=== PATIENT | female | born 1950 | race Caucasian/White ===

== ENCOUNTER 2023-01-24 09:22 | Outpatient (OUT) | payer MEDICARE, OTHER, SELFPAY ==
--- NOTE | 2023-01-24 09:22 | OP_ITS ---
Procedure Date:? 01/24/2023 ? PROCEDURE:? Treadmill exercise test under Nehemiah protocol. ? REASON FOR STRESS TEST:? To evaluate a patient with dyspnea on exertion. ? CARDIAC HISTORY:? This is a 72-year-old patient with no personal history of coronary disease.? She has a strong family history parents and siblings having coronary disease and essential hypertension. ? PRIMARY RISK FACTORS:? Include essential hypertension. ? EKG reveals sinus rhythm with a ventricular rate of 63 beats per minute. The [place] interval, QRS interval and QT interval are all within normal limits with a normal axis.? There are no pathologic Q-waves and only non-specific ST-T wave changes. ? STRESS TEST: Protocol:? Nehemiah protocol is followed. Exercise capacity:? Patient demonstrated a normal exercise capacity.? She exercised for 8 ? minutes, achieving a heart rate of 127 beats per minute, which is equivalent to 85% maximum predicted heart rate.? She exercised in the stage 3 of this protocol, which is equivalent to 10.1 MET units. Heart rate and blood pressure response:? Patient exhibited a normal heart rate and blood pressure response to exercise.? Her beginning heart rate was 64 with a blood pressure of 118/78, which gradually increased, at peak exercise to a heart rate of 127 beats per minute with a blood pressure of 164/92.? Both gradually returned to baseline during the recovery phase. EKG:? There were no ST-T wave changes during exercise. Patient response:? Patient became dyspneic without chest pain during exercise. ? IMPRESSION:? There was no objective evidence during exercise suspicious for myocardial ischemic.? Patient demonstrated normal exercise capacity with a normal heart rate and blood pressure response to exercise. Cassidy treadmill score was 7.5.? Patient in a low risk group.? Cardiolite was injected with images and interpretation pending. [facility]
--- NOTE | 2023-01-24 09:30 | XR_ITS ---
The [address] [address] Patient Name: KARLENE DOMINGO MRN: [id number] date: 1950 Sex: F Assigned Patient Location: [facility] Current Patient Location: [facility] Accession/Order Number: [id number] Exam Date: 01/24/2023 09:40 Report Date: 01/24/2023 13:15 At the request of: SULY SLAUGHTER Procedure: XR DEXA axial skeleton EXAMINATION: XR DEXA axial skeleton HISTORY: Menopause Z78.0 COMPARISON: No relevant comparison available. TECHNIQUE: Dual-energy X-ray absorptiometry (DXA) was performed. FINDINGS: SPINE ANALYSIS: Average bone mineral density is 1.045 g/cm2. T-score (standard deviation relative to young adult mean): -1.3 . HIP ANALYSIS: Lowest bone mineral density is within the right femoral neck, 0.795 g/cm2. T-score (standard deviation relative to young adult mean): -1.7 . IMPRESSION: [employer] Classification: Osteopenia - Moderate Fracture Risk Electronically authenticated by: KASSIE TATE Date: 01/24/2023 13:15
--- NOTE | 2023-01-24 10:05 | NM_ITS ---
Patient: KARLENE DOMINGO Exam Date: 01/24/2023 : 1950 Gender:F Ordering : DR SULY SLAUGHTER D.O. Admission #: [id number] Family : Order #: [id number] CLICK HERE TO VIEW EXAM RADIOLOGY REPORT PROCEDURE: NM SHARI PERF SPECT REST STR COMPARISON: None. INDICATIONS: Chest pain, hypertension, dyspnea on exertion TECHNIQUE: Exam Description: Stress/Rest two day protocol gated SPECT Rest Imagin.5 mCi Tc-99m Cardiolite IV on 01/24/2023 Stress Imaging 30.0 mCi Tc-99m Cardiolite IV on 01/24/2023 Exercise Protocol: Nehemiah Heart Rate (bpm): Rest: 64 Max: 127 PMHR: 85 Blood Pressure: Rest: 118/78 Max: 164/92 Exercise Time: Minutes: 7 Seconds: 35 Stage Reached: Stage: 3 Mets 10.1 Symptoms: Rest and peak stress ECG findings were normal and the exercise portion of the study was normal per attending physician Dr. Estrada Slaughter . For more details please see separate cardiac stress test report. FINDINGS: QUALITY OF STUDY: Excellent. PERFUSION DEFECT: None. LOCATION: N/A SIZE: N/A. SEVERITY: N/A. TYPE: N/A. WALL MOTION: Normal. LV SIZE: Normal. 47 mL. TID / TCD: None; 0.7 LVEF: Normal. Calculated EF 88%. SUMMARY: Myocardial perfusion imaging study is NORMAL. CONCLUSION: 1. Normal nuclear medicine myocardial perfusion scan. Dictated by: Juancarlos Queen M.D. on 01/24/2023 at 15:19 Approved by: Juancarlos Queen M.D. on 01/24/2023 at 15:20
== END 2023-01-24 09:23 ==
LOC: RAD 09:23
PROVIDERS: PCP Internal Medicine; Visit Provider Internal Medicine
DX: R07.2 Precordial pain (principal); I10 Essential (primary) hypertension; E78.00 Pure hypercholesterolemia, unspecified; R06.09 Other forms of dyspnea; Z78.0 Asymptomatic menopausal state; M85.80 Other specified disorders of bone density and structure, unspecified site
CPT/HCPCS: 77080; 78452; 93017; A9500

== ENCOUNTER 2023-03-15 07:24 | Outpatient (OUT) | payer MEDICARE, OTHER, SELFPAY ==
--- NOTE | 2023-03-15 | CT_ITS ---
[address] [address] Patient Name: KARLENE DOMINGO MRN: [id number] date: 1950 Sex: F Assigned Patient Location: CT Current Patient Location: CT Accession/Order Number: [id number] Exam Date: 03/15/2023 08:25 Report Date: 03/15/2023 09:08 At the request of: SULY SLAUGHTER Procedure: CT angio chest EXAM: CT angio chest HISTORY: Dyspnea on exertion, R06.09, Precordial pain, R07.2 COMPARISON: 12/26/2022 TECHNIQUE: Axial CT images were obtained of the chest with intravenous contrast during the arterial phase. Multiplanar, 3-D and MIP reconstructions were performed. CHEST FINDINGS: Lungs/Pleura: The lungs are clear. No pleural effusion or pneumothorax. Pulmonary Arteries: No evidence of pulmonary embolus. Cardiovascular: The heart is normal in size. No significant coronary artery calcifications identified. Mild scattered atherosclerotic calcification is present in the thoracic aorta. No evidence of aortic dissection or aneurysm. Pericardium: No effusion. Mediastinum: Unremarkable. Lymph Nodes: No lymph node enlargement by CT size criteria. Bones: No acute osseous abnormality. Mild multilevel degenerative changes are present in the thoracic spine. Soft tissues: Unremarkable. Upper Abdomen: Unremarkable. CT/CT angio chest IMPRESSION: 1. No acute vascular abnormality. 2. No pulmonary embolus. Electronically authenticated by: VIRGINIA YOUNG Date: 03/15/2023 09:08
[2023-03-15 07:42] LABS: Estimated GFR (African America >60 (>=60); Estimated GFR (Non-African Ame >60 (>=60)
== END 2023-03-15 07:25 | disposition home or self-care (01) ==
LOC: CT 07:24
PROVIDERS: PCP Internal Medicine; Visit Provider Internal Medicine
DX: R06.09 Other forms of dyspnea (principal); R07.2 Precordial pain
CPT/HCPCS: 36415; 71275; 82565; Q9967

== ENCOUNTER 2023-06-13 15:21 | Outpatient (OUT) | payer MEDICARE, OTHER, SELFPAY ==
--- NOTE | 2023-06-13 15:24 | MM_ITS ---
Patient: KARLENE DOMINGO Exam Date: 06/13/2023 : 1950 Gender:F Ordering : DR Hussein Rowan D.O. Admission #: [id number] Family : Order #: [id number] CLICK HERE TO VIEW EXAM RADIOLOGY REPORT PROCEDURE: MM TOMOSYNTHESIS SCREENING BI COMPARISON: MG MAMM SCREEN 3D CRISTINA CAD, 05/07/2022. MG MAMM SCREEN 3D CRISTINA CAD, 05/04/2021. MG MAMM SCREEN CRISTINA W CAD, 05/02/2020. MG MAMM CRISTINA SCRN W CAD DIG, 03/25/2013. INDICATIONS: Screening Calculator Name NCI Breast Cancer Risk Assessment Tool 5 Year Breast Cancer Risk 3.50% Lifetime Breast Cancer Risk 8.80% Personal Breast Cancer No Personal Ovarian Cancer No Treatments None Family Cancers Mother with breast cancer at age 58; Mother with lung cancer at age 85. LOCATION: [facility] BREAST COMPOSITION: Almost entirely fatty. FINDINGS: DIAGNOSTIC CATEGORY 1--NEGATIVE. RIGHT BREAST: No significant suspicious finding. No significant change has occurred. LEFT BREAST: No significant suspicious finding. No significant change has occurred. RECOMMENDATIONS: ROUTINE MAMMOGRAM AND CLINICAL EVALUATION IN 12 MONTHS. PLEASE NOTE: A NORMAL MAMMOGRAM DOES NOT EXCLUDE THE POSSIBILITY OF BREAST CANCER. A CLINICALLY SUSPICIOUS PALPABLE LUMP SHOULD BE BIOPSIED. Dictated by: Juancarlos Queen M.D. on 06/17/2023 at 14:02 Approved by: Juancarlos Queen M.D. on 06/17/2023 at 14:20
== END 2023-06-13 15:22 | disposition home or self-care (01) ==
LOC: MAMMO 15:21
PROVIDERS: PCP Internal Medicine; Visit Provider Internal Medicine
DX: Z12.31 Encounter for screening mammogram for malignant neoplasm of breast (principal); Z80.3 Family history of malignant neoplasm of breast; Z80.1 Family history of malignant neoplasm of trachea, bronchus and lung
CPT/HCPCS: 77063; 77067

== ENCOUNTER 2024-01-06 08:10 | Outpatient (OUT) | payer SELFPAY ==
--- NOTE | 2024-01-06 08:26 | CT_ITS ---
The [address] [address] Patient Name: KARLENE DOMINGO MRN: [id number] date: 1950 Sex: F Assigned Patient Location: CT Current Patient Location: LAB Accession/Order Number: [id number] Exam Date: 01/06/2024 08:35 Report Date: 01/06/2024 13:25 At the request of: SULY SLAUGHTER Procedure: CT chest wo con EXAMINATION: CT chest wo con HISTORY: Lung Nodule COMPARISON: CTA chest 03/15/2023 TECHNIQUE: Multi-planar CT images were obtained without and/or with IV contrast as indicated by examination type. Axial, Coronal, and Sagittal images. Dose reduction techniques were achieved by using automated exposure control and/or adjustment of mA and/or kV according to patient size and/or use of iterative reconstruction technique. FINDINGS: LUNGS: Numerous 3-5 mm nodules scattered throughout the lungs bilaterally. Mild emphysematous changes. PLEURA: No mass, effusion, or pneumothorax. VASCULATURE: No abnormality. CHIP: No mass or adenopathy. MEDIASTINUM: No mass or adenopathy. CARDIAC: No enlargement, pericardial thickening, or significant calcification. Coronary artery calcifications: AORTA: No aneurysm or dissection. CHEST WALL: No mass or axillary adenopathy. BONES: No bone lesion or fracture. LIMITED ABDOMEN: No suspicious findings Limited images of the upper abdomen. OTHER: Negative. CT/CT chest wo con IMPRESSION: 1. Numerous small 3-5 mm nodules scattered within the lungs; nonspecific. Consider follow-up CT chest in 6 months to document stability. These were either not present or, more likely, obscured by atelectasis/infiltrates on prior study. Electronically authenticated by: KASSIE TATE Date: 01/06/2024 13:25
--- OUTSIDE RECORDS SUMMARY | 2024-01-06 08:27 | XMS_ITS | CCD ---
Author Organization [facility] Care Team Providers Care Civil Drafter Name Role Phone Dena Davis Unavailable Hussein Rowan DO Primary Care Provider Hussein Rowan Unavailable SUKHJINDER, DR SAVAGE Admitting Unavailable BALL, DR SAVAGE Primary Care Unavailable BALL, DR SAVAGE Attending Unavailable BALL, DR SAVAGE Consulting Unavailable ZIEBER, DR KASSIE Orellana Consulting Unavailable SUKHJINDER, DR SAVAGE Primary Care Unavailable MARCIAL ., DR PETERS Attending Unavailable MARCIAL ., DR PETERS Consulting Unavailable MARCIAL ., DR PETERS Admitting Unavailable ZIEBER, DR KASSIE Orellana Consulting Unavailable CORNELIUS, JUAN LUIS Consulting Unavailable CORNELIUS, JUAN LUIS Admitting Unavailable SUKHJINDER, DR SAVAGE Primary Care Unavailable CORNELIUS, JUAN LUIS Attending Unavailable BALL, DR SAVAGE Primary Care Unavailable SUKHJINDER, DR SAVAGE Admitting Unavailable BALL, DR SAAVGE Attending Unavailable BALL, DR SAVAGE Consulting Unavailable BALL, DR SAVAGE Primary Care Unavailable BALL, DR SAVAGE Admitting Unavailable BALL, DR SAVAGE Attending Unavailable BALL, DR SAVAGE Consulting Unavailable DEREK BONILLA Consulting Unavailable MARCIAL ., DR PETERS Admitting Unavailable BALL, DR SAVAGE Primary Care Unavailable MARCIAL ., DR PETERS Attending Unavailable MARCIAL ., DR PETERS Consulting Unavailable BALL, DR SAVAGE Primary Care Unavailable MARCIAL ., DR PETERS Attending Unavailable MARCIAL ., DR PETERS Consulting Unavailable MARCIAL ., DR PETERS Admitting Unavailable SUKHJINDER, DR SAVAGE Primary Care Unavailable MARCIAL ., DR PETERS Attending Unavailable MARCIAL ., DR PETERS Consulting Unavailable MARCIAL ., DR PETERS Admitting Unavailable BRAD RIVAS Consulting Unavailable CHACHA WEI Consulting Unavailable Hussein Rowan DO Primary Care Provider Cony Lees Unavailable FRY, JIHAD Referring Unavailable BALL, HUSSEIN E Primary Care Unavailable FRY, JIHAD Referring Unavailable BALL, HUSSEIN E Primary Care Unavailable BALL, HUSSEIN E Primary Care Unavailable BALL, HUSSEIN E Primary Care Unavailable ZELDAER, TINA A Attending Unavailable HERSHNER, TINA A Referring Unavailable BALL, HUSSEIN E Primary Care Unavailable BALL, HUSSEIN E Referring Unavailable FRY, JIHAD Attending Unavailable TINA BROWN A Attending Unavailable HERSHNER, TINA A Referring Unavailable BALL, HUSSEIN E Primary Care Unavailable JUAN LUIS SHIELDS Attending Unavailable Allergies Allergy Classification Reported Allergen(s) Allergy Type Date of Onset Reaction(s) Facility (15 sources) Acetaminophen / HYDROcodone; Translations: [Vicodin] Drug Allergy 05-21-20 13 Unknown [facility] Repository (20 sources) Acetaminophen / oxyCODONE Drug Allergy 06-12-20 13 [facility] Work Phone: (12 sources) buPROPion; Translations: [Wellbutrin] Drug Allergy 07-22-20 15 Unknown [facility] Repository (14 sources) Sulf-10 Drug allergy Unknown [facility] Other (9 sources) Acetaminophen / HYDROcodone; Translations: [HYDROCODONE-ACET AMINOPHEN] Drug Allergy 05-21-20 13 [facility] (9 sources) buPROPion; Translations: [BUPROPION HCL] Drug Allergy 06-12-20 13 [facility] Work Phone: (17 sources) Sulfonamides (Antibiotic); Translations: [SULFA (SULFONAMIDE ANTIBIOTICS)] Drug Intolerance 06-12-20 13 [facility] Work Phone: (1 source) Acetaminophen / oxyCODONE Drug Allergy 05-21-20 13 [facility] Repository (3 sources) Leucine; Translations: [NICKEL] Drug Allergy 11-09-19 16 [facility] Repository (1 source) Sulfonamides (Antibiotic) Drug allergy (disorder) 05-21-20 13 [facility] Repository (8 sources) buPROPion Drug Allergy Unknown [facility] Other (13 sources) nickel Drug Allergy 02-26-20 18 [facility] (8 sources) Vicodin *ANALGESICS - OPIOID* Propensity to adverse reactions Unknown [facility] Other (5 sources) Allergies Reconciled Propensity to adverse reactions Unknown [facility] Other (2 sources) Acetaminophen / oxyCODONE; Translations: [OXYCODONE-ACETAM INOPHEN] Drug Allergy 06-12-20 [facility] Repository Medications Current Medications Medication Drug Class(es) Dates Sig (Normalized) Sig (Original) ciprofloxacin 3 mg/ml ophthalmic solution (5 sources) Quinolone Antimicrobial Start: 05-31-2023 take 1 drop(s) into the eye(s) every four hours Ciloxan 0.3 % 1 drop right eye every 4 hrs for 5 days May, Active Cosopt 22.3-6.8 MG/ML (2 sources) take 1 drop(s) into the eye(s) twice daily Cosopt 22.3-6.8 MG/ML 1 drop into affected eye Ophthalmic Twice a day Active iv contrast (will be provided with radiology test) (1 source) Start: 06-11-2023 End: 06-12-2023 inject 1 dose intravenously once iv contrast (will be provided with radiology test) CTA Coronary. No IV access, insert saline lock prior to the sedation, infusion, injection for imaging exam. Discontinue saline lock post exam. If Pt. has a central line or IVAD, may access for administration according to line specific nursing protocol. Once exam is complete flush line and de-access according to line specific nursing protocol in the CT contrast administration guidelines link. 1 Each 0 06/11/2023 06/12/2023 Active Comment on above: CTA Coronary. No IV access, insert saline lock prior to the sedation, infusion, injection for imaging exam. Discontinue saline lock post exam. If Pt. has a central line or IVAD, may access for administration according to line specific nursing protocol. Once exam is complete flush line and de-access according to line specific nursing protocol in the CT contrast administration guidelines link. metFORMIN hydrochloride 500 mg oral tablet (13 sources) Biguanide Start: 12-26-2022 take 1 tablet by mouth every twenty-four hours metFORMIN HCl 500 MG 1 tablet with a meal Orally Once a day for 30 days December, Active Thyroid (1 source) Thyroid Active Completed/Discontinued Medications Medication Drug Class(es) Dates Sig (Normalized) Sig (Original) amoxicillin 500 mg oral capsule (5 sources) Penicillin-class Antibacterial Amoxicillin 500 MG Oral for 10 Days Not-Taking/PRN chlorhexidine gluconate 1.2 mg/ml mouthwash (5 sources) Chlorhexidine Gluconate 0.12 % Mouth/Throat for 16 Days Not-Taking/PRN Chlorhexidine Gl uconate 0.12 % Mouth/Throat for 16 Days Not-Taking dorzolamide 20 mg/ml / timolol 5 mg/ml ophthalmic solution (14 sources) Carbonic Anhydrase Inhibitor, beta-Adrenergic Meenu Start: 11-12-2023 take 1 drop(s) into the eye(s) twice daily dorzolamide-timolol (COSOPT) 22.3-6.8 mg/mL ophthalmic solution Use 1 Drop in both eyes two times a day. 30 mL 4 11/12/2023 Active Start: 10-16-2021 End: 11-12-2023 take 1 drop(s) into the eye(s) twice daily dorzolamide-timolol (COSOPT) 22.3-6.8 mg/mL ophthalmic solution INSTILL 1 DROP INTO BOTH EYES TWICE A DAY 20 mL 4 11/12/2022 11/12/2023 Discontinued Dorzolamide HCl- Timolol Mal 22.3-6.8 MG/ML Ophthalmic for 90 Days Not-Taking Comment on above: Use 1 Drop in both e yes twice daily. INSTILL 1 DROP INTO BOTH EYES TWICE A DAY Use 1 Drop in both e yes two times a day. Dorzolamide HCl-Timolol Mal 22.3-6.8 MG/ML (2 sources) Dorzolamide HCl- Timolol Mal 22.3-6.8 MG/ML Ophthalmic for 90 Days Not-Taking/PRN Dorzolamide HCl- Timolol Mal 22.3-6.8 MG/ML Ophthalmic for 90 Days Not-Taking evening primrose oil 500 mg oral capsule (7 sources) Start: 06-12-2013 take 1 capsule by mouth once daily Evening [place] Oil (EVENING PRIMROSE) 500 mg cap Take 1 capsule by mouth once daily. 0 06/12/2013 Active Comment on above: Take 1 capsule by [facility] once daily. levothyroxine sodium 0.025 mg oral tablet (20 sources) l-Thyroxine take 1 tablet by mouth once daily before breakfast levothyroxine (SYNTHROID) 25 mcg tablet Take 25 mcg by mouth daily before breakfast. 0 Active take 1 tablet by mouth once lazaro y Levothyroxine Sodium 25 MCG TAKE 1 TABLET BY MOUTH EVERYDAY ON AN EMPTY STOMACH for 90 Active Comment on above: Take 25 mcg by mouth daily before breakfast. linseed oil 1000 mg oral capsule (7 sources) Start: 06-12-20 13 take 1 capsule by mouth once daily Flaxseed Oil 1,000 mg cap Take 1 capsule by mouth once daily. 0 06/12/2013 Active Comment on above: Take 1 capsule by [facility] once daily. losartan potassium 25 mg oral tablet (20 sources) Angiotensin 2 Receptor Meenu take 1 tablet by mouth once daily losartan (COZAAR) 25 mg tablet Take 25 mg by mouth once daily. 0 Active Comment on above: Take 25 mg by mouth once daily. metoprolol tartrate 50 mg oral tablet (5 sources) beta-Adrenergic Meenu Start: 06-11-20 23 metoprolol tartrate, short acting, (LOPRESSOR) 50 mg tablet Take one 50 mg tablet the evening prior to the CTA examination, take another 50 mg tablet the morning of the CTA examination. 2 tablet 0 06/11/2023 Active Comment on above: Take one 50 mg table t the evening prior to the CTA examination, take another 50 mg tablet the morning of the CTA examination. nitroglycerin 0.3 mg sublingual tablet (5 sources) Nitrate Vasodilator Start: 06-11-20 23 take 1 tablet under the tongue once nitroglycerin sublingual (NITROQUICK) 0.3 mg SL tablet Dissolve 1 tablet under the tongue one time only for 1 dose. To be administered in Radiology for CTA exam 1 tablet 0 06/11/2023 Active Comment on above: Dissolve 1 tablet un jose f the tongue one time only for 1 dose. To be administered in Radiology for CTA exam omega-3 fatty acids 1,000 mg cap (7 sources) Start: 06-12-20 13 take 1 capsule by mouth once daily omega-3 fatty acids 1,000 mg cap Take 1 capsule by mouth once daily. 0 06/12/2013 Active Comment on above: Take 1 capsule by [facility] once daily. prednisoLONE acetate 10 mg/ml ophthalmic suspension (1 source) Corticosteroid Start: 11-30-19 21 End: 04-10-20 22 take 1 drop(s) into the eye(s) every two hours, then take 1 drop(s) into the eye(s) four times daily prednisoLONE acetate (PRED FORTE, ECONOPRED PLUS) 1 % ophthalmic suspension Use 1 Drop in the right eye every [address] one drop in operative eye four times a day. 1 11/29/2020 04/10/2022 Discontinued Comment on above: Use 1 Drop in the ri ght eye every [address] one drop in operative eye four times a day. predniSONE 20 mg oral tablet (5 sources) predniSONE 20 MG Oral for 9 Days Not-Taking/PRN Problems Active Problems Problem Classification Problem Date Documented Date Episodic/Chronic Allergic reactions (13 sources) Allergic contact dermatitis due to plants, except food; Translations: [Allergic contact dermatitis due to plants, except food] Episodic Calculus of urinary tract (14 sources) History of calculus of kidney; Translations: [Personal history of urinary calculi] Onset: 2 Episodic Cataract (8 sources) Pseudophakia of left eye; Translations: [Presence of intraocular lens] Onset: 7 02-12-2017 Chronic Disorders of lipid metabolism (20 sources) Hypercholesterolemia; Translations: [Pure hypercholesterolemia, unspecified] Onset: 3 Chronic Essential hypertension (20 sources) Essential hypertension; Translations: [Essential (primary) hypertension] Onset: 3 Chronic Glaucoma (9 sources) Bilateral low tension glaucoma of eyes; Translations: [Low-tension glaucoma, bilateral, stage unspecified] Onset: 4 Chronic Malaise and fatigue (2 sources) Other fatigue; Translations: [OTHER FATIGUE] Onset: 3 Episodic Menopausal disorders (18 sources) Postmenopausal bleeding; Translations: [Postmenopausal bleeding] Onset: 2 Chronic Osteoarthritis (1 source) Unilateral primary osteoarthritis, left knee; Translations: [UNI PRIM OSTEOARTHRITIS LT KNEE] Onset: 2 Chronic Other aftercare (1 source) Other termite technician (current) drug therapy Episodic Other eye disorders (7 sources) Posterior vitreous detachment; Translations: [Vitreous degeneration, unspecified eye] Onset: 7 02-12-2017 Chronic Other lower respiratory disease (10 sources) Other forms of dyspnea; Translations: [OTHER FORMS OF DYSPNEA] Onset: 3 Episodic Other lower respiratory disease (8 sources) Dyspnea on exertion; Translations: [Other forms of dyspnea] Episodic Other lower respiratory disease (1 source) Shortness of breath; Translations: [SOB (shortness of breath)] Onset: 3 Episodic Other lower respiratory disease (3 sources) Nodule of lung; Translations: [Solitary pulmonary nodule] 07-22-2023 Episodic Other lower respiratory disease (1 source) Solitary pulmonary nodule Episod ic Other nutritional; endocrine; and metabolic disorders (13 sources) Metabolic syndrome X; Translations: [Metabolic syndrome] Chronic Other nutritional; endocrine; and metabolic disorders (1 source) Metabolic syndrome Chronic Other screening for suspected conditions (not mental disorders or infectious disease) (1 source) Abnormal findings on diagnostic imaging of other specified body structures; Translations: [ABNORML FIND DX IMG OTH BODY STRUC] Onset: 2 Chronic Other screening for suspected conditions (not mental disorders or infectious disease) (18 sources) Blood chemistry abnormal; Translations: [Other specified abnormal findings of blood chemistry] Onset: 2 Episodic Other skin disorders (13 sources) Alopecia; Translations: [Nonscarring hair loss, unspecified] Episodic Residual codes; unclassified (1 source) Asymptomatic menopausal state Episodic Superficial injury; contusion (1 source) Injury of conjunctiva and corneal abrasion without foreign body, right eye, initial encounter Episodic Systemic lupus erythematosus and connective tissue disorders (9 sources) Keratoconjunctivitis sicca; 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] Onset: 7 Chronic Thyroid disorders (20 sources) Hypothyroidism; Translations: [Other specified hypothyroidism] Onset: 1 11-22-2020 Chronic Unclassified (1 source) CONTACT W/AND (SUSP) EXPOS COVID-19; Translations: [CONTACT W/AND (SUSP) EXPOS COVID-19] Onset: 2 Urinary tract infections (13 sources) Cystitis; Translations: [Cystitis, unspecified without hematuria] Episodic Past or Other Problems Problem Classification Problem Date Documented Date Episodic/Chronic Mycoses (4 sources) Tinea unguium; Translations: [TINEA UNGUIUM] Onset: 01-18-2022 Episodic Nonspecific chest pain (10 sources) Precordial pain; Translations: [Chest discomfort] Onset: 06-11-2023 Episodic Other injuries and conditions due to external causes (1 source) Unspecified injury of right lower leg, initial encounter Onset: 10-16-2021 Resolved: 10-16-2021 Episodic Other lower respiratory disease (7 sources) Dyspnea; Translations: [Shortness of breath] Onset: 06-11-2023 06-11-2023 Episodic Residual codes; unclassified (8 sources) History of construction of filtration bleb; Translations: [Other specified postprocedural states] Onset: 02-12-2017 Episodic Residual codes; unclassified (1 source) Family history of malignant neoplasm of breast; Translations: [FAMILY HX MALIG NEOPLASM OF BREAST] Onset: 05-09-2022 Episodic Residual codes; unclassified (1 source) Family history of malignant neoplasm of trachea, bronchus and lung; Translations: [FAM HX MALIG NEOPLSM TRACH BRON LNG] Onset: 05-09-2022 Episodic Results Test Name Value Interpretation Reference Range Facility CTA CORONARY W IVCONon 07-05 CTA CORONARY W IVCON * * *Final Report* * * DATE OF EXAM: Jul 05 2023 3:04PM [facility] 0470 - CTA CORONARY W IVCON / PROCEDURE REASON: multiple diagnoses * * * * Physician Interpretation * * * * CTA CORONARY ARTERIES acquired at [facility] - images were acquired and screened for acute findings earlier. Subsequently reported following overnight procedure. Direct Image Comparison: None HISTORY: 72 years old Female patient with chronic h/o chest pain, suspected CAD Evaluation for further treatment options.. There is request to define coronary anatomy. TECHNIQUE: SCANNER: Siemens Definition Flash Dual source [id number] scanner PROTOCOL: Sequential imaging of the heart with prospective triggering in diastolic phase and submillimeter slice reconstruction following administration of contrast material. Scan Range: carlos a to the base of the heart CT Dose-Length Product (DLP): 265 mGy*cm CT Dose Reduction Employed: Automated exposure control(AEC) and iterative recon CONTRAST: IV administration of 90 ml Omnipaque 350 Premedication per [facility] protocol/documentation. Scan acquisition: uncomplicated Macro Version: [id number] For optimization of anatomic evaluation, advanced 3-D off-line postprocessing was performed on a dedicated workstation by the interpreting physician. Additional lung CAD. [place] images reconstructed, saved, and available in EPIC 'Get Images'. STUDY LIMITATIONS: Limited contrast enhancement of the right sided cardiac chambers and pulmonary artery. RESULT: LINES, TUBES and DEVICES: None limited CHEST: visualized Chest wall anatomy: unremarkable. visualized LUNGS: non-calcified 7 mm nodule right lower lung lobe (Image # 20) (see saved images). Follow-up recommendations: see Impression visualized MEDIASTINUM: unremarkable. PERICARDIUM: unremarkable CENTRAL PULMONARY ARTERY: incompletely visualized CARDIAC CHAMBERS: LEFT VENTRICLE: normal size. Right ventricle: normal size Left atrium: normal size. SANDEEP: normal Right atrium: normal size CENTRAL VENOUS and PULMONARY VENOUS RETURN: normal. Coronary Sinus: normal size MITRAL and TRICUSPID VALVE: assessment is limited in the current study - no leaflet calcification. No annular calcification PULMONIC VALVE: assessment is limited in the current study. No leaflet calcification AORTIC VALVE: appears trileaflet. No leaflet calcification. visualized AORTA: Size: Normal size visualized thoracic aorta. Pathology: No aortic pathology in limited visualized segments of the aorta, Intervention: None Complications: n/a STJ: maintained Wall Changes: no evidence of wall changes. AORTIC DIMENSIONS: AORTIC ROOT: 3 cm measured [id number] mid ASCENDING THORACIC AORTA: 3.2 cm mid DESCENDING THORACIC AORTA: 2.8 cm CORONARY ANATOMY: normal origin of the coronary arteries. Direct epicardial course of the mid LAD without intramyocardial extension. LEFT MAIN Coronary Artery: Normal sized vessel, which LM Stenosis and Plaque: No plaque or luminal stenosis. LAD (Left Anterior Descending Coronary Artery): Normal size vessel, which wraps around the apex. Direct epicardial course of tortuous mid LAD segment without intramyocardial extension. Gives rise to diagonal branches and small septal branches. LAD Stenosis and Plaque: No plaque or luminal stenosis. LCX (Left Circumflex Coronary Artery): Normal size vessel, which is . Gives rise to a high-lateral branch, lateral branch, and a posterolateral branch. LCX Stenosis and Plaque: No plaque or luminal stenosis. Distal branches are not well visualized RCA (Right Coronary Artery): Normal size vessel, which is non-dominant. Gives rise to a conus branch, SA roscoe branch, acute marginal branch. In its distal segment it bifurcates into the PDA and PV branch. RCA Stenosis and Plaque: No plaque or luminal stenosis. limited upper ABDOMEN: unremarkable Human Resource Manager (topogram) images: No additional findings. IMPRESSION: NO EVIDENCE OF ATHEROSCLEROTIC CHANGES OR LUMINAL STENOSIS OF THE CORONARY ARTERIES -Direct epicardial course of tortuous mid LAD segment without intramyocardial extension. -Distal branches are not well visualized CAD-RADS 0: No plaque or luminal stenosis. Absence of CAD., - Overall Plaque [place]: No evidence of plaque visualized LUNGS: non-calcified 7 mm nodule right lower lung lobe (Image # 20) (see saved images) Incidental Finding: Follow-up Acuity: Incidental Finding: Solid: 6-8 mm (solitary nodule) Routing Code: RI_1 Recommendation: CT Chest WO IVCON Time Frame: 6-12 months Comments: If stable on follow-up imaging, a repeat chest CT exam in 12 months (18-24 months from the initial exam) is recommended --END OF FINDING-- COMMUNICATION:? Results will be communicated with the ordering provider via [employer] staff message by [facility] Services within 2 business days of report finalization. Acoustic Intelligence Specialist: RUSTAM Transcribe (more content not included)... Invalid Interpretation Code [facility] NURSING PROGon 07-05-2023 NURSING PROG HNO ID: [id number] Author: Priscila Reyes RN Service: Radiology Author Type: Registered Nurse Type: Nursing Progress Note Filed: 07/05/2023 2:48 PM Note Text: Radiology Service Progress Note PATIENT NAME: Corrie Mccray DATE OF SERVICE: July 05, 2023 TIME: 2:45 PM PATIENT IDENTITY VERIFICATION COMPLETED USING TWO (2) STANDARD IDENTIFIERS: Name and Date of confirmed by patient verbally. PATIENT GENDER DATA: Female. status: : No status: NO. PATIENT RELEVANT IMPLANT DATA REVIEWED: Not Applicable ALLERGIES: Reviewed and unchanged MEDICATIONS REVIEWED: YES PROCEDURE TYPE: CT: NTG SL PATIENT SCREENING: Shortness of breath IV SITE: Ambulatory: A peripheral IV was started in the Right antecubital site with a Angio cath: 20 gauge. IV started by Debbie Malloy RN PERIPHERAL IV ACCESS: Discontinued CARDIAC MEDICATIONS: Nitroglycerin 0.3 mg SL given PATIENT DISCHARGED TO: Home/Self Care SIGNED BY: Priscila Reyes RN July 05, 2023 2:45 PM Normal [facility] NURSING PROG HNO ID: [id number] Author: Priscila Reyes RN Service: Radiology Author Type: Registered Nurse Type: Nursing Progress Note Filed: 07/05/2023 2:50 PM Note Text: Radiology Service Progress Note DATE OF SERVICE: July 05, 2023 TIME: 2:48 PM PATIENT WEIGHT: 144 LBS PATIENT IDENTITY VERIFICATION COMPLETED USING TWO (2) STANDARD IDENTIFIERS: Name and Date of confirmed by patient verbally. FALL SCREENING: Has the patient had 2 falls in the last year or 1 fall with injury or currently using an Ambulatory Assistive Device (Walker, Cane, Wheelchair, Crutches, etc.)? No PATIENT GENDER DATA: Female. status: : No status: NO. ALLERGIES: Reviewed and unchanged CONTRAST ALLERGY: No EXAM: CT -CONTRAST INDUCED NEPHROPATHY RISK FACTORS: Patient age > 60 years CREATININE: No results found for: CREAT , EGFROTH , EGFRAA P.O.C.T. RESULTS: POC done: Yes, See Lab Tab July 05, 2023 iStat Cr 0.9 GFR calc 91 TREATMENT: N/A IV SITE: Ambulatory: A peripheral IV was started in the Right antecubital site with a Angio cath: 20 gauge. Iv Started by Debbie Angeles RN IV SITE APPEARANCE: Clean,Dry and Intact SIGNATURE: Priscila Reyes RN PATIENT NAME: Corrie Badillo Mccray DATE: July 05, 2023 TIME: 2:48 PM [facility] SPIROMETRY WITH DILATOR IF O BSTRUCTEDon 07-05-2023 OLR24-31% PRE (L/S) 1.83 L/S [facility] FEV1 PRE (L) 2.23 L [facility] FEV1/FVC PRE (%) 76 % [facility] FVC PRE (L) 2.93 L [facility] PEF PRE (L/S) 6.37 L/S [facility] CNOVon 06-11-2023 CNOV Office Visit ([facility] ) -------- CORRIE MCCRAY ([id number]) 1950 F Date Time Provider Department 06/11/23 11:30 AM ZAIRE FRY During your visit today, we recorded the following information about you: Pulse Blood pressure Weight Height 76/minute 110/70 65.3 kg 1.575 m Zaire Fry MD 06/11/2023 11:43 AM Signed [facility] [facility] OUTPATIENT VISIT DATE June 11, 2023 OUTPATIENT VISIT TYPE NEW PRIMARY CARE PHYSICIAN: Hussein Rowan ([facility]) [address] [place] [address] A written report of the findings and recommendations will be sent to the requesting provider via shared medical record or via [employer]. Patient is being seen at the request of the referring physician for Chest pain, Hyperlipidemia, and Shortness of breath HISTORY OF PRESENT ILLNESS: Ms. Mccray is a 72 year old female with a history of hypertension, hypercholesterolemia however with high HDL and normal LDL to HDL ratio. Hypothyroidism. No history of diabetes. No family history of premature coronary disease or sudden cardiac . Cardiovascular work-up includes: An echocardiogram done in 2022 showed ejection fraction 60 to 65%. Mild MR TR. A CTA of the chest done on 01/01 2023 showed no pulmonary embolus. A nuclear stress test done on 01/24/2023 showed no ischemia. Normal perfusion scan. Normal EF. Continues to have chest discomfort on activity. She mentioned that she gets like a tight band around her chest when she is walking her son's dog. Also she has been having significant shortness of breath especially if she goes 1 flight of stairs. She denies any orthopnea or PND. No syncope near syncope. No lightheadedness or dizziness. No weight gain or loss. No leg edema. No other symptoms or complaints. IMPRESSION: Encounter Diagnosis ICD-10-CM 1. Chest discomfort R07.89 ECG COMPLETE CTA CORONARY W IVCON CREATININE BLD 2. SOB (shortness of breath) R06.02 ECG COMPLETE SPIROMETRY WITH DILATOR IF OBSTRUCTED CTA CORONARY W IVCON CREATININE BLD 3. Pure hypercholesterolemia E78.00 ECG COMPLETE CTA CORONARY W IVCON 4. Primary hypertension I10 CTA CORONARY W IVCON PLAN AND RECOMMENDATIONS: Chest discomfort Suggestive of angina along with a few risk factors of coronary artery disease however negative ischemic work-up. Continues to have typical symptoms so I will proceed with a CTA of the coronary arteries since the patient actually is very healthy despite the fact that she is 72 years old. Also I explained to her that there could be microvascular disease so we can always change her blood pressure medicine to a beta-meenu and a small dose of nitrates that can help with her symptoms. Shortness of breath Could be anginal equivalent. However she never had any lung testing so I will ask for PFTs. Hypertension Very well controlled by current management. However see #1 for possible changes of medications. Hypercholesterolemia Even though her LDL is 140 however her HDL is 67 and the ratio is excellent. So far her needs only diet options and no therapy. REVIEW OF SYSTEMS: Chest pain Yes Shortness of breath Yes Bleeding No Dizziness No Syncope No Palpations No 10 systems reviewed and are negative with the exception of pertinent positives described in HPI PHYSICAL EXAMINATION: BP 110/70 (BP Site: Left Arm, BP Position: Sitting, BP Cuff Size: Regular Adult) Pulse 76 Ht 157.5 cm (5' 2 ) Wt 65.3 kg (144 lb) SpO2 98% BMI 26.34 kg/m? HEENT: normocephalic, EOMI Heart: regular rhythm Lungs: clear to auscultation Abdomen: bowel sounds present Extremities: no edema Musculoskeletal: chest wall nontender Neurological: alert and oriented Psychiatric: appropriate and cooperative Skin: no rash, cellulitis or lesions appreciated CARDIOVASCULAR MEDICINE TESTING: I have personally reviewed ECG, laboratory results, outside medical records, echocardiogram report, stress test report, and vascular imaging report PAST CARDIAC HISTORY: See above. 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, moderate stage Pseudophakia of left eye PVD (posterior vitreous detachment), bilateral PAST SURGICAL HISTORY Procedure Laterality Date COLONOSCOPY FLX DX W/COLLJ SPEC WHEN PFRMD 02 Colonoscopy FSTLJ SCLERA GLAUCOMA TRABECULECT AB EXTERNO Right Trabeculectomy LAPS ABD PRTMANDOMENTUM DX W/WO SPEC BR/WA SPX 81 Laparoscopy LITHOTRIPSY XTRCORP SHOCK WAVE 2012 Lithotripsy NEUROPLASTY AND/TRANSPOS MEDIAN NRV CARPAL TUNNE 2007 Carpal tunnel decomp POST-CATARACT LASER SURGERY 03-05-14 Yag Capsulotomy left eye PUBOVAGINAL SLING TONSILLECTOMY AND ADENOIDECTOMY XCAPSL CTRC RMVL INSJ IO LENS PROSTH W/O ECP 2010 os Catarac (more content not included)... Normal [facility] ECG COMPLETEon 06-11-2023 ECG COMPLETE Ventricular Rate : 7 4 BPM Atrial Rate : 74 BPM P-R Interval : 148 ms QRS Duration : 72 ms Q-T Interval : 390 ms QTC Calculation(Bazett) : 432 ms Calculated P Asbury : -2 degrees Calculated R Asbury : 7 degrees Calculated T Asbury : -4 degrees NORMAL SINUS RHYTHM NONSPECIFIC ST AND T WAVE ABNORMALITY ABNORMAL ECG Confirmed by GREGG MULLEN MD ([id number]) on 06/14/2023 11:22:04 PM NAME : CORRIE MCCRAY PID : [id number] : 1950 Gender : Female Race : Unknown ORD : [id number] Procedure Date : Jun 11 2023 11:26:41 Edit Date : Jun 14 2023 23:22:08 Diagnosis: NORMAL SINUS RHYTHM NONSPECIFIC ST AND T WAVE ABNORMALITY ABNORMAL ECG Confirmed by GREGG MULLEN MD ([id number]) on 06/14/2023 11:22:04 PM Test Reason : R07.89 Chest discomfort Location : 145 : LOCARD Overread By : GREGG MULLEN MD Edited By : GREGG MULLEN MD Referred By : HUSSEIN ROWAN Acquired by : Elva wilson [facility] Yeny 03-25-2023 CNPN Telephone (REFPHY) -------- CORRIE MCCRAY ([id number]) 1950 F Date Time Provider Department 03/25/23 NO ONE (HISTORICAL) REFPHY During your visit today, we recorded the following information about you: [place] 03/25/2023 4:48 PM Signed Patient: Corrie Mccray Date of : 1950 Patient phone number: [phone] Referring Provider for the encounter: Hussein Rowan Requesting Provider: n/c Reason for requesting visit (RFV/signs and symptoms/diagnosis): Precordial pain (R07.2) Person calling: caregiver: Chica Return call to: self Medical Records/Insurance Card scanned into [employer]: Yes Comments: Allergies As of Date: 03/25/2023 Noted Allergy Reaction HYDROCODONE-ACETAMINOPHE N 05/21/2013 16 - Unknown PERCOCET (OXYCODONE-ACETAMINOPHEN )06/12/2013 8 - GI Upset SULFA (SULFONAMIDE ANTIBIOTICS) 06/12/2013 8 - GI Upset WELLBUTRIN (BUPROPION HCL) 06/12/2013 2 - Rash Date Reviewed: 10/12/2022 Reviewed by: Tina Brown OD - Fully Assessed Reason for Visit: External Referrals/resources [909] Prescriptions as of 03/25/2023 - dorzolamide-timolol (COSOPT) 22.3-6.8 mg/mL ophthalmic solution INSTILL 1 DROP INTO BOTH EYES TWICE A DAY - losartan (COZAAR) 25 mg tablet - levothyroxine (SYNTHROID) 25 mcg tablet Take 25 mcg by mouth daily before breakfast. - FLUAD QUAD 2020-21,65Y UP,,PF, 60 mcg (15 mcg x 4)/0.5 mL syrg PHARMACY ADMINISTERED - omega-3 fatty acids 1,000 mg cap Take 1 capsule by mouth once daily. - Evening [place] Oil (EVENING PRIMROSE) 500 mg cap Take 1 capsule by mouth once daily. - Flaxseed Oil 1,000 mg cap Take 1 capsule by mouth once daily. 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 ECHOCARDIO M/2D COMPLETEon 0 12-31-2022 ECHOCARDIO M/2D COMPLETE Patient: CORRIE MCCRAY Exam Date: 12/31/2022 : 1950 Gender:F Ordering : DR HUSSEIN ROWAN D.O. Admission #: [id number] Family : Order #: [id number] CLICK HERE TO VIEW EXAM ECHOCARDIOGRAM REPORT PROCEDURE: CARDIO PULMONARY ECHOCARDIO M/2D COMP INDICATIONS: KHAN COMPARISON: None. DESCRIPTION: COMPLETE ECHOCARDIOGRAM Real-time transthoracic echocardiography with 2D, M-mode, spectral and color flow Doppler performed. QUALITY: Technical quality was good. LEFT VENTRICLE: Normal chamber size. Normal left ventricular wall thickness. Global left ventricular systolic function is normal. LV EF: Calculated left ventricular ejection fraction is 63%. DIASTOLIC: Normal diastolic function. ATRIAL SEPTUM: LEFT ATRIUM: Normal chamber size. RIGHT ATRIUM: Normal chamber size ion. RIGHT VENTRICLE: Normal chamber size. Normal right ventricular systolic function. TRICUSPID VALVE: Normal mobility an normal diastolic function d thickness. No stenosis with mild regurgitation. No evidence of pulmonary hypertension. RVSP 25 mmHg MITRAL VALVE: Normal mobility and thickness. No mitral valve prolapse. No evidence of mitral valve stenosis. There is no mitral annular calcification. Mild mitral regurgitation. AORTIC VALVE: Normal trileaflet appearance. No visible sclerosis. Normal leaflet mobility. No evidence of aortic valve stenosis. No aortic regurgitation. AORTIC ROOT: Normal diameter and appearance. PULMONIC VALVE: Normal thickness and mobility. No stenosis. No regurgitation. PERICARDIUM: No evidence of pericardial effusion. IVC: Collapses with inspirations. Normal size. PLEURA: CONCLUSION: 1. Normal ventricular function. LVEF is 60 to 65%. 2. Mild mitral and tricuspid regurgitation. 3. Normal right-sided pressures. 4. No pericardial effusion. Adult Echocardiography Procedure Report Left Ventricle LVEDD (3.7 - 5.6 cm): 4.61 cm LVESD (2.2 - 4.0 cm): 2.78 cm LVIVS thickness (0.6 - 1.2 cm): 0.90 cm LVPW thickness (0.5 - 1.0 cm): 0.73 cm e': 0.09 m/s E - e': 5.19 LVOT Max Gradient: 2.92 mm[Hg] Peak Velocity (LVOT): 0.85 m/s Mean Velocity (LVOT): 0.55 m/s LVOT Diameter 2.05 cm Left Ventricular Ejection Fraction: 60-65 % Left Atrium LA Volume Index (2D A2C): 55.34 ml, 55.34 ml Left Atrium Systolic Dimension: 3.62 cm Mitral Valve MV E to A Ratio: 0.61 Mitral Valve A-Wave Peak Velocity: 0.79 m/s Mitral Valve E-Wave Peak Velocity: 0.48 m/s Right Ventricle RV Internal Diastolic Dimension: 2.52 cm Aorta AO Root Diam: 2.49 cm Ascending Ao Diam: 2.75 cm Aortic Valve AoV Area (Peak Eric): 2.59 cm2, 2.59 cm2 AoV Area (VTI): 2.38 cm2, 2.38 cm2 Peak Velocity(Antegrade Flow): 1.09 m/s Peak Gradient(Antegrade Flow): 4.78 mm[Hg] Mean Velocity(Antegrade Flow): 0.72 m/s Mean Gradient(Antegrade Flow): 2.44 mm[Hg] Velocity Time Integral: 24.81 cm Tricuspid Valve Peak Velocity (Regurgitant Flow): 2.34 m/s, 2.38 m/s, 2.31 m/s Peak Velocity: 0.44 m/s Pulmonic Valve Mean Gradient: 1.98 mm[Hg], 1.76 mm[Hg] Mean Velocity: 0.64 m/s, 0.62 m/s Peak Velocity: 1.03 m/s, 0.93 m/s Peak Gradient: 4.25 mm[Hg], 3.48 mm[Hg] Right Atrium Right Atrium Systolic Pressure: 37.12 ml, 37.12 ml Dictated by: Yusuf Puente M.D. on 01/01/2023 at 19:39 Approved by: Yusuf Puente M.D. on 01/01/2023 at 19:41 Normal [facility] CBC AUTO DIFFon 12-26-2022 BASO # 0.0 103/ul Normal 0.0-0.1 [facility] Comment on above: Performed By: #### CBC ####[facility] [id number] [place] [address]Dr. Vicki Bates Basophils/100 WBC (Bld) 1.0 % Normal 0.2-2.0 [facility] Comment on above: Performed By: #### CBC ####[facility] [address] [place] [address]Dr. Vicki Bates EO # 0.1 103/ul Normal 0.0-0.7 [facility] Comment on above: Performed By: #### CBC ####[facility] F[address]qrxjzqa[address] [place] [address]Dr. Vicki Bates Eosinophils/100 WBC (Bld) 1.5 % Normal 0.9-7.0 [facility] Comment on above: Performed By: #### CBC ####[facility] [address]te[address] [place] [address]Dr. Vicki Bates Erythrocyte distribution width (RBC) [Ratio] 11.9 % Normal 11.0-15.0 [facility] Comment on above: Performed By: #### CBC ####[facility] [address] [place], [place] [address]Dr. Vicki Bates Hematocrit (Bld) [Volume fraction] 43.5 % Normal 36.0-48.0 [facility] Comment on above: Performed By: #### CBC ####[facility] Yxnsgotedb[address] [place] [address]Dr. Vicki Bates Hemoglobin (Bld) [Mass/Vol] 14.4 g/dL Normal 12.0-16.0 [facility] Comment on above: Performed By: #### CBC ####[facility] [address] [place], [place] [address]Dr. Vicki Bates IG # 0.01 10e3/ul Normal 0.00-0.03 [facility] Comment on above: Performed By: #### CBC ####[facility] ital [address]lpfcr[address] [place] [address]DrЕкатерина Vicki Bates IG % 0.3 % Normal 0.0-0.5 [facility] Comment on above: Performed By: #### CBC ####[facility] ital [address]nfplnjwsv[address] [place] [address]DrЕкатерина Vicki Bates LYMPH # 1.8 103/ul Normal 1.2-3.8 [facility] Comment on above: Performed By: #### CBC ####[facility] ital Rqcqiggtxl[address] [place] [address]DrЕкатерина Vicki Bates Lymphocytes/100 WBC (Bld) 44.6 % Normal 20.5-60.0 [facility] Comment on above: Performed By: #### CBC ####[facility] ital Jwqqpwbjyz[address] [place] [address]DrЕкатерина Vicki Bates MANUAL DIFF REQ NO Normal [facility] Comment on above: Performed By: #### CBC ####[facility] [address]klfk[address] [place] [address]DrЕкатерина Vicki Bates MCH (RBC) [Entitic mass] 31.1 pg Normal 26.7-34.0 [facility] Comment on above: Performed By: #### CBC ####[facility] [address]fcern[address] [place] [address]DrЕкатерина Vicki Bates MCHC (RBC) [Mass/Vol] 33.1 g/dL Normal 29.9-35.2 [facility] Comment on above: Performed By: #### CBC ####[facility] ital Nnosadfdbe[address] [place] [address]DrЕкатерина Vicki Bates MCV (RBC) [Entitic vol] 94.0 fL Normal 81.0-99.0 [facility] Comment on above: Performed By: #### CBC ####[facility] ital [address]ateqpb[address] [place] [address]DrЕкатерина Vicki Bates MONO # 0.4 103/ul Normal 0.3-0.8 [facility] Comment on above: Performed By: #### CBC ####[facility] ital Sswuihdisl[address] [place] [address]Dr. Vicki Bates Monocytes/100 WBC (Bld) 9.0 % Normal 1.7-12.0 [facility] Comment on above: Performed By: #### CBC ####[facility] [address]fabyfl[address] [place] [address]Dr. Vicki Bates NEUT # 1.7 103/ul Normal 1.4-6.5 [facility] Comment on above: Performed By: #### CBC ####[facility] ital Dctswasihm[address] [place] [address]Dr. Vicki Bates Neutrophils/100 WBC (Bld) 43.6 % Normal 43.0-75.0 [facility] Comment on above: Performed By: #### CBC ####[facility] ital Yvedwxwsid[address] [place] [address]Dr. Vicki Bates Platelet mean volume (Bld) [Entitic vol] 9.1 fL Critically low 9.5-13.5 [facility] Comment on above: Performed By: #### CBC ####[facility] ital [address]irdtv[address] [place] [address]Dr. Vicki Bates PLT 242 103/ul Normal 150-450 [facility] Comment on above: Performed By: #### CBC ####[facility] ital Ljehacolym[address] [place] [address]Dr. Vicki Bates RBC 4.63 106/ul Normal 4.20-5.40 [facility] Comment on above: Performed By: #### CBC ####[facility] ital Dmwocdsyqx[address] [place] [address]Dr. Vicki Bates WBC 4.0 103/ul Normal 4.0-11.0 [facility] Comment on above: Performed By: #### CBC ####[facility] ital [address]vvhciyr[address] [place] [address]Dr. Vicki Bates LIPID PROFILEon 12-26-2022 CHOL-HDL RATIO NORM SEE BELOW Normal [facility] Comment on above: Result Comment: 3.3 - 4.4 LOW RISK 4.4 - 7.1 AVERAGE RISK 7.1 - 11.0 MODERATE RISK >11.0 HIGH RISK Performed By: #### T SH, LIPID, BMP #### [facility] [address] [place] [address] [address] Vicki Bates Cholesterol [Mass/Vol] 221 mg/dL Critically high <=200 [facility] Comment on above: Performed By: #### TSH, LIPID, BMP #### [facility] [address] [place] [address] [address] Vicki Bates Cholesterol in HDL [Mass/Vol] 68 mg/dL Critically high 40-60 [facility] Comment on above: Performed By: #### TSH, LIPID, BMP #### [facility] [address] [place] [address] [address] Vicki Bates Cholesterol in LDL [Mass/Vol] 140.8 mg/dL Normal [facility] Comment on above: Performed By: #### TSH, LIPID, BMP #### [facility] [address] [place] [address] [address] Vicki Bates Cholesterol.tota l/Cholesterol in HDL [Mass ratio] 3.3 {ratio} Normal [facility] Comment on above: Performed By: #### TSH, LIPID, BMP #### [facility] [address] [place] [address] [address] Vicki Bates HDL NORMAL > or = 60 mg/dl - LO W CARDIOVASCULAR RISK <40 mg/dl - HIGH CARDIOVASCULAR RISK Normal [facility] Comment on above: Performed By: #### TSH, LIPID, BMP #### [facility] [address] [place] [address] [address] Vicki Bates LDL CALC NORMAL SEE BELOW Normal [facility] Comment on above: Result Comment: <100 mg/dl OPTIMAL 100 - 129 mg/dl NEAR OR ABOVE OPTIMAL 130 - 159 mg/dl BORDERLINE HIGH 160 - 189 mg/dl HIGH >190 mg/dl VERY HIGH Performed By: #### T SH, LIPID, BMP #### [facility] [address] [place] [address] [address] Vicki Bates Triglyceride [Mass/Vol] 61 mg/dL Normal <=150 [facility] Comment on above: Performed By: #### TSH, LIPID, BMP #### [facility] [address] [place] [address] Dr. Vicki Bates VLDL CALC 12.2 mg/dL Normal [facility] Comment on above: Performed By: #### TSH, LIPID, BMP #### [facility] [address] [place] [address] Dr. Vicki Bates PROF CHEM 8 (BAS METB)on Anion gap [Moles/Vol] 11.5 mmol/L Normal [facility] Comment on above: Performed By: #### TSH, LIPID, BMP #### [facility] [address] [place] [address] Dr. Vicki Bates Calcium [Mass/Vol] 9.5 mg/dL Normal 8.5-10.1 [facility] Comment on above: Performed By: #### TSH, LIPID, BMP #### [facility] [address] [place] [address] Dr. Vicki Bates Chloride [Moles/Vol] 106 mmol/L Normal 98-107 [facility] Comment on above: Performed By: #### TSH, LIPID, BMP #### [facility] [address] [place] [address] Dr. Vicki Bates CO2 [Moles/Vol] 30.1 mmol/L Normal 21.0-32.0 [facility] Comment on above: Performed By: #### TSH, LIPID, BMP #### [facility] [address] [place] [address] Dr. Vicki Bates Creatinine [Mass/Vol] 0.81 mg/dL Normal 0.55-1.02 [facility] Comment on above: Performed By: #### TSH, LIPID, BMP #### [facility] [address] [place] [address] Dr. Vicki Bates EGFR-AF MICRONESIAN >60 Normal >=60 [facility] Comment on above: Performed By: #### TSH, LIPID, BMP #### [facility] [address] [place] [address] Dr. Vicki Bates EGFR-NON AF MICRONESIAN >60 Normal >=60 [facility] Comment on above: Performed By: #### TSH, LIPID, BMP #### [facility] [address] [place] [address] [address] Vicki Bates Glucose [Mass/Vol] 91 mg/dL Normal 74-106 [facility] Comment on above: Performed By: #### TSH, LIPID, BMP #### [facility] [address] [place] [address] Dr. Vicki Bates Potassium [Moles/Vol] 4.3 mmol/L Normal 3.5-5.1 [facility] Comment on above: Performed By: #### TSH, LIPID, BMP #### [facility] [address] [place] [address] Dr. Vicki Bates Sodium [Moles/Vol] 143 mmol/L Normal 136-145 [facility] Comment on above: Performed By: #### TSH, LIPID, BMP #### [facility] [address] [place] [address] Dr. Vicki Bates Urea nitrogen [Mass/Vol] 18.0 mg/dL Normal 7.0-18.0 [facility] Comment on above: Performed By: #### TSH, LIPID, BMP #### [facility] [address] [place] [address] Dr. Vicki Bates Urea nitrogen/Creatin ine [Mass ratio] 22.2 mg/mg Normal [facility] Comment on above: Performed By: #### TSH, LIPID, BMP #### [facility] [address] [place] [address] Dr. Vicki Bates TSHon 12-26-2022 TSH 3.814 uIU/mL Critically high 0.358-3.740 [facility] Comment on above: Performed By: #### TSH, LIPID, BMP #### [facility] [address] [place] [address] Dr. Vicki Bates MG MAMM SCREEN 3D CRISTINA CADon 05-07-2022 MG MAMM SCREEN 3D CRISTINA CAD Patient: CORRIE MCCRAY Exam Date: 05/07/2022 : 1950 Gender:F Ordering : DR HUSSEIN ROWAN D.O. Admission #: [id number] Family : Order #: [id number] CLICK HERE TO VIEW EXAM RADIOLOGY REPORT PROCEDURE: MAMMOGRAM SCREENING 3D BILATERAL CAD COMPARISON: MG MAMM SCREEN 3D CRISTINA CAD, 05/04/2021. MG MAMM SCREEN CRISTINA W CAD, 05/02/2020. INDICATIONS: Screening mammography Calculator Name NCI Breast Cancer Risk Assessment Tool 5 Year Breast Cancer Risk 3.40% Lifetime Breast Cancer Risk 9.30% Personal Breast Cancer No Personal Ovarian Cancer No Treatments None Family Cancers Mother with breast cancer at age 58; Mother with lung cancer at age 85. LOCATION: [facility] BREAST COMPOSITION: Almost entirely fatty. FINDINGS: DIAGNOSTIC CATEGORY 1--NEGATIVE. RIGHT BREAST: No significant suspicious finding. No significant change has occurred. LEFT BREAST: No significant suspicious finding. No significant change has occurred. RECOMMENDATIONS: ROUTINE MAMMOGRAM AND CLINICAL EVALUATION IN 12 MONTHS. PLEASE NOTE: A NORMAL MAMMOGRAM DOES NOT EXCLUDE THE POSSIBILITY OF BREAST CANCER. A CLINICALLY SUSPICIOUS PALPABLE LUMP SHOULD BE BIOPSIED. Dictated by: Kassie Queen M.D. on 05/07/2022 at 13:21 Approved by: Kassie Queen M.D. on 05/07/2022 at 13:23 Normal [facility] CBC AUTO DIFFon 04-30-2022 BASO # 0.0 103/ul Normal 0.0-0.1 [facility] Comment on above: Performed By: #### CBC ####[facility] ital [address] [place] [id number]. Vicki Bates Basophils/100 WBC (Bld) 0.5 % Normal 0.2-2.0 [facility] Comment on above: Performed By: #### CBC ####[facility] [address]ixxyhiiu[address] [place] [address]Dr. Vicki Bates EO # 0.1 103/ul Normal 0.0-0.7 [facility] Comment on above: Performed By: #### CBC ####[facility] [address]mpyzoiu[address] [place] [address]Dr. Vicki Bates Eosinophils/100 WBC (Bld) 1.5 % Normal 0.9-7.0 [facility] Comment on above: Performed By: #### CBC ####[facility] ital [address]zzrysm[address] [place] [address]Dr. Vicki Bates Erythrocyte distribution width (RBC) [Ratio] 11.7 % Normal 11.0-15.0 [facility] Comment on above: Performed By: #### CBC ####[facility] ital Nsskehaaye[address] [place] [address]Dr. Vicki Bates Hematocrit (Bld) [Volume fraction] 42.8 % Normal 36.0-48.0 [facility] Comment on above: Performed By: #### CBC ####[facility] ital [address]oufbent[address] [place] [address]Dr. Vicki Bates Hemoglobin (Bld) [Mass/Vol] 14.2 g/dL Normal 12.0-16.0 [facility] Comment on above: Performed By: #### CBC ####[facility] R[address]wseslxf[address] [place], [place] [address]Dr. Vicki Bates IG # 0.01 10e3/ul Normal 0.00-0.03 [facility] Comment on above: Performed By: #### CBC ####[facility] [address] [place], [place] [address]Dr. Vicki Bates IG % 0.2 % Normal 0.0-0.5 [facility] Comment on above: Performed By: #### CBC ####[facility] [address]pr[address] [place] [address]Dr. Vicki Bates LYMPH # 1.8 103/ul Normal 1.2-3.8 [facility] Comment on above: Performed By: #### CBC ####[facility] ital Iybmtejlzy[address] [place] [address]Dr. Vicki Bates Lymphocytes/100 WBC (Bld) 43.6 % Normal 20.5-60.0 [facility] Comment on above: Performed By: #### CBC ####[facility] ital [address]ffkbvbatj[address] [place] [address]Dr. Vicki Bates MANUAL DIFF REQ NO Normal [facility] Comment on above: Performed By: #### CBC ####[facility] [facility] ital [id number] [place] [address]Dr. Vicki Bates MCH (RBC) [Entitic mass] 31.3 pg Normal 26.7-34.0 [facility] Comment on above: Performed By: #### CBC ####[facility] ital [id number] [place] [address]Dr. Vicki Bates MCHC (RBC) [Mass/Vol] 33.2 g/dL Normal 29.9-35.2 [facility] Comment on above: Performed By: #### CBC ####[facility] ital [id number] [place] [address]Dr. Laureenchay Bates MCV (RBC) [Entitic vol] 94.3 fL Normal 81.0-99.0 [facility] Comment on above: Performed By: #### CBC ####[facility] [id number] [place] [address]Dr. Vicki Bates MONO # 0.3 103/ul Normal 0.3-0.8 [facility] Comment on above: Performed By: #### CBC ####[facility] ital [id number] [place] [address]Dr. Laureenchay Bates Monocytes/100 WBC (Bld) 6.4 % Normal 1.7-12.0 [facility] Comment on above: Performed By: #### CBC ####[facility] [address]kek[address] [place] [address]Dr. Laureenchay Bates NEUT # 1.9 103/ul Normal 1.4-6.5 [facility] Comment on above: Performed By: #### CBC ####[facility] ital [id number] [place] [address]Dr. Vicki Bates Neutrophils/100 WBC (Bld) 47.8 % Normal 43.0-75.0 [facility] Comment on above: Performed By: #### CBC ####[facility] ital [id number] [place] [address]Dr. Vicki Bates Platelet mean volume (Bld) [Entitic vol] 9.0 fL Critically low 9.5-13.5 [facility] Comment on above: Performed By: #### CBC ####[facility] ital [id number] [place] [id number]. Vicki Bates PLT 250 103/ul Normal 150-450 [facility] Comment on above: Performed By: #### CBC ####[facility] ital Zeoanylhsl6[address] [place], [place] [address]By. Vicki Bates RBC 4.54 106/ul Normal 4.20-5.40 [facility] Comment on above: Performed By: #### CBC ####[facility] ital Oafvgdhfor750[address] [place], [place] [address]Wr. Vicki Bates WBC 4.0 103/ul Normal 4.0-11.0 [facility] Comment on above: Performed By: #### CBC ####[facility] ital [id number] [place] [id number]. Vicki Bates Covid-19 PCR (CVDTB)on SARS-CoV-2 (COVID-19) RNA MEAGAN+probe Ql (Unsp spec) Not detected Normal NOT DETECTED [facility] Comment on above: Result Comment: This test is not yet kiel roved or cleared by the [place] FDA. When there are no FDA-approved or cleared tests available, and other criteria are met, FDA can make tests available under an emergency access mechanism called an Emergency Use Authorization (EUA). The EUA for this test is supported by the [place] of Health and Human Service's (HHS's) declaration that circumstances exist to justify the emergency use of in vitro diagnostics for the detection and/or diagnosis of the virus that causes COVID-19. This EUA will remain in effect (meaning this test can be used) for the duration of the COVID-19 declaration justifying emergency of IVDs, unless it is terminated or revoked by FDA (after which the test may no longer be used). When diagnostic testing is negative, the possibility of a false negative should be considered in the context of a patient's recent exposures and the presence of clinical signs and symptoms consistent with SARS-CoV-2. Performed By: #### C VDTBH ####[facility] [id number] [place] [address]Dr. Vicki Bates US PELVIS AND TRANSVAGon US PELVIS AND TRANSVAG EXAMINATION: US PELVIS AND TRANSVAG HISTORY: Postmenopausal bleeding COMPARISON: No relevant comparison available. TECHNIQUE: Transabdominal and transvaginal sonographic examination. FINDINGS: UTERUS: Markedly heterogeneous uterus. Calcifications area within fundus, possibly a leiomyoma 1.9 x 2.1 x 2.0 cm. Hypoechoic area/soft tissue within cervix; possibly blood products. Uterus size: 5.5 x 3.4 x 2.3 cm ENDOMETRIUM: Normal appearing, thickened endometrium. Endometrial thickness: 1.5 mm RIGHT OVARY: Not seen. LEFT OVARY: Normal size and appearance. Duplex Doppler demonstrates normal waveform and flow; resistive index 0.6. Ovary size: 1.0 x 1.2 x 1.4 cm CUL-DE-SAC: Unremarkable. No significant free fluid. BLADDER: Unremarkable. OTHER: None. IMPRESSION: 1. Markedly heterogeneous uterus with calcifications and possible 2.1 cm leiomyoma with fundus. 2. Normal-appearing endometrium. 3. Poorly defined hypoechoic area within cervix; mass versus clotted blood products. Tissue sampling recommended. Electronically authenticated by: KASSIE QUEEN Date: 2022-04-16 00:20 Normal [facility] 01-18-2022 AST [Catalytic activity/Vol] 20 U/L Normal 15-37 [facility] Comment on above: Performed By: #### AST, ALT #### [facility] [address] [address] [address] Vicki Bates [facility] 01-18-2022 ALT [Catalytic activity/Vol] 28 U/L Normal 14-59 [facility] Comment on above: Performed By: #### AST, ALT #### [facility] [address] [address] [address] Vicki Bates XR ankle RT min 3V*on 2021 XR ankle RT min 3V* [facility] [address] [place] [address] [place], [place] [id number] XRay Report Signed Patient: Corrie Mccray MR#: [id number] : 1950 Acct:[id number] Age/Sex: 71 / F ADM Date: 10/16/21 Loc: XDUCLY Room: Type: [facility] Attending Dr: Dena BERGMAN Ordering Provider: DENA DAVIS Date of Service: 10/16/21 XR/XR ankle RT min 3V*: S89.91XA Copies to: DENA DAVIS RIGHT ANKLE - 3 views Reason for exam:Patient fell while going up the stairs 3 hours ago. Patient has pain posterior to her right ankle and posterior to her distal tib-fib. COMPARISON: None Soft tissue swelling is noted. Ankle mortise appears intact. Cortical irregularity seen along the medial malleolus suggestive of prior injury. No acute bony process is seen. Enthesophyte formation is seen at the insertion of the Achilles tendon. Minimal plantar spurring. XR/XR ankle RT min 3V* IMPRESSION: SOFT TISSUE SWELLING WITHOUT ACUTE BONY PROCESS NOTED. Impression dictated by: Zeke Smith Jr., DЕкатеринаOЕкатерина10/16/2021 5:09 PM Dictation Location: [place] [address] Transcribed By: [facility] 10/16/21 170 Dictated By: Zeke Smith Jr, DO 10/16/211706 Signed By: 10/16/21 170 Normal [facility] XR ankle RT min 3V* [facility] [employer] Other XR ankle RT min 3V* [facility] Main [facility] [employer] Other XR ankle RT min 3V* [address] [place] [address] [employer] Other XR ankle RT min 3V* [place] [address] [employer] Other XR ankle RT min 3V* XRay Report [employer] Other XR ankle RT min 3V* Signed [employer] Other XR ankle RT min 3V* Patient: Corrie Mccray MR#: [id number] [employer] Other XR ankle RT min 3V* 589 [employer] Other XR ankle RT min 3V* : 1950 Acct:[id number] [employer] Other XR ankle RT min 3V* Age/Sex: 71 / F ADM Date: 10/16/21 [employer] Other XR ankle RT min 3V* Loc: XDUCLY Room: Type: [facility] [employer] Other XR ankle RT min 3V* Attending Dr: Dena Davis [facility] [employer] Other XR ankle RT min 3V* Ordering Provider: DENA DAVIS [facility] [employer] Other XR ankle RT min 3V* Date of Service: 10/16/21 [employer] Other XR ankle RT min 3V* XR/XR ankle RT min 3V*: S89.91XA [employer] Other XR ankle RT min 3V* Copies to: DENA DAVIS [facility] [employer] Other XR ankle RT min 3V* RIGHT ANKLE - 3 views [employer] Other XR ankle RT min 3V* Reason for exam:Patient fell while going up the stairs 3 hours ago. Patient has pain posterior to [employer] Other XR ankle RT min 3V* her right ankle and posterior to her distal tib-fib. [employer] Other XR ankle RT min 3V* COMPARISON: None [employer] Other XR ankle RT min 3V* Soft tissue swelling is noted. Ankle mortise appears intact. Cortical irregularity seen along the [employer] Other XR ankle RT min 3V* medial malleolus suggestive of prior injury. No acute bony process is seen. Enthesophyte formation [employer] Other XR ankle RT min 3V* is seen at the insertion of the Achilles tendon. Minimal plantar spurring. [employer] Other XR ankle RT min 3V* XR/XR ankle RT min 3V* [employer] Other XR ankle RT min 3V* IMPRESSION: [employer] Other XR ankle RT min 3V* SOFT TISSUE SWELLING WITHOUT ACUTE BONY PROCESS NOTED. [employer] Other XR ankle RT min 3V* Impression dictated by: Zeke Smith Jr., D.O.10/16/2021 5:09 PM [employer] Other XR ankle RT min 3V* Dictation Location: [place] [address] [employer] Other XR ankle RT min 3V* Transcribed By: PWS 10/16/21 [facility] [employer] Other XR ankle RT min 3V* Dictated By: Zeke Smith Jr, DO 10/16/21 [facility] [employer] Other XR ankle RT min 3V* Signed By: [employer] Other XR ankle RT min 3V* 10/16/21 [facility] [employer] Other No Panel Information [facility] Vital Signs Date Time Vital Sign Value Performing Clinician Facility 06-26-2023 09:30-0500 Body height 157.48 cm [employer] Other [employer] Other 06-26-2023 09:30-0500 Body mass index (BMI) [Ratio] 26.12 kg/m2 [employer] Other [employer] Other 06-26-2023 09:30-0500 Body weight 64.77 kg [employer] Other [employer] Other 06-26-2023 09:30-0500 Diastolic blood pressure 66 mm[Hg] Hussein Ball Other [employer] Other 06-26-2023 09:30-0500 Respiratory rate 12 /min Hussein Ball Other [employer] Other 06-26-2023 09:30-0500 Systolic blood pressure 93 mm[Hg] Hussein Ball Other [employer] Other 06-11-2023 11:19-0400 Body height 157.5 cm Zaire Fry MD Work Phone: [facility] 06-11-2023 11:19-0400 Body weight 65.32 kg Zaire Fry MD Work Phone: [facility] 06-11-2023 11:19-0400 Diastolic blood pressure 70 mm[Hg] Zaire Fry MD Work Phone: [facility] 06-11-2023 11:19-0400 Heart rate 76 /min Zaire Fry MD Work Phone: [facility] 06-11-2023 11:19-0400 SaO2% (BldA) [Mass fraction] 98 % Zaire Fry MD Work Phone: [facility] 06-11-2023 11:19-0400 Systolic blood pressure 110 mm[Hg] Zaire Fry MD Work Phone: [facility] 05-31-2023 10:00-0400 Body height 157.48 cm Cony Lees Other [employer] Other 05-31-2023 10:00-0400 Body mass index (BMI) [Ratio] 26.7 kg/m2 Cony Lees Other [employer] Other 05-31-2023 10:00-0400 Body temperature 97.5 [degF] Cony Lees Other [employer] Other 05-31-2023 10:00-0400 Body weight 66.23 kg Cony Bowenmond Other [employer] Other 05-31-2023 10:00-0400 Diastolic blood pressure 74 mm[Hg] Cony Yoana Other [employer] Other 05-31-2023 10:00-0400 Respiratory rate 18 /min Cony Yoana Other [employer] Other 05-31-2023 10:00-0400 SaO2% (BldA) [Mass fraction] 97 % Cony Lees Other [employer] Other 05-31-2023 10:00-0400 Systolic blood pressure 118 mm[Hg] Cony Lees Other [employer] Other 03-11-2023 09:30-0400 Body height 154.94 cm Hussein Ball Other [employer] Other 03-11-2023 09:30-0400 Body mass index (BMI) [Ratio] 27.81 kg/m2 Hussein Ball Other [employer] Other 03-11-2023 09:30-0400 Body weight 66.77 kg Hussein Ball Other [employer] Other 03-11-2023 09:30-0400 Diastolic blood pressure 82 mm[Hg] Hussein Ball Other [employer] Other 03-11-2023 09:30-0400 Respiratory rate 12 /min Hussein Ball Other [employer] Other 03-11-2023 09:30-0400 Systolic blood pressure 129 mm[Hg] Hussein Ball Other [employer] Other 01-16-2023 10:00-0400 Body height 154.94 cm Hussein Ball Other [employer] Other 01-16-2023 10:00-0400 Body mass index (BMI) [Ratio] 27.92 kg/m2 Hussein Ball Other [employer] Other 01-16-2023 10:00-0400 Body weight 67.04 kg Hussein Ball Other [employer] Other 01-16-2023 10:00-0400 Diastolic blood pressure 78 mm[Hg] Hussein Ball Other [employer] Other 01-16-2023 10:00-0400 Respiratory rate 12 /min Hussein Ball Other [employer] Other 01-16-2023 10:00-0400 Systolic blood pressure 119 mm[Hg] Hussein Ball Other [employer] Other 12-26-2022 10:30-0400 Body height 154.94 cm Hussein Ball Other [employer] Other 12-26-2022 10:30-0400 Body mass index (BMI) [Ratio] 28.11 kg/m2 Hussein Ball Other [employer] Other 12-26-2022 10:30-0400 Body weight 67.5 kg Hussein Ball Other [employer] Other 12-26-2022 10:30-0400 Diastolic blood pressure 76 mm[Hg] Hussein Ball Other [employer] Other 12-26-2022 10:30-0400 Respiratory rate 12 /min Hussein Ball Other [employer] Other 12-26-2022 10:30-0400 Systolic blood pressure 121 mm[Hg] Hussein Ball Other [employer] Other 10-16-2021 16:40-0500 Body height 154.94 cm Dena Carl Other [employer] Other 10-16-2021 16:40-0500 Body mass index (BMI) [Ratio] 29.28 kg/m2 Dena Carl Other [employer] Other 10-16-2021 16:40-0500 Body temperature 97.4 [degF] Dena Davis Other [employer] Other 10-16-2021 16:40-0500 Body weight 70.31 kg Dena Carl Other [employer] Other 10-16-2021 16:40-0500 Diastolic blood pressure 88 mm[Hg] Dena Davis Other [employer] Other 10-16-2021 16:40-0500 Respiratory rate 16 /min Dena Davis Other [employer] Other 10-16-2021 16:40-0500 SaO2% (BldA) [Mass fraction] 98 % Dena Davis Other [employer] Other 10-16-2021 16:40-0500 Systolic blood pressure 152 mm[Hg] Dena Davis Other [employer] Other Encounters Encounter Date Encounter Type Care Provider Facility Start: 11-15-2023 End: 11-15-2023 ambulatory JUAN LUIS Badillo CORNELIUS Not Available Start: 11-12-2023 End: 11-12-2023 ambulatory TINA BROWN Facility:[facility] Start: 11-12-2023 End: 11-12-2023 Patient encounter procedure Tina Brown OD Work Phone: Ophthalmology Comment on above: Low-tension glaucoma of both eyes, unspecified glaucoma stage (Primary Dx); Keratitis sicca, bilateral (HCC); Pseudophakia, left eye Start: 07-29-2023 End: 07-29-2023 ambulatory Kavitha Interiano [facility] Start: 07-29-2023 Telephone encounter Hussein [facility] Start: 07-22-2023 ambulatory Silvia Ge APRN[employer] Work Phone: Pulmonary Medicine Comment on above: Nodule Start: 07-09-2023 End: 07-09-2023 ambulatory Hussein Rowan Other [employer] Other Start: 07-09-2023 Telephone encounter Hussein Dixon [facility] Start: 07-05-2023 End: 07-05-2023 ambulatory ZAIRE COXL Facility:[facility] Start: 07-05-2023 End: 07-05-2023 ambulatory [facility] [place] Work Phone: Pulmonology Comment on above: Spirometry Start: 07-05-2023 End: 07-05-2023 Patient encounter procedure [facility] [place] Work Phone: [facility] Start: 06-26-2023 End: 06-26-2023 ambulatory Hussein Rowan Other [employer] Other Start: 06-26-2023 Office outpatient vi sit 15 minutes Hussein MOREIRA [facility] Start: 06-24-2023 End: 06-24-2023 ambulatory Hussein Rowan Other [employer] Other Start: 06-24-2023 Telephone encounter Hussein HAMMOND [facility] Start: 06-11-2023 End: 06-11-2023 ambulatory HUSSEIN ROWAN Facility:[facility] Start: 06-11-2023 End: 06-11-2023 Patient encounter procedure Zaire Fry MD Work Phone: Cardiology Comment on above: Chest discomfort; SOB (shortness of breath); Pure hypercholesterolemia; Primary hypertension Start: 05-31-2023 End: 05-31-2023 ambulatory Cony Lees Other [employer] Other Start: 05-31-2023 Office outpatient vi sit 15 minutes Cony Lees [facility] Start: 05-14-2023 End: 05-14-2023 ambulatory HUSSEIN ROWAN Facility:[facility] Start: 03-25-2023 Telephone encounter No One (Historic al) Referring Physician Comment on above: External Referrals/r esources Start: 03-15-2023 End: 03-15-2023 ambulatory Hussein Rowan Other [employer] Other Start: 03-15-2023 Telephone encounter Hussein HAMMOND [facility] Start: 03-13-2023 End: 03-13-2023 ambulatory Hussein Rowan Other [employer] Other Start: 03-13-2023 Telephone encounter Hussein HAMMOND [facility] Start: 03-11-2023 End: 03-11-2023 ambulatory Hussein Rowan Other [employer] Other Start: 03-11-2023 Office outpatient vi sit 15 minutes Hussein Rowan [facility] Start: 01-21-2023 End: 01-21-2023 ambulatory Hussein Rowan Other [employer] Other Start: 01-21-2023 Telephone encounter Hussein HAMMOND [facility] Start: 01-16-2023 End: 01-16-2023 ambulatory Hussein Rowan Other [employer] Other Start: 01-16-2023 Office outpatient vi sit 15 minutes Hussein Rowan [facility] Start: 12-31-2022 End: 01-01-[address] HUSSEIN ROWAN Facility:[facility] Start: 12-27-2022 End: 12-27-2022 ambulatory Hussein Rowan Other [employer] Other Start: 12-27-2022 Telephone encounter Hussein Rowan [facility] Start: 12-26-2022 Patient encounter procedure Hussein Rowan [facility] Start: 12-26-2022 Telephone encounter [facility] Start: 12-26-2022 End: 12-27-[address] HUSSEIN ROWAN [employer] Other Start: 05-07-2022 End: 05-08-[address] HUSSEIN ROWAN Facility:[facility] Start: 04-30-2022 End: 04-30-[address] HUSSEIN ROWAN Facility:[facility] Start: 04-29-2022 Encounter for preprocedural laboratory examination DR ZION RIZZO . [facility] Start: 04-26-2022 End: 04-27-[address] ZION RIZZO . Facility:[facility] Start: 04-26-2022 End: 04-27-2022 Encounter for preprocedural laboratory examination DR ZION RIZZO . Facility:[facility] Start: 04-20-2022 Encounter for preprocedural cardiovascular examination DR ZION RIZZO . [facility] Start: 04-19-2022 End: 04-20-[address] HUSSEIN ROWAN Facility:[facility] Start: 04-19-2022 End: 04-20-2022 Encounter for preprocedural cardiovascular examination DR HUSSEIN ROWAN Facility:[facility] Start: 04-14-2022 End: 04-15-[address] HUSSEIN ROWAN Facility:[facility] Start: 04-10-2022 End: 04-10-2022 Patient encounter procedure Tina Wilsonanitha OD Work Phone: Ophthalmology Comment on above: Low-tension glaucoma of both eyes, unspecified glaucoma stage (Primary Dx); Keratitis sicca, bilateral (HCC); History of trabeculectomy, right eye Start: 01-18-2022 End: 01-19-2022 ambulatory JUAN LUIS SHIELDS Facility:[facility] Start: 10-16-2021 End: 10-16-2021 ambulatory Dena Davis Other [employer] Other Start: 10-16-2021 Office outpatient ne w 20 minutes Dena Davis [facility] Procedures Date Procedure Procedure Detail Performing Clinician Start: 11-12-2023 Computerized ophthal gio imaging optic nerve Tina Justino Jermaine OD Work Phone: Start: 07-05-2023 Brncdilat rspse spmt ry pre&post-brncdilat admn Zaire Fry MD Work Phone: Start: 06-11-2023 Ecg routine ecg w/le ast 12 lds i&r only [facility] Provider Start: 04-10-2022 Visual field xm uni/ bi w/interp extended exam Tina Brown OD Work Phone: Plan of Treatment Date Care Activity Detail Author Start: 06-11-2024 BP Controlled (<130/80) BP Controlled (<130/80) [facility] Start: 08-19-2023 Advance Directive Discussion Advance Directive Discussion [facility] Start: 08-19-2023 Depression Assessment Depression Assessment [facility] Start: 06-11-2023 End: 09-10-2023 CREATININE BLD CREATININE BLD Lab Routine Chest discomfort SOB (shortness of breath) Expected: 06/11/2023, Expires: 09/10/2023 [facility] Work Phone: Comment on above: Expected: 06/11/2023, Expires: Start: 04-19-2023 Covid-19 Vaccine () Covid-19 Vaccine () [facility] Start: 04-19-2023 Influenza vaccination [facility] Start: 08-19-2022 ADVANCE DIRECTIVE DISCUSSION ADVANCE DIRECTIVE DISCUSSION [facility] Start: 08-19-2022 DEPRESSION ASSESSMENT DEPRESSION ASSESSMENT [facility] Start: 04-19-2022 Influenza vaccination INFLUENZA (#1) [facility] Start: 10-10-2021 COVID-19 VACCINE (4 - Booster for Moderna series) COVID-19 VACCINE (4 - Booster for Moderna series) [facility] Start: 08-19-2021 ADVANCE DIRECTIVE DISCUSSION ADVANCE DIRECTIVE DISCUSSION [facility] Start: 08-04-2021 COVID-19 VACCINE (4 - Moderna series) COVID-19 VACCINE (4 - Moderna series) [facility] Start: 2015 BONE DENSITY BONE DENSITY [facility] Start: 2015 Bone Density Screening Bone Density Screening [facility] Start: 2015 Pneumococcal Vaccine: 65+ (1 - PCV) Pneumococcal Vaccine: 65+ (1 - PCV) [facility] Start: 2015 Pneumococcal Vaccine: 65+ (1 of 1 - PCV) Pneumococcal Vaccine: 65+ (1 of 1 - PCV) [facility] Start: 2015 PNEUMOCOCCAL: 65+ (1 - PCV) PNEUMOCOCCAL: 65+ (1 - PCV) [facility] Start: 2015 Screening for osteoporosis Bone Density Screening [facility] Start: 2010 RSV Vaccine (1 - 1-dose 60+ series) RSV Vaccine (1 - 1-dose 60+ series) [facility] Start: 2000 SHINGRIX VACCINE (1 of 2) SHINGRIX VACCINE (1 of 2) [facility] Start: 1995 COLOGUARD (FIT-DNA) COLOGUARD (FIT-DNA) [facility] Start: 1995 Colonoscopy COLONOSCOPY [facility] Start: 1995 COLORECTAL CANCER SCREENING COLORECTAL CANCER SCREENING [facility] Start: [address] COLONOGRAPHY [facility] Start: 1995 DIABETES SCREEN DIABETES SCREEN [facility] Start: 1995 Diabetes Screening Diabetes Screening [facility] Start: 1995 FECAL OCCULT BLOOD FECAL OCCULT BLOOD [facility] Start: 1995 Lipid 1996 panel - Serum or Plasma Lipid Screening [facility] Start: 1995 Lipid panel Lipid Screening [facility] Start: 1995 LIPID SCREEN LIPID SCREEN [facility] Start: 1995 Screening for malignant neoplasm of colon [facility] Start: 1995 SIGMOIDOSCOPY SIGMOIDOSCOPY [facility] Start: 1990 Mammography [facility] Start: 1990 Screening for malignant neoplasm of breast Mammogram Screening [facility] Start: 1969 Urine microalbumin profile [facility] Start: 1968 ANNUAL PCP TEAM CHRONIC DISEASE VISIT ANNUAL PCP TEAM CHRONIC DISEASE VISIT [facility] Start: 1968 HEPATITIS C SCREENING HEPATITIS C SCREENING [facility] Start: 1968 Hepatitis C screening Hepatitis C Screening [facility] Start: 1962 Adult depression screening assessment DEPRESSION SCREENING [facility] End: 07-10-2024 Cta hrt cornry art/bypass grfts contrst 3d post CTA CORONARY W IVCON Radiology Routine Chest discomfort SOB (shortness of breath) Pure hypercholesterolemia Primary hypertension 1 Occurrences starting 06/11/2023 until 07/10/2024 [facility] Work Phone: Comment on above: 1 Occurrences starting 06/11/2023 until 07/10/2024 ECG COMPLETE [facility] Work Phone: Comment on above: Ordered: 06/11/2023 End: 07-10-2024 SPIROMETRY WITH DILATOR IF OBSTRUCTED SPIROMETRY WITH DILATOR IF OBSTRUCTED PFT Routine SOB (shortness of breath) 1 Occurrences starting 06/11/2023 until 07/10/2024 [facility] Work Phone: Comment on above: 1 Occurrences starting 06/11/2023 until 07/10/2024 [facility] Immunizations Immunization Date Immunization Notes Care Provider Fa cili 06-23-2022 influenza virus vaccine, split virus (incl. purified surface antigen) Hussein Rowan Other [employer] Other 06-23-2022 influenza, high dose seasonal, preservative-free Hussein Rowan Other [employer] Other 06-23-2022 influenza virus vaccine, unspecified formulation Zaier Fry MD Work Phone: [facility] 05-08-2022 COVID-19 Pfizer (bivalent) Hussein Rowan Other [employer] Other 06-09-2021 COVID-19 Vaccine Pfi zer - Documentation Purposes Only Hussein Rowan Other [employer] Other 12-14-2020 zoster vaccine recombinant Hussein Rowan Other [employer] Other 10-26-2020 COVID-19 Jaejustino Savage [facility] Other [employer] Other 09-28-2020 COVID-19 Kermit Savage [facility] Other [employer] Other 06-25-2020 influenza virus vaccine, split virus (incl. purified surface antigen) Hussein Rowan Other [employer] Other 06-25-2020 zoster vaccine recombinant Hussein Rowan Other [employer] Other 06-25-2020 zoster vaccine, live Benjami marlo Rowan Other [employer] Other 06-25-2020 FLUAD QUAD 2020-21,6 5Y UP,,PF, 60 mcg (15 mcg x 4)/0.5 mL syrg Tina Brown OD Work Phone: [facility] Comment on above: PHARMACY ADMINISTERE D Payers Date Payer Category Payer Unknown MMO MMO MEDICARE SUPPLEMENT [id number] 2019-Present [phone] [address] [place] [address] Indemnity [id number] 2018 Medicare MEDICARE MEDICAR E A AND B [id number] 2018-Present [phone] [address] [address] [place] [address] Medicare [id number] 1959 Medicare [id number] 1959 Medicare [id number] 1950 Unknown [id number] 1950 Unknown [id number] 1950 Unknown [id number] 1950 Unknown [id number] 1950 Unknown [id number] 1950 Unknown [id number] 1950 Unknown [id number] 1950 Unknown [id number] 1950 Unknown [id number] Social History Date Type Detail Facility Start: 10-12-2022 End: 04-12-2023 Sex Assigned At [facility] Start: 04-10-2022 Tobacco smoking status NHIS Never smoked tobacco [facility] Start: 04-10-2022 Tobacco use and exposure Smokeless tobacco non-user [facility] Start: 04-10-2022 End: 11-12-2023 Alcohol intake Current drinker of alcohol (finding) [facility] Start: 06-12-2013 History SDOH Alcohol Comment 1 glass of wine 3/wk [facility] Start: 1950 Sex Assigned At Female [facility] Start: 10-12-2022 End: 04-12-2023 History of Social function [facility] National Score (1-10 0), lower number is lower risk 65 [facility] Start: 09-24-2020 Gender identity Identifies as female gender (finding) [facility] Start: 12-04-2020 Sexual orientation Heterosexual (finding) [facility] Medical Equipment Procedure Code Equipment Code Equipment Origin al Text Equipment Identifier Dates Lens Iol 0d +20 Dante Uv Abs - [id number] Start: 11-29-2020 Comment on above: Description: -0.09 Clinical Notes 02-12-2017 to 11-12-2023 Tina Brown, TERRENCE - 11/12/2023 1:16 PM EDT Note Date & Type Note Facility 11-12-2023 Note HNO ID: [id number] Author: TINA BROWN OD Service: ? Author Type: CSR TECHNICIAN Type: Progress Notes Filed: 11/12/2023 13:47 Note Text: Tmax 19 , 21 (pt report) ; Pachy 548 , 579 Gonioscopy 05/2013 Post dilation anterior iris insertion grade I-II with light TMP Lasers and surgeries OD TBX 06/30/13 (IOP 19) 11/29/20. PCIOL OS PEIOL (done elsewhere to lower IOP - ineffective), SLT 2009 Ocular Medication Intol, Non-efficacy, barriers Latanoprost - FORTE's ; multiple drops ineffective Cosopt, Brimonidine Sulfa intolerance (projectile vomiting) Current Ophthalmic Meds dorzolamide-timolol (COSOPT) 22.3-6.8 mg/mL ophthalmic solution (Taking) 1 drop both eyes 2 x daily Goals -- HVF 05/14/2023 OD mod sup nasal step, stable ; OS Mild superior depression, stable -- OCT 11/12/2023 OD severe inf>mod sup thinning, Low SS ;OS mod inf > sup thinning, stable Low SS -- GCA 11/12/2023 OD global thinning ; OS mod sup, inf wedge, worse than 2013 (H40.1232) Low-tension glaucoma of both eyes, moderate stage (primary encounter diagnosis) - Meeting goals with IOP - Low SS on OCT Plan: Continue dorzolamide/timolol two times a day OU IOP acceptable OU RNFL appears stable Consider augmentation with SLT left eye if HVF change (H16.223) Keratitis sicca, bilateral Comment: The nature of dry eyes was reviewed. Several treatment options were discussed, including the use of artificial tears, the supplementation of diet with omega-3 fatty acids, and lid hygiene. Plan: Montior (H43.813) PVD (posterior vitreous detachment), bilateral Comment: Signs and symptoms of retinal detachment were reviewed with the patient, including an increase in number or size of floaters, flashes, or a curtain effect in one's peripheral vision. Plan: Monitor (Z98.890) History of trabeculectomy, right eye Comment: The potential for vision-threatening infection related to the bleb was discussed. The signs of infection and the importance of same-day medical attention if these signs develop were emphasized. Plan: Monitor (Z96.3) Pseudophakia, both eyes Comment: Centered IOL, open capsule. Plan: Monitor RTC: 6 months VaTa HVF 24-2 The nature of the patient's eye disease, its relationship to systemic health, its genetic components, and its prognosis have been explained to the patient/family. The treatment options/risks/benefits have been discussed. Questions answered. I have interviewed and examined Corrie Mccray. I have confirmed and edited as necessary the chief complaint, history of present illness, past medical history, medications, family history, social history, review of systems, and exam findings as obtained by others. I agree with the assessment and plan as stated above,and have discussed them in detail with the patient. Tina Brown, OD November 12, 2023 1:43 PM [facility] 11-12-2023 History of Present illness Narrative Tmax 19 , 21 (pt report) ; Pachy 548 , 579 Gonioscopy 05/2013 Post dilation anterior iris insertion grade I-II with light TMP Lasers and surgeries OD TBX 06/30/13 (IOP 19) 11/29/20. PCIOL OS PEIOL (done elsewhere to lower IOP - ineffective), SLT 2009 Ocular Medication Intol, Non-efficacy, barriers Latanoprost - FORTE's ; multiple drops ineffective Cosopt, Brimonidine Sulfa intolerance (projectile vomiting) Current Ophthalmic Meds dorzolamide-timolol (COSOPT) 22.3-6.8 mg/mL ophthalmic solution (Taking) 1 drop both eyes 2 x daily Goals -- HVF 05/14/2023 OD mod sup nasal step, stable ; OS Mild superior depression, stable -- OCT 11/12/2023 OD severe inf>mod sup thinning, Low SS ;OS mod inf > sup thinning, stable Low SS -- GCA 11/12/2023 OD global thinning ; OS mod sup, inf wedge, worse than 2013 (H40.1232) Low-tension glaucoma of both eyes, moderate stage (primary encounter diagnosis) - Meeting goals with IOP - Low SS on OCT Plan: Continue dorzolamide/timolol two times a day OU IOP acceptable OU RNFL appears stable Consider augmentation with SLT left eye if HVF change (H16.223) Keratitis sicca, bilateral Comment: The nature of dry eyes was reviewed. Several treatment options were discussed, including the use of artificial tears, the supplementation of diet with omega-3 fatty acids, and lid hygiene. Plan: Montior (H43.813) PVD (posterior vitreous detachment), bilateral Comment: Signs and symptoms of retinal detachment were reviewed with the patient, including an increase in number or size of floaters, flashes, or a curtain effect in one's peripheral vision. Plan: Monitor (Z98.890) History of trabeculectomy, right eye Comment: The potential for vision-threatening infection related to the bleb was discussed. The signs of infection and the importance of same-day medical attention if these signs develop were emphasized. Plan: Monitor (Z96.3) Pseudophakia, both eyes Comment: Centered IOL, open capsule. Plan: Monitor RTC: 6 months VaTa HVF 24-2 The nature of the patient's eye disease, its relationship to systemic health, its genetic components, and its prognosis have been explained to the patient/family. The treatment options/risks/benefits have been discussed. Questions answered. I have interviewed and examined Corrie Mccray. I have confirmed and edited as necessary the chief complaint, history of present illness, past medical history, medications, family history, social history, review of systems, and exam findings as obtained by others. I agree with the assessment and plan as stated above,and have discussed them in detail with the patient. Tina Brown, OD November 12, 2023 1:43 PM documented in this encounter [facility] 08-15-2023 Note Patient Outreach (PU LMMN) -------- CORRIE MCCRAY ([id number]) 1950 F Date Time Provider Department 08/15/23 KAVITHA INTERIANO During your visit today, we recorded the following information about you: Kavitha Interiano 08/15/2023 9:05 AM Signed Incidental Lung Nodule Enrollment Outreach attempt: 3rd Attempt Outreach status: Complete Enrolled in Lung Nodule program: No Declined reason: Other Lung Nodule Program Location: [place] Two letter attempts Discharge letter sent Allergies As of Date: 08/15/2023 Noted Allergy Reaction HYDROCODONE-ACETAMINOPHEN 05/21/2013 16 - Unknown NICKEL 06/11/2023 2 - Rash PERCOCET (OXYCODONE-ACETAMINOPHEN)06/12/2013 8 - GI Upset SULFA (SULFONAMIDE ANTIBIOTICS) 06/12/2013 8 - GI Upset WELLBUTRIN (BUPROPION HCL) 06/12/2013 2 - Rash Date Reviewed: 06/11/2023 Reviewed by: Zaire Fry MD - Fully Assessed Prescriptions as of 08/15/2023 - metoprolol tartrate, short acting, (LOPRESSOR) 50 mg tablet Take one 50 mg tablet the evening prior to the CTA examination, take another 50 mg tablet the morning of the CTA examination. - nitroglycerin sublingual (NITROQUICK) 0.3 mg SL tablet Dissolve 1 tablet under the tongue one time only for 1 dose. To be administered in Radiology for CTA exam - dorzolamide-timolol (COSOPT) 22.3-6.8 mg/mL ophthalmic solution INSTILL 1 DROP INTO BOTH EYES TWICE A DAY - losartan (COZAAR) 25 mg tablet Take 25 mg by mouth once daily. - levothyroxine (SYNTHROID) 25 mcg tablet Take 25 mcg by mouth daily before breakfast. - FLUAD QUAD 2020-21,65Y UP,,PF, 60 mcg (15 mcg x 4)/0.5 mL syrg PHARMACY ADMINISTERED - omega-3 fatty acids 1,000 mg cap Take 1 capsule by mouth once daily. - Evening [place] Oil (EVENING PRIMROSE) 500 mg cap Take 1 capsule by mouth once daily. - Flaxseed Oil 1,000 mg cap Take 1 capsule by mouth once daily. Problem List As Of Date 08/15/2023 Noted Resolved Primary open-angle glaucoma(365.11) [H40.1190] 06/02/2013 02/16/2015 Low tension glaucoma - Both Eyes [H40.1290] 06/02/2014 History of trabeculectomy - Both Eyes [Z98.890] 06/02/2014 02/12/2017 Vitreous degeneration - Right Eye [H43.819] 06/02/2014 02/12/2017 Senile nuclear sclerosis - Right Eye [H25.10] 06/02/2014 02/12/2017 Lens replaced by other means - Left Eye [Z96.1] 02/16/2015 02/12/2017 Dry eye - Both Eyes [H04.129] 02/16/2015 02/12/2017 Combined forms of age-related cataract of right*02/12/2017 12/06/2020 Keratitis sicca, bilateral [M35.01] 02/12/2017 PVD (posterior vitreous detachment) [H43.819] 02/12/2017 History of trabeculectomy, right eye [Z98.890] 02/12/2017 Pseudophakia, left eye [Z96.1] 02/12/2017 Other specified hypothyroidism [E03.8] 11/22/2020 Chest discomfort [R07.89] 06/11/2023 SOB (shortness of breath) [R06.02] 06/11/2023 Pure hypercholesterolemia [E78.00] 06/11/2023 Primary hypertension [I10] 06/11/2023 Letter Text Encounter Status:Closed by KAVITHA INTERIANO on 08/15/23 [facility] 08-15-2023 Note HNO ID: [id number] Author: Kavitha Interiano Service: ? Author Type: ? Type: Progress Notes Filed: 08/15/2023 9:05 AM Note Text: Incidental Lung Nodule Enrollment Outreach attempt: 3rd Attempt Outreach status: Complete Enrolled in Lung Nodule program: No Declined reason: Other Lung Nodule Program Location: [place] Two letter attempts Discharge letter sent [facility] 08-04-2023 Note HNO ID: [id number] Author: Kavitha Interiano Service: ? Author Type: ? Type: Progress Notes Filed: 08/04/2023 6:25 PM Note Text: Incidental Lung Nodule Enrollment Outreach attempt: 2nd Attempt Outreach status: Complete Enrolled in Lung Nodule program: Referred Lung Nodule outreach: Needs outreach Lung Nodule Program Location: [place] Two letter attempts [facility] 08-04-2023 Note Patient Outreach (PU LMMN) -------- CORRIE MCCRAY ([id number]) 1950 F Date Time Provider Department 08/04/23 KAVITHA INTERIANO During your visit today, we recorded the following information about you: Kavitha Interiano 08/04/2023 6:25 PM Signed Incidental Lung Nodule Enrollment Outreach attempt: 2nd Attempt Outreach status: Complete Enrolled in Lung Nodule program: Referred Lung Nodule outreach: Needs outreach Lung Nodule Program Location: [place] Two letter attempts Allergies As of Date: 08/04/2023 Noted Allergy Reaction HYDROCODONE-ACETAMINOPHEN 05/21/2013 16 - Unknown NICKEL 06/11/2023 2 - Rash PERCOCET (OXYCODONE-ACETAMINOPHEN)06/12/2013 8 - GI Upset SULFA (SULFONAMIDE ANTIBIOTICS) 06/12/2013 8 - GI Upset WELLBUTRIN (BUPROPION HCL) 06/12/2013 2 - Rash Date Reviewed: 06/11/2023 Reviewed by: Zaire Fry MD - Fully Assessed Prescriptions as of 08/04/2023 - metoprolol tartrate, short acting, (LOPRESSOR) 50 mg tablet Take one 50 mg tablet the evening prior to the CTA examination, take another 50 mg tablet the morning of the CTA examination. - nitroglycerin sublingual (NITROQUICK) 0.3 mg SL tablet Dissolve 1 tablet under the tongue one time only for 1 dose. To be administered in Radiology for CTA exam - dorzolamide-timolol (COSOPT) 22.3-6.8 mg/mL ophthalmic solution INSTILL 1 DROP INTO BOTH EYES TWICE A DAY - losartan (COZAAR) 25 mg tablet Take 25 mg by mouth once daily. - levothyroxine (SYNTHROID) 25 mcg tablet Take 25 mcg by mouth daily before breakfast. - FLUAD QUAD 2019-21,65Y UP,,PF, 60 mcg (15 mcg x 4)/0.5 mL syrg PHARMACY ADMINISTERED - omega-3 fatty acids 1,000 mg cap Take 1 capsule by mouth once daily. - Evening [place] Oil (EVENING PRIMROSE) 500 mg cap Take 1 capsule by mouth once daily. - Flaxseed Oil 1,000 mg cap Take 1 capsule by mouth once daily. Problem List As Of Date 08/04/2023 Noted Resolved Primary open-angle glaucoma(365.11) [H40.1190] 06/02/2013 02/16/2015 Low tension glaucoma - Both Eyes [H40.1290] 06/02/2014 History of trabeculectomy - Both Eyes [Z98.890] 06/02/2014 02/12/2017 Vitreous degeneration - Right Eye [H43.819] 06/02/2014 02/12/2017 Senile nuclear sclerosis - Right Eye [H25.10] 06/02/2014 02/12/2017 Lens replaced by other means - Left Eye [Z96.1] 02/16/2015 02/12/2017 Dry eye - Both Eyes [H04.129] 02/16/2015 02/12/2017 Combined forms of age-related cataract of right*02/12/2017 12/06/2020 Keratitis sicca, bilateral [M35.01] 02/12/2017 PVD (posterior vitreous detachment) [H43.819] 02/12/2017 History of trabeculectomy, right eye [Z98.890] 02/12/2017 Pseudophakia, left eye [Z96.1] 02/12/2017 Other specified hypothyroidism [E03.8] 11/22/2020 Chest discomfort [R07.89] 06/11/2023 SOB (shortness of breath) [R06.02] 06/11/2023 Pure hypercholesterolemia [E78.00] 06/11/2023 Primary hypertension [I10] 06/11/2023 Letter Text Letter Text Encounter Status:Closed by KAVITHA INTERIANO on 08/04/23 [facility] 07-29-2023 Evaluation note Encounter Date Diagnosis Assessment Notes Jul, Pulmonary nodule, right (ICD-10 - R91.1) CTA chest: 7mm RLL nodule - 06/2023 [facility] 12-11-2023 NotePatient Outreach (PULMMN) CORRIE MCCRAY ([id number]) 1950 F Date Time Provider Department 07/29/23 KAVITHA INTERIANO During your visit today, we recorded the following information about you: Kavitha Interiano 07/29/2023 7:29 AM Signed Incidental Lung Nodule Enrollment Outreach attempt: 2nd Attempt Outreach status: Complete Enrolled in Lung Nodule program: Referred Lung Nodule outreach: Needs outreach Lung Nodule Program Location: [place] Two letter attempts Allergies As of Date: 07/29/2023 Noted Allergy Reaction HYDROCODONE-ACETAMINOPHEN 05/21/2013 16 - Unknown NICKEL 06/11/2023 2 - Rash PERCOCET (OXYCODONE-ACETAMINOPHEN)06/12/2013 8 - GI Upset SULFA (SULFONAMIDE ANTIBIOTICS) 06/12/2013 8 - GI Upset WELLBUTRIN (BUPROPION HCL) 06/12/2013 2 - Rash Date Reviewed: 06/11/2023 Reviewed by: Zaire Fry MD - Fully Assessed Prescriptions as of 07/29/2023 - metoprolol tartrate, short acting, (LOPRESSOR) 50 mg tablet Take one 50 mg tablet the evening prior to the CTA examination, take another 50 mg tablet the morning of the CTA examination. - nitroglycerin sublingual (NITROQUICK) 0.3 mg SL tablet Dissolve 1 tablet under the tongue one time only for 1 dose. To be administered in Radiology for CTA exam - dorzolamide-timolol (COSOPT) 22.3-6.8 mg/mL ophthalmic solution INSTILL 1 DROP INTO BOTH EYES TWICE A DAY - losartan (COZAAR) 25 mg tablet Take 25 mg by mouth once daily. - levothyroxine (SYNTHROID) 25 mcg tablet Take 25 mcg by mouth daily before breakfast. - FLUAD QUAD 2019-21,65Y UP,,PF, 60 mcg (15 mcg x 4)/0.5 mL syrg PHARMACY ADMINISTERED - omega-3 fatty acids 1,000 mg cap Take 1 capsule by mouth once daily. - Evening [place] Oil (EVENING PRIMROSE) 500 mg cap Take 1 capsule by mouth once daily. - Flaxseed Oil 1,000 mg cap Take 1 capsule by mouth once daily. Problem List As Of Date 07/29/2023 Noted Resolved Primary open-angle glaucoma(365.11) [H40.1190] 06/02/2013 02/16/2015 Low tension glaucoma - Both Eyes [H40.1290] 06/02/2014 History of trabeculectomy - Both Eyes [Z98.890] 06/02/2014 02/12/2017 Vitreous degeneration - Right Eye [H43.819] 06/02/2014 02/12/2017 Senile nuclear sclerosis - Right Eye [H25.10] 06/02/2014 02/12/2017 Lens replaced by other means - Left Eye [Z96.1] 02/16/2015 02/12/2017 Dry eye - Both Eyes [H04.129] 02/16/2015 02/12/2017 Combined forms of age-related cataract of right*02/12/2017 12/06/2020 Keratitis sicca, bilateral [M35.01] 02/12/2017 PVD (posterior vitreous detachment) [H43.819] 02/12/2017 History of trabeculectomy, right eye [Z98.890] 02/12/2017 Pseudophakia, left eye [Z96.1] 02/12/2017 Other specified hypothyroidism [E03.8] 11/22/2020 Chest discomfort [R07.89] 06/11/2023 SOB (shortness of breath) [R06.02] 06/11/2023 Pure hypercholesterolemia [E78.00] 06/11/2023 Primary hypertension [I10] 06/11/2023 Letter Text Letter Text Encounter Status:Closed by KAVITHA INTERIANO on 07/29/23[facility]12-11-2023 NoteHNO ID: [id number] Author: Kavitha Interiano Service: ? Author Type: ? Type: Progress Notes Filed: 07/29/2023 7:29 AM Note Text: Incidental Lung Nodule Enrollment Outreach attempt: 2nd Attempt Outreach status: Complete Enrolled in Lung Nodule program: Referred Lung Nodule outreach: Needs outreach Lung Nodule Program [facility] [place] [facility] History of Present illness Narrative* Kavitha Interiano - 07/29/2023 7:28 AM EST Incidental Lung Nodule Enrollment Outreach attempt: 2nd Attempt Outreach status: Complete Enrolled in Lung Nodule program: Referred Lung Nodule outreach: Needs outreach Lung Nodule Program Location: [place] Two letter [facility] NoteHNO ID: [id number] Author: Silvia Ge APRN.CNP Service: ? Author Type: Nurse Practitioner Type: Progress Notes Filed: 07/22/2023 1:45 PM Note Text: Incidental Lung Nodule Enrollment Outreach attempt: 1st Attempt Outreach status: Complete Enrolled in Lung Nodule program: Referred Lung Nodule outreach: Needs outreach Lung Nodule Program Location: [place] Letter sent to patient regarding incidental lung nodule(s). Silvia Ge APRN.CNP July 22, 2023 1:42 [facility]12-04-2023 NotePatient Outreach (PMNA11) CORRIE MCCRAY Justino ([id number]) 1950 F Date Time Provider Department 07/22/23 SILVIA GE PMNA11 During your visit today, we recorded the following information about you: Silvia Ge APRN.CNP 07/22/2023 1:45 PM Signed Incidental Lung Nodule Enrollment Outreach attempt: 1st Attempt Outreach status: Complete Enrolled in Lung Nodule program: Referred Lung Nodule outreach: Needs outreach Lung Nodule Program Location: [place] Letter sent to patient regarding incidental lung nodule(s). Silvia Ge APRN.CNP July 22, 2023 1:42 PM Allergies As of Date: 07/22/2023 Noted Allergy Reaction HYDROCODONE-ACETAMINOPHEN 05/21/2013 16 - Unknown NICKEL 06/11/2023 2 - Rash PERCOCET (OXYCODONE-ACETAMINOPHEN)06/12/2013 8 - GI Upset SULFA (SULFONAMIDE ANTIBIOTICS) 06/12/2013 8 - GI Upset WELLBUTRIN (BUPROPION HCL) 06/12/2013 2 - Rash Date Reviewed: 06/11/2023 Reviewed by: Zaire Fry MD - Fully Assessed Reason for Visit: Nodule [1379] Primary Visit Diagnosis:Lung nodule [R91.1] Prescriptions as of 07/22/2023 - metoprolol tartrate, short acting, (LOPRESSOR) 50 mg tablet Take one 50 mg tablet the evening prior to the CTA examination, take another 50 mg tablet the morning of the CTA examination. - nitroglycerin sublingual (NITROQUICK) 0.3 mg SL tablet Dissolve 1 tablet under the tongue one time only for 1 dose. To be administered in Radiology for CTA exam - dorzolamide-timolol (COSOPT) 22.3-6.8 mg/mL ophthalmic solution INSTILL 1 DROP INTO BOTH EYES TWICE A DAY - losartan (COZAAR) 25 mg tablet Take 25 mg by mouth once daily. - levothyroxine (SYNTHROID) 25 mcg tablet Take 25 mcg by mouth daily before breakfast. - FLUAD QUAD 2020-21,65Y UP,,PF, 60 mcg (15 mcg x 4)/0.5 mL syrg PHARMACY ADMINISTERED - omega-3 fatty acids 1,000 mg cap Take 1 capsule by mouth once daily. - Evening [place] Oil (EVENING PRIMROSE) 500 mg cap Take 1 capsule by mouth once daily. - Flaxseed Oil 1,000 mg cap Take 1 capsule by mouth once daily. Problem List As Of Date 07/22/2023 Noted Resolved Primary open-angle glaucoma(365.11) [H40.1190] 06/02/2013 02/16/2015 Low tension glaucoma - Both Eyes [H40.1290] 06/02/2014 History of trabeculectomy - Both Eyes [Z98.890] 06/02/2014 02/12/2017 Vitreous degeneration - Right Eye [H43.819] 06/02/2014 02/12/2017 Senile nuclear sclerosis - Right Eye [H25.10] 06/02/2014 02/12/2017 Lens replaced by other means - Left Eye [Z96.1] 02/16/2015 02/12/2017 Dry eye - Both Eyes [H04.129] 02/16/2015 02/12/2017 Combined forms of age-related cataract of right*02/12/2017 12/06/2020 Keratitis sicca, bilateral [M35.01] 02/12/2017 PVD (posterior vitreous detachment) [H43.819] 02/12/2017 History of trabeculectomy, right eye [Z98.890] 02/12/2017 Pseudophakia, left eye [Z96.1] 02/12/2017 Other specified hypothyroidism [E03.8] 11/22/2020 Chest discomfort [R07.89] 06/11/2023 SOB (shortness of breath) [R06.02] 06/11/2023 Pure hypercholesterolemia [E78.00] 06/11/2023 Primary hypertension [I10] 06/11/2023 Letter Text Letter Text Encounter Status:Closed by SILVIA GE on 07/22/23[facility] 07-22-2023 History of Present illness Narrative* Silvia Ge APRN.[employer] - 07/22/2023 1:42 PM EST Incidental Lung Nodule Enrollment Outreach attempt: 1st Attempt Outreach status: Complete Enrolled in Lung Nodule program: Referred Lung Nodule outreach: Needs outreach Lung Nodule Program Location: [place] Letter sent to patient regarding incidental lung nodule(s). Silvia Ge APRN.CNP July 22, 2023 1:42 PM [facility]23 NoteHNO ID: [id number] Author: Silvia Mckeon RT(R) Service: Radiology Author Type: Vc++ Developer Type: Progress Notes Filed: 07/05/2023 3:03 PM Note Text: Radiology Service Progress Note PATIENT NAME: Corrie Mccray DATE OF SERVICE: July 05, 2023 TIME: 3:00 PM PATIENT IDENTITY VERIFICATION COMPLETED USING TWO (2) IDENTIFIERS: Name and Date of confirmed by patient verbally. FALL SCREENING: Has the patient had 2 falls in the last year or 1 fall with injury or currently using an Ambulatory Assistive Device (Walker, Cane, Wheelchair, Crutches, etc.)? No PATIENT GENDER DATA: Female. status: : No status: NO. PATIENT RELEVANT IMPLANT DATA REVIEWED: Not Applicable RADIOLOGY DEPARTMENT: CT; Exam(s) Completed: CTA Cardiac PERIPHERAL IV DATA: Inpatient: see LDA documentation SIGNED BY: RT Yesica(R) July 05, 2023 3:00 [facility]11-17-2023 NoteHNO ID: [id number] Author: Liss Anne, TECHNOLOGIST Service: ? Author Type: Technologist Type: Progress Notes Filed: 07/05/2023 3:03 PM Note Text: Radiology Service Progress Note PATIENT NAME: Corrie Mccray DATE OF SERVICE: July 05, 2023 TIME: 3:02 PM PATIENT IDENTITY VERIFICATION COMPLETED USING TWO (2) IDENTIFIERS: Name and Date of confirmed by patient verbally and Name and Date of confirmed by identification band. FALL SCREENING: Has the patient had 2 falls in the last year or 1 fall with injury or currently using an Ambulatory Assistive Device (Walker, Cane, Wheelchair, Crutches, etc.)? No PATIENT GENDER DATA: Female. status: : No status: NO. PATIENT RELEVANT IMPLANT DATA REVIEWED: Not Applicable RADIOLOGY DEPARTMENT: CT; Exam(s) Completed: Cardiac PERIPHERAL IV DATA: Site assessment: Clean,Dry and Intact, Site disposition Discontinued SIGNED BY: Liss Anne, TECHNOLOGIST July 05, 2023 3:02 [facility]11-17-2023 NoteHNO ID: [id number] Author: Sarah Mtz RRT Service: ? Author Type: Registered Resp Therapist Type: Progress Notes Filed: 07/05/2023 2:30 PM Note Text: PULM FUNCTION SMARTBLOCK: Provider: Zaire Fry MD Spirometry: [address] [place], [place] [address]11-17-2023 History of Present illness Narrative* Sarah Mtz RRT - 07/05/2023 2:25 PM EST PULM FUNCTION SMARTBLOCK: Provider: Zaire Fry MD Spirometry: 1 documented [facility] Evaluation note* Encounter Date Diagnosis Assessment Notes Treatment Notes Treatment Clinical Notes Jun, Dyspnea on exertion (ICD-10 - R06.09) Unknown etiology. No hx of COPD, smoking or asthma Exercises regularly. Scheduled for PFT Jun, Precordial pain (ICD -10 - R07.2) TSH > 8 after which levothyroxine was inititated. Denies palpitations, tremors, weight loss or insomnia Jun, Primary hypertension (ICD-10 - I10) This patient is instructed to consume a healthy, low-fat, low-salt diet. They are also encouraged to continue exercise to achieve/maintain a normal BMI. Jun, Hypercholesterolemia (ICD-10 - E78.00) Instructed on diet and exercise with continued statin therapy.Discussed the beneficial effects of lowering cholesterol in reducing the risk for cerebrovascular and cardiovascular disease. 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 Author Type: Physician Type: Progress Notes Filed: 06/11/2023 11:43 AM Note Text: [facility] [place] [facility] OUTPATIENT VISIT DATE June 11, 2023 OUTPATIENT VISIT TYPE NEW PRIMARY CARE PHYSICIAN: Hussein Rowan ([facility]) [address] [place] [address] A written report of the findings and recommendations will be sent to the requesting provider via shared medical record or via [employer]PS. Patient is being seen at the request of the referring physician for Chest pain, Hyperlipidemia, and Shortness of breath HISTORY OF PRESENT ILLNESS: Ms. Mccray is a 72 year old female with a history of hypertension, hypercholesterolemia however with high HDL and normal LDL to HDL ratio. Hypothyroidism. No history of diabetes. No family history of premature coronary disease or sudden cardiac . Cardiovascular work-up includes: An echocardiogram done in 2022 showed ejection fraction 60 to 65%. Mild MR TR. A CTA of the chest done on 01/01 2023 showed no pulmonary embolus. A nuclear stress test done on 01/24/2023 showed no ischemia. Normal perfusion scan. Normal EF. Continues to have chest discomfort on activity. She mentioned that she gets like a tight band around her chest when she is walking her son's dog. Also she has been having significant shortness of breath especially if she goes 1 flight of stairs. She denies any orthopnea or PND. No syncope near syncope. No lightheadedness or dizziness. No weight gain or loss. No leg edema. No other symptoms or complaints. IMPRESSION: Encounter Diagnosis ICD-10-CM 1. Chest discomfort R07.89 ECG COMPLETE CTA CORONARY W IVCON CREATININE BLD 2. SOB (shortness of breath) R06.02 ECG COMPLETE SPIROMETRY WITH DILATOR IF OBSTRUCTED CTA CORONARY W IVCON CREATININE BLD 3. Pure hypercholesterolemia E78.00 ECG COMPLETE CTA CORONARY W IVCON 4. Primary hypertension I10 CTA CORONARY W IVCON PLAN AND RECOMMENDATIONS: Chest discomfort Suggestive of angina along with a few risk factors of coronary artery disease however negative ischemic work-up. Continues to have typical symptoms so I will proceed with a CTA of the coronary arteries since the patient actually is very healthy despite the fact that she is 72 years old. Also I explained to her that there could be microvascular disease so we can always change her blood pressure medicine to a beta-meenu and a small dose of nitrates that can help with her symptoms. Shortness of breath Could be anginal equivalent. However she never had any lung testing so I will ask for PFTs. Hypertension Very well controlled by current management. However see #1 for possible changes of medications. Hypercholesterolemia Even though her LDL is 140 however her HDL is 67 and the ratio is excellent. So far her needs only diet options and no therapy. REVIEW OF SYSTEMS: Chest pain Yes Shortness of breath Yes Bleeding No Dizziness No Syncope No Palpations No 10 systems reviewed and are negative with the exception of pertinent positives described in HPI PHYSICAL EXAMINATION: BP 110/70 (BP Site: Left Arm, BP Position: Sitting, BP Cuff Size: Regular Adult) Pulse 76 Ht 157.5 cm (5' 2 ) Wt 65.3 kg (144 lb) SpO2 98% BMI 26.34 kg/m? HEENT: normocephalic, EOMI Heart: regular rhythm Lungs: clear to auscultation Abdomen: bowel sounds present Extremities: no edema Musculoskeletal: chest wall nontender Neurological: alert and oriented Psychiatric: appropriate and cooperative Skin: no rash, cellulitis or lesions appreciated CARDIOVASCULAR MEDICINE TESTING: I have personally reviewed ECG, laboratory results, outside medical records, echocardiogram report, stress test report, and vascular imaging report PAST CARDIAC HISTORY: See above. 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, moderate stage Pseudophakia of left eye PVD (posterior vitreous detachment), bilateral PAST SURGICAL HISTORY Procedure Laterality Date COLONOSCOPY FLX DX W/COLLJ SPEC WHEN PFRMD 02 Colonoscopy FSTLJ SCLERA GLAUCOMA TRABECULECT AB EXTERNO Right Trabeculectomy LAPS ABD PRTMANDOMENTUM DX W/WO SPEC BR/WA SPX 81 Laparoscopy LITHOTRIPSY XTRCORP SHOCK WAVE 2012 Lithotripsy NEUROPLASTY AND/TRANSPOS MEDIAN NRV CARPAL TUNNE 2008 Carpal tunnel decomp POST-CATARACT LASER SURGERY 03-05-14 Yag Capsulotomy left eye PUBOVAGINAL SLING TONSILLECTOMY AND ADENOIDECTOMY XCAPSL CTRC RMVL INSJ IO LENS PROSTH W/O ECP 2010 os Cataract Extraction with PC IOL Social History Tobacco Use Smoking status: Never Smokeless tobacco: Never Vaping Use Vaping Use: Never used Substance Use Topics Alcohol use: Yes Comment: 1 glass of wine 3/wk Drug use: No FAMILY HISTORY Problem (more content not included)...[facility]10-24-[facility] History of Present illness Narrative* Zaire Fry MD - 06/11/2023 11:17 AM EDT Images from the original note were not included. [facility] [place] [facility] CARDIOLOGY OUTPATIENT VISIT DATE June 11, 2023 OUTPATIENT VISIT TYPE NEW PRIMARY CARE PHYSICIAN: Hussein Rowan ([facility]) [address] [place] [address] A written report of the findings and recommendations will be sent to the requesting provider via shared medical record or via USPS. Patient is being seen at the request of the referring physician for Chest pain, Hyperlipidemia, andShortness of breath HISTORY OF PRESENT ILLNESS: Ms. Mccray is a 72 year old female with a history of hypertension, hypercholesterolemia however with high HDL and normal LDL to HDL ratio. Hypothyroidism. No history of diabetes. No family history ofpremature coronary disease or sudden cardiac . Cardiovascular work-up includes: An echocardiogram done in 2022 showed ejection fraction 60 to 65%. Mild MR TR. A CTA of the chest done on 01/01 2023 showed no pulmonary embolus. A nuclear stress test done on 01/24/2023 showed no ischemia. Normal perfusion scan. Normal EF. Continues to have chest discomfort on activity. She mentioned that she gets like a tight band around her chest when she is walking her son's dog. Also she has been having significant shortness of breath especially if she goes 1 flight of stairs. She denies any orthopnea or PND. No syncope near syncope. No lightheadedness or dizziness. No weight gain or loss. No leg edema. No other symptoms or complaints. IMPRESSION: Encounter Diagnosis ICD-10-CM 1. Chest discomfort R07.89 ECG COMPLETE CTA CORONARY W IVCON CREATININE BLD 2. SOB (shortness of breath) R06.02 ECG COMPLETE SPIROMETRY WITH DILATOR IF OBSTRUCTED CTA CORONARY W IVCON CREATININE BLD 3. Pure hypercholesterolemia E78.00 ECG COMPLETE CTA CORONARY W IVCON 4. Primary hypertension I10 CTA CORONARY W IVCON PLAN AND RECOMMENDATIONS: Chest discomfort Suggestive of angina along with a few risk factors of coronary artery disease however negative ischemic work-up. Continues to have typical symptoms so I will proceed with a CTA of the coronary arteries since the patient actually is very healthy despite the fact that she is 72 years old. Also I explained to her that there could be microvascular disease so we can always change her blood pressure medicine to a beta-meenu and a small dose of nitrates that can help with her symptoms. Shortness of breath Could be anginal equivalent. However she never had any lung testing so I will ask for PFTs. Hypertension Very well controlled by current management. However see #1 for possible changes of medications. Hypercholesterolemia Even though her LDL is 140 however her HDL is 67 and the ratio is excellent. So far her needs only diet options and no therapy. REVIEW OF SYSTEMS: Chest pain Yes Shortness of breath Yes Bleeding No Dizziness No Syncope No Palpations No 10 systems reviewed and are negative with the exception of pertinent positives described in HPI PHYSICAL EXAMINATION: BP 110/70 (BP Site: Left Arm, BP Position: Sitting, BP Cuff Size: Regular Adult) Pulse 76 Ht 157.5 cm (5' 2 ) Wt 65.3 kg (144 lb) SpO2 98% BMI 26.34 kg/m HEENT: normocephalic, EOMI Heart: regular rhythm Lungs: clear to auscultation Abdomen: bowel sounds present Extremities: no edema Musculoskeletal: chest wall nontender Neurological: alert and oriented Psychiatric: appropriate and cooperative Skin: no rash, cellulitis or lesions appreciated CARDIOVASCULAR MEDICINE TESTING: I have personally reviewed ECG, laboratory results, outside medical records, echocardiogram report,stress test report, and vascular imaging report PAST CARDIAC HISTORY: See above. 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, moderate stage Pseudophakia of left eye PVD (posterior vitreous detachment), bilateral PAST SURGICAL HISTORY Procedure Laterality Date COLONOSCOPY FLX DX W/COLLJ SPEC WHEN PFRMD 02 Colonoscopy FSTLJ SCLERA GLAUCOMA TRABECULECT AB EXTERNO Right Trabeculectomy LAPS ABD PRTM&OMENTUM DX W/WO SPEC BR/WA SPX 81 Laparoscopy LITHOTRIPSY XTRCORP SHOCK WAVE 2012 Lithotripsy NEUROPLASTY &/TRANSPOS MEDIAN NRV CARPAL TUNNE 2007 Carpal tunnel decomp POST-CATARACT LASER SURGERY 03-05-14 Yag Capsulotomy left eye PUBOVAGINAL SLING TONSILLECTOMY & ADENOIDECTOMY <AGE [age] XCAPSL CTRC RMVL INSJ IO LENS PROSTH W/O ECP 2010 os Cataract Extraction with PC IOL Social History Tobacco Use Smoking status: Never Smokeless tobacco: Never Vaping Use Vaping Use: Never used Substance Use Topics Alcohol use: Yes Comment: 1 glass of wine 3/wk Drug use: No FAMILY HISTORY Problem Relation Age of Onset Macular Degen Mother Heart Mother Cancer Mother Glaucoma Paternal Grandmother ALLERGIES Allergen Reactions Hydrocodone-Acetami* Unknown Nickel Rash Percocet [Oxycodone* GI Upset Sulfa (Sulfonamide * GI Upset Wellbutrin [Bupropi* Rash CURRENT MEDICATIONS: dorzolamide-timolol (COSOPT) 22.3-6.8 mg/mL ophthalmic solution INSTILL 1 DROP INTO BOTH EYES TWICEA DAY losartan (COZAAR) 25 mg tablet Take 25 mg by mouth once daily. levothyroxine (SYNTHROID) 25 mcg tablet Take 25 mcg by mouth daily before breakfast. omega-3 fatty acids 1,000 mg cap Take 1 capsule by mouth once daily. Evening [place] Oil (EVENING PRIMROSE) 500 mg cap Take 1 capsule by mouth once daily. Flaxseed Oil 1,000 mg cap Take 1 capsule by mouth once daily. FLUAD QUAD 2020-21,65Y UP,,PF, 60 mcg (15 mcg x 4)/0.5 mL syrg PHARMACY ADMINISTERED (Patient not taking: Reported on 06/11/2023) documented [facility]Hol[facility]10-[facility] Evaluation note* Encounter Date Diagnosis Assessment Notes Treatment Notes Treatment Clinical Notes May, Abrasion of right cornea, initial encounter (ICD-10 - S05.01XA) Drink plenty fluids, get plenty of rest. Use the eyedrops as prescribed. Today you may instill the eyedrops every 2 hours and then 4 times a day for the next 4 days. Follow-up with your retail leader if no improvement in 2 to 3 days. Continue home medications as prescribed [facility] Other 09-26-2023 NoteHNO ID: [id number] Author: Tina Brown OD Service: ? Author Type: CSR TECHNICIAN Type: Progress Notes Filed: 05/14/2023 2:37 PM Note Text: Tmax 19 , 21 (pt report) ; Pachy 548 , 579 Gonioscopy 05/2013 Post dilation anterior iris insertion grade I-II with light TMP Lasers and surgeries OD TBX 06/30/13 (IOP 19) 11/29/20. PCIOL OS PEIOL (done elsewhere to lower IOP - ineffective), SLT 2009 Ocular Medication Intol, Non-efficacy, barriers Latanoprost - FORTE's ; multiple drops ineffective Cosopt, Brimonidine Sulfa intolerance (projectile vomiting) Current Ophthalmic Meds dorzolamide-timolol (COSOPT) 22.3-6.8 mg/mL ophthalmic solution (Taking) 1 drop both eyes 2 x daily Goals -- HVF 05/14/2023 OD mod sup nasal step, stable ; OS Mild superior depression, stable -- OCT 10/12/2022 OD severe inf>mod sup thinning, Low SS ;OS mod inf > sup thinning, stable Low SS -- GCA 10/09/2021 OD poor SS and significant artifact limiting interpretation; OS mod sup, inf wedge, worse than 2013 (H40.1232) Low-tension glaucoma of both eyes, moderate stage (primary encounter diagnosis) -Meeting goals with IOP - Low SS on OCT Plan: Continue dorzolamide/timolol two times a day OU IOP acceptable OU RNFL appears stable Consider augmentation with SLT left eye if HVF change (H16.223) Keratitis sicca, bilateral Comment: The nature of dry eyes was reviewed. Several treatment options were discussed, including the use of artificial tears, the supplementation of diet with omega-3 fatty acids, and lid hygiene. Plan: Montior (H43.813) PVD (posterior vitreous detachment), bilateral Comment: Signs and symptoms of retinal detachment were reviewed with the patient, including an increase in number or size of floaters, flashes, or a curtain effect in one's peripheral vision. Plan: Monitor (Z98.890) History of trabeculectomy, right eye Comment: The potential for vision-threatening infection related to the bleb was discussed. The signs of infection and the importance of same-day medical attention if these signs develop were emphasized. Plan: Monitor (Z96.3) Pseudophakia, both eyes Comment: Centered IOL, open capsule. Plan: Monitor RTC: 6 Months Full OCT ON/GCA The nature of the patient's eye disease, its relationship to systemic health, its genetic components, and its prognosis have been explained to the patient/family. The treatment options/risks/benefits have been discussed. Questions answered. I have interviewed and examined Corrie Mccray. I have confirmed and edited as necessary the chief complaint, history of present illness, past medical history, medications, family history, social history, review of systems, and exam findings as obtained by others. I agree with the assessment and plan as stated above,and have discussed them in detail with the patient. Tina Brown, OD May 14, 2023 2:37 [facility]08-07-2023 Miscellaneous Notes* Telephone Encounter - Chica Menchaca - 03/25/2023 4:47 PM EDT Patient: Corrie Mccray Date of : 1950 Patient phone number: [phone] Referring Provider for the encounter: Hussein Rowan Requesting Provider: n/c Reason for requesting visit (RFV/signs and symptoms/diagnosis): Precordial pain (R07.2) Person calling: caregiver: Chica Return call to: self Medical Records/Insurance Card scanned into [employer]: Yes Comments: documented in this encounterHol[facility]07-26-2023 Evaluation note* Encounter Date Diagnosis Assessment Notes Treatment Notes Treatment Clinical Notes Feb, Dyspnea on exertion (ICD-10 - R06.09) [facility] Other 07-24-2023 Evaluation note* Encounter Date Diagnosis Assessment Notes Treatment Notes Treatment Clinical Notes Feb, Dyspnea on exertion (ICD-10 - R06.09) Completed CXR, Echo and Stress testing w/o abnormal findings CTA to r/o PE and lung tumor Feb, Precordial pain (ICD -10 - R07.2) Completes Echo and Stress testing w/o abnormalities. Continues w/ CP and dyspnea, r/o PE or lung tumor Feb, Primary hypertension (ICD-10 - I10) This patient is instructed to consume a healthy, low-fat, low-salt diet. They are also encouraged to continue exercise to achieve/maintain a normal BMI. Feb, Hypercholesterolemia (ICD-10 - E78.00) Instructed on diet and exercise with continued statin therapy.Discussed the beneficial effects of lowering cholesterol in reducing the risk for cerebrovascular and cardiovascular disease. [facility] Other 05-31-2023 Evaluation note* Encounter Date Diagnosis Assessment Notes Treatment Notes Treatment Clinical Notes December, Precordial pain (ICD -10 - R07.2) Suspicious for angina Suggest avoiding strenuous activity Instructed to go to ER for persistent CP, SOB, lightheadedness December, Primary hypertension (ICD-10 - I10) This patient is instructed to consume a healthy, low-fat, low-salt diet. They are also encouraged to continue exercise to achieve/maintain a normal BMI. December, Hypercholesterolemia (ICD-10 - E78.00) Instructed on diet and exercise with continued statin therapy.Discussed the beneficial effects of lowering cholesterol in reducing the risk for cerebrovascular and cardiovascular disease. December, Dyspnea on exertion (ICD-10 - R06.09) Hold exercise routine until stress testing completed [facility] Other 05-10-2023 Evaluation note* Encounter Date Diagnosis Assessment Notes Treatment Notes Treatment Clinical Notes December, Medicare annual well ness visit, subsequent (ICD-10 - Z00.00) Personalized health advice was given to the beneficiary including a written plan for screenings discussed and provided. Advanced care planning reviewed and/or information given as requested. Additional counseling was provided here today in regards to, [ ]. The above visit was performed by [ ], under direct supervision of [ ]. Document reviewed and amended by provider signed below. December, Primary hypertension (ICD-10 - I10) This patient is instructed to consume a healthy, low-fat, low-salt diet. They are also encouraged to continue exercise to achieve/maintain a normal BMI. 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 She denies associated CP, palpitations, lightheadedness She denies orthopnea or edema She denies smoking hx, asthma, cough, sputum or hemoptysis Exercise routine not affected, check CXR December, Hypercholesterolemia (ICD-10 - E78.00) Instructed on diet and exercise.Discussed the beneficial effects of lowering cholesterol in reducing the risk for cerebrovascular and cardiovascular disease. December, Other specified hypothyroidism (ICD-10 - E03.8) December, Fatigue, unspecified type (ICD-10 - R53.83) December, Menopause (ICD-10 - Z78.0) Exercise, Ca and Vitamin D supplements December, Screening mammogram for breast cancer (ICD-10 - Z12.31) December, High risk medication use (ICD-10 - Z79.899) December, Metabolic syndrome (ICD-10 - E88.81) [facility] Other 05-10-2023 Evaluation note* Encounter Date Diagnosis Assessment Notes Treatment Notes Treatment Clinical Notes December, KHAN (dyspnea on exertion) (ICD-10 - R06.09) [facility] Other 05-10-2023 NotePROCEDURE: XR CHEST 2 V DATE: 12/26/2022 9:26 AM CDT COMPARISONS: None. CLINICAL INDICATION: 72 years Female Dyspnea FINDINGS: The cardiomediastinal silhouette and pulmonary vasculature are within normal limits. The lungs are clear. There is no evidence of pleural effusion or pneumothorax. IMPRESSION: Chest radiograph is within normal limits. Electronically authenticated by: DEREK BONILLA Date: 2022-12-26 11:05[facility]09-12-2022 NoteOPERATIVE NOTE OPERATION DATE: 04/30/2022 PROCEDURE: D AND C hysteroscopy with Myosure. PREOPERATIVE DIAGNOSIS: Postmenopausal bleeding, thickened endometrium. POSTOPERATIVE DIAGNOSIS: Postmenopausal bleeding, thickened endometrium. ANESTHESIA: General. SURGEON: Zion Rizzo D.O. FINISH OFF OPERATOR: None. FINDINGS: Atrophic appearing cavity. No gross evidence of malignancy seen or polyps or fibroids. URINE OUTPUT: Yellow and clear. SPECIMEN: Endometrial curettings. PROCEDURE: The patient was taken back to the Operating Room where she was prepped and draped in normal sterile fashion after being placed under general anesthesia without difficulty. She was also placed in the dorsal lithotomy position. A weighted speculum was placed in the patient's vagina. The anterior lip of the cervix was identified and grasped with a single tooth tenaculum. The patient's uterus was then sounded roughly to 7 cm. The patient was then gently dilated using Hegar dilators. The hysteroscope was passed through the patient's cervix into the uterus. Both ostia were identified. Slightly thickened appearing endometrium. No gross evidence of malignancy. Please note that the MyoSure apparatus was placed through the hysteroscope under direct visualization. The apparatus was engaged and endometrial curettings were removed under direct visualization. The MyoSure was then removed from the scope. The hysteroscope was then removed from the patient's uterus. The endometrial curettings were sent out to pathology. The single tooth tenaculum was then removed from the patient's anterior lip of the cervix where excellent hemostasis was noted. All instruments were removed from the patient's vagina. The patient tolerated the procedure well. Sponge, lap and needle counts were correct times two. The patient was taken to the Recovery Room in stable condition.[facility] [id number] History of Present illness Narrative* Tina Brown, OD - 04/10/2022 1:38 PM EDT Tmax 19 , 21 (pt report) ; Pachy 548 , 579 Gonioscopy 05/2013 Post dilation anterior iris insertion grade I-II with light TMP Lasers and surgeries OD TBX 06/30/13 (IOP 19) 11/29/20. PCIOL OS PEIOL (done elsewhere to lower IOP - ineffective), SLT 2009 Ocular Medication Intol, Non-efficacy, barriers Latanoprost - FORTE's ; multiple drops ineffective Cosopt, Brimonidine Sulfa intolerance (projectile vomiting) Current Ophthalmic Meds dorzolamide-timolol (COSOPT) 22.3-6.8 mg/mL ophthalmic solution (Taking) 1 drop both eyes 2 x daily Goals -- HVF 04/10/2022 OD mod sup nasal step, Possible change ; OS Mild superior depression -- OCT 10/09/2021 OD severe inf>mod sup thinning, stable;OS mod inf > sup thinning, stable -- GCA 10/09/2021 OD poor SS and significant artifact limiting interpretation; OS mod sup, inf wedge, worse than 2014 (H40.1232) Low-tension glaucoma of both eyes, moderate stage (primary encounter diagnosis) -Monitor Plan: Continue dorzolamide/timolol two times a day OU IOP acceptable OU RNFL appears stable Consider augmentation with SLT left eye if HVF change (H16.223) Keratitis sicca, bilateral Comment: The nature of dry eyes was reviewed. Several treatment options were discussed, including the use of artificial tears, the supplementation of diet with omega-3 fatty acids, and lid hygiene. Plan: Montior (H43.813) PVD (posterior vitreous detachment), bilateral Comment: Signs and symptoms of retinal detachment were reviewed with the patient, including an increase in number or size of floaters, flashes, or a curtain effect in one's peripheral vision. Plan: Monitor (Z98.890) History of trabeculectomy, right eye Comment: The potential for vision-threatening infection related to the bleb was discussed. The signs of infection and the importance of same-day medical attention if these signs develop were emphasized. Plan: Monitor (Z96.3) Pseudophakia, both eyes Comment: Centered IOL, open capsule. Plan: Monitor RTC: 6 Months Full OCT ON/GCA The nature of the patient's eye disease, its relationship to systemic health, its genetic components, and its prognosis have been explained to the patient/family. The treatment options/risks/benefitshave been discussed. Questions answered. I have interviewed and examined Corrie Justino Shazia. I have confirmed and edited as necessary the chiefcomplaint, history of present illness, past medical history, medications, family history, social history, review of systems, and exam findings as obtained by others. I agree with the assessment and plan as stated above,and have discussed them in detail with the patient. Tina Brown, OD April 10, 2022 2:31 PM [facility]* Encounter Date Diagnosis Assessment Notes Treatment Notes Treatment Clinical Notes Sep, Injury of right lower extremity, initial encounter (ICD-10 - S89.91XA) Use RICE therapy as discussed: Rest, Ice Compression, Elevate. Apply ice to affected area 3-4 times daily (Do not place ice source directly on skin, must cover with towel-like material). Use OTC as directed for pain if needed. Contact office if symptoms are not improved within the next few days and we will help you get into specialist. [employer] Other [id number] History of Past illness Narrative* Problem Noted Date Resolved Date Combined forms of age-related cataract of right eye 02/12/2017 12/06/2020 Lens replaced by other means - Left Eye 02/17/2002/12/2017 Dry eye - Both Eyes 02/16/2015 02/12/2017 History of trabeculectomy - Both Eyes 06/02/2014 02/12/2017 Vitreous degeneration - Right Eye 06/02/2014 02/12/2017 Senile nuclear sclerosis - Right Eye 06/02/2014 02/12/2017 Primary open-angle glaucoma(365.11) 06/02/2013 02/16/2015 documented as of this encounter (statuses as of 04/10/2022) [facility] of [facility] illness Narrative* Problem Noted Date Diagnosed Date Resolved Date Combined forms of age-relate d cataract of right eye 02/12/2017 12/06/2020 Lens replaced by other means - Left Eye 02/16/2015 02/12/2017 Dry eye - Both Eyes 02/16/2015 02/13/20 17 History of trabeculectomy - Both Eyes 06/02/2014 02/12/2017 Vitreous degeneration - Right Eye 06/02/2014 02/12/2017 Senile nuclear sclerosis - Right Eye 06/02/2014 02/12/2017 Primary open-angle glaucoma(365.11) 06/02/2013 02/16/2015 documented as of this encounter (statuses as of 03/26/2023) [facility] of [facility] illness Narrative* Problem Noted Date Diagnosed Date Resolved Date Combined forms of age-relate d cataract of right eye 02/12/2017 12/06/2020 Lens replaced by other means - Left Eye 02/16/2015 02/12/2017 Dry eye - Both Eyes 02/16/2015 02/13/20 17 History of trabeculectomy - Both Eyes 06/02/2014 02/12/2017 Vitreous degeneration - Right Eye 06/02/2014 02/12/2017 Senile nuclear sclerosis - Right Eye 06/02/2014 02/12/2017 Primary open-angle glaucoma(365.11) 06/02/2013 02/16/2015 documented as of this encounter (statuses as of 06/11/2023) [facility] Narrative* Problem Noted Date Diagnosed Date Resolved Date Combined forms of age-relate d cataract of right eye 02/12/2017 12/06/2020 Lens replaced by other means - Left Eye 02/16/2015 02/12/2017 Dry eye - Both Eyes 02/16/2015 02/13/20 17 History of trabeculectomy - Both Eyes 06/02/2014 02/12/2017 Vitreous degeneration - Right Eye 06/02/2014 02/12/2017 Senile nuclear sclerosis - Right Eye 06/02/2014 02/12/2017 Primary open-angle glaucoma(365.11) 06/02/2013 02/16/2015 documented as of this encounter (statuses as of 07/05/2023) [facility] Narrative* Problem Noted Date Diagnosed Date Resolved Date Combined forms of age-relate d cataract of right eye 02/12/2017 12/06/2020 Lens replaced by other means - Left Eye 02/16/2015 02/12/2017 Dry eye - Both Eyes 02/16/2015 02/13/20 17 History of trabeculectomy - Both Eyes 06/02/2014 02/12/2017 Vitreous degeneration - Right Eye 06/02/2014 02/12/2017 Senile nuclear sclerosis - Right Eye 06/02/2014 02/12/2017 Primary open-angle glaucoma(365.11) 06/02/2013 02/16/2015 documented as of this encounter (statuses as of 07/23/2023) [facility] Narrative* Problem Noted Date Diagnosed Date Resolved Date Combined forms of age-relate d cataract of right eye 02/12/2017 12/06/2020 Lens replaced by other means - Left Eye 02/16/2015 02/12/2017 Dry eye - Both Eyes 02/16/2015 02/13/20 17 History of trabeculectomy - Both Eyes 06/02/2014 02/12/2017 Vitreous degeneration - Right Eye 06/02/2014 02/12/2017 Senile nuclear sclerosis - Right Eye 06/02/2014 02/12/2017 Primary open-angle glaucoma(365.11) 06/02/2013 02/16/2015 documented as of this encounter (statuses as of 07/29/2023) [facility] of [facility] Narrative* Problem Noted Date Diagnosed Date Resolved Date Combined forms of age-relate d cataract of right eye 02/12/2017 12/06/2020 Lens replaced by other means - Left Eye 02/16/2015 02/12/2017 Dry eye - Both Eyes 02/16/2015 02/13/20 17 History of trabeculectomy - Both Eyes 06/02/2014 02/12/2017 Vitreous degeneration - Right Eye 06/02/2014 02/12/2017 Senile nuclear sclerosis - Right Eye 06/02/2014 02/12/2017 Primary open-angle glaucoma(365.11) 06/02/2013 02/16/2015 documented as of this encounter (statuses as of 11/12/2023) [facility]* Diagnosis Low-tension glaucoma of both eyes, unspecified glaucoma stage- Primary Keratitis sicca, bilateral (HCC) Other forms of keratitis History of trabeculectomy, right eye Other states following surgery of eye and adnexa documented in this encounter [facility] noteNo [facility] Other Evaluation note* Diagnosis Chest discomfort Other chest pain SOB (shortness of breath) Shortness of breath Pure hypercholesterolemia Primary hypertension Unspecified essential hypertension documented in this encounter [facility]* Diagnosis SOB (shortness of breath) Shortness of breath documented in this encounter [facility]* Diagnosis Lung nodule- Primary Solitary pulmonary nodule documented in this encounter [facility]* Diagnosis Low-tension glaucoma of both eyes, unspecified glaucoma stage- Primary Keratitis sicca, bilateral (HCC) Other forms of keratitis Pseudophakia, left eye Lens replaced by other means documented in this encounter [facility] general Narrative - Reported* Type Description Date Medical History glaucoma Surgical History lithotripsy Surgical History bladder suspension, unspecified Surgical History tonsillectomy Surgical History CTS b/l hands Surgical History laparoscopy Surgical History colonoscopy Surgical History eyes Hospitalization History see above [employer] Other History general Narrative - Reported* Type Description Date Medical History glaucoma Medical History Postmenopausal bleeding Medical History History of nephrolithiasis Medical History [place] Medical History Cystitis Medical History Abnormal TSH Medical History Hypercholesterolemia Medical History Allergic contact dermatitis due to plants, except food Surgical History lithotripsy Surgical History bladder suspension, unspecified Surgical History tonsillectomy Surgical History CTS b/l hands Surgical History laparoscopy Surgical History colonoscopy Surgical History eyes Hospitalization History see above [employer] Other History general Narrative - [facility] Other History general Narrative - Reported* Type Description Date Medical History glaucoma Medical History Postmenopausal bleeding Medical History History of nephrolithiasis Medical History [place] Medical History Cystitis Medical History Abnormal TSH Medical History Hypercholesterolemia Medical History Allergic contact dermatitis due to plants, except food Medical History Pulmonary Nodule RLL Surgical History lithotripsy Surgical History bladder suspension, unspecified Surgical History tonsillectomy Surgical History CTS b/l hands Surgical History laparoscopy Surgical History colonoscopy Surgical History eyes Hospitalization History see above [employer] Other Summary Purpose Family History No Family History Records FoundNo Family History Records FoundNo Family History Records FoundNo Family History Records FoundNo Family History Records Found Advance Directives No Advanced Directives Records FoundNo Advanced Directives Records FoundNo Advanced Directives Records FoundNo Advanced Directives Records FoundNo Advanced Directives Records Found Reason for Referral Specialty Diagnoses / Procedures Referred By Gladis booth Referred To Contact CT IMAGING Diagnoses Chest discomfort SOB (shortness of breath) Pure hypercholesterolemia Primary hypertension Procedures CTA CORONARY W IVCON CTA HRT CORNRY ART/BYPASS GRFTS CONTRST 3D POST Zaire Fry MD [address] [facility] [place] [address] [place] [address] Referral ID Status Reason Start Date Expiration Date Visits Requested Visits Authorized [id number] Authorized Auto-Generat ed Referral 3 07/10/2024 1 1 Specialty Diagnoses / Procedures Referred By Gladis booth Referred To Contact [facility] Diagnoses SOB (shortness of breath) Procedures SPIROMETRY WITH DILATOR IF OBSTRUCTED BRNCDILAT RSPSE SPMTRY PRE&POST-BRNCDILAT ADMN Bryce Fryhad, MD [address] [place] [address] [facility] [place] [address] [place] [address] Referral ID Status Reason Start Date Expiration Date Visits Requested Visits Authorized [id number] Authorized Auto-Generat ed Referral 3 07/10/2024 1 1 Specialty Diagnoses / Procedures Referred By Contact Referred To Contact [facility] Diagnoses Chest discomfort SOB (shortness of breath) Pure hypercholesterolemia Procedures ECG COMPLETE ECG ROUTINE ECG W/LEAST 12 LDS W/I&R Zaire Fry MD [address] [place] [address] [facility] [address] [address] Referral ID Status Reason Start Date Expiration Date Visits Requested Visits Authorized [id number] Pending Review Auto-Generat ed Referral 3 06/10/2024 1 1 Reason Mrs. Mccray is being referred for dyspnea and chest pain Diagnosis 1 Precordial pain (R07 .2) Referral Organization [facility] Eric ayala Referring Provider First Name Hussein Referring Provider Last Name Sukhjinder Referring Provider Specialty Internal Me dicine Ref[facility] Referred Address [address] [place], [place],[address] Referred Provider Specialty Cardiology Referral Priority Routine General Notes Patient recently pre sented with dyspnea on exertion. While this did not interfere with her exercise routine, she did experience increased dyspnea with routine daily activities, such as house work and climbing stairs. She has completed a cardiac and pulmonary evaluation, which was unremarkable. Given her family history of cerebrovascular and cardiovascular diseases, I suggested referral to Cardiology for an opinion on further evaluation and treatment. Clinical Notes Include: labs, Echo, Stress Testing, CXR, CTA chest Additional Source Comments INFORMATION SOURCE (unrecogn ized section and content) DATE CREATED AUTHOR 11/06/2021 [facility] DATE CREATED AUTHOR AUTHOR'S ORGANIZ ATION 01/01/[address] [facility] DATE CREATED AUTHOR AUTHOR'S ORGANIZ ATION 07/08/2023 [facility] DATE CREATED AUTHOR AUTHOR'S ORGANIZ ATION 11/13/2023 [facility] DATE CREATED AUTHOR AUTHOR'S ORGANIZ ATION 11/16/2023 [facility] EPIC REASON FOR VISIT (unrecogniz ed section and content) Reason Comments Low-tension glaucoma of both eyes, moder ate stage OU Posterior Vitreous Detachment Evaluation OU trabeculectomy OD Pseudophakia OU Reason Comments External Referrals/resources Reason Comments Establish Care Dyspnea On Exertion Chest Pain Reason Comments Spirometry Specialty Diagnoses / Procedures Referred By Contac t Referred To Contact [facility] Diagnoses SOB (shortness of breath) Procedures SPIROMETRY WITH DILATOR IF OBSTRUCTED BRNCDILAT RSPSE SPMTRY PRE&POST-BRNCDILAT ADMN Zaire Fry MD [address] [place] [address] [facility] [place] [address] [place] [address] Referral ID Status Reason Start Date Expiration Date V isits Requested Visits Authorized [id number] Closed Auto-Generate d Referral 06/11/2023 07/10/2024 1 1 Reason Onset Date Comments Nodule 07/22/2023 Reason Comments Yearly Exam Source Comments (unrecognize d section and content) In the event this informatio n is protected by the Federal Confidentiality of Alcohol and Drug Abuse Patient Records regulations: The Federal rules restrict any use of the information to criminally investigate or prosecute any alcohol or drug abuse patient.[facility] the event this information is protected by the Federal Confidentiality of Alcohol and Drug Abuse Patient Records regulations: The Federal rules restrict any use of the information to criminally investigate or prosecute any alcohol or drug abuse patient.[facility] the event this information is protected by the Federal Confidentiality of Alcohol and Drug Abuse Patient Records regulations: The Federal rules restrict any use of the information to criminally investigate or prosecute any alcohol or drug abuse patient.[facility] the event this information is protected by the Federal Confidentiality of Alcohol and Drug Abuse Patient Records regulations: The Federal rules restrict any use of the information to criminally investigate or prosecute any alcohol or drug abuse patient.[facility] the event this information is protected by the Federal Confidentiality of Alcohol and Drug Abuse Patient Records regulations: The Federal rules restrict any use of the information to criminally investigate or prosecute any alcohol or drug abuse patient.[facility] the event this information is protected by the Federal Confidentiality of Alcohol and Drug Abuse Patient Records regulations: The Federal rules restrict any use of the information to criminally investigate or prosecute any alcohol or drug abuse patient.[facility] the event this information is protected by the Federal Confidentiality of Alcohol and Drug Abuse Patient Records regulations: The Federal rules restrict any use of the information to criminally investigate or prosecute any alcohol or drug abuse patient.[facility] Care Teams (unrecognized sec tion and content) Civil Drafter Relationship Specialty Start Date End Date Hussein Rowan DO [address] [place] [address] PCP - General Internal Medicine 11/29/20 Civil Drafter Relationship Specialty Start Date End Date Hussein Rowan DO [address] [place] [address] PCP - General Internal Medicine 11/29/20 Civil Drafter Relationship Specialty Start Date End Date Hussein Rowan DO [address] [place] [address] PCP - General Internal Medicine 11/29/20 Civil Drafter Relationship Specialty Start Date End Date Hussein Rowan DO [address] [place] [address] PCP - General Internal Medicine 11/29/20 Civil Drafter Relationship Specialty Start Date End Date Hussein Rowan DO [address] [place] [address] PCP - General Internal Medicine 11/29/20 Civil Drafter Relationship Specialty Start Date End Date Hussein Rowan DO [address] [place] [address] PCP - General Internal Medicine 11/29/20 Civil Drafter Relationship Specialty Start Date End Date Hussein Rowan DO [address] [place] [address] PCP - General Internal Medicine 11/29/20 FOR RECORDS PERTAINING TO PATIENTS WHO ARE OR HAVE BEEN ENROLLED IN A CHEMICAL DEPENDENCY/SUBSTANCEABUSE PROGRAM, SOME INFORMATION MAY BE OMITTED. This clinical summary was aggregated from multiple sources. Caution should be exercised in using it in the provision of clinical care. This summary normalizes information from multiple sources, and as a consequence, information in this document may materially change the coding, format and clinical context of patient data. In addition, data may be omitted in some cases. CLINICAL DECISIONS SHOULD BE BASED ON THE PRIMARY CLINICAL RECORDS. [employer] provides no warranty or guarantee of the accuracy or completeness of information in this document.
== END 2024-01-06 08:11 | disposition home or self-care (01) ==
PROVIDERS: PCP Internal Medicine; Visit Provider Internal Medicine
DX: R91.1 Solitary pulmonary nodule (principal); R91.8 Other nonspecific abnormal finding of lung field
CPT/HCPCS: 71250

== ENCOUNTER 2024-06-19 08:56 | Outpatient (OUT) | payer MEDICARE, OTHER, SELFPAY ==
--- NOTE | 2024-06-19 08:58 | MM_ITS ---
Patient Name: KARLENE DOMINGO MR#: [id number] : 1950 Exam Date: 06/19/2024 Ordering Doctor: DR Hussein Rowan D.O. RADIOLOGY REPORT PROCEDURE: MM TOMOSYNTHESIS SCREENING BI COMPARISON: MM TOMOSYNTHESIS SCREENING BI, 06/13/2023. MG MAMM SCREEN 3D CRISTINA CAD, 05/07/2022. INDICATIONS: Screening Calculator Name NCI Breast Cancer Risk Assessment Tool 5 Year Breast Cancer Risk 3.50% Lifetime Breast Cancer Risk 8.40% Personal Breast Cancer No Personal Ovarian Cancer No Treatments None Family Cancers Mother with breast cancer at age 58; Mother with lung cancer at age 85. LOCATION: [facility] BREAST COMPOSITION: The breasts are almost entirely fatty. FINDINGS: DIAGNOSTIC CATEGORY 1--NEGATIVE. NO CHANGE FROM COMPARISON ASSESSMENT. Scattered benign-appearing calcifications are present. Scattered benign-appearing lymph nodes are present. RIGHT BREAST: No significant suspicious finding. LEFT BREAST: No significant suspicious finding. RECOMMENDATIONS: ROUTINE MAMMOGRAM AND CLINICAL EVALUATION IN 12 MONTHS. PLEASE NOTE: A NORMAL MAMMOGRAM DOES NOT EXCLUDE THE POSSIBILITY OF BREAST CANCER. A CLINICALLY SUSPICIOUS PALPABLE LUMP SHOULD BE BIOPSIED. Dictated by: Seamus Bernstein MD on 06/19/2024 at 11:12 Approved by: Seamus Bernstein MD on 06/19/2024 at 11:14
--- OUTSIDE RECORDS SUMMARY | 2024-06-19 09:15 | XMS_ITS | CCD ---
Author Organization [facility] CliniSyny Care Team Providers Care Spike Machine Heater Name Role Phone Dena Davis Unavailable Hussein Rowan DO Primary Care Provider Hussein Rowan Unavailable SUKHJINDER, DR TUBBS Admitting Unavailable BALL, DR TUBBS Primary Care Unavailable BALL, DR TUBBS Attending Unavailable BALL, DR TUBBS Consulting Unavailable ZIEBER, DR KASSIE Orellana Consulting Unavailable BALL, DR TUBBS Primary Care Unavailable MARCIAL ., DR PETERS Attending Unavailable MARCIAL ., DR PETERS Consulting Unavailable MARCIAL ., DR PETERS Admitting Unavailable ZIEBER, DR KASSIE Orellana Consulting Unavailable BROWN, JUAN LUIS Consulting Unavailable CORNELIUS, JUAN LUIS Admitting Unavailable BALL, DR TUBBS Primary Care Unavailable CORNELIUS, JUAN LUIS Attending Unavailable BALL, DR TUBBS Primary Care Unavailable BALL, DR TUBBS Admitting Unavailable BALL, DR TUBBS Attending Unavailable BALL, DR TUBBS Consulting Unavailable BALL, DR TUBBS Primary Care Unavailable BALL, DR TUBBS Admitting Unavailable BALL, DR TUBBS Attending Unavailable BALL, DR TUBBS Consulting Unavailable FEIDER, DEREK Consulting Unavailable MARCIAL ., DR PETERS Admitting Unavailable BALL, DR TUBBS Primary Care Unavailable MARCIAL ., DR PETERS Attending Unavailable MARCIAL ., DR PETERS Consulting Unavailable BALL, DR TUBBS Primary Care Unavailable MARCIAL ., DR PETERS Attending Unavailable MARCIAL ., DR PETERS Consulting Unavailable MARCIAL ., DR PETERS Admitting Unavailable SUKHJINDER, DR TUBBS Primary Care Unavailable MARCIAL ., DR PETERS Attending Unavailable MARCIAL ., DR PETERS Consulting Unavailable MARCIAL ., DR PETERS Admitting Unavailable BRAD RIVAS Consulting Unavailable CHACHA WEI Consulting Unavailable Hussein Rowan DO Primary Care Provider Cony Lees Unavailable ZAIRE FRY Referring Unavailable BALL, HUSSEIN E Primary Care Unavailable ZAIRE FRY Referring Unavailable HUSSEIN ROWAN E Primary Care Unavailable JUAN LUIS SHIELDS Attending Unavailable JUAN LUIS SHIELDS Attending Unavailable Hussein Rowan DO E Primary Care Provider SUKHJINDERHUSSEIN E Primary Care Unavailable TINA BROWN Attending Unavailable HUSSEIN ROWAN E Primary Care Unavailable HUSSEIN ROWAN E Primary Care Unavailable TINA BROWN Referring Unavailable TINA BROWN Attending Unavailable ZAIRE FRY Attending Unavailable HUSSEIN ROWAN E Referring Unavailable SUKHJINDER, HUSSEIN E Primary Care Unavailable Allergies Allergy Classification Reported Allergen(s) Allergy Type Date of Onset Reaction(s) Facility (15 sources) Acetaminophen / HYDROcodone; Translations: [Vicodin] Drug Allergy 05-21-20 13 Unknown [facility] Repository (20 sources) Acetaminophen / oxyCODONE Drug Allergy 06-12-20 13 [facility] Work Phone: (12 sources) buPROPion; Translations: [Wellbutrin] Drug Allergy 07-22-20 15 Unknown [facility] Repository (14 sources) Sulf-10 Drug allergy Unknown [employer] Other (10 sources) Acetaminophen / HYDROcodone; Translations: [HYDROCODONE-ACET AMINOPHEN] Drug Allergy 05-21-20 13 [facility] (10 sources) buPROPion; Translations: [BUPROPION HCL] Drug Allergy 06-12-20 13 [facility] Work Phone: (18 sources) Sulfonamides (Antibiotic); Translations: [SULFA (SULFONAMIDE ANTIBIOTICS)] Drug Intolerance 06-12-20 13 [facility] Work Phone: (1 source) Acetaminophen / oxyCODONE Drug Allergy 05-21-20 13 [facility] Repository (3 sources) Leucine; Translations: [NICKEL] Drug Allergy 11-09-19 16 [facility] Repository (1 source) Sulfonamides (Antibiotic) Drug allergy (disorder) 05-21-20 13 [facility] Repository (8 sources) buPROPion Drug Allergy Unknown [employer] Other (14 sources) nickel Drug Allergy 07-10-20 18 [facility] (8 sources) Vicodin *ANALGESICS - OPIOID* Propensity to adverse reactions Unknown [employer] Other (5 sources) Allergies Reconciled Propensity to adverse reactions Unknown [employer] Other (2 sources) Acetaminophen / oxyCODONE; Translations: [OXYCODONE-ACETAM INOPHEN] Drug Allergy 06-12-20 13 [facility] Other [place] Repository Medications Current Medications Medication Drug Class(es) [...] affected eye Ophthalmic Twice a day Active dorzolamide 20 mg/ml / timolol 5 mg/ml ophthalmic solution (15 sources) Carbonic Anhydrase Inhibitor, beta-Adrenergic Meenu Start: 11-12-2023 take 1 drop(s) into the eye(s) twice daily dorzolamide-marilyn lol (COSOPT) 22.3-6.8 mg/mL ophthalmic solution Use 1 [...] both e yes two times a day. evening primrose oil 500 mg oral capsule (8 sources) Start: 2012 take 1 capsule by mouth once daily Evening [place] Oil (EVENING PRIMROSE) 500 mg cap Take 1 capsule by mouth once daily. 0 06/12/2013 Active Comment on above: Take 1 capsule by [facility] once daily. iv contrast (will be provided with radiology test) (1 source) Start: 2022 End: 2022 inject 1 dose intravenously once iv contrast [...] in the CT contrast administration guidelines link. levothyroxine sodium 0.025 mg oral tablet (20 sources) l-Thyroxine take 1 tablet by mouth once daily before breakfast levothyroxine (SYNTHROID) 25 mcg tablet Take 25 mcg by mouth daily before breakfast. Active take 1 tablet by mouth once lazaro y Levothyroxine Sodium 25 MCG TAKE 1 TABLET BY MOUTH EVERYDAY ON AN EMPTY STOMACH for 90 Active Comment on above: Take 25 mcg by mouth daily before breakfast. linseed oil 1000 mg oral capsule (8 sources) Start: 06-12-20 13 take 1 capsule by mouth once daily Flaxseed Oil 1,000 mg cap Take 1 capsule by mouth once daily. 0 06/12/2013 Active Comment on above: Take 1 capsule by [facility] once daily. losartan potassium 25 mg oral tablet (20 sources) Angiotensin 2 Receptor Meenu take 1 tablet by mouth once daily losartan (COZAAR) 25 mg tablet Take 25 mg by mouth once daily. Active Comment on above: Take 25 mg by mouth once daily. metFORMIN hydrochloride 500 mg oral tablet (13 sources) Biguanide Start: 12-27-19 23 take 1 tablet by mouth every twenty-four hours metFORMIN HCl 500 MG 1 tablet with a meal Orally Once a day for 30 days December, Active metoprolol tartrate 50 mg oral tablet (6 sources) beta-Adrenergic Meenu Start: 06-11-20 metoprolol tartrate, short acting, (LOPRESSOR) 50 mg tablet Take one 50 mg tablet the evening prior to the CTA examination, take another 50 mg tablet the morning of the CTA examination. 2 tablet 06/11/2023 Active Comment on above: Take one 50 mg table t the evening prior to the CTA examination, take another 50 mg tablet the morning of the CTA examination. nitroglycerin 0.3 mg sublingual tablet (6 sources) Nitrate Vasodilator Start: 06-11-20 take 1 tablet under the tongue once nitroglycerin sublingual (NITROQUICK) 0.3 mg SL tablet Dissolve 1 tablet under the tongue one time only for 1 dose. To be administered in Radiology for CTA exam 1 tablet 06/11/2023 Active Comment on above: Dissolve 1 tablet un jose f the tongue one time only for 1 dose. To be administered in Radiology for CTA exam omega-3 fatty acids 1,000 mg cap (8 sources) Start: 06-12-20 take 1 capsule by mouth once daily omega-3 fatty acids 1,000 mg cap Take 1 capsule by mouth once daily. 0 06/12/2013 Active Comment on above: Take 1 capsule by [facility] once daily. Thyroid (1 source) Thyroid Active Completed/Discontinued Medications Medication Drug Class(es) Dates Sig (Normalized) Sig (Original) amoxicillin 500 mg oral capsule (5 sources) Penicillin-class Antibacterial Amoxicillin 500 MG Oral for 10 Days Not-Taking/PRN chlorhexidine gluconate 1.2 mg/ml mouthwash (5 sources) Chlorhexidine Gluconate 0.12 % Mouth/Throat for 16 Days Not-Taking/PRN Chlorhexidine Gl uconate 0.12 % Mouth/Throat for 16 Days Not-Taking Dorzolamide HCl-Timolol Mal 22.3-6.8 MG/ML (2 sources) Dorzolamide HCl- Timolol Mal 22.3-6.8 MG/ML Ophthalmic for 90 Days Not-Taking/PRN Dorzolamide HCl- Timolol Mal 22.3-6.8 MG/ML Ophthalmic for 90 Days Not-Taking prednisoLONE acetate 10 mg/ml ophthalmic suspension (1 source) Corticosteroid Start: 11-29-2020 End: 04-10-2022 take 1 drop(s) into the eye(s) every [...] of urinary calculi] Onset: 2 Episodic Cataract (12 sources) Pseudophakia of left eye; Translations: [Presence of intraocular lens] Onset: 4 Resolved: 1 02-12-2017 Chronic Disorders of lipid metabolism (20 sources) Hypercholesterolemia; Translations: [Pure hypercholesterolemia, unspecified] Onset: 3 Chronic Essential hypertension (20 sources) Essential hypertension; Translations: [Essential (primary) hypertension] Onset: 3 Chronic Glaucoma (12 sources) Bilateral low tension glaucoma of eyes; Translations: [Low-tension glaucoma, bilateral, stage unspecified] Onset: 3 Resolved: 5 Chronic Malaise and fatigue (2 sources) Other fatigue; Translations: [OTHER FATIGUE] Onset: 3 Episodic Menopausal disorders (18 sources) Postmenopausal bleeding; Translations: [Postmenopausal bleeding] Onset: 2 Chronic Osteoarthritis (1 source) Unilateral primary osteoarthritis, left knee; Translations: [UNI PRIM OSTEOARTHRITIS LT KNEE] Onset: 2 Chronic Other aftercare (1 source) Other manager long term care (current) drug therapy Episodic Other eye disorders (8 sources) Posterior vitreous detachment; Translations: [Vitreous degeneration, [...] Systemic lupus erythematosus and connective tissue disorders (11 sources) Keratoconjunctivitis sicca; Translations: [Sicca syndrome with [...] UNGUIUM] Onset: 01-18-2022 Episodic Nonspecific chest pain (11 sources) Precordial pain; Translations: [Chest discomfort] Onset: 06-11-2023 Episodic Other eye disorders (1 source) Vitreous degeneration; Translations: [Vitreous degeneration, unspecified eye] Onset: 06-02-2014 Resolved: 02-12-2017 02-12-2017 Chronic Other eye disorders (1 source) Dry eyes; Translations: [Dry eye syndrome of unspecified lacrimal gland] Onset: 02-16-2015 Resolved: 02-12-2017 02-12-2017 Episodic Other injuries and conditions due to external causes (1 source) Unspecified injury of right lower leg, initial encounter Onset: 10-16-2021 Resolved: 10-16-2021 Episodic Other lower respiratory disease (8 sources) Dyspnea; Translations: [Shortness of breath] Onset: 06-11-2023 06-11-2023 Episodic Residual codes; unclassified (10 sources) History of construction of filtration bleb; Translations: [Other specified postprocedural states] Onset: 06-02-2014 Resolved: 02-12-2017 Episodic Residual codes; unclassified (1 source) Family history of malignant neoplasm of breast; Translations: [FAMILY HX MALIG NEOPLASM OF BREAST] Onset: 05-09-2022 Episodic Residual codes; unclassified (1 source) Family history of malignant neoplasm of trachea, bronchus and lung; Translations: [FAM HX MALIG NEOPLSM TRACH BRON LNG] Onset: 05-09-2022 Episodic Results Test Name Value Interpretation Reference Range Facility VISUAL FIELD 24-2 OU (BOTH E YES)on 05-19-2024 [facility] Radiology Study observation (narrative) [facility] CTA CORONARY W IVCONon 07-05 CTA CORONARY W IVCON * * *Final Report* * * DATE OF EXAM: Jul 05 2023 3:04PM FVC 0470 - CTA CORONARY W IVCON / PROCEDURE REASON: multiple diagnoses * * * * Physician Interpretation * * * * CTA CORONARY ARTERIES acquired at [facility] - images were acquired and screened for acute findings earlier. Subsequently reported following overnight procedure. Direct Image Comparison: None HISTORY: 72 years old Female patient with chronic h/o chest pain, suspected CAD Evaluation for further treatment options.. There is request to define coronary anatomy. TECHNIQUE: SCANNER: Siemens Definition Flash Dual source [id number] scanner PROTOCOL: Sequential imaging of the heart with prospective triggering in diastolic phase and submillimeter slice reconstruction following administration of contrast material. Scan Range: carlos a to the base of the heart CT Dose-Length Product (DLP): 265 mGy*cm CT Dose Reduction Employed: Automated exposure control(AEC) and iterative recon CONTRAST: IV administration of 90 ml Omnipaque 350 Premedication per [facility] protocol/documentation. Scan acquisition: uncomplicated Macro Version: [id number] For optimization of anatomic evaluation, advanced 3-D off-line postprocessing was performed on a dedicated workstation by the interpreting physician. Additional lung CAD. [place] images reconstructed, saved, and available in deltamethod 'Get Images'. STUDY LIMITATIONS: Limited contrast enhancement [...] AORTIC DIMENSIONS: AORTIC ROOT: 3 cm measured [id number]-cv-bafhi mid ASCENDING THORACIC AORTA: 3.2 cm mid [...] or luminal stenosis. limited upper ABDOMEN: unremarkable Tail Board Man (topogram) images: No additional findings. IMPRESSION: NO EVIDENCE OF ATHEROSCLEROTIC CHANGES OR LUMINAL STENOSIS OF THE CORONARY ARTERIES -Direct epicardial course of tortuous mid LAD segment without intramyocardial extension. -Distal branches are not well visualized CAD-RADS 0: No plaque or luminal stenosis. Absence of CAD., - Overall Plaque [place]: No evidence of plaque visualized LUNGS: non-calcified [...] be communicated with the ordering provider via [employer] staff message by [employer] within 2 business days of report finalization. Chief Unit Forester: RUSTAM Transcribe (more content not included)... Invalid Interpretation Code [facility] NURSING PROGon 07-05-2023 NURSING PROG HNO ID: [id number] Author: Priscila Reyes RN Service: Radiology Author [...] Reyes RN July 05, 2023 2:45 PM [facility] NURSING PROG HNO ID: [id number] Author: Priscila Reyes RN Service: Radiology Author [...] SIGNATURE: Priscila Reyes RN PATIENT NAME: Corrie Mccray DATE: July 05, 2023 TIME: 2:48 PM [facility] SPIROMETRY WITH DILATOR IF O BSTRUCTEDon 07-05-2023 BOE06-17% PRE (L/S) 1.83 L/S [facility] FEV1 PRE (L) 2.23 L [facility] FEV1/FVC PRE (%) 76 % [facility] FVC PRE (L) 2.93 L [facility] PEF PRE (L/S) 6.37 L/S [facility] CNOVon 06-11-2023 CNOV Office Visit (NAINA ) -------- CORRIE MCCRAY ([id number]) 1950 F Date Time Provider Department 06/11/23 11:30 AM ZAIRE FRY During your visit today, we recorded the following information about you: Pulse Blood pressure Weight Height 76/minute 110/70 65.3 kg 1.575 m Zaire Fry MD 06/11/2023 11:43 AM Signed [facility] [place] SECTION OF REGIONAL CARDIOLOGY OUTPATIENT VISIT DATE June 11, 2023 OUTPATIENT VISIT TYPE NEW PRIMARY CARE PHYSICIAN: Hussein Rowan ([facility]) [address] [place] [address] A written report of the findings and [...] RMVL INSJ IO LENS PROSTH W/O ECP 2009 os [place] (more content not included)... Normal [facility] ECG COMPLETEon 06-11-2023 ECG COMPLETE Ventricular Rate : 7 4 BPM Atrial Rate : 74 BPM P-R Interval : 148 ms QRS Duration : 72 ms Q-T Interval : 390 ms QTC Calculation(Bazett) : 432 ms Calculated P [place] : -2 degrees Calculated R [place] : 7 degrees Calculated T [place] : -4 degrees NORMAL SINUS RHYTHM NONSPECIFIC ST AND T WAVE ABNORMALITY ABNORMAL ECG Confirmed by GREGG MULLEN MD ([id number]) on 06/14/2023 11:22:04 PM NAME : CORRIE MCCRAY PID : [id number] : 1950 Gender : Female Race : Unknown ORD : [id number] Procedure Date : Jun 11 2023 11:26:41 Edit Date : Jun 14 2023 23:22:08 Diagnosis: NORMAL SINUS RHYTHM NONSPECIFIC ST AND T WAVE ABNORMALITY ABNORMAL ECG Confirmed by GREGG MULLEN MD ([id number]) on 06/14/2023 11:22:04 PM Test Reason : R07.89 Chest discomfort Location : 145 : [place]ARD Overread By : GREGG MULLEN MD Edited By : GREGG MULLEN MD Referred By : HUSSEIN ROWAN Acquired by : Elva wilson [facility] ECHOCARDIO M/2D COMPLETEon 0 12-31-2022 ECHOCARDIO M/2D COMPLETE Patient: CORRIE MCCRAY Exam Date: 12/31/2022 : 1950 Gender:F Ordering : DR HUSSEIN ROWAN D.O. Admission #: [id number] Family : Order #: [id number] CLICK HERE TO VIEW EXAM ECHOCARDIOGRAM REPORT [...] M.D. on 01/01/2023 at 19:41 Normal [facility] CBC AUTO DIFFon 12-26-2022 BASO # 0.0 103/ul Normal 0.0-0.1 [facility] Comment on above: Performed By: #### CBC ####[facility] ital [address] [place] [address]DrЕкатерина Bates Basophils/100 WBC (Bld) 1.0 % Normal 0.2-2.0 [facility] Comment on above: Performed By: #### CBC ####[facility] [address] [place] [id number] Bates EO # 0.1 103/ul Normal 0.0-0.7 [facility] Comment on above: Performed By: #### CBC ####[facility] [address]ylr[address] [place] [address]Dr. Vicki Bates Eosinophils/100 WBC (Bld) 1.5 % Normal 0.9-7.0 [facility] Comment on above: Performed By: #### CBC ####[facility] Fqjfzpffiu[address] [place] [address]Dr. Vicki Bates Erythrocyte distribution width (RBC) [Ratio] 11.9 % Normal 11.0-15.0 [facility] Comment on above: Performed By: #### CBC ####[facility] Qfvemuafwa[address] [place] [address]Dr. Vicki Bates Hematocrit (Bld) [Volume fraction] 43.5 % Normal 36.0-48.0 [facility] Comment on above: Performed By: #### CBC ####[facility] ital [address] [place], [place] [address]Dr. Vicki Bates Hemoglobin (Bld) [Mass/Vol] 14.4 g/dL Normal 12.0-16.0 [facility] Comment on above: Performed By: #### CBC ####[facility] [address] [place], [place] [address]Dr. Vicki Bates IG # 0.01 10e3/ul Normal 0.00-0.03 [facility] Comment on above: Performed By: #### CBC ####[facility] ital [address] [place] [address]Dr. Vicki Bates IG % 0.3 % Normal 0.0-0.5 [facility] Comment on above: Performed By: #### CBC ####[facility] ital [address] [place], [place] [address]Dr. Vicki Bates LYMPH # 1.8 103/ul Normal 1.2-3.8 [facility] Comment on above: Performed By: #### CBC ####[facility] ital [address] [place], [place] [address]Dr. Vicki Bates Lymphocytes/100 WBC (Bld) 44.6 % Normal 20.5-60.0 [facility] Comment on above: Performed By: #### CBC ####[facility] ital [address] [place] [address]Dr. Vicki Bates MANUAL DIFF REQ NO Normal [facility] Comment on above: Performed By: #### CBC ####[facility] ital [address]wdwm[address] [place] [id number]. Vicki Bates MCH (RBC) [Entitic mass] 31.1 pg Normal 26.7-34.0 [facility] Comment on above: Performed By: #### CBC ####[facility] ital [address]km[address] [place] [address]Dr. Vicki Bates MCHC (RBC) [Mass/Vol] 33.1 g/dL Normal 29.9-35.2 [facility] Comment on above: Performed By: #### CBC ####[facility] ital [address] [place] [address]Dr. Vicki Bates MCV (RBC) [Entitic vol] 94.0 fL Normal 81.0-99.0 [facility] Comment on above: Performed By: #### CBC ####[facility] ital [address] [place] [address]Dr. Vicki Bates MONO # 0.4 103/ul Normal 0.3-0.8 [facility] Comment on above: Performed By: #### CBC ####[facility] ital [address]kssnfh[address] [place] [address]Dr. Vicki Bates Monocytes/100 WBC (Bld) 9.0 % Normal 1.7-12.0 [facility] Comment on above: Performed By: #### CBC ####[facility] [address]wcowiu[address] [place] [address]Dr. Vicki Bates NEUT # 1.7 103/ul Normal 1.4-6.5 [facility] Comment on above: Performed By: #### CBC ####[facility] ital [address]xyzigi[address] [place] [address]Dr. Vicki Bates Neutrophils/100 WBC (Bld) 43.6 % Normal 43.0-75.0 [facility] Comment on above: Performed By: #### CBC ####[facility] ital [address]esk[address] [place] [id number] Bates Platelet mean volume (Bld) [Entitic vol] 9.1 fL Critically low 9.5-13.5 [facility] Comment on above: Performed By: #### CBC ####[facility] ital [address]fe[address] [place] [id number]. Vicki Bates PLT 242 103/ul Normal 150-450 [facility] Comment on above: Performed By: #### CBC ####[facility] ital [address]kes[address] [place] [id number]. Vicki Bates RBC 4.63 106/ul Normal 4.20-5.40 [facility] Comment on above: Performed By: #### CBC ####[facility] ital [address]en[address] [place] [address]Dr. Vicki Bates WBC 4.0 103/ul Normal 4.0-11.0 [facility] Comment on above: Performed By: #### CBC ####[facility] ital [address]msxp[address] [place] [id number]. Vicki Bates LIPID PROFILEon 12-26-2022 CHOL-HDL RATIO NORM SEE BELOW Normal [facility] Comment on above: Result Comment: 3.3 - 4.4 LOW RISK 4.4 - 7.1 AVERAGE RISK 7.1 - 11.0 MODERATE RISK >11.0 HIGH RISK Performed By: #### T SH, LIPID, BMP #### [facility] [address] [address] [address] Vicki Bates Cholesterol [Mass/Vol] 221 mg/dL Critically high <=200 [facility] Comment on above: Performed By: #### TSH, LIPID, BMP #### [facility] [address] [address] [address] Vicki Bates Cholesterol in HDL [Mass/Vol] 68 mg/dL Critically high 40-60 [facility] Comment on above: Performed By: #### TSH, LIPID, BMP #### [facility] [address] [address] [address] Vicki Bates Cholesterol in LDL [Mass/Vol] 140.8 mg/dL Normal [facility] Comment on above: Performed By: #### TSH, LIPID, BMP #### [facility] [address] [address] [address] Vicki Bates Cholesterol.tota l/Cholesterol in HDL [Mass ratio] 3.3 {ratio} Normal [facility] Comment on above: Performed By: #### TSH, LIPID, BMP #### [facility] [address] [address] [address] Vicki Bates HDL NORMAL > or = 60 mg/dl - LO W CARDIOVASCULAR RISK <40 mg/dl - HIGH CARDIOVASCULAR RISK Normal [facility] Comment on above: Performed By: #### TSH, LIPID, BMP #### [facility] [address] [address] [address] Vicki Bates LDL CALC NORMAL SEE BELOW Normal [facility] Comment on above: Result Comment: <100 mg/dl OPTIMAL 100 - 129 mg/dl NEAR OR ABOVE OPTIMAL 130 - 159 mg/dl BORDERLINE HIGH 160 - 189 mg/dl HIGH >190 mg/dl VERY HIGH Performed By: #### T SH, LIPID, BMP #### [facility] [address] [address] [address] Vciki Bates Triglyceride [Mass/Vol] 61 mg/dL Normal <=150 [facility] Comment on above: Performed By: #### TSH, LIPID, BMP #### [facility] [address] [address] [address] Vicki Bates VLDL CALC 12.2 mg/dL Normal [facility] Comment on above: Performed By: #### TSH, LIPID, BMP #### [facility] [address] [address] [address] Vicki Bates PROF CHEM 8 (BAS METB)on Anion gap [Moles/Vol] 11.5 mmol/L Normal [facility] Comment on above: Performed By: #### TSH, LIPID, BMP #### [facility] [address] [address] [address] Vicki Bates Calcium [Mass/Vol] 9.5 mg/dL Normal 8.5-10.1 [facility] Comment on above: Performed By: #### TSH, LIPID, BMP #### [facility] [address] [address] [address] Vicki Bates Chloride [Moles/Vol] 106 mmol/L Normal 98-107 [facility] Comment on above: Performed By: #### TSH, LIPID, BMP #### [facility] [address] [address] [address] Vicki Bates CO2 [Moles/Vol] 30.1 mmol/L Normal 21.0-32.0 [facility] Comment on above: Performed By: #### TSH, LIPID, BMP #### [facility] [address] [place] [address] Dr. Vicki Bates Creatinine [Mass/Vol] 0.81 mg/dL Normal 0.55-1.02 [facility] Comment on above: Performed By: #### TSH, LIPID, BMP #### [facility] [address] [address] [address] Vicki Bates EGFR-AF UKRAINIAN >60 Normal >=60 The [facility] Comment on above: Performed By: #### TSH, LIPID, BMP #### [facility] [address] [place], [place] [id number] Dr. Vicki Bates EGFR-NON AF UKRAINIAN >60 Normal >=60 [facility] Comment on above: Performed By: #### TSH, LIPID, BMP #### [facility] [address] [address] [address] Vicki Bates Glucose [Mass/Vol] 91 mg/dL Normal 74-106 [facility] Comment on above: Performed By: #### TSH, LIPID, BMP #### [facility] [address] [address] [address] Vicki Bates Potassium [Moles/Vol] 4.3 mmol/L Normal 3.5-5.1 [facility] Comment on above: Performed By: #### TSH, LIPID, BMP #### [facility] [address] [address] [address] Vicki Bates Sodium [Moles/Vol] 143 mmol/L Normal 136-145 [facility] Comment on above: Performed By: #### TSH, LIPID, BMP #### [facility] [address] [address] [address] Vicki Bates Urea nitrogen [Mass/Vol] 18.0 mg/dL Normal 7.0-18.0 [facility] Comment on above: Performed By: #### TSH, LIPID, BMP #### [facility] [address] [address] [address] Vicki Bates Urea nitrogen/Creatin ine [Mass ratio] 22.2 mg/mg Normal [facility] Comment on above: Performed By: #### TSH, LIPID, BMP #### [facility] [address] [address] [address] Vicki Bates TSHon 12-26-2022 TSH 3.814 uIU/mL Critically high 0.358-3.740 [facility] Comment on above: Performed By: #### TSH, LIPID, BMP #### [facility] [address] [address] [address] Vicki Bates MG MAMM SCREEN 3D CRISTINA CADon 05-07-2022 MG MAMM SCREEN 3D CRISTINA CAD Patient: CORRIE MCCRAY Exam Date: 05/07/2022 : 1950 Gender:F Ordering : DR HUSSEIN ROWAN D.O. Admission #: [id number] Family : Order #: [id number] CLICK HERE TO VIEW EXAM RADIOLOGY REPORT [...] lung cancer at age 85. LOCATION: [facility] BREAST COMPOSITION: Almost entirely fatty. FINDINGS: [...] M.D. on 05/07/2022 at 13:23 Normal [facility] CBC AUTO DIFFon 04-30-2022 BASO # 0.0 103/ul Normal 0.0-0.1 [facility] Comment on above: Performed By: #### CBC ####[facility] [address] [address]Dr. Laureenchay Bates Basophils/100 WBC (Bld) 0.5 % Normal 0.2-2.0 [facility] Comment on above: Performed By: #### CBC ####[facility] [address] [address]Dr. Vicki Bates EO # 0.1 103/ul Normal 0.0-0.7 [facility] Comment on above: Performed By: #### CBC ####[facility] [address] [address]Dr. Laureenchay Bates Eosinophils/100 WBC (Bld) 1.5 % Normal 0.9-7.0 [facility] Comment on above: Performed By: #### CBC ####[facility] [address] [address]Dr. Laureenchay Bates Erythrocyte distribution width (RBC) [Ratio] 11.7 % Normal 11.0-15.0 [facility] Comment on above: Performed By: #### CBC ####[facility] [address] [address]Dr. Laureenchay Bates Hematocrit (Bld) [Volume fraction] 42.8 % Normal 36.0-48.0 [facility] Comment on above: Performed By: #### CBC ####[facility] [address] [address]Dr. Vicki Bates Hemoglobin (Bld) [Mass/Vol] 14.2 g/dL Normal 12.0-16.0 [facility] Comment on above: Performed By: #### CBC ####[facility] ital [address] [address]Dr. Vicki Bates IG # 0.01 10e3/ul Normal 0.00-0.03 [facility] Comment on above: Performed By: #### CBC ####[facility] ital [address] [address]Dr. Vicki Bates IG % 0.2 % Normal 0.0-0.5 [facility] Comment on above: Performed By: #### CBC ####[facility] [address] [address]Dr. Vicki Bates LYMPH # 1.8 103/ul Normal 1.2-3.8 [facility] Comment on above: Performed By: #### CBC ####[facility] [address] [address]Dr. Laureenchay Bates Lymphocytes/100 WBC (Bld) 43.6 % Normal 20.5-60.0 [facility] Comment on above: Performed By: #### CBC ####[facility] [address] [address]Dr. Vicki Bates MANUAL DIFF REQ NO Normal [facility] Comment on above: Performed By: #### CBC ####[facility] [address] [address]Dr. Vicki Bates MCH (RBC) [Entitic mass] 31.3 pg Normal 26.7-34.0 [facility] Comment on above: Performed By: #### CBC ####[facility] [address] [address]Dr. Vicki Bates MCHC (RBC) [Mass/Vol] 33.2 g/dL Normal 29.9-35.2 [facility] Comment on above: Performed By: #### CBC ####[facility] [address] [address]Dr. Vicki Bates MCV (RBC) [Entitic vol] 94.3 fL Normal 81.0-99.0 [facility] Comment on above: Performed By: #### CBC ####[facility] ital [address] [address]Dr. Vicki Bates MONO # 0.3 103/ul Normal 0.3-0.8 [facility] Comment on above: Performed By: #### CBC ####[facility] ital [address] [address]Dr. Vicki Bates Monocytes/100 WBC (Bld) 6.4 % Normal 1.7-12.0 [facility] Comment on above: Performed By: #### CBC ####[facility] ital [address] [address]Dr. Vicki Bates NEUT # 1.9 103/ul Normal 1.4-6.5 [facility] Comment on above: Performed By: #### CBC ####[facility] [address] [address]Dr. Vicki Bates Neutrophils/100 WBC (Bld) 47.8 % Normal 43.0-75.0 [facility] Comment on above: Performed By: #### CBC ####[facility] [address] [address]Dr. Vicki Bates Platelet mean volume (Bld) [Entitic vol] 9.0 fL Critically low 9.5-13.5 [facility] Comment on above: Performed By: #### CBC ####[facility] [address] [address]Dr. Vicki Bates PLT 250 103/ul Normal 150-450 [facility] Comment on above: Performed By: #### CBC ####[facility] [address] [address]Dr. Vicki Bates RBC 4.54 106/ul Normal 4.20-5.40 [facility] Comment on above: Performed By: #### CBC ####[facility] [address] [address]Dr. Vicki Bates WBC 4.0 103/ul Normal 4.0-11.0 [facility] Comment on above: Performed By: #### CBC ####[facility] [address] [place], [place] [address]Dn. Vicki Bates Cov[facility]-19 [facility]on SARS-CoV-2 (COVID-19) RNA MEAGAN+probe Ql (Unsp spec) Not detected Normal NOT DETECTED [facility] Comment on above: Result Comment: This test is not yet kiel roved or cleared by the [place] FDA. When there are no FDA-approved or cleared tests available, and other criteria are met, FDA can make tests available under an emergency access mechanism called an Emergency Use Authorization (EUA). The EUA for this test is supported by the [employer] Operator of Health and Human Service's (HHS's) declaration [...] consistent with SARS-CoV-2. Performed By: #### C [facility] ####[facility] [address] [place], [place] [address]Zv. Vicki Bates US PELVIS AND TRANSVAGon US [...] by: KASSIE QUEEN Date: 2022-04-16 00:20 Normal [facility] SGOTon 01-18-2022 AST [Catalytic activity/Vol] 20 U/L Normal 15-37 [facility] Comment on above: Performed By: #### AST, ALT #### [facility] [address] [address] [address] Vicki Bates SGPTon 01-18-2022 ALT [Catalytic activity/Vol] 28 U/L Normal 14-59 [facility] Comment on above: Performed By: #### AST, ALT #### [facility] [address] [place], [place] [address] Dr. Vicki Bates XR ankle RT min 3V*on 2021 XR ankle RT min 3V* [facility] Main [employer] [address] [place] [address] XRay Report Signed Patient: Corrie Mccray MR#: [id number] : 1950 Acct:[id number] Age/Sex: 71 / F ADM Date: 10/16/21 Loc: [facility] Room: Type: [facility] Attending Dr: Dena BERGMAN Ordering Provider: DENA [...] NOTED. Impression dictated by: Zeke Smith Jr., D.O.10/16/2021 5:09 PM Dictation Location: [place] [address] Transcribed By: [facility] 10/16/211708 Dictated By: Zeke Smith Jr, DO 10/16/211706 Signed By: 10/16/211708 Normal [facility] XR ankle RT min 3V* [facility] [employer] Other XR ankle RT min 3V* [facility] [employer] Other XR ankle RT min 3V* [address] [place] [address] [employer] Other XR ankle RT min 3V* SONNY Hilario [address] [employer] Other XR ankle RT min 3V* XRay Report [employer] Other XR ankle RT min 3V* Signed [employer] Other XR ankle RT min 3V* Patient: Corrie Mccray MR#: [id number] [employer] Other XR ankle RT min 3V* 589 [employer] Other XR ankle RT min 3V* : 1950 Acct:[id number] [employer] Other XR ankle RT min 3V* Age/Sex: 71 / F ADM Date: 10/16/21 [employer] Other XR ankle RT min 3V* Loc: [facility] Room: Type: [facility] [employer] Other XR ankle RT min 3V* Attending Dr: Dena Davis [facility] [employer] Other XR ankle RT min 3V* Ordering Provider: DENA DAVIS FINISH OPENERDavid [employer] Other XR ankle RT min 3V* Date of Service: 10/16/21 [employer] Other XR ankle RT min 3V* XR/XR ankle RT min 3V*: S89.91XA [employer] Other XR ankle RT min 3V* Copies to: DENA DAVISP-David [employer] Other XR ankle RT min 3V* RIGHT ANKLE - [facility] [employer] Other XR ankle RT min 3V* Reason for exam:Patient fell while going up the stairs 3 hours ago. Patient has pain posterior to [employer] Other XR ankle RT min 3V* her right ankle and posterior to her distal tib-fib. [employer] Other XR ankle RT min 3V* COMPARISON: None [employer] Other XR ankle RT min 3V* Soft tissue swelling is noted. Ankle mortise appears intact. Cortical irregularity seen along the [employer] Other XR ankle RT min 3V* medial malleolus suggestive of prior injury. No acute bony process is seen. Enthesophyte formation [employer] Other XR ankle RT min 3V* is seen at the insertion of the Achilles tendon. Minimal plantar spurring. [employer] Other XR ankle RT min 3V* XR/XR ankle RT min 3V* [employer] Other XR ankle RT min 3V* IMPRESSION: [employer] Other XR ankle RT min 3V* SOFT TISSUE SWELLING WITHOUT ACUTE BONY PROCESS NOTED. [employer] Other XR ankle RT min 3V* Impression dictated by: Zeke Smith Jr., D.O.10/16/2021 5:09 PM [employer] Other XR ankle RT min 3V* Dictation Location: [place] [address] [employer] Other XR ankle RT min 3V* Transcribed By: P[facility] 10/16/211708 [employer] Other XR ankle RT min 3V* Dictated By: Zeke Smith Jr, DO 10/16/211706 [employer] Other XR ankle RT min 3V* Signed By: [employer] Other XR ankle RT min 3V* 10/16/211708 [employer] Other No Panel Information [facility] Vital Signs Date Time Vital Sign Value Performing Clinician Facility 06-26-2023 09:30-0500 Body height 157.48 cm Hussein Ball Other [employer] Other 06-26-2023 09:30-0500 Body mass index (BMI) [Ratio] 26.12 kg/m2 Hussein Ball Other [employer] Other 06-26-2023 09:30-0500 Body weight 64.77 kg Hussein Ball Other [employer] Other 06-26-2023 09:30-0500 Diastolic blood pressure 66 mm[Hg] Hussein Ball Other [employer] Other 06-26-2023 09:30-0500 Respiratory rate 12 /min Hussein Ball Other [employer] Other 06-26-2023 09:30-0500 Systolic blood pressure 93 mm[Hg] Hussein Ball Other [employer] Other 06-11-2023 11:19-0400 Body height 157.5 cm Zaire Fry MD Work Phone: [facility] 06-11-2023 11:19-0400 Body weight 65.32 kg Zaire Fry MD Work Phone: [facility] 06-11-2023 11:19-0400 Diastolic blood pressure 70 mm[Hg] Zaire Fry MD Work Phone: [facility] 06-11-2023 11:19-0400 Heart rate 76 /min Zaire Fry MD Work Phone: [facility] 06-11-2023 11:19-0400 SaO2% (BldA) [Mass fraction] 98 % Zaire Fry MD Work Phone: [facility] 06-11-2023 11:19-0400 Systolic blood pressure 110 mm[Hg] Zaire Fry MD Work Phone: [facility] 05-31-2023 10:00-0400 Body height 157.48 cm Cony Yoana Other [employer] Other 05-31-2023 10:00-0400 Body mass index (BMI) [Ratio] 26.7 kg/m2 Cony Bowenmond Other [employer] Other 05-31-2023 10:00-0400 Body temperature 97.5 [degF] Cony Bowenmond Other [employer] Other 05-31-2023 10:00-0400 Body weight 66.23 kg Cony Yoana Other [employer] Other 05-31-2023 10:00-0400 Diastolic blood pressure 74 mm[Hg] Cony Yoana Other [employer] Other 05-31-2023 10:00-0400 Respiratory rate 18 /min Cony Yoana Other [employer] Other 05-31-2023 10:00-0400 SaO2% (BldA) [Mass fraction] 97 % Cony Lees Other [employer] Other 05-31-2023 10:00-0400 Systolic blood pressure 118 mm[Hg] Cony Lees Other [employer] Other 03-11-2023 09:30-0400 Body height 154.94 cm Hussein Ball Other [employer] Other 03-11-2023 09:30-0400 Body mass index (BMI) [Ratio] 27.81 kg/m2 Hussein Ball Other [employer] Other 03-11-2023 09:30-0400 Body weight 66.77 kg Hussein Ball Other [employer] Other 03-11-2023 09:30-0400 Diastolic blood pressure 82 mm[Hg] Hussein Ball Other [employer] Other 03-11-2023 09:30-0400 Respiratory rate 12 /min Hussein Ball Other [employer] Other 03-11-2023 09:30-0400 Systolic blood pressure 129 mm[Hg] Hussein Ball Other [employer] Other 01-16-2023 10:00-0400 Body height 154.94 cm Hussein Ball Other [employer] Other 01-16-2023 10:00-0400 Body mass index (BMI) [Ratio] 27.92 kg/m2 Hussein Ball Other [employer] Other 01-16-2023 10:00-0400 Body weight 67.04 kg Hussein Ball Other [employer] Other 01-16-2023 10:00-0400 Diastolic blood pressure 78 mm[Hg] Hussein Ball Other [employer] Other 01-16-2023 10:00-0400 Respiratory rate 12 /min Hussein Ball Other [employer] Other 01-16-2023 10:00-0400 Systolic blood pressure 119 mm[Hg] Hussein Ball Other [employer] Other 12-26-2022 10:30-0400 Body height 154.94 cm Hussein Ball Other [employer] Other 12-26-2022 10:30-0400 Body mass index (BMI) [Ratio] 28.11 kg/m2 Hussein Ball Other [employer] Other 12-26-2022 10:30-0400 Body weight 67.5 kg Hussein Ball Other [employer] Other 12-26-2022 10:30-0400 Diastolic blood pressure 76 mm[Hg] Hussein Ball Other [employer] Other 12-26-2022 10:30-0400 Respiratory rate 12 /min Hussein Ball Other [employer] Other 12-26-2022 10:30-0400 Systolic blood pressure 121 mm[Hg] Hussein Ball Other [employer] Other 10-16-2021 16:40-0500 Body height 154.94 cm Dena Carl Other [employer] Other 10-16-2021 16:40-0500 Body mass index (BMI) [Ratio] 29.28 kg/m2 Dena Davis Other [employer] Other 10-16-2021 16:40-0500 Body temperature 97.4 [degF] Dena Davis Other [employer] Other 10-16-2021 16:40-0500 Body weight 70.31 kg Dena Davis Other [employer] Other 10-16-2021 16:40-0500 Diastolic blood pressure 88 mm[Hg] Dena Davis Other [employer] Other 10-16-2021 16:40-0500 Respiratory rate 16 /min Dena Davis Other [employer] Other 10-16-2021 16:40-0500 SaO2% (BldA) [Mass fraction] 98 % Dena Davis Other [employer] Other 10-16-2021 16:40-0500 Systolic blood pressure 152 mm[Hg] Dena Davis Other [employer] Other Encounters Encounter Date Encounter Type Care Provider Facility Start: 05-19-2024 End: 05-19-2024 Patient encounter procedure Tina Brown OD Work Phone: Ophthalmology Comment on above: Low-tension glaucoma of both eyes, unspecified glaucoma stage (Primary Dx); Low-tension glaucoma of both eyes, moderate stage; Keratitis sicca, bilateral Start: 05-19-2024 End: 05-19-2024 ambulatory HUSSEIN ROWAN Facility:[facility] Start: 11-15-2023 End: 11-15-2023 ambulatory JUAN LUIS SHIELDS Not Available Start: 11-15-2023 End: 11-15-2023 ambulatory JUAN LUIS SHIELDS Not Available Start: 11-12-2023 End: 11-12-2023 ambulatory HUSSEIN ROWAN Facility:[facility] Start: 11-12-2023 End: 11-12-2023 Patient encounter procedure Tina Brown OD Work Phone: Ophthalmology Comment on above: Low-tension glaucoma of both eyes, unspecified glaucoma stage (Primary Dx); Keratitis sicca, bilateral (HCC); Pseudophakia, left eye Start: 07-29-2023 End: 07-29-2023 ambulatory Kavitha Interiano [facility] Start: 07-29-2023 Telephone encounter Hussein HAMMOND [facility] Start: 07-22-2023 ambulatory Silvia Luma MYSQL DEVELOPER.ELEVATOR SERVICE MECHANIC Work Phone: Pulmonary Medicine Comment on above: Nodule Start: 07-09-2023 End: 07-09-2023 ambulatory Hussein Rowan Other [employer] Other Start: 07-09-2023 Telephone encounter Hussein HAMMOND [facility] Start: 07-05-2023 End: 07-05-2023 ambulatory JINuvia [facility] Facility:[facility] Start: 07-05-2023 End: 07-05-2023 ambulatory [facility] [place] Work Phone: Pulmonology Comment on above: Spirometry Start: 07-05-2023 End: 07-05-2023 Patient encounter procedure [facility] [place] Work Phone: [facility] Start: 06-26-2023 End: 06-26-2023 ambulatory Hussein Rowan Other [employer] Other Start: 06-26-2023 Office outpatient vi sit 15 minutes Hussein Rowan [facility] Start: 06-24-2023 End: 06-24-2023 ambulatory Hussein Rowan Other [employer] Other Start: 06-24-2023 Telephone encounter Hussein HAMMOND [facility] Start: 06-11-2023 End: 06-11-2023 [facility] Facility:[facility] Start: 06-11-2023 End: 06-11-2023 Patient encounter procedure Zaire Fry MD Work Phone: Cardiology Comment on above: Chest discomfort; SOB (shortness of breath); Pure hypercholesterolemia; Primary hypertension Start: 05-31-2023 End: 05-31-2023 ambulatory Cony Lees Other [employer] Other Start: 05-31-2023 Office outpatient vi sit 15 minutes Cony Lees [facility] Start: 03-25-2023 Telephone encounter No One (Historic al) Referring Physician Comment on above: External Referrals/r esources Start: 03-15-2023 End: 03-15-2023 ambulatory Hussein Rowan Other [employer] Other Start: 03-15-2023 Telephone encounter Hussein Rowan [facility] Start: 03-13-2023 End: 03-13-2023 ambulatory Hussein Rowan Other [employer] Other Start: 03-13-2023 Telephone encounter Hussein Rowan [facility] Start: 03-11-2023 End: 03-11-2023 ambulatory Hussein Rowan Other [employer] Other Start: 03-11-2023 Office outpatient vi sit 15 minutes Hussein Rowan [facility] Start: 01-21-2023 End: 01-21-2023 ambulatory Hussein Rowan Other [employer] Other Start: 01-21-2023 Telephone encounter Hussein Rowan [facility] Start: 01-16-2023 End: 01-16-2023 ambulatory Hussein Rowan Other [employer] Other Start: 01-16-2023 Office outpatient vi sit 15 minutes Hussein Ball [facility] Start: 12-31-2022 End: 01-01-[address] HUSSEIN ROWAN Facility:[facility] Start: 12-27-2022 End: 12-27-2022 ambulatory Hussein Rowan Other [employer] Other Start: 12-27-2022 Telephone encounter Hussein Rowan [facility] Start: 12-26-2022 Patient encounter procedure Hussein Sukhjinder [facility] Start: 12-26-2022 Telephone encounter Hussein Sukhjinder HAMMOND [facility] Start: 12-26-2022 End: 12-27-[address] HUSSEIN ROWAN [employer] Other Start: 05-07-2022 End: 05-08-[address] HUSSEIN ROWAN Facility:[facility] Start: 04-30-2022 End: 04-30-[address] HUSSEIN ROWAN Facility:[facility] Start: 04-29-2022 Encounter for preprocedural laboratory examination DR ZION RIZZO . [facility] Start: 04-26-2022 End: 04-27-[address] ZION RIZZO . Facility:[facility] Start: 04-26-2022 End: 04-27-2022 Encounter for preprocedural laboratory examination DR ZION RIZZO . Facility:[facility] Start: 04-20-2022 Encounter for preprocedural cardiovascular examination DR ZION RIZZO . [facility] Start: 04-19-2022 End: 04-20-[address] HUSSEIN ROWAN Facility:[facility] Start: 04-19-2022 End: 04-20-2022 Encounter for preprocedural cardiovascular examination DR HUSSEIN ROWAN Facility:[facility] Start: 04-14-2022 End: 04-15-[address] HUSSEIN ROWAN Facility:[facility] Start: 04-10-2022 End: 04-10-2022 Patient encounter procedure Tina Justino Jermaine OD Work Phone: Ophthalmology Comment on above: Low-tension glaucoma of both eyes, unspecified glaucoma stage (Primary Dx); Keratitis sicca, bilateral (HCC); History of trabeculectomy, right eye Start: 01-18-2022 End: 01-19-2022 ambulatory JUAN LUIS SHIELDS Facility:[facility] Start: 10-16-2021 End: 10-16-2021 ambulatory Dena Davis Other [employer] Other Start: 10-16-2021 Office outpatient ne w 20 minutes Dena Carl [facility] Procedures Date Procedure Procedure Detail Performing Clinician Start: 05-19-2024 Visual field xm uni/ bi w/interp extended exam Tina Brown OD Work Phone: Start: 11-12-2023 Computerized ophthal gio imaging optic nerve Tina Brown OD Work Phone: Start: 07-05-2023 Brncdilat rspse spmt ry pre&post-brncdilat admn Zaire Fry MD Work Phone: Start: 06-11-2023 Ecg routine ecg w/le ast 12 lds i&r only [facility] Provider Start: 04-10-2022 Visual field xm uni/ bi w/interp extended exam Tina Brown OD Work Phone: Plan of Treatment Date Care Activity Detail Author Start: 2025 RSV Vaccine (1 - 1-dose 75+ series) RSV Vaccine (1 - 1-dose 75+ series) [facility] Start: 11-17-2024 End: 11-17-2024 Patient encounter procedure 11/17/2024 1:15 PM EDT Office Visit [facility] [address] [place] [address] Tina Brown, OD [address] [place] [address] RTC: 6 Months Full OCT ON/[facility] Ophthalmology Comment on above: RTC: 6 Months Full OCT ON/GCA Start: 09-22-2024 End: 09-22-2024 Patient encounter procedure 09/22/2024 11:30 AM EST Office Visit Cardiology [address] [place] [address] Zaire Fry MD [address] [place] [address] Return in about 1 year (around 06/11/2024). Cardiology Comment on above: Return in about 1 year (around ). Start: 06-11-2024 BP Controlled (<130/80) BP Controlled (<130/80) [facility] Start: 04-19-2024 Covid-19 Vaccine () Covid-19 Vaccine () [facility] Start: 04-19-2024 Influenza vaccination Influenza Vaccine (#1) [facility] Start: 08-19-2023 Advance Directive Discussion Advance Directive Discussion [facility] Start: 08-19-2023 Depression Assessment Depression Assessment [facility] Start: 06-11-2023 End: 09-10-2023 CREATININE BLD CREATININE BLD Lab Routine Chest discomfort SOB (shortness of breath) Expected: 06/11/2023, Expires: 09/10/2023 [facility] Work Phone: Comment on above: Expected: 06/11/2023, Expires: 4 Start: 04-19-2023 Covid-19 Vaccine () Covid-19 Vaccine () [facility] Start: 04-19-2023 Influenza vaccination [facility] Start: 08-19-2022 ADVANCE DIRECTIVE DISCUSSION ADVANCE DIRECTIVE DISCUSSION [facility] Start: 08-19-2022 DEPRESSION ASSESSMENT DEPRESSION ASSESSMENT [facility] Start: 04-19-2022 Influenza vaccination INFLUENZA (#1) [facility] Start: 10-10-2021 COVID-19 VACCINE (4 - Booster for Moderna series) COVID-19 VACCINE (4 - Booster for Moderna series) [facility] Start: 08-19-2021 ADVANCE DIRECTIVE DISCUSSION ADVANCE DIRECTIVE DISCUSSION [facility] Start: 08-04-2021 COVID-19 VACCINE (4 - Moderna series) COVID-19 VACCINE (4 - Moderna series) [facility] Start: 2015 BONE DENSITY BONE DENSITY [facility] Start: 2015 Bone Density Screening Bone Density Screening [facility] Start: 2015 Pneumococcal Vaccine: 65+ (1 - PCV) Pneumococcal Vaccine: 65+ (1 - PCV) [facility] Start: 2015 Pneumococcal Vaccine: 65+ (1 of 1 - PCV) Pneumococcal Vaccine: 65+ (1 of 1 - PCV) [facility] Start: 2015 PNEUMOCOCCAL: 65+ (1 - PCV) PNEUMOCOCCAL: 65+ (1 - PCV) [facility] Start: 2015 Screening for osteoporosis Bone Density Screening [facility] Start: 2010 RSV Vaccine (1 - 1-dose 60+ series) RSV Vaccine (1 - 1-dose 60+ series) [facility] Start: 2000 SHINGRIX VACCINE (1 of 2) SHINGRIX VACCINE (1 of 2) [facility] Start: 1995 COLOGUARD (FIT-DNA) COLOGUARD (FIT-DNA) [facility] Start: 1995 Colonoscopy COLONOSCOPY [facility] Start: 1995 COLORECTAL CANCER SCREENING COLORECTAL CANCER SCREENING [facility] Start: [address] COLONOGRAPHY [facility] Start: 1995 DIABETES SCREEN DIABETES SCREEN [facility] Start: 1995 Diabetes Screening Diabetes Screening [facility] Start: 1995 FECAL OCCULT BLOOD FECAL OCCULT BLOOD [facility] Start: 1995 Lipid 1996 panel - Serum or Plasma Lipid Screening [facility] Start: 1995 Lipid panel Lipid Screening [facility] Start: 1995 LIPID SCREEN LIPID SCREEN [facility] Start: 1995 Screening for malignant neoplasm of colon [facility] Start: 1995 SIGMOIDOSCOPY SIGMOIDOSCOPY [facility] Start: 1990 Mammography [facility] Start: 1990 Screening for malignant neoplasm of breast Mammogram Screening [facility] Start: 1969 Urine microalbumin profile [facility] Start: 1968 ANNUAL PCP TEAM CHRONIC DISEASE VISIT ANNUAL PCP TEAM CHRONIC DISEASE VISIT [facility] Start: 1968 Anxiety Screening Anxiety Screening [facility] Start: 1968 Depression Screening Depression Screening [facility] Start: 1968 HEPATITIS C SCREENING HEPATITIS C SCREENING [facility] Start: 1968 Hepatitis C screening Hepatitis C Screening [facility] Start: 1962 Adult depression screening assessment DEPRESSION SCREENING [facility] End: 07-10-2024 Cta hrt cornry art/bypass grfts contrst 3d post CTA CORONARY W IVCON Radiology Routine Chest discomfort SOB (shortness of breath) Pure hypercholesterolemia Primary hypertension 1 Occurrences starting 06/11/2023 until 07/10/2024 [facility] Work Phone: Comment on above: 1 Occurrences starting 06/11/2023 until 07/10/2024 ECG COMPLETE [facility] Work Phone: Comment on above: Ordered: 06/11/2023 End: 07-10-2024 SPIROMETRY WITH DILATOR IF OBSTRUCTED SPIROMETRY WITH DILATOR IF OBSTRUCTED PFT Routine SOB (shortness of breath) 1 Occurrences starting 06/11/2023 until 07/10/2024 [facility] Work Phone: Comment on above: 1 Occurrences starting 06/11/2023 until 07/10/2024 [facility] Immunizations Immunization Date Immunization Notes Care Provider Myron kaplan 06-23-2022 influenza virus vaccine, split virus (incl. purified surface antigen) Hussein Rowan Other [facility] Other 06-23-2022 influenza, high dose seasonal, preservative-free Hussein Rowan Other [facility] Other 06-23-2022 influenza virus vaccine, unspecified formulation Zaire Fry MD Work Phone: [facility] 05-08-2022 COVID-19 Pfizer (bivalent) Hussein Rowan Other [facility] Other 06-09-2021 COVID-19 Vaccine Pfi zer - Documentation Purposes Only Hussein Rowan Other [facility] Other 12-14-2020 zoster vaccine recombinant Hussein Rowan Other [facility] Other 10-26-2020 COVID-19 Kermit pathak Other [facility] Other 09-28-2020 COVID-19 Kermit pathak Other [facility] Other 06-25-2020 influenza virus vaccine, split virus (incl. purified surface antigen) Hussein Rowan Other [facility] Other 06-25-2020 zoster vaccine recombinant Hussein Rowan Other [facility] Other 06-25-2020 zoster vaccine, live Brandy Rowan Other [facility] Other 06-25-2020 FLUAD QUAD 2020-21,6 5Y UP,,PF, 60 mcg (15 mcg x 4)/0.5 mL syrg Tina Brown OD Work Phone: [facility] Comment on above: PHARMACY ADMINISTERE D Payers Date Payer Category Payer Unknown MMO MMO MEDICARE SUPPLEMENT [id number] 2019-Present [phone] [address] [place] [address] Indemnity [id number] 2018 Medicare MEDICARE MEDICAR E A AND B [id number] 2018-Present [phone] [address] [address] [place] [address] Medicare [id number] 1959 Medicare [id number] 1959 Medicare [id number] 1950 Unknown [id number] 1950 Unknown [id number] 1950 Unknown [id number] 1950 Unknown [id number] 1950 Unknown [id number] 1950 Unknown [id number] 1950 Unknown [id number] 1950 Unknown [id number] 1950 Unknown [id number] Social History Date Type Detail Facility Start: 10-12-2022 End: 04-12-2023 Sex Assigned At [facility] Other Start: 04-10-2022 Tobacco smoking status TNIS Never smoked tobacco [facility] Start: 04-10-2022 Tobacco use and exposure Smokeless tobacco non-user [facility] Start: 04-10-2022 End: 05-19-2024 Alcohol intake Current drinker of alcohol (finding) [facility] Start: 06-12-2013 History SDOH Alcohol Comment 1 glass of wine 3/wk [facility] Start: 1950 Sex Assigned At Female [facility] Start: 10-12-2022 End: 04-12-2023 History of Social function [facility] National Score (1-10 0), lower number is lower risk 65 [facility] Start: 09-24-2020 Gender identity Identifies as female gender (finding) [facility] Start: 12-04-2020 Sexual orientation Heterosexual (finding) [facility] Medical Equipment Procedure Code Equipment Code Equipment Origin al Text Equipment Identifier Dates Lens Iol 0d +20 Dante Uv Abs - [id number] Start: 11-29-2020 Comment on above: Description: -0.09 Clinical Notes 02-12-2017 to 05-19-2024 Tina Brown OD - 05/19/2024 12:56 PM EDTina Whittington OD - 11/12/2023 1:16 PM EDT Note Date & Type Note Facility 05-19-2024 Note Date of Procedure 05/19/2024. [place] [facility]ilities Surveyor: RIGOBERTO. Interval Change Right Eye Stable. Left Eye Stable. Notes -- HVF 05/19/2024 OD mod sup nasal step, stable from 2021; OS Normal ZEISS 05-19-2024 Note HNO ID: [id number] Author: TINA BROWN, TERRENCE Service: ? Author Type: CINEMA OPERATOR Type: Progress Notes Filed: 05/19/2024 13:37 Note Text: Tmax 19 , 21 (pt [...] eyes 2 x daily Goals -- HVF 05/19/2024 OD mod sup nasal step, stable from 2021; OS Normal -- OCT 11/12/2023 OD severe inf>mod sup [...] with the patient. Tina Brown, OD May 19, 2024 1:35 PM [facility] 05-19-2024 History of Present illness Narrative Tmax 19 [...] eyes 2 x daily Goals -- HVF 05/19/2024 OD mod sup nasal step, stable from 2021; OS Normal -- OCT 11/12/2023 OD severe inf>mod sup [...] them in detail with the patient. Tina Brown OD May 19, 2024 1:35 PM documented in this encounter [facility] 11-12-2023 Note HNO ID: [id number] Author: TINA BROWN OD Service: ? Author Type: CINEMA OPERATOR Type: Progress Notes Filed: 11/12/2023 13:47 Note [...] them in detail with the patient. Tina Badillo Jermaine, OD November 12, 2023 1:43 PM [facility] 11-12-2023 History of Present illness Narrative Tmax , (pt report) ; Pachy 548 , 579 [...] in detail with the patient. Tina Brown, TERRENCE November 12, 2023 1:43 PM documented in this encounter [facility] 08-15-2023 Note HNO ID: [id number] Author: Kavitha Interiano Service: ? Author Type: ? Type: Progress Notes Filed: 08/15/2023 9:05 AM Note Text: Incidental Lung Nodule Enrollment Outreach attempt: 3rd Attempt Outreach status: Complete Enrolled in Lung Nodule program: No Declined reason: Other Lung Nodule Program Location: [place] Two letter attempts Discharge letter sent [facility] 08-15-2023 Note Patient Outreach (PU LMMN) -------- CORRIE MCCRAY ([id number]) 1950 F Date Time Provider Department 08/15/23 KAVITHA INTERIANO During your visit today, we recorded the following information about you: Kavitha Interiano 08/15/2023 9:05 AM Signed Incidental Lung Nodule Enrollment Outreach attempt: 3rd Attempt Outreach status: Complete Enrolled in Lung Nodule program: No Declined reason: Other Lung Nodule Program Location: [place] Two letter attempts Discharge letter sent Allergies [...] capsule by mouth once daily. - Evening [place] Oil (EVENING PRIMROSE) 500 mg cap Take [...] Encounter Status:Closed by KAVITHA INTERIANO on 08/15/23 [facility] 08-04-2023 Note HNO ID: [id number] Author: Kavitha Interiano Service: ? Author Type: ? Type: Progress Notes Filed: 08/04/2023 6:25 PM Note Text: Incidental Lung Nodule Enrollment Outreach attempt: 2nd Attempt Outreach status: Complete Enrolled in Lung Nodule program: Referred Lung Nodule outreach: Needs outreach Lung Nodule Program Location: [place] Two letter attempts [facility] 08-04-2023 Note Patient Outreach ( LMMN) -------- CORRIE MCCRAY ([id number]) 1950 F Date Time Provider Department 08/04/23 KAVITHA INTERIANO During your visit today, we recorded the following information about you: InterianoKavitha 08/04/2023 6:25 PM Signed Incidental Lung Nodule Enrollment Outreach attempt: 2nd Attempt Outreach status: Complete Enrolled in Lung Nodule program: Referred Lung Nodule outreach: Needs outreach Lung Nodule Program Location: [place] Two letter attempts Allergies As of Date: [...] capsule by mouth once daily. - Evening [place] Oil (EVENING PRIMROSE) 500 mg cap Take [...] Encounter Status:Closed by KAVITHA INTERIANO on 08/04/23 [facility] 07-29-2023 Evaluation note Encounter Date Diagnosis Assessment Notes Jul, Pulmonary nodule, right (ICD-10 - R91.1) CTA chest: 7mm RLL nodule - 06/2023 [facility] Other 12-11-2023 NoteHNO ID: [id number] Author: Kavitha Interiano Service: ? Author Type: ? Type: Progress Notes Filed: 07/29/2023 7:29 AM Note Text: Incidental Lung Nodule Enrollment Outreach attempt: 2nd Attempt Outreach status: Complete Enrolled in Lung Nodule program: Referred Lung Nodule outreach: Needs outreach Lung Nodule Program [facility] [place] [facility] History of Present illness Narrative* Kavitha Interiano - 07/29/2023 7:28 AM EST Incidental Lung Nodule Enrollment Outreach attempt: 2nd Attempt Outreach status: Complete Enrolled in Lung Nodule program: Referred Lung Nodule outreach: Needs outreach Lung Nodule Program Location: [place] Two letter attempts [facility] NotePatient Outreach (PULMMN) CORRIE MCCRAY ([id number]) 1950 F Date Time Provider Department 07/29/23 KAVITHA INTERIANO During your visit today, we recorded the following information about you: Kavitha Interiano 07/29/2023 7:29 AM Signed Incidental Lung Nodule Enrollment Outreach attempt: 2nd Attempt Outreach status: Complete Enrolled in Lung Nodule program: Referred Lung Nodule outreach: Needs outreach Lung Nodule Program Location: [place] Two letter attempts Allergies As of Date: [...] capsule by mouth once daily. - Evening [place] Oil (EVENING PRIMROSE) 500 mg cap Take [...] Text Encounter Status:Closed by KAVITHA INTERIANO on 07/29/23[facility]12-04-2023 NoteHNO ID: [id number] Author: Silvia Ge APRN.CNP Service: ? Author Type: Nurse Practitioner Type: Progress Notes Filed: 07/22/2023 1:45 PM Note Text: Incidental Lung Nodule Enrollment Outreach attempt: 1st Attempt Outreach status: Complete Enrolled in Lung Nodule program: Referred Lung Nodule outreach: Needs outreach Lung Nodule Program Location: [place] Letter sent to patient regarding incidental lung nodule(s). Silvia Ge APRN.CNP July 22, 2023 [facility] of Present illness Narrative* Silvia Ge APRN.CNP - 07/22/2023 1:42 PM EST Incidental Lung Nodule Enrollment Outreach attempt: 1st Attempt Outreach status: Complete Enrolled in Lung Nodule program: Referred Lung Nodule outreach: Needs outreach Lung Nodule Program Location: [place] Letter sent to patient regarding incidental lung nodule(s). Silvia Ge APRN.CNP July 22, 2023 1:42 PM [facility] NotePatient Outreach (PMNA11) CORRIE MCCRAY ([id number]) 1950 F Date Time Provider Department 07/22/23 SILVIA GE1 During your visit today, we recorded the following information about you: Silvia Ge APRN.CNP 07/22/2023 1:45 PM Signed Incidental Lung Nodule Enrollment Outreach attempt: 1st Attempt Outreach status: Complete Enrolled in Lung Nodule program: Referred Lung Nodule outreach: Needs outreach Lung Nodule Program Location: [place] Letter sent to patient regarding incidental lung nodule(s). Silvia RENETTA Ge.ELEVATOR SERVICE MECHANIC July 22, 2023 1:42 PM Allergies As [...] capsule by mouth once daily. - Evening [place] Oil (EVENING PRIMROSE) 500 mg cap Take [...] Text Encounter Status:Closed by SILVIA GE on 07/22/23[facility] 07-05-2023 NoteHNO ID: [id number] Author: Silvia Mckeon RT(Esteban) Service: Radiology Author Type: [place] Type: Progress Notes Filed: 07/05/2023 3:03 PM [...] BY: RT Yesica(R) July 05, 2023 3:00 [facility]11-17-2023 NoteHNO ID: [id number] Author: Liss Anne TECHNOLOGIST Service: ? Author Type: Technologist Type: [...] and Intact, Site disposition Discontinued SIGNED BY: TECHNOLOGIST Jennifer July 05, 2023 3:02 [facility]11-17-2023 NoteHNO ID: [id number] Author: Sarah Mtz RRT Service: ? Author Type: Registered Resp Therapist Type: Progress Notes Filed: 07/05/2023 2:30 PM Note Text: PULM FUNCTION SMARTBLOCK: Provider: Zaire Fry MD Spirometry: [address] [place], [place] [address]11-17-2023 History of Present illness Narrative* Sarah Mtz RRT - 07/05/2023 2:25 PM EST PULM FUNCTION SMARTBLOCK: Provider: Zaire Fry MD Spirometry: 1 [facility] Evaluation note* Encounter Date Diagnosis Assessment [...] Jun, Autoimmune thyroidit is (ICD-10 - E06.3) [facility] Other 10-24-2023 NoteHNO ID: [id number] Author: Zaire Fry MD Service: ? Author Type: Physician Type: Progress Notes Filed: 06/11/2023 11:43 AM Note Text: [facility] [place] SECTION OF REGIONAL CARDIOLOGY OUTPATIENT VISIT DATE June 11, 2023 OUTPATIENT VISIT TYPE NEW PRIMARY CARE PHYSICIAN: Hussein Rowan ([facility]) [address] [place] [address] A written report of the findings and [...] RMVL INSJ IO LENS PROSTH W/O ECP 2009 os Cataract Extraction with PC IOL Social History Tobacco Use Smoking status: Never Smokeless tobacco: Never Vaping Use Vaping Use: Never used Substance Use Topics Alcohol use: Yes Comment: 1 glass of wine 3/wk Drug use: No FAMILY HISTORY Problem (more content not included)...[facility]10-24-2023 History of Present illness Narrative* Zaire Fry MD - 06/11/2023 11:17 AM EDT Images from the original note were not included. [facility] [place] SECTION OF REGIONAL CARDIOLOGY OUTPATIENT VISIT DATE June 11, 2023 OUTPATIENT VISIT TYPE NEW PRIMARY CARE PHYSICIAN: Hussein Rowan ([facility]) [address] [place] [address] A written report of the findings and [...] 1 capsule by mouth once daily. Evening [place] Oil (EVENING PRIMROSE) 500 mg cap Take 1 capsule by mouth once daily. Flaxseed Oil 1,000 mg cap Take 1 capsule by mouth once daily. FLUAD QUAD 2020-21,65Y UP,,PF, 60 mcg (15 mcg x 4)/0.5 mL syrg PHARMACY ADMINISTERED (Patient not taking: Reported on 06/11/2023) [facility] note* Encounter Date Diagnosis Assessment Notes Treatment Notes Treatment Clinical Notes May, Abrasion of right cornea, initial encounter (ICD-10 - S05.01XA) Drink plenty fluids, get plenty of rest. Use the eyedrops as prescribed. Today you may instill the eyedrops every 2 hours and then 4 times a day for the next 4 days. Follow-up with your flexo press operator if no improvement in 2 to 3 days. Continue home medications as prescribed [facility] Other 08-07-2023 Miscellaneous Notes* Telephone Encounter - Kae Pereira - 03/25/2023 4:47 PM EDT Patient: Corrie Mccray Date of : 1950 Patient phone number: [phone] Referring Provider for the encounter: Hussein Rowan Requesting Provider: n/c Reason for requesting visit (RFV/signs and symptoms/diagnosis): Precordial pain (R07.2) Person calling: caregiver: Kae Return call to: self Medical Records/Insurance Card scanned into [employer]: Yes Comments: documented in [facility] encounter[facility]07-[facility] Evaluation note* Encounter Date Diagnosis Assessment Notes Treatment Notes Treatment Clinical Notes Feb, Dyspnea on exertion (ICD-10 - R06.09) [facility] Other 07-24-2023 Evaluation note* Encounter Date Diagnosis [...] the risk for cerebrovascular and cardiovascular disease. [facility] Other 05-31-2023 Evaluation note* Encounter Date Diagnosis [...] Hold exercise routine until stress testing completed [facility] Other 05-10-2023 Evaluation note* Encounter Date Diagnosis [...] Z79.899) December, Metabolic syndrome (ICD-10 - E88.81) [facility] Other 05-10-2023 Evaluation note* Encounter Date Diagnosis Assessment Notes Treatment Notes Treatment Clinical Notes December, KHAN (dyspnea on exertion) (ICD-10 - R06.09) [facility] Other 05-10-2023 NotePROCEDURE: XR CHEST 2 V DATE: 12/26/2022 9:26 AM CDT COMPARISONS: None. CLINICAL INDICATION: 72 years Female Dyspnea FINDINGS: The cardiomediastinal silhouette and pulmonary vasculature are within normal limits. The lungs are clear. There is no evidence of pleural effusion or pneumothorax. IMPRESSION: Chest radiograph is within normal limits. Electronically authenticated by: DEREK BONILLA Date: 2022-12-26 11:05[facility]09-12-2022 NoteOPERATIVE NOTE OPERATION DATE: 04/30/2022 PROCEDURE: D AND C hysteroscopy with Myosure. PREOPERATIVE DIAGNOSIS: Postmenopausal bleeding, thickened endometrium. POSTOPERATIVE DIAGNOSIS: Postmenopausal bleeding, thickened endometrium. ANESTHESIA: General. SURGEON: Zion Rizzo D.O. COMMERCIAL LINES ACCOUNT MANAGER: None. FINDINGS: Atrophic appearing cavity. No gross [...] to the Recovery Room in stable condition.[id number] History of Present illness Narrative* Tina Brown, [...] 10, 2022 2:31 PM documented in [facility] encounter[facility]02-28-[facility] Evaluation note* Encounter Date Diagnosis Assessment [...] we will help you get into specialist. [facility] Other 06-27-2017 History of Past illness Narrative* Problem Noted [...] of this encounter (statuses as of 04/10/2022) [facility] History of Past illness Narrative* Problem [...] of this encounter (statuses as of 03/26/2023) [facility] of [facility] illness Narrative* Problem [...] of this encounter (statuses as of 06/11/2023) [facility] Narrative* Problem [...] of this encounter (statuses as of 07/05/2023) [facility] Narrative* Problem [...] of this encounter (statuses as of 07/23/2023) [facility] Narrative* Problem [...] of this encounter (statuses as of 07/29/2023) [facility] Narrative* Problem [...] of this encounter (statuses as of 11/12/2023) [facility] note* Diagnosis Low-tension glaucoma of both eyes, unspecified glaucoma stage- Primary Keratitis sicca, bilateral (HCC) Other forms of keratitis History of trabeculectomy, right eye Other states following surgery of eye and adnexa documented in this encounter [facility] noteNo [employer] Other Evaluation note* Diagnosis Chest discomfort Other chest pain SOB (shortness of breath) Shortness of breath Pure hypercholesterolemia Primary hypertension Unspecified essential hypertension documented in this encounter [facility] note* Diagnosis SOB (shortness of breath) Shortness of breath documented in this encounter [facility] note* Diagnosis Lung nodule- Primary Solitary pulmonary nodule documented in this encounter [facility] note* Diagnosis Low-tension glaucoma of both eyes, unspecified glaucoma stage- Primary Keratitis sicca, bilateral (HCC) Other forms of keratitis Pseudophakia, left eye Lens replaced by other means [facility] Diagnosis Pre-op evaluation- Primary Preoperative examination, unspecified Combined forms of age-related cataract of right eye Other and combined forms of senile cataract Low-tension glaucoma of both eyes, unspecified glaucoma stage Other specified hypothyroidism Low-tension glaucoma of both eyes, unspecified glaucoma stage- Primary Keratitis sicca, bilateral Other forms of keratitis documented in this encounter [facility] general Narrative - Reported* Type Description Date Medical History glaucoma Surgical History lithotripsy Surgical History bladder suspension, unspecified Surgical History tonsillectomy Surgical History CTS b/l hands Surgical History laparoscopy Surgical History colonoscopy Surgical History eyes Hospitalization History see above [facility] Other History general Narrative - Reported* Type [...] Surgical History eyes Hospitalization History see above [facility] Other History general Narrative - [employer] Other History general Narrative - Reported* Type [...] Surgical History eyes Hospitalization History see above [facility] Other Summary Purpose Family History No Family [...] Referral Specialty Diagnoses / Procedures Referred By Contac t Referred To Contact CT IMAGING Diagnoses Chest discomfort SOB (shortness of breath) Pure hypercholesterolemia Primary hypertension Procedures CTA CORONARY W IVCON CTA HRT CORNRY ART/BYPASS GRFTS CONTRST 3D POST Zaire Fry MD [address] [place] [address] [place] [address] Referral ID Status Reason Start Date Expiration Date Visits Requested Visits Authorized [id number] Authorized Auto-Generat ed Referral 3 07/10/2024 1 1 Specialty Diagnoses / Procedures Referred By Contac t Referred To Contact [facility] Diagnoses SOB (shortness of breath) Procedures SPIROMETRY WITH DILATOR IF OBSTRUCTED BRNCDILAT RSPSE SPMTRY PRE&POST-BRNCDILAT ADMN Zaire Fry MD [address] [place] [address] [facility] [place] [address] [place] [id number] Referral ID Status Reason Start Date Expiration Date Visits Requested Visits Authorized [id number] Authorized Auto-Generat ed Referral 3 07/10/2024 1 1 Specialty Diagnoses / Procedures Referred By Contact Referred To [facility] Diagnoses Chest discomfort SOB (shortness of breath) Pure hypercholesterolemia Procedures ECG COMPLETE ECG ROUTINE ECG W/LEAST 12 LDS W/I&R Zaire Fry MD [address] [place] [address] [facility] [address] [address] Referral ID Status Reason Start Date Expiration Date Visits Requested Visits Authorized [id number] Pending Review Auto-Generat ed Referral 3 06/10/2024 1 1 Reason Mrs. Mccray is being referred for dyspnea and chest pain Diagnosis 1 Precordial pain (R07 .2) Referral Organization [facility] Sukhjinder cai Referring Provider First Name Hussein Referring Provider Last Name Sukhjinder Referring Provider Specialty Internal Me dicine Referred [facility] Referred Address [address], [place] Referred Provider Specialty Cardiology Referral Priority Routine [...] section and content) DATE CREATED AUTHOR 11/06/2021 [facility] DATE CREATED AUTHOR AUTHOR'S ORGANIZ ATION 01/01/2023 [facility] pital DATE CREATED AUTHOR AUTHOR'S ORGANIZ ATION 07/08/2023 [facility] DATE CREATED AUTHOR AUTHOR'S ORGANIZ ATION 11/16/2023 [facility] EPIC DATE CREATED AUTHOR AUTHOR'S ORGANIZ ATION 05/02/2024 [facility] EPIC DATE CREATED AUTHOR AUTHOR'S ORGANIZ ATION 05/20/2024 [facility] REASON FOR VISIT (unrecogniz ed section and [...] RSPSE SPMTRY PRE&POST-BRNCDILAT ADMN Zaire Fry MD [address] [place] [address] Respiratory [place] [address] [place] [id number] Referral ID Status Reason Start Date Expiration Date V isits Requested Visits Authorized [id number] Closed Auto-Generate d Referral 06/11/2023 07/10/2024 1 1 Reason Onset Date Comments Nodule 07/22/2023 Reason Comments Yearly Exam Reason Comments Normal/Low Tension Glaucoma Source Comments (unrecognize d section and content) In the event this informatio n is protected by the Federal Confidentiality of Alcohol and Drug Abuse Patient Records regulations: The Federal rules restrict any use of the information to criminally investigate or prosecute any alcohol or drug abuse patient.[facility] the event this information is protected by the Federal Confidentiality of Alcohol and Drug Abuse Patient Records regulations: The Federal rules restrict any use of the information to criminally investigate or prosecute any alcohol or drug abuse patient.[facility] the event this information is protected by the Federal Confidentiality of Alcohol and Drug Abuse Patient Records regulations: The Federal rules restrict any use of the information to criminally investigate or prosecute any alcohol or drug abuse patient.[facility] the event this information is protected by the Federal Confidentiality of Alcohol and Drug Abuse Patient Records regulations: The Federal rules restrict any use of the information to criminally investigate or prosecute any alcohol or drug abuse patient.[facility] the event this information is protected by the Federal Confidentiality of Alcohol and Drug Abuse Patient Records regulations: The Federal rules restrict any use of the information to criminally investigate or prosecute any alcohol or drug abuse patient.[facility] the event this information is protected by the Federal Confidentiality of Alcohol and Drug Abuse Patient Records regulations: The Federal rules restrict any use of the information to criminally investigate or prosecute any alcohol or drug abuse patient.[facility] the event this information is protected by the Federal Confidentiality of Alcohol and Drug Abuse Patient Records regulations: The Federal rules restrict any use of the information to criminally investigate or prosecute any alcohol or drug abuse patient.[facility] the event this information is protected by the Federal Confidentiality of Alcohol and Drug Abuse Patient Records regulations: The Federal rules restrict any use of the information to criminally investigate or prosecute any alcohol or drug abuse patient.[facility] Care Teams (unrecognized sec tion and content) [employer] Relationship Specialty Start Date End Date Hussein Rowan DO [address] [place] [address] PCP - General Internal Medicine 11/29/20 [employer] Relationship Specialty Start Date End Date Hussein Rowan DO [address] [place] [facility] [place] [address] PCP - General Internal Medicine 11/29/20 [employer] Relationship Specialty Start Date End Date Hussein Rowan DO [address] [place] [facility] [place] [address] PCP - General Internal Medicine 11/29/20 [employer] Relationship Specialty Start Date End Date Hussein Rowan DO [address] [place] [facility] [place] [address] PCP - General Internal Medicine 11/29/20 [employer] Relationship Specialty Start Date End Date Hussein Rowan DO [address] [place] [facility] [place] [address] PCP - General Internal Medicine 11/29/20 [employer] Relationship Specialty Start Date End Date Hussein Rowan DO [address] [place] [facility] [place] [address] PCP - General Internal Medicine 11/29/20 [employer] Relationship Specialty Start Date End Date Hussein Rowan DO [address] [place] [facility] [place] [address] PCP - General Internal Medicine 11/29/20 [employer] Relationship Specialty Start Date End Date Hussein Rowan DO [address] [place] [facility] [place] [address] PCP - General Internal Medicine 11/29/20 FOR [...] BE BASED ON THE PRIMARY CLINICAL RECORDS. [employer], [facility]. provides no warranty or guarantee of the accuracy or completeness of information in this document.
== END 2024-06-19 08:57 | disposition home or self-care (01) ==
LOC: MAMMO 08:56
PROVIDERS: PCP Internal Medicine; Visit Provider Internal Medicine
DX: Z12.31 Encounter for screening mammogram for malignant neoplasm of breast (principal); Z80.3 Family history of malignant neoplasm of breast; Z80.1 Family history of malignant neoplasm of trachea, bronchus and lung
CPT/HCPCS: 77063; 77067

== ENCOUNTER 2024-07-10 09:20 | Outpatient (OUT) | payer MEDICARE, OTHER, SELFPAY ==
--- NOTE | 2024-07-10 09:23 | CT_ITS ---
The [address] [address] Patient Name: KARLENE DOMINGO MRN: [id number] date: 1950 Sex: F Assigned Patient Location: CT Current Patient Location: Accession/Order Number: [id number] Exam Date: 07/10/2024 09:30 Report Date: 07/11/2024 06:55 At the request of: SULY SLAUGHTER Procedure: CT chest wo con EXAMINATION: CT chest wo con HISTORY: Nodule Of Right Lung COMPARISON: CT chest 01/06/2024 TECHNIQUE: Axial, Coronal, and Sagittal images were created without the administration of IV contrast material. Dose reduction techniques were achieved by using automated exposure control and/or adjustment of mA and/or kV according to patient size and/or use of iterative reconstruction technique. FINDINGS: LUNGS: Numerous nodules between 3 and 5 mm scattered within the lungs bilaterally; not appreciably changed. No appreciable new nodules. Mild emphysematous changes. No acute infiltrates. PLEURA: No mass, effusion, or pneumothorax. VASCULATURE: No abnormality. CHIP: No mass or pathologic adenopathy. MEDIASTINUM: No mass or pathologic adenopathy. CARDIAC: No enlargement, pericardial thickening, or pericardial effusion. Coronary Artery calcifications: AORTA: No aneurysm or dissection. CHEST WALL: No mass or axillary adenopathy BONES: No bone lesion or fracture. LIMITED ABDOMEN: No suspicious findings. Limited images of the upper abdomen. OTHER: Negative. CT/CT chest wo con IMPRESSION: 1. Lung-RADS 2- Benign Appearance or Behavior. Nodules with a very low likelihood of becoming a clinically active cancer due to size or lack of growth. Follow-up CT Chest in 1 year. Electronically authenticated by: KASSIE TATE Date: 07/11/2024 06:55
--- OUTSIDE RECORDS SUMMARY | 2024-07-10 09:39 | XMS_ITS | CCD ---
Author Organization [facility] CliniSyde Care Team Providers Care Cyber Legal Advisor Name Role Phone Dena Davis Unavailable Hussein Rowan DO Primary Care Provider Hussein Rowan Unavailable SUKHJINDER, DR TUBBS Admitting Unavailable BALL, DR TUBBS Primary Care Unavailable BALL, DR TUBBS Attending Unavailable BALL, DR TUBBS Consulting Unavailable ZIEBER, DR KASSIE Orellana Consulting Unavailable BALL, DR TUBBS Primary Care Unavailable MARCIAL ., DR PETERS Attending Unavailable MARCIAL ., DR PEETRS Consulting Unavailable MARCIAL ., DR PETERS Admitting [...] [Vicodin] Drug Allergy 05-21-20 13 Unknown [facility] Repository (20 sources) Acetaminophen / oxyCODONE Drug Allergy 06-12-20 13 [facility] Work Phone: (12 sources) buPROPion; Translations: [Wellbutrin] Drug Allergy 07-22-20 15 Unknown [facility] Repository (14 sources) Sulf-10 Drug allergy Unknown [facility] Other (10 sources) Acetaminophen / HYDROcodone; Translations: [HYDROCODONE-ACET AMINOPHEN] Drug Allergy 05-21-20 13 [facility] (10 sources) buPROPion; Translations: [BUPROPION HCL] Drug Allergy 06-12-20 13 [facility] Work Phone: (18 sources) Sulfonamides (Antibiotic); Translations: [SULFA (SULFONAMIDE ANTIBIOTICS)] Drug Intolerance 06-12-20 13 [facility] Work Phone: (1 source) Acetaminophen / oxyCODONE Drug Allergy 05-21-20 13 [facility] Repository (3 sources) Leucine; Translations: [NICKEL] Drug Allergy 11-09-19 16 [facility] Repository (1 source) Sulfonamides (Antibiotic) Drug allergy (disorder) 05-21-20 13 [facility] Repository (8 sources) buPROPion Drug Allergy Unknown [facility] Other (14 sources) nickel Drug Allergy 07-10-20 18 [facility] (8 sources) Vicodin *ANALGESICS - OPIOID* Propensity to adverse reactions Unknown [facility] Other (5 sources) Allergies Reconciled Propensity to adverse reactions Unknown [facility] Other (2 sources) Acetaminophen / oxyCODONE; Translations: [OXYCODONE-ACETAM INOPHEN] Drug Allergy 06-12-20 13 [facility] Other [place] Repository Medications Current Medications Medication Drug Class(es) [...] 1 capsule by mouth once daily Evening [employer] (EVENING PRIMROSE) 500 mg cap Take 1 capsule by mouth once daily. 0 06/12/2013 Active Comment on above: Take 1 capsule by [facility] once daily. iv contrast (will be [...] Comment on above: Take 1 capsule by [facility] once daily. losartan potassium 25 mg [...] Comment on above: Take 1 capsule by [facility] once daily. Thyroid (1 source) Thyroid [...] 2 Chronic Other aftercare (1 source) Other rodent exterminator (current) drug therapy Episodic Other eye disorders [...] FIELD 24-2 OU (BOTH E YES)on 05-19-2024 [facility] Radiology Study observation (narrative) [facility] CTA CORONARY W IVCONon 07-05 CTA CORONARY W IVCON * * *Final Report* * * DATE OF EXAM: Jul 05 2023 3:04PM [facility]VC 0470 - CTA CORONARY W IVCON / PROCEDURE REASON: multiple diagnoses * * * * Physician Interpretation * * * * CTA CORONARY ARTERIES acquired at [facility] - images were acquired and screened for acute findings earlier. Subsequently reported following overnight procedure. Direct Image Comparison: None HISTORY: 72 years old Female patient with chronic h/o chest pain, suspected CAD Evaluation for further treatment options.. There is request to define coronary anatomy. TECHNIQUE: SCANNER: Siemens Definition Flash Dual source [id number] scanner PROTOCOL: Sequential imaging of the heart with prospective triggering in diastolic phase and submillimeter slice reconstruction following administration of contrast material. Scan Range: carlos a to the base of the heart CT Dose-Length Product (DLP): 265 mGy*cm CT Dose Reduction Employed: Automated exposure control(AEC) and iterative recon CONTRAST: IV administration of 90 ml Omnipaque 350 Premedication per [facility] Veteran protocol/documentation. Scan acquisition: uncomplicated Macro Version: [id number]:CCTW_3 For optimization of anatomic evaluation, advanced 3-D off-line postprocessing was performed on a dedicated workstation by the interpreting physician. Additional lung CAD. [place] images reconstructed, saved, and available in [employer] 'Get Images'. STUDY LIMITATIONS: Limited contrast enhancement [...] AORTIC DIMENSIONS: AORTIC ROOT: 3 cm measured [id number]-tq-qeilx mid ASCENDING THORACIC AORTA: 3.2 cm mid [...] or luminal stenosis. limited upper ABDOMEN: unremarkable Tax Assessor (topogram) images: No additional findings. IMPRESSION: NO EVIDENCE OF ATHEROSCLEROTIC CHANGES OR LUMINAL STENOSIS OF THE CORONARY ARTERIES -Direct epicardial course of tortuous mid LAD segment without intramyocardial extension. -Distal branches are not well visualized CAD-RADS 0: No plaque or luminal stenosis. Absence of CAD., - Overall Plaque [place]: No evidence of plaque visualized LUNGS: non-calcified [...] be communicated with the ordering provider via [employer] staff message by Imaging Support Services within 2 business days of report finalization. Element Winding Machine Tender: RUSTAM Transcribe (more content not included)... Invalid Interpretation Code [facility] NURSING PROGon 07-05-2023 NURSING PROG HNO ID: [id number] Author: Priscila Reyes RN Service: Radiology Author [...] Reyes RN July 05, 2023 2:45 PM [facility] NURSING PROG HNO ID: [id number] Author: Priscila Reyes RN Service: Radiology Author [...] DATE: July 05, 2023 TIME: 2:48 PM [facility] SPIROMETRY WITH DILATOR IF O BSTRUCTEDon 07-05-2023 BEE55-84% PRE (L/S) 1.83 L/S [facility] FEV1 PRE (L) 2.23 L [facility] FEV1/FVC PRE (%) 76 % [facility] FVC PRE (L) 2.93 L [facility] PEF PRE (L/S) 6.37 L/S [facility] CNOVon 06-11-2023 CNOV Office Visit (NAINA ) -------- CORRIE MCCRAY ([id number]) 1950 F Date Time Provider Department 06/11/23 11:30 AM ZAIRE FRY During your visit today, we recorded the following information about you: Pulse Blood pressure Weight Height 76/minute 110/70 65.3 kg 1.575 m Zaire Fry MD 06/11/2023 11:43 AM Signed Heart and Vascular Reading SECTION OF REGIONAL CARDIOLOGY OUTPATIENT VISIT DATE June 11, 2023 OUTPATIENT VISIT TYPE NEW PRIMARY CARE PHYSICIAN: Hussein Rowan ([facility]) [address] [place] [address] A written report of the findings and [...] os Catarac (more content not included)... Normal [facility] ECG COMPLETEon 06-11-2023 ECG COMPLETE Ventricular Rate : 7 4 BPM Atrial Rate : 74 BPM P-R Interval : 148 ms QRS Duration : 72 ms Q-T Interval : 390 ms QTC Calculation(Bazett) : 432 ms Calculated P [place] : -2 degrees Calculated R [place] : 7 degrees Calculated T [place] : -4 degrees NORMAL SINUS RHYTHM NONSPECIFIC ST AND T WAVE ABNORMALITY ABNORMAL ECG Confirmed by GREGG MULLEN MD ([id number]) on 06/14/2023 11:22:04 PM NAME : CORRIE MCCRAY PID : [id number] : 1950 Gender : Female Race : Unknown ORD : [id number] Procedure Date : Jun 11 2023 11:26:41 Edit Date : Jun 14 2023 23:22:08 Diagnosis: NORMAL SINUS RHYTHM NONSPECIFIC ST AND T WAVE ABNORMALITY ABNORMAL ECG Confirmed by GREGG MULLEN MD ([id number]) on 06/14/2023 11:22:04 PM Test Reason : R07.89 Chest discomfort Location : 145 : LOCARD Overread By : GREGG MULLEN MD Edited By : GREGG MULLEN MD Referred By : HUSSEIN ROWAN Acquired by : Elva wilson [facility] ECHOCARDIO M/2D COMPLETEon 0 12-31-2022 ECHOCARDIO M/2D COMPLETE Patient: CORRIE MCCRAY Exam Date: 12/31/2022 : 1950 Gender:F Ordering : DR HUSSEIN ROWAN D.O. Admission #: [id number] Family : Order #: [id number] CLICK HERE TO VIEW EXAM ECHOCARDIOGRAM REPORT [...] M.D. on 01/01/2023 at 19:41 Normal [facility] CBC AUTO DIFFon 12-26-2022 BASO # 0.0 103/ul Normal 0.0-0.1 [facility] Comment on above: Performed By: #### CBC ####[facility] ital [address] [place] [address]DrЕкатерина Bates Basophils/100 WBC (Bld) 1.0 % Normal 0.2-2.0 [facility] Comment on above: Performed By: #### CBC ####[facility] ital [address] [place] [id number] Bates EO # 0.1 103/ul Normal 0.0-0.7 [facility] Comment on above: Performed By: #### CBC ####[facility] ital [address]zixj[address] [place] [address]Dr. Vicki Bates Eosinophils/100 WBC (Bld) 1.5 % Normal 0.9-7.0 [facility] Comment on above: Performed By: #### CBC ####[facility] ital [address]dkdd[address] [place] [address]Dr. Vicki Bates Erythrocyte distribution width (RBC) [Ratio] 11.9 % Normal 11.0-15.0 [facility] Comment on above: Performed By: #### CBC ####[facility] ital [address]eyq[address] [place] [address]Dr. Vicki Bates Hematocrit (Bld) [Volume fraction] 43.5 % Normal 36.0-48.0 [facility] Comment on above: Performed By: #### CBC ####[facility] ital [address] [place], [place] [address]Dr. Vicki Bates Hemoglobin (Bld) [Mass/Vol] 14.4 g/dL Normal 12.0-16.0 [facility] Comment on above: Performed By: #### CBC ####[facility] ital [address] [place], [place] [address]Dr. Vicki Bates IG # 0.01 10e3/ul Normal 0.00-0.03 [facility] Comment on above: Performed By: #### CBC ####[facility] [address] [place] [address]Dr. Vicki Bates IG % 0.3 % Normal 0.0-0.5 [facility] Comment on above: Performed By: #### CBC ####[facility] ital U[address] [place], [place] [address]Dr. Vicki Bates LYMPH # 1.8 103/ul Normal 1.2-3.8 [facility] Comment on above: Performed By: #### CBC ####[facility] ital [address] [place], [place] [address]Dr. Vicki Bates Lymphocytes/100 WBC (Bld) 44.6 % Normal 20.5-60.0 [facility] Comment on above: Performed By: #### CBC ####[facility] [address] [place] [address]Dr. Vicki Bates MANUAL DIFF REQ NO Normal [facility] Comment on above: Performed By: #### CBC ####[facility] ital [address] [place] [id number]. Vicki Bates MCH (RBC) [Entitic mass] 31.1 pg Normal 26.7-34.0 [facility] Comment on above: Performed By: #### CBC ####[facility] [address] [place] [address]Dr. Vicki Bates MCHC (RBC) [Mass/Vol] 33.1 g/dL Normal 29.9-35.2 [facility] Comment on above: Performed By: #### CBC ####[facility] ital Age[address]xcuas[address] [place] [address]Dr. Vicki Bates MCV (RBC) [Entitic vol] 94.0 fL Normal 81.0-99.0 [facility] Comment on above: Performed By: #### CBC ####[facility] ital [address] [place] [address]Dr. Vicki Bates MONO # 0.4 103/ul Normal 0.3-0.8 [facility] Comment on above: Performed By: #### CBC ####[facility] ital [address] [place] [address]Dr. Vicki Bates Monocytes/100 WBC (Bld) 9.0 % Normal 1.7-12.0 [facility] Comment on above: Performed By: #### CBC ####[facility] ital [address]rvgv[address] [place] [address]Dr. Vicki Bates NEUT # 1.7 103/ul Normal 1.4-6.5 [facility] Comment on above: Performed By: #### CBC ####[facility] ital Setunkstxb[address] [place] [address]Dr. Vicki Bates Neutrophils/100 WBC (Bld) 43.6 % Normal 43.0-75.0 [facility] Comment on above: Performed By: #### CBC ####[facility] ital [address] [place] [id number] Bates Platelet mean volume (Bld) [Entitic vol] 9.1 fL Critically low 9.5-13.5 [facility] Comment on above: Performed By: #### CBC ####[facility] ital [address] [place] [id number]. Vicki Bates PLT 242 103/ul Normal 150-450 [facility] Comment on above: Performed By: #### CBC ####[facility] ital [address]fxpzv[address] [place] [id number]. Vicki Bates RBC 4.63 106/ul Normal 4.20-5.40 [facility] Comment on above: Performed By: #### CBC ####[facility] ital [address] [place] [address]Dr. Vicki Bates WBC 4.0 103/ul Normal 4.0-11.0 [facility] Comment on above: Performed By: #### CBC ####[facility] ital [address] [place] [id number]. Vicki Bates LIPID PROFILEon 12-26-2022 CHOL-HDL RATIO NORM SEE BELOW Normal [facility] Comment on above: Result Comment: 3.3 - 4.4 LOW RISK 4.4 - 7.1 AVERAGE RISK 7.1 - 11.0 MODERATE RISK >11.0 HIGH RISK Performed By: #### T SH, LIPID, BMP #### [facility] [address] [place] [address] [address] Vicki Bates Cholesterol [Mass/Vol] 221 mg/dL Critically high <=200 [facility] Comment on above: Performed By: #### TSH, LIPID, BMP #### [facility] [address] [place] [address] [address] Vicki Bates Cholesterol in HDL [Mass/Vol] 68 mg/dL Critically high 40-60 [facility] Comment on above: Performed By: #### TSH, LIPID, BMP #### [facility] [address] [place] [address] [address] Vicki Bates Cholesterol in LDL [Mass/Vol] 140.8 mg/dL Normal [facility] Comment on above: Performed By: #### TSH, LIPID, BMP #### [facility] [address] [address] [address] Vicki Bates Cholesterol.tota l/Cholesterol in HDL [Mass ratio] 3.3 {ratio} Normal [facility] Comment on above: Performed By: #### TSH, LIPID, BMP #### [facility] [address] [address] [address] Vicki Bates HDL NORMAL > or = 60 mg/dl - LO W CARDIOVASCULAR RISK <40 mg/dl - HIGH CARDIOVASCULAR RISK Normal [facility] Comment on above: Performed By: #### TSH, LIPID, BMP #### [facility] [address] [address] [address] Vicki Bates LDL CALC NORMAL SEE BELOW Normal [facility] Comment on above: Result Comment: <100 mg/dl OPTIMAL 100 - 129 mg/dl NEAR OR ABOVE OPTIMAL 130 - 159 mg/dl BORDERLINE HIGH 160 - 189 mg/dl HIGH >190 mg/dl VERY HIGH Performed By: #### T SH, LIPID, BMP #### [facility] [address] [address] [address] Vicki Bates Triglyceride [Mass/Vol] 61 mg/dL Normal <=150 [facility] Comment on above: Performed By: #### TSH, LIPID, BMP #### [facility] [address] [address] [address] Vicki Bates VLDL CALC 12.2 mg/dL Normal [facility] Comment on above: Performed By: #### TSH, LIPID, BMP #### [facility] [address] [address] [address] Vicki Bates PROF CHEM 8 (BAS METB)on Anion gap [Moles/Vol] 11.5 mmol/L Normal [facility] Comment on above: Performed By: #### TSH, LIPID, BMP #### [facility] [address] [address] [address] Vicki Bates Calcium [Mass/Vol] 9.5 mg/dL Normal 8.5-10.1 [facility] Comment on above: Performed By: #### TSH, LIPID, BMP #### [facility] [address] [address] [address] Vicki Bates Chloride [Moles/Vol] 106 mmol/L Normal 98-107 [facility] Comment on above: Performed By: #### TSH, LIPID, BMP #### [facility] [address] [address] [address] Vicki Bates CO2 [Moles/Vol] 30.1 mmol/L Normal 21.0-32.0 [facility] Comment on above: Performed By: #### TSH, LIPID, BMP #### [facility] [address] [place] [address] Dr. Vicki Bates Creatinine [Mass/Vol] 0.81 mg/dL Normal 0.55-1.02 [facility] Comment on above: Performed By: #### TSH, LIPID, BMP #### [facility] [address] [address] [address] Vicki Bates EGFR-AF SERBIAN >60 Normal >=60 [facility] Comment on above: Performed By: #### TSH, LIPID, BMP #### [facility] [address] [place] [address] Dr. Vicki Bates EGFR-NON AF SERBIAN >60 Normal >=60 [facility] Comment on above: Performed By: #### TSH, LIPID, BMP #### [facility] [address] [address] [address] Vicki Bates Glucose [Mass/Vol] 91 mg/dL Normal 74-106 [facility] Comment on above: Performed By: #### TSH, LIPID, BMP #### [facility] [address] [address] [address] Vicki Bates Potassium [Moles/Vol] 4.3 mmol/L Normal 3.5-5.1 [facility] Comment on above: Performed By: #### TSH, LIPID, BMP #### [facility] [address] [address] [address] Vicki Bates Sodium [Moles/Vol] 143 mmol/L Normal 136-145 [facility] Comment on above: Performed By: #### TSH, LIPID, BMP #### [facility] [address] [address] [address] Vicki Bates Urea nitrogen [Mass/Vol] 18.0 mg/dL Normal 7.0-18.0 [facility] Comment on above: Performed By: #### TSH, LIPID, BMP #### [facility] [address] [address] [address] Vicki Bates Urea nitrogen/Creatin ine [Mass ratio] 22.2 mg/mg Normal [facility] Comment on above: Performed By: #### TSH, LIPID, BMP #### [facility] [address] [address] [address] Vicki Bates TSHon 12-26-2022 TSH 3.814 uIU/mL Critically high 0.358-3.740 [facility] Comment on above: Performed By: #### TSH, LIPID, BMP #### [facility] [address] [address] [address] Vicki Bates MG MAMM SCREEN 3D CRISTINA CADon 05-07-2022 MG MAMM SCREEN 3D CRISTINA CAD Patient: CORRIE MCCRAY Exam Date: 05/07/2022 : 1950 Gender:F Ordering : DR HUSSEIN ROWAN D.O. Admission #: [id number] Family : Order #: [id number] CLICK HERE TO VIEW EXAM RADIOLOGY REPORT [...] lung cancer at age 85. LOCATION: [facility] BREAST COMPOSITION: Almost entirely fatty. FINDINGS: [...] M.D. on 05/07/2022 at 13:23 Normal [facility] CBC AUTO DIFFon 04-30-2022 BASO # 0.0 103/ul Normal 0.0-0.1 [facility] Comment on above: Performed By: #### CBC ####[facility] [address]ft[address] [place] [id number]. Laureenchay Bates Basophils/100 WBC (Bld) 0.5 % Normal 0.2-2.0 [facility] Comment on above: Performed By: #### CBC ####[facility] [address] [place] [address]Dr. Vicki Bates EO # 0.1 103/ul Normal 0.0-0.7 [facility] Comment on above: Performed By: #### CBC ####[facility] [address]kekyn[address] [place] [id number]. Laureenchay Bates Eosinophils/100 WBC (Bld) 1.5 % Normal 0.9-7.0 [facility] Comment on above: Performed By: #### CBC ####[facility] [address] [place] [id number]. Laureenchay Bates Erythrocyte distribution width (RBC) [Ratio] 11.7 % Normal 11.0-15.0 [facility] Comment on above: Performed By: #### CBC ####[facility] [address] [place] [address]Dr. Laureenchay Bates Hematocrit (Bld) [Volume fraction] 42.8 % Normal 36.0-48.0 [facility] Comment on above: Performed By: #### CBC ####[facility] [address]se[address]aiy[address] [place] [id number]. Vicki Bates Hemoglobin (Bld) [Mass/Vol] 14.2 g/dL Normal 12.0-16.0 [facility] Comment on above: Performed By: #### CBC ####[facility] ital [address] [place] [id number]. Vicki Bates IG # 0.01 10e3/ul Normal 0.00-0.03 [facility] Comment on above: Performed By: #### CBC ####[facility] ital [address] [place] [id number]. Vicki Bates IG % 0.2 % Normal 0.0-0.5 [facility] Comment on above: Performed By: #### CBC ####[facility] [address]ocp[address] [place] [address]Dr. Vicki Bates LYMPH # 1.8 103/ul Normal 1.2-3.8 [facility] Comment on above: Performed By: #### CBC ####[facility] [address]izjrtgs[address] [place] [address]Dr. Laureenchay Bates Lymphocytes/100 WBC (Bld) 43.6 % Normal 20.5-60.0 [facility] Comment on above: Performed By: #### CBC ####[facility] [address]mrzi[address] [place] [address]Dr. Vicki Bates MANUAL DIFF REQ NO Normal [facility] Comment on above: Performed By: #### CBC ####[facility] [address]hhfwpb[address] [place] [address]Dr. Vicki Bates MCH (RBC) [Entitic mass] 31.3 pg Normal 26.7-34.0 [facility] Comment on above: Performed By: #### CBC ####[facility] [address]tcrl[address] [place] [address]Dr. Vicki Bates MCHC (RBC) [Mass/Vol] 33.2 g/dL Normal 29.9-35.2 [facility] Comment on above: Performed By: #### CBC ####[facility] [address]aytrs[address] [place] [address]Dr. Vicki Bates MCV (RBC) [Entitic vol] 94.3 fL Normal 81.0-99.0 [facility] Comment on above: Performed By: #### CBC ####[facility] [address]fqox[address] [place] [address]Dr. Vicki Bates MONO # 0.3 103/ul Normal 0.3-0.8 [facility] Comment on above: Performed By: #### CBC ####[facility] [address]ir[address] [place] [address]Dr. Vicki Bates Monocytes/100 WBC (Bld) 6.4 % Normal 1.7-12.0 [facility] Comment on above: Performed By: #### CBC ####[facility] [address]fdtz[address] [place] [address]Dr. Vicki Bates NEUT # 1.9 103/ul Normal 1.4-6.5 [facility] Comment on above: Performed By: #### CBC ####[facility] [address]laayo[address] [place] [address]Dr. Vicki Bates Neutrophils/100 WBC (Bld) 47.8 % Normal 43.0-75.0 [facility] Comment on above: Performed By: #### CBC ####[facility] [address]texraewc[address] [place] [address]Dr. Vicki Bates Platelet mean volume (Bld) [Entitic vol] 9.0 fL Critically low 9.5-13.5 [facility] Comment on above: Performed By: #### CBC ####[facility] [address]ouwuwtzj[address] [place] [address]Dr. Vicki Bates PLT 250 103/ul Normal 150-450 [facility] Comment on above: Performed By: #### CBC ####[facility] V[address]eljsvec[address] [place] [address]Dr. Vicki Bates RBC 4.54 106/ul Normal 4.20-5.40 [facility] Comment on above: Performed By: #### CBC ####[facility] [address]ushc[address] [place] [address]Dr. Vicki Bates WBC 4.0 103/ul Normal 4.0-11.0 [facility] Comment on above: Performed By: #### CBC ####[facility] [address]nsbnqlqw[address] [place], [place] [address]Ou. Vicki Bates [facility]on SARS-CoV-2 (COVID-19) RNA MEAGAN+probe Ql (Unsp spec) Not detected Normal NOT DETECTED [facility] Comment on above: Result Comment: This test is not yet kiel roved or cleared by the [place] FDA. When there are no FDA-approved or cleared tests available, and other criteria are met, FDA can make tests available under an emergency access mechanism called an Emergency Use Authorization (EUA). The EUA for this test is supported by the User Interface Designer of Health and Human Service's (HHS's) declaration [...] consistent with SARS-CoV-2. Performed By: #### C [facility] ####[facility] [address] [place], [place] [address]Yl. Vicki Bates US PELVIS AND TRANSVAGon US [...] by: KASSIE QUEEN Date: 2022-04-16 00:20 Normal [facility] SGOTon 01-18-2022 AST [Catalytic activity/Vol] 20 U/L Normal 15-37 [facility] Comment on above: Performed By: #### AST, ALT #### [facility] [address] [address] [address] Vicki Bates SGPTon 01-18-2022 ALT [Catalytic activity/Vol] 28 U/L Normal 14-59 [facility] Comment on above: Performed By: #### AST, ALT #### [facility] [address] [place], [place] [address] Dr. Vicki Bates XR ankle RT min 3V*on 2021 XR ankle RT min 3V* [facility] Main [place] [address] [place] [address] XRay Report Signed Patient: Corrie Mccray MR#: [id number] : 1950 Acct:[id number] Age/Sex: 71 / F ADM Date: 10/16/21 Loc: [facility] Room: Type: [facility] Attending Dr: Dena BERGMAN Ordering Provider: [...] Smith Jr., D.O.10/16/2021 5:09 PM Dictation Location: [place] [address] Transcribed By: [facility] 10/16/211708 Dictated By: Zeke Smith Jr, DO 10/16/211706 Signed By: 10/16/211708 Normal [facility] XR ankle RT min 3V* [facility] [employer] Other XR ankle RT min 3V* [facility] [employer] Other XR ankle RT min 3V* [address] [place] [address] [facility] Other XR ankle RT min 3V* SONNY Hilario [address] [facility] Other XR ankle RT min 3V* XRay Report [facility] Other XR ankle RT min 3V* Signed [facility] Other XR ankle RT min 3V* Patient: Corrie Mccray MR#: [id number] [facility] Other XR ankle RT min 3V* 589 [facility] Other XR ankle RT min 3V* : 1950 Acct:[id number] [facility] Other XR ankle RT min 3V* Age/Sex: 71 / F ADM Date: 10/16/21 [facility] Other XR ankle RT min 3V* Loc: [facility] Room: Type: [facility] [employer] Other XR ankle RT min 3V* Attending Dr: Dena Davis [facility] [employer] Other XR ankle RT min 3V* Ordering Provider: DENA DAVIS [employer]IN[employer]id [facility] Other XR ankle RT min 3V* Date of Service: 10/16/21 [facility] Other XR ankle RT min 3V* XR/XR ankle RT min 3V*: S89.91XA [facility] Other XR ankle RT min 3V* Copies to: DENA DAVISP-David [facility] Other XR ankle RT min 3V* RIGHT [facility]KLE - [facility] [employer] Other XR ankle RT min 3V* Reason for exam:Patient fell while going up the stairs 3 hours ago. Patient has pain posterior to [facility] Other XR ankle RT min 3V* her right ankle and posterior to her distal tib-fib. [facility] Other XR ankle RT min 3V* COMPARISON: None [facility] Other XR ankle RT min 3V* Soft tissue swelling is noted. Ankle mortise appears intact. Cortical irregularity seen along the [facility] Other XR ankle RT min 3V* medial malleolus suggestive of prior injury. No acute bony process is seen. Enthesophyte formation [facility] Other XR ankle RT min 3V* is seen at the insertion of the Achilles tendon. Minimal plantar spurring. [facility] Other XR ankle RT min 3V* XR/XR ankle RT min 3V* [facility] Other XR ankle RT min 3V* IMPRESSION: [facility] Other XR ankle RT min 3V* SOFT TISSUE SWELLING WITHOUT ACUTE BONY PROCESS NOTED. [facility] Other XR ankle RT min 3V* Impression dictated by: Zeke Smith Jr., D.O.10/16/2021 5:09 PM [facility] Other XR ankle RT min 3V* Dictation Location: [place] [address] [facility] Other XR ankle RT min 3V* Transcribed By: PWS 10/16/211708 [facility] Other XR ankle RT min 3V* Dictated By: Zeke Smith Jr, DO 10/16/211706 [facility] Other XR ankle RT min 3V* Signed By: [facility] Other XR ankle RT min 3V* 10/16/211708 [facility] Other No Panel Information [facility] Vital Signs Date Time Vital Sign Value Performing Clinician Facility 06-26-2023 09:30-0500 Body height 157.48 cm Hussein Ball Other [facility] Other 06-26-2023 09:30-0500 Body mass index (BMI) [Ratio] 26.12 kg/m2 Hussein Ball Other [facility] Other 06-26-2023 09:30-0500 Body weight 64.77 kg Hussein Ball Other [facility] Other 06-26-2023 09:30-0500 Diastolic blood pressure 66 mm[Hg] Hussein Ball Other [facility] Other 06-26-2023 09:30-0500 Respiratory rate 12 /min Hussein Ball Other [facility] Other 06-26-2023 09:30-0500 Systolic blood pressure 93 mm[Hg] Hussein Ball Other [facility] Other 06-11-2023 11:19-0400 Body height 157.5 cm Zaire Fry MD Work Phone: [facility] 06-11-2023 11:19-0400 Body weight 65.32 kg Zaire Fry MD Work Phone: [facility] 06-11-2023 11:19-0400 Diastolic blood pressure 70 mm[Hg] Zaire Fry MD Work Phone: [facility] 06-11-2023 11:19-0400 Heart rate 76 /min Zaire Fry MD Work Phone: [facility] 06-11-2023 11:19-0400 SaO2% (BldA) [Mass fraction] 98 % Zaire Fry MD Work Phone: [facility] 06-11-2023 11:19-0400 Systolic blood pressure 110 mm[Hg] Zaire Fry MD Work Phone: [facility] 05-31-2023 10:00-0400 Body height 157.48 cm Cony Yoana Other [facility] Other 05-31-2023 10:00-0400 Body mass index (BMI) [Ratio] 26.7 kg/m2 Cony Bowenmond Other [facility] Other 05-31-2023 10:00-0400 Body temperature 97.5 [degF] Cony Bowenmond Other [facility] Other 05-31-2023 10:00-0400 Body weight 66.23 kg Cony Yoana Other [facility] Other 05-31-2023 10:00-0400 Diastolic blood pressure 74 mm[Hg] Cony Yoana Other [facility] Other 05-31-2023 10:00-0400 Respiratory rate 18 /min Cony Yoana Other [facility] Other 05-31-2023 10:00-0400 SaO2% (BldA) [Mass fraction] 97 % Cony Lees Other [facility] Other 05-31-2023 10:00-0400 Systolic blood pressure 118 mm[Hg] Cony Lees Other [facility] Other 03-11-2023 09:30-0400 Body height 154.94 cm Hussein Ball Other [facility] Other 03-11-2023 09:30-0400 Body mass index (BMI) [Ratio] 27.81 kg/m2 Hussein Ball Other [facility] Other 03-11-2023 09:30-0400 Body weight 66.77 kg Hussein Ball Other [facility] Other 03-11-2023 09:30-0400 Diastolic blood pressure 82 mm[Hg] Hussein Ball Other [facility] Other 03-11-2023 09:30-0400 Respiratory rate 12 /min Hussein Ball Other [facility] Other 03-11-2023 09:30-0400 Systolic blood pressure 129 mm[Hg] Hussein Ball Other [facility] Other 01-16-2023 10:00-0400 Body height 154.94 cm Hussein Ball Other [facility] Other 01-16-2023 10:00-0400 Body mass index (BMI) [Ratio] 27.92 kg/m2 Hussein Ball Other [facility] Other 01-16-2023 10:00-0400 Body weight 67.04 kg Hussein Ball Other [facility] Other 01-16-2023 10:00-0400 Diastolic blood pressure 78 mm[Hg] Hussein Ball Other [facility] Other 01-16-2023 10:00-0400 Respiratory rate 12 /min Hussein Ball Other [facility] Other 01-16-2023 10:00-0400 Systolic blood pressure 119 mm[Hg] Hussein Ball Other [facility] Other 12-26-2022 10:30-0400 Body height 154.94 cm Hussein Ball Other [facility] Other 12-26-2022 10:30-0400 Body mass index (BMI) [Ratio] 28.11 kg/m2 Hussein Ball Other [facility] Other 12-26-2022 10:30-0400 Body weight 67.5 kg Hussein Ball Other [facility] Other 12-26-2022 10:30-0400 Diastolic blood pressure 76 mm[Hg] Hussein Ball Other [facility] Other 12-26-2022 10:30-0400 Respiratory rate 12 /min Hussein Ball Other [facility] Other 12-26-2022 10:30-0400 Systolic blood pressure 121 mm[Hg] Hussein Ball Other [facility] Other 10-16-2021 16:40-0500 Body height 154.94 cm Dena Carl Other [facility] Other 10-16-2021 16:40-0500 Body mass index (BMI) [Ratio] 29.28 kg/m2 Dena Davis Other [facility] Other 10-16-2021 16:40-0500 Body temperature 97.4 [degF] Dena Davis Other [facility] Other 10-16-2021 16:40-0500 Body weight 70.31 kg Dena Davis Other [facility] Other 10-16-2021 16:40-0500 Diastolic blood pressure 88 mm[Hg] Dena Davis Other [facility] Other 10-16-2021 16:40-0500 Respiratory rate 16 /min Dena Davis Other [facility] Other 10-16-2021 16:40-0500 SaO2% (BldA) [Mass fraction] 98 % Dena Davis Other [facility] Other 10-16-2021 16:40-0500 Systolic blood pressure 152 mm[Hg] Dena Davis Other [facility] Other Encounters Encounter Date Encounter Type Care Provider Facility Start: 05-19-2024 End: 05-19-2024 Patient encounter procedure Tina Brown OD Work Phone: Ophthalmology Comment on above: Low-tension glaucoma of both eyes, unspecified glaucoma stage (Primary Dx); Low-tension glaucoma of both eyes, moderate stage; Keratitis sicca, bilateral Start: 05-19-2024 End: 05-19-2024 ambulatory HUSSEIN ROWAN Facility:[facility] Start: 11-15-2023 End: 11-15-2023 ambulatory JUAN LUIS SHIELDS Not Available Start: 11-15-2023 End: 11-15-2023 ambulatory JUAN LUIS SHIELDS Not Available Start: 11-12-2023 End: 11-12-2023 ambulatory HUSSEIN ROWAN Facility:[facility] Start: 11-12-2023 End: 11-12-2023 Patient encounter procedure Tina Brown OD Work Phone: Ophthalmology Comment on above: Low-tension glaucoma of both eyes, unspecified glaucoma stage (Primary Dx); Keratitis sicca, bilateral (HCC); Pseudophakia, left eye Start: 07-29-2023 End: 07-29-2023 ambulatory Kavitha Interiano Pulmonary Medicine Start: 07-29-2023 Telephone encounter Hussein H[facility]MOND [facility] Start: 07-22-2023 ambulatory Silvia Luma PEDIATRIC NEPHROLOGIST.PILLOWCASE MAKER Work Phone: Pulmonary Medicine Comment on above: Nodule Start: 07-09-2023 End: 07-09-2023 ambulatory Hussein Rowan Other [facility] Other Start: 07-09-2023 Telephone encounter Hussein [facility]MOND [facility] Start: 07-05-2023 End: 07-05-2023 ambulatory [facility]ia [facility] Facility:[facility] Start: 07-05-2023 End: 07-05-2023 ambulatory Pulm Veteran Work Phone: Pulmonology Comment on above: Spirometry Start: 07-05-2023 End: 07-05-2023 Patient encounter procedure Pulm Lab Veteran Work Phone: [facility] Start: 06-26-2023 End: 06-26-2023 ambulatory Hussein Rowan Other [facility] Other Start: 06-26-2023 Office outpatient vi sit 15 minutes Hussein Rowan [facility] Start: 06-24-2023 End: 06-24-2023 ambulatory Hussein Rowan Other [facility] Other Start: 06-24-2023 Telephone encounter Hussein [facility] Start: 06-11-2023 End: 06-11-2023 [facility] Start: 06-11-2023 End: 06-11-2023 Patient encounter procedure Zaire Fry MD Work Phone: Cardiology Comment on above: Chest discomfort; SOB (shortness of breath); Pure hypercholesterolemia; Primary hypertension Start: 05-31-2023 End: 05-31-2023 ambulatory Cony Lees Other [facility] Other Start: 05-31-2023 Office outpatient vi sit 15 minutes Cony Lees [facility] Start: 03-25-2023 Telephone encounter No One (Historic al) Referring Physician Comment on above: External Referrals/r esources Start: 03-15-2023 End: 03-15-2023 ambulatory Hussein Rowan Other [facility] Other Start: 03-15-2023 Telephone encounter Hussein Rowan [facility] Start: 03-13-2023 End: 03-13-2023 ambulatory Hussein Rwoan Other [facility] Other Start: 03-13-2023 Telephone encounter Hussein Rowan [facility] Start: 03-11-2023 End: 03-11-2023 ambulatory Hussein Rowan Other [facility] Other Start: 03-11-2023 Office outpatient vi sit 15 minutes Hussein Rowan [facility] Start: 01-21-2023 End: 01-21-2023 ambulatory Hussein Rowan Other [facility] Other Start: 01-21-2023 Telephone encounter Hussein Rowan [facility] Start: 01-16-2023 End: 01-16-2023 ambulatory Hussein Rowan Other [facility] Other Start: 01-16-2023 Office outpatient vi sit 15 minutes Hussein Ball [facility] Start: 12-31-2022 End: 01-01-[address] HUSSEIN ROWAN Facility:[facility] Start: 12-27-2022 End: 12-27-2022 ambulatory Hussein Rowan Other [facility] Other Start: 12-27-2022 Telephone encounter Hussein Rowan [facility] Start: 12-26-2022 Patient encounter procedure Hussein Sukhjinder [facility] Start: 12-26-2022 Telephone encounter Hussein Sukhjinder [facility] Start: 12-26-2022 End: 12-27-[address] HUSSEIN ROWAN [facility] Other Start: 05-07-2022 End: 05-08-[address] HUSSEIN ROWAN Facility:[facility] Start: 04-30-2022 End: 04-30-[address] HUSSEIN ROWAN Facility:[facility] Start: 04-29-2022 Encounter for preprocedural laboratory examination DR ZION RIZZO . [facility] Start: 04-26-2022 End: 04-27-[address] ZION RIZZO . Facility:[facility] Start: 04-26-2022 End: 04-27-2022 Encounter for preprocedural laboratory examination DR ZION RIZZO . Facility:[facility] Start: 04-20-2022 Encounter for preprocedural cardiovascular examination DR ZION RIZZO . [facility] Start: 04-19-2022 End: 04-20-[address] [...] 10-16-2021 End: 10-16-2021 ambulatory Dena Davis Other [facility] Other Start: 10-16-2021 Office outpatient ne w [...] RSV Vaccine (1 - 1-dose 75+ series) [facility] Start: 11-17-2024 End: 11-17-2024 Patient encounter procedure 11/17/2024 1:15 PM EDT Office Visit [facility] Ophthalmology [address] [place] [address] Tina Brown, OD [address] [place] [address] RTC: 6 Months Full OCT ON/GCA Ophthalmology Comment on above: RTC: 6 Months Full OCT ON/GCA Start: 09-22-2024 End: 09-22-2024 Patient encounter procedure 09/22/2024 11:30 AM EST Office Visit Cardiology [address] [place] [address] Zaire Fry MD [address] [place] [address] Return in about 1 year (around 06/11/2024). Cardiology Comment on above: Return in about 1 year (around ). Start: 06-11-2024 BP Controlled (<130/80) BP Controlled (<130/80) [facility] Start: 04-19-2024 Covid-19 Vaccine () Covid-19 Vaccine () [facility] Start: 04-19-2024 Influenza vaccination [facility] Start: 08-19-2023 Advance Directive Discussion Advance Directive Discussion [facility] Start: 08-19-2023 Depression Assessment Depression Assessment [facility] Start: 06-11-2023 End: 09-10-2023 CREATININE BLD CREATININE BLD Lab Routine Chest discomfort SOB (shortness of breath) Expected: 06/11/2023, Expires: 09/10/2023 [facility] Work Phone: Comment on above: Expected: 06/11/2023, Expires: 4 Start: 04-19-2023 Covid-19 Vaccine () Covid-19 Vaccine () [facility] Start: 04-19-2023 Influenza vaccination [facility] Start: 08-19-2022 ADVANCE DIRECTIVE DISCUSSION ADVANCE DIRECTIVE DISCUSSION [facility] Start: 08-19-2022 DEPRESSION ASSESSMENT DEPRESSION ASSESSMENT [facility] Start: 04-19-2022 Influenza vaccination INFLUENZA (#1) [facility] Start: 10-10-2021 COVID-19 VACCINE (4 - Booster for Moderna series) COVID-19 VACCINE (4 - Booster for Moderna series) [facility] Start: 08-19-2021 ADVANCE DIRECTIVE DISCUSSION ADVANCE DIRECTIVE DISCUSSION [facility] Start: 08-04-2021 COVID-19 VACCINE (4 - Moderna series) COVID-19 VACCINE (4 - Moderna series) [facility] Start: 2015 BONE DENSITY BONE DENSITY [facility] Start: 2015 Bone Density Screening Bone Density Screening [facility] Start: 2015 Pneumococcal Vaccine: 65+ (1 - PCV) Pneumococcal Vaccine: 65+ (1 - PCV) [facility] Start: 2015 Pneumococcal Vaccine: 65+ (1 of 1 - PCV) Pneumococcal Vaccine: 65+ (1 of 1 - PCV) [facility] Start: 2015 PNEUMOCOCCAL: 65+ (1 - PCV) PNEUMOCOCCAL: 65+ (1 - PCV) [facility] Start: 2015 Screening for osteoporosis Bone Density Screening [facility] Start: 2010 RSV Vaccine (1 - 1-dose 60+ series) RSV Vaccine (1 - 1-dose 60+ series) [facility] Start: 2000 SHINGRIX VACCINE (1 of 2) SHINGRIX VACCINE (1 of 2) [facility] Start: 1995 COLOGUARD (FIT-DNA) COLOGUARD (FIT-DNA) [facility] Start: 1995 Colonoscopy COLONOSCOPY [facility] Start: 1995 COLORECTAL CANCER SCREENING COLORECTAL CANCER SCREENING [facility] Start: [address] COLONOGRAPHY [facility] Start: 1995 DIABETES SCREEN DIABETES SCREEN [facility] Start: 1995 Diabetes Screening Diabetes Screening [facility] Start: 1995 FECAL OCCULT BLOOD FECAL OCCULT BLOOD [facility] Start: 1995 Lipid 1996 panel - Serum or Plasma Lipid Screening [facility] Start: 1995 Lipid panel Lipid Screening [facility] Start: 1995 LIPID SCREEN LIPID SCREEN [facility] Start: 1995 Screening for malignant neoplasm of colon [facility] Start: 1995 SIGMOIDOSCOPY SIGMOIDOSCOPY [facility] Start: 1990 Mammography [facility] Start: 1990 Screening for malignant neoplasm of breast Mammogram Screening [facility] Start: 1969 Urine microalbumin profile [facility] Start: 1968 ANNUAL PCP TEAM CHRONIC DISEASE VISIT ANNUAL PCP TEAM CHRONIC DISEASE VISIT [facility] Start: 1968 Anxiety Screening Anxiety Screening [facility] Start: 1968 Depression Screening Depression Screening [facility] Start: 1968 HEPATITIS C SCREENING HEPATITIS C SCREENING [facility] Start: 1968 Hepatitis C screening Hepatitis C Screening [facility] Start: 1962 Adult depression screening assessment DEPRESSION SCREENING [facility] End: 07-10-2024 Cta hrt cornry art/bypass grfts contrst 3d post CTA CORONARY W IVCON Radiology Routine Chest discomfort SOB (shortness of breath) Pure hypercholesterolemia Primary hypertension 1 Occurrences starting 06/11/2023 until 07/10/2024 [facility] Work Phone: Comment on above: 1 Occurrences starting 06/11/2023 until 07/10/2024 ECG COMPLETE [facility] Work Phone: Comment on above: Ordered: 06/11/2023 End: 07-10-2024 SPIROMETRY WITH DILATOR IF OBSTRUCTED SPIROMETRY WITH DILATOR IF OBSTRUCTED PFT Routine SOB (shortness of breath) 1 Occurrences starting 06/11/2023 until 07/10/2024 [facility] Work Phone: Comment on above: 1 Occurrences starting 06/11/2023 until 07/10/2024 [facility] Immunizations Immunization Date Immunization Notes Care Provider Myron kaplan 06-23-2022 influenza virus vaccine, split virus (incl. purified surface antigen) Hussein Rowan Other [facility] 06-23-2022 influenza, high dose seasonal, preservative-free Hussein Rowan Other [facility] 06-23-2022 influenza virus vaccine, unspecified formulation Zaire Fry MD Work Phone: [facility] 05-08-2022 COVID-19 Pfizer (bivalent) Hussein Rowan Other [facility] 06-09-2021 COVID-19 Vaccine Pfi zer - Documentation Purposes Only Hussein Rowan Other [facility] 12-14-2020 zoster vaccine recombinant Hussein Rowan Other [facility] 10-26-2020 COVID-19 Kermit pathak Other [facility] Other 09-28-2020 COVID-19 Kermit pathak Other [facility] Other 06-25-2020 influenza virus vaccine, split virus (incl. purified surface antigen) Hussein Rowan Other [facility] 06-25-2020 zoster vaccine recombinant Hussein Rowan Other [facility] 06-25-2020 zoster vaccine, live Brandy Rowan Other [facility] Other 06-25-2020 FLUAD QUAD 2020-21,6 5Y UP,,PF, 60 mcg (15 mcg x 4)/0.5 mL syrg Tina Brown OD Work Phone: [facility] Comment on above: PHARMACY ADMINISTERE D Payers Date Payer Category Payer Unknown MMO MMO MEDICARE SUPPLEMENT [id number] 2019-Present [phone] [address] [place] [address] Indemnity [id number] 2018 Medicare MEDICARE MEDICAR E A AND B [id number] 2018-Present [phone] [address] [address] [place] [address] Medicare [id number] 1959 Medicare [id number] 1959 Medicare [id number] 1950 Unknown [id number] 1950 Unknown [id number] 1950 Unknown [id number] 1950 Unknown [id number] 1950 Unknown [id number] 1950 Unknown [id number] 1950 Unknown [id number] 1950 Unknown [id number] 1950 Unknown [id number] Social History Date Type Detail Facility Start: 10-12-2022 End: 04-12-2023 Sex Assigned At [facility] Start: 04-10-2022 Tobacco smoking status CTIS Never smoked tobacco [facility] Start: 04-10-2022 Tobacco use and exposure Smokeless tobacco non-user [facility] Start: 04-10-2022 End: 05-19-2024 Alcohol intake Current drinker of alcohol (finding) [facility] Start: 06-12-2013 History SDOH Alcohol Comment 1 glass of wine 3/wk [facility] Start: 1950 Sex Assigned At Female [facility] Start: 10-12-2022 End: 04-12-2023 History of Social function [facility] National Score (1-10 0), lower number is lower risk 65 [facility] Start: 09-24-2020 Gender identity Identifies as female gender (finding) [facility] Start: 12-04-2020 Sexual orientation Heterosexual (finding) [facility] Medical Equipment Procedure Code Equipment Code Equipment Origin al Text Equipment Identifier Dates Lens Iol 0d +20 Dante Uv Abs - [id number] Start: 11-29-2020 Comment on above: Description: -0.09 Clinical Notes 02-12-2017 to 05-19-2024 Tina Brown OD - 05/19/2024 12:56 PM EDTina Whittington OD - 11/12/2023 1:16 PM EDT Note Date & Type Note Facility 05-19-2024 Note Date of Procedure 05/19/2024. Tile Layer Helper Information Global Cmo: RIGOBERTO. Interval Change Right Eye Stable. Left Eye Stable. Notes -- HVF 05/19/2024 OD mod sup nasal step, stable from 2021; OS Normal ZEISS 05-19-2024 Note HNO ID: [id number] Author: TINA BROWN, TERRENCE Service: ? Author Type: MOLD CHIPPER Type: Progress Notes Filed: 05/19/2024 13:37 Note [...] Brown, OD May 19, 2024 1:35 PM [facility] 05-19-2024 History of Present illness Narrative Tmax [...] 2024 1:35 PM documented in this encounter [facility] 11-12-2023 Note HNO ID: [id number] Author: TINA BROWN OD Service: ? Author Type: MOLD CHIPPER Type: Progress Notes Filed: 11/12/2023 13:47 Note [...] Jermaine, OD November 12, 2023 1:43 PM [facility] 11-12-2023 History of Present illness Narrative [...] 2023 1:43 PM documented in this encounter [facility] 08-15-2023 Note HNO ID: [id number] Author: Kavitha Interiano Service: ? Author Type: ? Type: Progress Notes Filed: 08/15/2023 9:05 AM Note Text: Incidental Lung Nodule Enrollment Outreach attempt: 3rd Attempt Outreach status: Complete Enrolled in Lung Nodule program: No Declined reason: Other Lung Nodule Program Location: [place] Two letter attempts Discharge letter sent [facility] 08-15-2023 Note Patient Outreach (PU LMMN) -------- CORRIE MCCRAY ([id number]) 1950 F Date Time Provider Department 08/15/23 KAVITHA INTERIANO During your visit today, we recorded the following information about you: Kavitha Interiano 08/15/2023 9:05 AM Signed Incidental Lung Nodule Enrollment Outreach attempt: 3rd Attempt Outreach status: Complete Enrolled in Lung Nodule program: No Declined reason: Other Lung Nodule Program Location: [place] Two letter attempts Discharge letter sent Allergies [...] capsule by mouth once daily. - Evening [place] Oil (EVENING PRIMROSE) 500 mg cap Take [...] Encounter Status:Closed by KAVITHA INTERIANO on 08/15/23 [facility] 08-04-2023 Note HNO ID: [id number] Author: Kavitha Interiano Service: ? Author Type: ? Type: Progress Notes Filed: 08/04/2023 6:25 PM Note Text: Incidental Lung Nodule Enrollment Outreach attempt: 2nd Attempt Outreach status: Complete Enrolled in Lung Nodule program: Referred Lung Nodule outreach: Needs outreach Lung Nodule Program Location: [place] Two letter attempts [facility] 08-04-2023 Note Patient Outreach ( LMMN) -------- CORRIE MCCRAY ([id number]) 1950 F Date Time Provider Department 08/04/23 KAVITHA INTERIANO During your visit today, we recorded the following information about you: InterianoKavitha 08/04/2023 6:25 PM Signed Incidental Lung Nodule Enrollment Outreach attempt: 2nd Attempt Outreach status: Complete Enrolled in Lung Nodule program: Referred Lung Nodule outreach: Needs outreach Lung Nodule Program Location: [place] Two letter attempts Allergies As of Date: [...] capsule by mouth once daily. - Evening [place] Oil (EVENING PRIMROSE) 500 mg cap Take [...] Encounter Status:Closed by KAVITHA INTERIANO on 08/04/23 [facility] 07-29-2023 Evaluation note Encounter Date Diagnosis Assessment Notes Jul, Pulmonary nodule, right (ICD-10 - R91.1) CTA chest: 7mm RLL nodule - 06/2023 [facility] 12-11-2023 NoteHNO ID: [id number] Author: Kavitha Interiano Service: ? Author Type: ? Type: Progress Notes Filed: 07/29/2023 7:29 AM Note Text: Incidental Lung Nodule Enrollment Outreach attempt: 2nd Attempt Outreach status: Complete Enrolled in Lung Nodule program: Referred Lung Nodule outreach: Needs outreach Lung Nodule Program Location: [place] [facility] of Present illness Narrative* Kavitha Interiano - 07/29/2023 7:28 AM EST Incidental Lung Nodule Enrollment Outreach attempt: 2nd Attempt Outreach status: Complete Enrolled in Lung Nodule program: Referred Lung Nodule outreach: Needs outreach Lung Nodule Program Location: [place] Two letter attempts documented in this encounterCleveland [facility] Foundation12-11-2023 NotePatient Outreach (PULMMN) CORRIE MCCRAY ([id number]) 1950 F Date Time Provider Department 07/29/23 KAVITHA INTERIANO During your visit today, we recorded the following information about you: Kavitha Interiano 07/29/2023 7:29 AM Signed Incidental Lung Nodule Enrollment Outreach attempt: 2nd Attempt Outreach status: Complete Enrolled in Lung Nodule program: Referred Lung Nodule outreach: Needs outreach Lung Nodule Program Location: [place] Two letter attempts Allergies As of Date: [...] capsule by mouth once daily. - Evening Houston Oil (EVENING PRIMROSE) 500 mg cap Take [...] Text Encounter Status:Closed by KAVITHA INTERIANO on 07/29/23[facility] NoteHNO ID: [id number] Author: Silvia Ge APRN.CNP Service: ? Author Type: Nurse Practitioner Type: Progress Notes Filed: 07/22/2023 1:45 PM Note Text: Incidental Lung Nodule Enrollment Outreach attempt: 1st Attempt Outreach status: Complete Enrolled in Lung Nodule program: Referred Lung Nodule outreach: Needs outreach Lung Nodule Program Location: [place] Letter sent to patient regarding incidental lung nodule(s). Silvia Ge APRN.CNP July 22, 2023 1:42 [facility] History of Present illness Narrative* Silvia Ge APRN.CNP - 07/22/2023 1:42 PM EST Incidental Lung Nodule Enrollment Outreach attempt: 1st Attempt Outreach status: Complete Enrolled in Lung Nodule program: Referred Lung Nodule outreach: Needs outreach Lung Nodule Program Location: [place] Letter sent to patient regarding incidental lung nodule(s). Silvia Ge APRN.CNP July 22, 2023 1:42 PM documented in this encounterCleveland Clinic Foundation12-04-2023 NotePatient Outreach (PMNA11) CORRIE MCCRAY ([id number]) 1950 F Date Time Provider Department 07/22/23 SILVIA GE1 During your visit today, we recorded the following information about you: Silvia Ge APRN.CNP 07/22/2023 1:45 PM Signed Incidental Lung Nodule Enrollment Outreach attempt: 1st Attempt Outreach status: Complete Enrolled in Lung Nodule program: Referred Lung Nodule outreach: Needs outreach Lung Nodule Program Location: [place] Letter sent to patient regarding incidental lung nodule(s). Silvia RENETTA Ge.PILLOWCASE MAKER July 22, 2023 1:42 PM Allergies As [...] capsule by mouth once daily. - Evening Houston Oil (EVENING PRIMROSE) 500 mg cap Take [...] Text Encounter Status:Closed by SILVIA GE on 07/22/23[facility] 07-[facility]-2023 NoteHNO ID: [id number] Author: Silvia Mckeon RT(Esteban) Service: Radiology Author Type: Tile Layer Helper Type: Progress Notes Filed: 07/05/2023 3:03 PM [...] BY: RT Yesica(R) July 05, 2023 3:00 [facility]11-17-2023 NoteHNO ID: [id number] Author: Liss Anne TECHNOLOGIST Service: ? Author [...] BY: TECHNOLOGIST Jennifer July 05, 2023 3:02 [facility]11-17-2023 NoteHNO ID: [id number] Author: Sarah Mtz RRT Service: ? 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 Author Type: Physician Type: Progress Notes Filed: 06/11/2023 11:43 AM Note Text: Heart and Vascular Reading SECTION OF REGIONAL CARDIOLOGY OUTPATIENT VISIT DATE June 11, 2023 OUTPATIENT VISIT TYPE NEW PRIMARY CARE PHYSICIAN: Hussein Rowan ([facility]) [address] [place] [address] A written report of the findings and [...] No FAMILY HISTORY Problem (more content not included)...[facility]10[facility] History of Present illness Narrative* Zaire Fry MD - 06/11/2023 11:17 AM EDT Images from the original note were not included. Heart and Vascular Reading SECTION OF REGIONAL CARDIOLOGY OUTPATIENT VISIT DATE June 11, 2023 OUTPATIENT VISIT TYPE NEW PRIMARY CARE PHYSICIAN: Hussein Rowan ([facility]) [address] [place] [address] A written report of the findings and [...] 1 capsule by mouth once daily. Evening Houston Oil (EVENING PRIMROSE) 500 mg cap Take 1 capsule by mouth once daily. Flaxseed Oil 1,000 mg cap Take 1 capsule by mouth once daily. FLUAD QUAD 2020-21,65Y UP,,PF, 60 mcg (15 mcg x 4)/0.5 mL syrg PHARMACY ADMINISTERED (Patient not taking: Reported on 06/11/2023) documented in this encounterCleveland Clinic Foundation10-13-2023 Evaluation note* Encounter Date Diagnosis Assessment Notes Treatment Notes Treatment Clinical Notes May, Abrasion of right cornea, initial encounter (ICD-10 - S05.01XA) Drink plenty fluids, get plenty of rest. Use the eyedrops as prescribed. Today you may instill the eyedrops every 2 hours and then 4 times a day for the next 4 days. Follow-up with your reclamation furnace operator if no improvement in 2 to 3 days. Continue home medications as prescribed [facility] 08-07-2023 Miscellaneous Notes* Telephone Encounter - Kae Pereira - 03/25/2023 4:47 PM EDT Patient: Corrie Mccray Date of : 1950 Patient phone number: [phone] Referring Provider for the encounter: Hussein Rowan Requesting Provider: n/c Reason for requesting visit (RFV/signs and symptoms/diagnosis): Precordial pain (R07.2) Person calling: caregiver: Kae Return call to: self Medical Records/Insurance Card scanned into [employer]: Yes Comments: documented in this encounterCleveland Clinic Foundation07-26-2023 Evaluation note* Encounter Date Diagnosis Assessment Notes Treatment Notes Treatment Clinical Notes Feb, Dyspnea on exertion (ICD-10 - R06.09) [facility] 07-24-2023 Evaluation note* Encounter Date Diagnosis [...] the risk for cerebrovascular and cardiovascular disease. [facility] 05-31-2023 Evaluation note* Encounter Date Diagnosis [...] Hold exercise routine until stress testing completed [facility] 05-10-2023 Evaluation note* Encounter Date Diagnosis [...] Z79.899) December, Metabolic syndrome (ICD-10 - E88.81) [facility] 05-10-2023 Evaluation note* Encounter Date Diagnosis Assessment Notes Treatment Notes Treatment Clinical Notes December, KHAN (dyspnea on exertion) (ICD-10 - R06.09) [facility] Other 05-10-2023 NotePROCEDURE: XR CHEST 2 V DATE: 12/26/2022 9:26 AM CDT COMPARISONS: None. CLINICAL INDICATION: 72 years Female Dyspnea FINDINGS: The cardiomediastinal silhouette and pulmonary vasculature are within normal limits. The lungs are clear. There is no evidence of pleural effusion or pneumothorax. IMPRESSION: Chest radiograph is within normal limits. Electronically authenticated by: DEREK BONILLA Date: 2022-12-26 11:05[facility]09-12-2022 NoteOPERATIVE NOTE OPERATION DATE: 04/30/2022 PROCEDURE: D AND C hysteroscopy with Myosure. PREOPERATIVE DIAGNOSIS: Postmenopausal bleeding, thickened endometrium. POSTOPERATIVE DIAGNOSIS: Postmenopausal bleeding, thickened endometrium. ANESTHESIA: General. SURGEON: Zion Rizzo D.O. BOOSTER STATION OPERATOR: None. FINDINGS: Atrophic appearing cavity. No [...] to the Recovery Room in stable condition.[facility] [id number] History of Present illness Narrative* Tina Brown, [...] 10, 2022 2:31 PM documented in this encounterCleveland Clinic Foundation02-28-2022 Evaluation note* Encounter Date Diagnosis Assessment Notes [...] we will help you get into specialist. [facility] 06-27-2017 History of Past illness Narrative* [...] of this encounter (statuses as of 04/10/2022) [facility]06-[facility] History of Past illness Narrative* Problem Noted [...] of this encounter (statuses as of 03/26/2023) [facility] History of Past illness Narrative* Problem Noted [...] of this encounter (statuses as of 06/11/2023) [facility] of Past illness Narrative* Problem Noted [...] of this encounter (statuses as of 07/05/2023) [facility] of Past illness Narrative* Problem Noted [...] of this encounter (statuses as of 07/23/2023) [facility] of Past illness Narrative* Problem Noted [...] of this encounter (statuses as of 07/29/2023) [facility] of Past illness Narrative* Problem Noted [...] of this encounter (statuses as of 11/12/2023) [facility] note* Diagnosis Low-tension glaucoma of both eyes, unspecified glaucoma stage- Primary Keratitis sicca, bilateral (HCC) Other forms of keratitis History of trabeculectomy, right eye Other states following surgery of eye and adnexa documented in this encounter [facility] noteNo [employer] Other Evaluation note* Diagnosis Chest discomfort Other chest pain SOB (shortness of breath) Shortness of breath Pure hypercholesterolemia Primary hypertension Unspecified essential hypertension documented in this encounter [facility] note* Diagnosis SOB (shortness of breath) Shortness of breath documented in this encounter [facility] note* Diagnosis Lung nodule- Primary Solitary pulmonary nodule documented in this encounter [facility] note* Diagnosis Low-tension glaucoma of both eyes, unspecified glaucoma stage- Primary Keratitis sicca, bilateral (HCC) Other forms of keratitis Pseudophakia, left eye Lens replaced by other means documented in this encounter [facility] Foundation[facility]* Diagnosis Pre-op evaluation- Primary Preoperative examination, unspecified Combined forms of age-related cataract of right eye Other and combined forms of senile cataract Low-tension glaucoma of both eyes, unspecified glaucoma stage Other specified hypothyroidism Low-tension glaucoma of both eyes, unspecified glaucoma stage- Primary Keratitis sicca, bilateral Other forms of keratitis documented in this encounter [facility] general Narrative - Reported* Type Description Date Medical History glaucoma Surgical History lithotripsy Surgical History bladder suspension, unspecified Surgical History tonsillectomy Surgical History CTS b/l hands Surgical History laparoscopy Surgical History colonoscopy Surgical History eyes Hospitalization History see above [facility] Other History general Narrative - Reported* Type [...] Surgical History eyes Hospitalization History see above [facility] Other History general Narrative - ReportedNoRACTIV Other History general Narrative - Reported* Type [...] Surgical History eyes Hospitalization History see above [facility] Other Summary Purpose Family History No Family [...] Zaire Fry MD [address] [place] [address] [place] [address] Referral ID Status Reason Start Date Expiration Date Visits Requested Visits Authorized [id number] Authorized Auto-Generat ed Referral 3 07/10/2024 1 1 Specialty Diagnoses / Procedures Referred By Contac t Referred To Contact [facility] Diagnoses SOB (shortness of breath) Procedures SPIROMETRY WITH DILATOR IF OBSTRUCTED BRNCDILAT RSPSE SPMTRY PRE&POST-BRNCDILAT ADMN Zaire Fry MD [address] [place] [address] Respiratory Reading [address] [place] [address] Referral ID Status Reason Start Date Expiration Date Visits Requested Visits Authorized [id number] Authorized Auto-Generat ed Referral 3 07/10/2024 1 1 Specialty Diagnoses / Procedures Referred By Contact Referred [facility] Diagnoses Chest discomfort SOB (shortness of breath) Pure hypercholesterolemia Procedures ECG COMPLETE ECG ROUTINE ECG W/LEAST 12 LDS W/I&R Zaire Fry MD [address] [place] [address] [facility] [address] [address] Referral ID Status Reason Start Date Expiration Date Visits Requested Visits Authorized [id number] Pending Review Auto-Generat ed Referral 3 06/10/2024 1 1 Reason Mrs. Mccray is being referred for dyspnea and chest pain Diagnosis 1 Precordial pain (R07 .2) Referral Organization [facility] Sukhjinder cai Referring Provider First Name Hussein Referring Provider Last Name Sukhjinder Referring Provider Specialty Internal Me dicine Referred [facility] Referred Address [address] [place],[address] Referred Provider Specialty Cardiology Referral Priority Routine [...] section and content) DATE CREATED AUTHOR 11/06/2021 [facility] DATE CREATED AUTHOR AUTHOR'S ORGANIZ ATION 01/01/2023 [facility] DATE CREATED AUTHOR AUTHOR'S ORGANIZ ATION 07/08/2023 [facility] DATE CREATED AUTHOR AUTHOR'S ORGANIZ ATION 11/16/2023 [facility] EPIC DATE CREATED AUTHOR AUTHOR'S ORGANIZ ATION 05/02/2024 [facility] EPIC DATE CREATED AUTHOR AUTHOR'S ORGANIZ ATION 05/20/2024 [facility] REASON FOR VISIT (unrecogniz ed section and [...] RSPSE SPMTRY PRE&POST-BRNCDILAT ADMN Zaire Fry MD [address] [place] [address] Respiratory Reading [address] [place] [address] Referral ID Status Reason Start Date Expiration Date V isits Requested Visits Authorized [id number] Closed Auto-Generate d Referral 06/11/2023 07/10/2024 1 [...] or prosecute any alcohol or drug abuse patient.[facility] FoundationIn the event this information is protected by the Federal Confidentiality of Alcohol and Drug Abuse Patient Records regulations: The Federal rules restrict any use of the information to criminally investigate or prosecute any alcohol or drug abuse patient.[facility] FoundationIn the event this information is protected by the Federal Confidentiality of Alcohol and Drug Abuse Patient Records regulations: The Federal rules restrict any use of the information to criminally investigate or prosecute any alcohol or drug abuse patient.[facility] FoundationIn the event this information is protected by the Federal Confidentiality of Alcohol and Drug Abuse Patient Records regulations: The Federal rules restrict any use of the information to criminally investigate or prosecute any alcohol or drug abuse patient.[facility] FoundationIn the event this information is protected by the Federal Confidentiality of Alcohol and Drug Abuse Patient Records regulations: The Federal rules restrict any use of the information to criminally investigate or prosecute any alcohol or drug abuse patient.[facility] FoundationIn the event this information is protected by the Federal Confidentiality of Alcohol and Drug Abuse Patient Records regulations: The Federal rules restrict any use of the information to criminally investigate or prosecute any alcohol or drug abuse patient.[facility] FoundationIn the event this information is protected by the Federal Confidentiality of Alcohol and Drug Abuse Patient Records regulations: The Federal rules restrict any use of the information to criminally investigate or prosecute any alcohol or drug abuse patient.[facility] FoundationIn the event this information is protected by the Federal Confidentiality of Alcohol and Drug Abuse Patient Records regulations: The Federal rules restrict any use of the information to criminally investigate or prosecute any alcohol or drug abuse patient.[facility] Care Teams (unrecognized sec tion and content) Cyber Legal Advisor Relationship Specialty Start Date End Date Hussein Rowan DO [address] [place] [address] PCP - General Internal Medicine 11/29/20 Cyber Legal Advisor Relationship Specialty Start Date End Date Hussein Rowan DO [address] [place] [facility] [place] [address] PCP - General Internal Medicine 11/29/20 Cyber Legal Advisor Relationship Specialty Start Date End Date Hussein Rowan DO [address] [place] [facility] [place] [place] [address] PCP - General Internal Medicine 11/29/20 Cyber Legal Advisor Relationship Specialty Start Date End Date Hussein Rowan DO [address] [place] [facility] [place] [place] [address] PCP - General Internal Medicine 11/29/20 Cyber Legal Advisor Relationship Specialty Start Date End Date Hussein Rowan DO [address] [place] [facility] [place] [address] PCP - General Internal Medicine 11/29/20 Cyber Legal Advisor Relationship Specialty Start Date End Date Hussein Rowan DO [address] [place] [facility] [place] [address] PCP - General Internal Medicine 11/29/20 Cyber Legal Advisor Relationship Specialty Start Date End Date Hussein Rowan DO [address] [place] [facility] [place] [address] PCP - General Internal Medicine 11/29/20 Cyber Legal Advisor Relationship Specialty Start Date End Date Hussein Rowan DO [address] [place] [facility] [place] [address] PCP - General Internal Medicine 11/29/20 FOR [...] BE BASED ON THE PRIMARY CLINICAL RECORDS. [facility], [facility]. provides no warranty or guarantee of the accuracy or completeness of information in this document.
== END 2024-07-10 09:21 | disposition home or self-care (01) ==
LOC: CT 09:20
PROVIDERS: PCP Internal Medicine; Visit Provider Internal Medicine
DX: R91.1 Solitary pulmonary nodule (principal)
CPT/HCPCS: 71250

== ENCOUNTER 2024-08-10 07:47 | Outpatient (OUT) | payer MEDICARE, OTHER, SELFPAY ==
--- OUTSIDE RECORDS SUMMARY | 2024-08-10 08:10 | XMS_ITS | CCD ---
Author Organization [facility] CliniSyme Care Team Providers Care Avionics Safety Inspector Name Role Phone Dena Davis Unavailable Hussein [...] [Vicodin] Drug Allergy 05-21-20 13 Unknown [facility] Repository (20 sources) Acetaminophen / oxyCODONE Drug Allergy 06-12-20 13 [facility] Work Phone: (12 sources) buPROPion; Translations: [Wellbutrin] Drug Allergy 07-22-20 [address] [facility] Repository (14 sources) Sulf-10 Drug allergy Unknown [facility] Other (10 sources) Acetaminophen / HYDROcodone; Translations: [HYDROCODONE-ACET AMINOPHEN] Drug Allergy 05-21-20 13 [facility] (10 sources) buPROPion; Translations: [BUPROPION HCL] Drug Allergy 06-12-20 13 [facility] Work Phone: (18 sources) Sulfonamides (Antibiotic); Translations: [SULFA (SULFONAMIDE ANTIBIOTICS)] Drug Intolerance 06-12-20 13 [facility] Work Phone: (1 source) Acetaminophen / oxyCODONE Drug Allergy 05-21-20 13 [facility] Repository (3 sources) Leucine; Translations: [NICKEL] Drug Allergy 11-09-19 16 [facility] Repository (1 source) Sulfonamides (Antibiotic) Drug allergy (disorder) 05-21-20 13 [facility] Repository (8 sources) buPROPion Drug Allergy Unknown [facility] Other (14 sources) nickel Drug Allergy 07-10-20 18 [facility] (8 sources) Vicodin *ANALGESICS - OPIOID* Propensity to adverse reactions Unknown [facility] Other (5 sources) Allergies Reconciled Propensity to adverse reactions Unknown [facility] Other (2 sources) Acetaminophen / oxyCODONE; Translations: [OXYCODONE-ACETAM INOPHEN] Drug Allergy 06-12-20 13 [facility] Other [place] Repository Medications Current Medications Medication Drug Class(es) [...] 1 capsule by mouth once daily Evening Sidney Oil (EVENING PRIMROSE) 500 mg cap Take 1 capsule by mouth once daily. 0 06/12/2013 Active Comment on above: Take 1 capsule by [facility] once daily. iv contrast (will be provided [...] Comment on above: Take 1 capsule by [facility] once daily. losartan potassium 25 mg oral [...] Comment on above: Take 1 capsule by [facility] once daily. Thyroid (1 source) Thyroid Active [...] 2 Chronic Other aftercare (1 source) Other assistant terminal manager (current) drug therapy Episodic Other eye disorders [...] FIELD 24-2 OU (BOTH E YES)on 05-19-2024 [facility] Radiology Study observation (narrative) [facility] CTA CORONARY W IVCONon 07-05 CTA CORONARY W IVCON * * *Final Report* * * DATE OF EXAM: Jul 05 2023 3:04PM FVC 0470 - CTA CORONARY W IVCON / PROCEDURE REASON: multiple diagnoses * * * * Physician Interpretation * * * * CTA CORONARY ARTERIES acquired at [facility] - images were acquired and screened for acute findings earlier. Subsequently reported following overnight procedure. Direct Image Comparison: None HISTORY: 72 years old Female patient with chronic h/o chest pain, suspected CAD Evaluation for further treatment options.. There is request to define coronary anatomy. TECHNIQUE: SCANNER: Siemens Definition Flash Dual source [id number] scanner PROTOCOL: Sequential imaging of the heart with prospective triggering in diastolic phase and submillimeter slice reconstruction following administration of contrast material. Scan Range: carlos a to the base of the heart CT Dose-Length Product (DLP): 265 mGy*cm CT Dose Reduction Employed: Automated exposure control(AEC) and iterative recon CONTRAST: IV administration of 90 ml Omnipaque 350 Premedication per [facility] [place] protocol/documentation. Scan acquisition: uncomplicated Macro Version: MQ:CCTW_3 For optimization of anatomic evaluation, advanced 3-D off-line postprocessing was performed on a dedicated workstation by the interpreting physician. Additional lung CAD. [place] images reconstructed, saved, and available in [employer] 'Get Images'. STUDY LIMITATIONS: Limited contrast enhancement [...] AORTIC DIMENSIONS: AORTIC ROOT: 3 cm measured jyajr-qm-cqycl mid ASCENDING THORACIC AORTA: 3.2 cm mid [...] or luminal stenosis. limited upper ABDOMEN: unremarkable Asphalt Screed Operator (topogram) images: No additional findings. IMPRESSION: NO EVIDENCE OF ATHEROSCLEROTIC CHANGES OR LUMINAL STENOSIS OF THE CORONARY ARTERIES -Direct epicardial course of tortuous mid LAD segment without intramyocardial extension. -Distal branches are not well visualized CAD-RADS 0: No plaque or luminal stenosis. Absence of CAD., - Overall Plaque Crowley: No evidence of plaque visualized LUNGS: non-calcified [...] be communicated with the ordering provider via [employer] staff message by Imaging Support Services within 2 business days of report finalization. Gun Striper: RUSTAM Transcribe (more content not included)... Invalid Interpretation Code [facility] NURSING PROGon 07-05-2023 NURSING PROG HNO ID: [id number] Author: Priscila Reyes RN Service: Radiology Author [...] Reyes RN July 05, 2023 2:45 PM [facility] NURSING PROG HNO ID: [id number] Author: Priscila Reyes RN Service: Radiology Author [...] DATE: July 05, 2023 TIME: 2:48 PM [facility] SPIROMETRY WITH DILATOR IF O BSTRUCTEDon 07-05-2023 RHA18-90% PRE (L/S) 1.83 L/S [facility] FEV1 PRE (L) 2.23 L [facility] FEV1/FVC PRE (%) 76 % [facility] FVC PRE (L) 2.93 L [facility] PEF PRE (L/S) 6.37 L/S [facility] CNOVon 06-11-2023 CNOV Office Visit (NAINA ) -------- CORRIE MCCRAY ([id number]) 1950 F Date Time Provider Department 06/11/23 11:30 AM ZAIRE FRY During your visit today, we recorded the following information about you: Pulse Blood pressure Weight Height 76/minute 110/70 65.3 kg 1.575 m Zaire Fry MD 06/11/2023 11:43 AM Signed [facility] [place] SE[facility] OF REGIONAL CARDIOLOGY OUTPATIENT VISIT DATE June 11, 2023 OUTPATIENT VISIT TYPE NEW PRIMARY CARE PHYSICIAN: Hussein Rowan ([facility]) [address] [place] [address] A written report of the findings and [...] os Catarac (more content not included)... Normal [facility] ECG COMPLETEon 06-11-2023 ECG COMPLETE Ventricular Rate : 7 4 BPM Atrial Rate : 74 BPM P-R Interval : 148 ms QRS Duration : 72 ms Q-T Interval : 390 ms QTC Calculation(Bazett) : 432 ms Calculated P [place] : -2 degrees Calculated R [place] : 7 degrees Calculated T [place] : -4 degrees NORMAL SINUS RHYTHM NONSPECIFIC ST AND T WAVE ABNORMALITY ABNORMAL ECG Confirmed by GREGG MULLEN MD ([id number]) on 06/14/2023 11:22:04 PM NAME : CORRIE MCCRAY PID : [id number] : 1950 Gender : Female Race : Unknown ORD : [id number] Procedure Date : Jun 11 2023 11:26:41 Edit Date : Jun 14 2023 23:22:08 Diagnosis: NORMAL SINUS RHYTHM NONSPECIFIC ST AND T WAVE ABNORMALITY ABNORMAL ECG Confirmed by GREGG MULLEN MD ([id number]) on 06/14/2023 11:22:04 PM Test Reason : R07.89 Chest discomfort Location : 145 : [place]ARD Overread By : GREGG MULLEN MD Edited By : GREGG MULLEN MD Referred By : HUSSEIN ROWAN Acquired by : Elva wilson [facility] ECHOCARDIO M/2D COMPLETEon 0 12-31-2022 ECHOCARDIO M/2D COMPLETE Patient: CORRIE MCCRAY Exam Date: 12/31/2022 : 1950 Gender:F Ordering : DR HUSSEIN ROWAN D.O. Admission #: [id number] Family : Order #: [id number] CLICK HERE TO VIEW EXAM ECHOCARDIOGRAM REPORT [...] M.D. on 01/01/2023 at 19:41 Normal [facility] CBC AUTO DIFFon 12-26-2022 BASO # 0.0 103/ul Normal 0.0-0.[address] [facility] Comment on above: Performed By: #### CBC ####[facility] ital [address]ezmrx[address] [place] [address]DrЕкатерина Bates Basophils/100 WBC (Bld) 1.0 % Normal 0.2-2.0 [facility] Comment on above: Performed By: #### CBC ####[facility] ital Rfkgqltnwt5479 [place] [id number] Bates EO # 0.1 103/ul Normal 0.0-0.[address] [facility] Comment on above: Performed By: #### CBC ####[facility] ital Gecwehsjtt5[address] [place] [address]Dr. Vicki Bates Eosinophils/100 WBC (Bld) 1.5 % Normal 0.9-7.[address] [facility] Comment on above: Performed By: #### CBC ####[facility] ital Kofldvlnbv66[address] [place] [address]Dr. Vicki Bates Erythrocyte distribution width (RBC) [Ratio] 11.9 % Normal 11.0-15.[address] [facility] Comment on above: Performed By: #### CBC ####[facility] ital Ekiddkyipj3532 [place] [address]Dr. Vicki Bates Hematocrit (Bld) [Volume fraction] 43.5 % Normal 36.0-48.[address] [facility] Comment on above: Performed By: #### CBC ####[facility] ital Wnekotldue[address] [place], [place] [address]Dr. Vicki Bates Hemoglobin (Bld) [Mass/Vol] 14.4 g/dL Normal 12.0-16.[address] [facility] Comment on above: Performed By: #### CBC ####[facility] ital Edyzjvcceq[address] [place], [place] [address]Dr. Vicki Bates IG # 0.01 10e3/ul Normal 0.00-0.[address] [facility] Comment on above: Performed By: #### CBC ####[facility] ital Sdogkpgjqv[address] [place] [address]Dr. Vicki Bates IG % 0.3 % Normal 0.0-0.5 [facility] Comment on above: Performed By: #### CBC ####[facility] ital Jotnzqdxjb[address] [place], [place] [address]Dr. Vicki Bates LYMPH # 1.8 103/ul Normal 1.2-3.8 [facility] Comment on above: Performed By: #### CBC ####[facility] ital Gnnglqjvqk[address] [place], [place] [address]Dr. Vicki Bates Lymphocytes/100 WBC (Bld) 44.6 % Normal 20.5-60.0 [facility] Comment on above: Performed By: #### CBC ####[facility] ital [address]gqwshmejt[address] [place] [address]Dr. Vicki Bates MANUAL DIFF REQ NO Normal [facility] Comment on above: Performed By: #### CBC ####[facility] ital Hgafsmbatt4134 [place] [id number]. Vicki Bates MCH (RBC) [Entitic mass] 31.1 pg Normal 26.7-34.0 [facility] Comment on above: Performed By: #### CBC ####[facility] ital Lyektclurr[address] [place] [address]Dr. Vicki Bates MCHC (RBC) [Mass/Vol] 33.1 g/dL Normal 29.9-35.2 [facility] Comment on above: Performed By: #### CBC ####[facility] ital Rqskluzgwg[address] [place] [address]Dr. Vicki Bates MCV (RBC) [Entitic vol] 94.0 fL Normal 81.0-99.[address] [facility] Comment on above: Performed By: #### CBC ####[facility] ital Cyrbpomnmz0426 [place] [address]Dr. Vicki Bates MONO # 0.4 103/ul Normal 0.3-0.[address] [facility] Comment on above: Performed By: #### CBC ####[facility] ital Iuikkafrqh45[address] [place] [address]Dr. Vicki Bates Monocytes/100 WBC (Bld) 9.0 % Normal 1.7-12.0 [facility] Comment on above: Performed By: #### CBC ####[facility] ital Zlujregstk[address] [place] [address]Dr. Vicki Bates NEUT # 1.7 103/ul Normal 1.4-6.5 [facility] Comment on above: Performed By: #### CBC ####[facility] ital Fznyfplwzg69[address] [place] [address]Dr. Vicki Bates Neutrophils/100 WBC (Bld) 43.6 % Normal 43.0-75.0 [facility] Comment on above: Performed By: #### CBC ####[facility] ital Iufhwsvlhf4839 [place] [id number] Bates Platelet mean volume (Bld) [Entitic vol] 9.1 fL Critically low 9.5-13.[address] [facility] Comment on above: Performed By: #### CBC ####[facility] ital Xssohooqnh1534 [place] [id number]. Vicki Bates PLT 242 103/ul Normal 150-450 [facility] Comment on above: Performed By: #### CBC ####[facility] ital Nbcmkqgjiq3513 [place] [id number]. Vicki Bates RBC 4.63 106/ul Normal 4.20-5.40 [facility] Comment on above: Performed By: #### CBC ####[facility] ital K[address]ymrafah[address] [place] [address]Dr. Vicki Bates WBC 4.0 103/ul Normal 4.0-11.0 [facility] Comment on above: Performed By: #### CBC ####[facility] ital Tfhzynparj7604 [place] [id number]. Vicki Bates LIPID PROFILEon 12-26-2022 CHOL-HDL RATIO NORM SEE BELOW Normal [facility] Comment on above: Result Comment: 3.3 - 4.4 LOW RISK 4.4 - 7.1 AVERAGE RISK 7.1 - 11.0 MODERATE RISK >11.0 HIGH RISK Performed By: #### T SH, LIPID, BMP #### [facility] [address] [place] [address] [address] Vicki Bates Cholesterol [Mass/Vol] 221 mg/dL Critically high <=200 [facility] Comment on above: Performed By: #### TSH, LIPID, BMP #### [facility] [address] [address] [address] Vicki Bates Cholesterol in HDL [Mass/Vol] 68 mg/dL Critically high 40-60 [facility] Comment on above: Performed By: #### TSH, LIPID, BMP #### [facility] [address] [address] [address] Vicki Bates Cholesterol in LDL [Mass/Vol] 140.8 mg/dL Normal [facility] Comment on above: Performed By: #### TSH, LIPID, BMP #### [facility] [address] [address] [address] Vicki Bates Cholesterol.tota l/Cholesterol in HDL [Mass ratio] 3.3 {ratio} Normal [facility] Comment on above: Performed By: #### TSH, LIPID, BMP #### [facility] [address] [address] [address] Vicki Bates HDL NORMAL > or = 60 mg/dl - LO W CARDIOVASCULAR RISK <40 mg/dl - HIGH CARDIOVASCULAR RISK Normal [facility] Comment on above: Performed By: #### TSH, LIPID, BMP #### [facility] [address] [address] [address] Vicki Bates LDL CALC NORMAL SEE BELOW Normal [facility] Comment on above: Result Comment: <100 mg/dl OPTIMAL 100 - 129 mg/dl NEAR OR ABOVE OPTIMAL 130 - 159 mg/dl BORDERLINE HIGH 160 - 189 mg/dl HIGH >190 mg/dl VERY HIGH Performed By: #### T SH, LIPID, BMP #### [facility] [address] [address] [address] Vicki Bates Triglyceride [Mass/Vol] 61 mg/dL Normal <=[address] [facility] Comment on above: Performed By: #### TSH, LIPID, BMP #### [facility] [address] [address] [address] Vicki Bates VLDL CALC 12.2 mg/dL Normal [facility] Comment on above: Performed By: #### TSH, LIPID, BMP #### [facility] [address] [address] [address] Vicki Bates PROF CHEM 8 (BAS METB)on Anion gap [Moles/Vol] 11.5 mmol/L Normal [facility] Comment on above: Performed By: #### TSH, LIPID, BMP #### [facility] [address] [address] [address] Vicki Bates Calcium [Mass/Vol] 9.5 mg/dL Normal 8.5-10.[address] [facility] Comment on above: Performed By: #### TSH, LIPID, BMP #### [facility] [address] [address] [address] Vicki Bates Chloride [Moles/Vol] 106 mmol/L Normal 98-107 [facility] Comment on above: Performed By: #### TSH, LIPID, BMP #### [facility] [address] [address] [address] Vicki Bates CO2 [Moles/Vol] 30.1 mmol/L Normal 21.0-32.0 [facility] Comment on above: Performed By: #### TSH, LIPID, BMP #### [facility] [address] [place] [address] Dr. Vicki Bates Creatinine [Mass/Vol] 0.81 mg/dL Normal 0.55-1.[address] [facility] Comment on above: Performed By: #### TSH, LIPID, BMP #### [facility] [address] [address] [address] Vicki Bates EGFR-AF POLISH >60 Normal >=60 [facility] Comment on above: Performed By: #### TSH, LIPID, BMP #### [facility] [address] [place] [address] Dr. Vicki Bates EGFR-NON AF POLISH >60 Normal >=60 [facility] Comment on above: Performed By: #### TSH, LIPID, BMP #### [facility] [address] [address] [address] Vicki Bates Glucose [Mass/Vol] 91 mg/dL Normal 74-106 [facility] Comment on above: Performed By: #### TSH, LIPID, BMP #### [facility] [address] [address] [address] Vicki Bates Potassium [Moles/Vol] 4.3 mmol/L Normal 3.5-5.1 [facility] Comment on above: Performed By: #### TSH, LIPID, BMP #### [facility] [address] [address] [address] Vicki Bates Sodium [Moles/Vol] 143 mmol/L Normal 136-145 [facility] Comment on above: Performed By: #### TSH, LIPID, BMP #### [facility] [address] [address] [address] Vicki Bates Urea nitrogen [Mass/Vol] 18.0 mg/dL Normal 7.0-18.[address] [facility] Comment on above: Performed By: #### TSH, LIPID, BMP #### [facility] [address] [address] [address] Vicki Bates Urea nitrogen/Creatin ine [Mass ratio] 22.2 mg/mg Normal [facility] Comment on above: Performed By: #### TSH, LIPID, BMP #### [facility] [address] [address] [address] Vicki Bates TSHon 12-26-2022 TSH 3.814 uIU/mL Critically high 0.358-3.[address] [facility] Comment on above: Performed By: #### TSH, LIPID, BMP #### [facility] [address] [address] [address] Vicki Bates MG MAMM SCREEN 3D CRISTINA CADon 05-07-2022 MG MAMM SCREEN 3D CRISTINA CAD Patient: CORRIE MCCRAY Exam Date: 05/07/2022 : 1950 Gender:F Ordering : DR HUSSEIN ROWAN D.O. Admission #: [id number] Family : Order #: [id number] CLICK HERE TO VIEW EXAM RADIOLOGY REPORT [...] lung cancer at age 85. LOCATION: [facility] BREAST COMPOSITION: Almost entirely fatty. FINDINGS: [...] M.D. on 05/07/2022 at 13:23 Normal [facility] CBC AUTO DIFFon 04-30-2022 BASO # 0.0 103/ul Normal 0.0-0.[address] [facility] Comment on above: Performed By: #### CBC ####[facility] [address]ydwoxhr[address] [place] [id number]. Laureenchay Bates Basophils/100 WBC (Bld) 0.5 % Normal 0.2-2.[address] [facility] Comment on above: Performed By: #### CBC ####[facility] [address] [place] [address]Dr. Vicki Bates EO # 0.1 103/ul Normal 0.0-0.7 [facility] Comment on above: Performed By: #### CBC ####[facility] Pakqtykwwr[address] [place] [id number]. Laureenchay Bates Eosinophils/100 WBC (Bld) 1.5 % Normal 0.9-7.[address] [facility] Comment on above: Performed By: #### CBC ####[facility] [address]ixttr[address] [place] [id number]. Laureenchay Bates Erythrocyte distribution width (RBC) [Ratio] 11.7 % Normal 11.0-15.0 [facility] Comment on above: Performed By: #### CBC ####[facility] [address]fttia[address] [place] [address]Dr. Laureenchay Bates Hematocrit (Bld) [Volume fraction] 42.8 % Normal 36.0-48.0 [facility] Comment on above: Performed By: #### CBC ####[facility] Idlewwpznv[address] [place] [id number]. Vicki Bates Hemoglobin (Bld) [Mass/Vol] 14.2 g/dL Normal 12.0-16.0 [facility] Comment on above: Performed By: #### CBC ####[facility] ital Mqonncsrpv4[address] [place] [id number]. Vicki Bates IG # 0.01 10e3/ul Normal 0.00-0.[address] [facility] Comment on above: Performed By: #### CBC ####[facility] ital Zcqoorhbkt9307 [place] [id number]. Vicki Bates IG % 0.2 % Normal 0.0-0.[address] [facility] Comment on above: Performed By: #### CBC ####[facility] Szxcuydjnu[address] [place] [address]Dr. Vicki Bates LYMPH # 1.8 103/ul Normal 1.2-3.8 [facility] Comment on above: Performed By: #### CBC ####[facility] Tkewbehbsj[address] [place] [address]Dr. Laureenchay Bates Lymphocytes/100 WBC (Bld) 43.6 % Normal 20.5-60.[address] [facility] Comment on above: Performed By: #### CBC ####[facility] [address]zbusgrw[address] [place] [address]Dr. Vicki Bates MANUAL DIFF REQ NO Normal [facility] Comment on above: Performed By: #### CBC ####[facility] Udipikctmx[address] [place] [address]Dr. Vicki Bates MCH (RBC) [Entitic mass] 31.3 pg Normal 26.7-34.[address] [facility] Comment on above: Performed By: #### CBC ####[facility] [address]obbglq[address] [place] [address]Dr. Vicki Bates MCHC (RBC) [Mass/Vol] 33.2 g/dL Normal 29.9-35.2 [facility] Comment on above: Performed By: #### CBC ####[facility] E[address]autctq[address] [place] [address]Dr. Vicki Bates MCV (RBC) [Entitic vol] 94.3 fL Normal 81.0-99.[address] [facility] Comment on above: Performed By: #### CBC ####[facility] ital Vxspltcqwx37[address] [place] [address]Dr. Vicki Bates MONO # 0.3 103/ul Normal 0.3-0.8 [facility] Comment on above: Performed By: #### CBC ####[facility] ital Wruyamlgkn6186 [place] [address]Dr. Vicki Bates Monocytes/100 WBC (Bld) 6.4 % Normal 1.7-12.0 [facility] Comment on above: Performed By: #### CBC ####[facility] ital Grktgdxpht[address] [place] [address]Dr. Vicki Bates NEUT # 1.9 103/ul Normal 1.4-6.5 [facility] Comment on above: Performed By: #### CBC ####[facility] T[address]zsrdlpr3[address] [place] [address]Dr. Vicki Bates Neutrophils/100 WBC (Bld) 47.8 % Normal 43.0-75.0 [facility] Comment on above: Performed By: #### CBC ####[facility] Yxpodfmaas[address] [place] [address]Dr. Vicki Bates Platelet mean volume (Bld) [Entitic vol] 9.0 fL Critically low 9.5-13.5 [facility] Comment on above: Performed By: #### CBC ####[facility] [address]qkiprdg[address] [place] [address]Dr. Vicki Bates PLT 250 103/ul Normal 150-450 [facility] Comment on above: Performed By: #### CBC ####[facility] U[address]yssfgks[address] [place] [address]Dr. Vicki Bates RBC 4.54 106/ul Normal 4.20-5.40 [facility] Comment on above: Performed By: #### CBC ####[facility] [address]yhzwpf36[address] [place] [address]Dr. Vicki Bates WBC 4.0 103/ul Normal 4.0-11.0 [facility] Comment on above: Performed By: #### CBC ####[facility] Iakayvwzjd[address] [place], [place] [address]Vv. Vicki Bates [facility]on SARS-CoV-2 (COVID-19) RNA MEAGAN+probe Ql (Unsp spec) Not detected Normal NOT DETECTED [facility] Comment on above: Result Comment: This test is not yet kiel roved or cleared by the [place] FDA. When there are no FDA-approved or cleared tests available, and other criteria are met, FDA can make tests available under an emergency access mechanism called an Emergency Use Authorization (EUA). The EUA for this test is supported by the Museum Curator of Health and Human Service's (HHS's) declaration [...] consistent with SARS-CoV-2. Performed By: #### [facility] ####[facility] [id number] [place], [place] [address]Be. Vicki Bates US PELVIS AND TRANSVAGon US [...] by: KASSIE QUEEN Date: 2022-04-16 00:[address] [facility] SGOTon 01-18-2022 AST [Catalytic activity/Vol] 20 U/L Normal 15-[address] [facility] Comment on above: Performed By: #### AST, ALT #### [facility] [address] [address] [address] Vicki Bates SGPTon 01-18-2022 ALT [Catalytic activity/Vol] 28 U/L Normal 14-[address] [facility] Comment on above: Performed By: #### AST, ALT #### [facility] [address] [place], [place] [address] Dr. Vicki Bates XR ankle RT min 3V*on 2021 XR ankle RT min 3V* [facility] [place] [address] [place] [address] XRay Report Signed Patient: Corrie Mccray MR#: [id number] : 1950 Acct:[id number] Age/Sex: 71 / F ADM Date: 10/16/21 Loc: [facility] Room: Type: [facility] Attending Dr: Dena BERGMAN Ordering Provider: DENA [...] Smith Jr., D.O.10/16/2021 5:09 PM Dictation Location: [place] [address] Transcribed By: [facility] 10/16/211708 Dictated By: Zeke Smith Jr, DO 10/16/211706 Signed By: 10/16/211708 Normal [facility] XR ankle RT min 3V* [facility] [employer] Other XR ankle RT min 3V* [facility] [employer] Other XR ankle RT min 3V* [address] [place] [address] [employer] Other XR ankle RT min 3V* SONNY Hilario [address] [employer] Other XR ankle RT min 3V* XRay Report [facility] Other XR ankle RT min 3V* Signed [facility] Other XR ankle RT min 3V* Patient: Corrie Mccray MR#: [id number] [facility] Other XR ankle RT min 3V* 589 [facility] Other XR ankle RT min 3V* : 1950 Acct:[id number] [employer] Other XR ankle RT min 3V* Age/Sex: 71 / F ADM Date: 10/16/21 [employer] Other XR ankle RT min 3V* Loc: XDUCLY Room: Type: [facility] [employer] Other XR ankle RT min 3V* Attending Dr: Dena Davis [facility] [employer] Other XR ankle RT min 3V* Ordering Provider: DENA DAVIS JEWELRY RACKERDavid [employer] Other XR ankle RT min 3V* Date of Service: 10/16/21 [employer] Other XR ankle RT min 3V* XR/XR ankle RT min 3V*: S89.91XA [employer] Other XR ankle RT min 3V* Copies to: DENA DAVISP-David [employer] Other XR ankle RT min 3V* RIGHT ANKLE - 3 views [facility] [employer] Other XR ankle RT min 3V* Reason for exam:Patient fell while going up the stairs 3 hours ago. Patient has pain posterior to [employer] Other XR ankle RT min 3V* her right ankle and posterior to her distal tib-fib. [employer] Other XR ankle RT min 3V* COMPARISON: None [facility] Other XR ankle RT min 3V* Soft tissue swelling is noted. Ankle mortise appears intact. Cortical irregularity seen along the [employer] Other XR ankle RT min 3V* medial malleolus suggestive of prior injury. No acute bony process is seen. Enthesophyte formation [employer] Other XR ankle RT min 3V* is seen at the insertion of the Achilles tendon. Minimal plantar spurring. [facility] Other XR ankle RT min 3V* XR/XR ankle RT min 3V* [facility] Other XR ankle RT min 3V* IMPRESSION: [employer] Other XR ankle RT min 3V* SOFT TISSUE SWELLING WITHOUT ACUTE BONY PROCESS NOTED. [facility] Other XR ankle RT min 3V* Impression dictated by: Zeke Smith Jr., D.O.10/16/2021 5:09 PM [facility] Other XR ankle RT min 3V* Dictation Location: [place] [address] [employer] Other XR ankle RT min 3V* Transcribed By: PWS 10/16/211708 [employer] Other XR ankle RT min 3V* Dictated By: Zeke Smith Jr, DO 10/16/211706 [employer] Other XR ankle RT min 3V* Signed By: [employer] Other XR ankle RT min 3V* 10/16/211708 [employer] Other No Panel Information [facility] Vital Signs Date Time Vital Sign Value Performing Clinician Facility 06-26-2023 09:30-0500 Body height 157.48 cm Husesin Ball Other [facility] Other 06-26-2023 09:30-0500 Body mass index (BMI) [Ratio] 26.12 kg/m2 Hussein Ball Other [facility] Other 06-26-2023 09:30-0500 Body weight 64.77 kg Hussein Ball Other [facility] Other 06-26-2023 09:30-0500 Diastolic blood pressure 66 mm[Hg] Hussein Ball Other [facility] Other 06-26-2023 09:30-0500 Respiratory rate 12 /min Hussein Ball Other [facility] Other 06-26-2023 09:30-0500 Systolic blood pressure 93 mm[Hg] Hussein Ball Other [facility] Other 06-11-2023 11:19-0400 Body height 157.5 cm Zaire Fry MD Work Phone: [facility] 06-11-2023 11:19-0400 Body weight 65.32 kg Zaire Fry MD Work Phone: [facility] 06-11-2023 11:19-0400 Diastolic blood pressure 70 mm[Hg] Zaire Fry MD Work Phone: [facility] 06-11-2023 11:19-0400 Heart rate 76 /min Zaire Fry MD Work Phone: [facility] 06-11-2023 11:19-0400 SaO2% (BldA) [Mass fraction] 98 % Zaire Fry MD Work Phone: [facility] 06-11-2023 11:19-0400 Systolic blood pressure 110 mm[Hg] Zaire Fry MD Work Phone: [facility] 05-31-2023 10:00-0400 Body height 157.48 cm Cony Yoana Other [facility] Other 05-31-2023 10:00-0400 Body mass index (BMI) [Ratio] 26.7 kg/m2 Cony Bowenmond Other [facility] Other 05-31-2023 10:00-0400 Body temperature 97.5 [degF] Cony Bowenmond Other [facility] Other 05-31-2023 10:00-0400 Body weight 66.23 kg Cony Yoana Other [facility] Other 05-31-2023 10:00-0400 Diastolic blood pressure 74 mm[Hg] Cony Yoana Other [facility] Other 05-31-2023 10:00-0400 Respiratory rate 18 /min Cony Yoana Other [facility] Other 05-31-2023 10:00-0400 SaO2% (BldA) [Mass fraction] 97 % Cony Lees Other [facility] Other 05-31-2023 10:00-0400 Systolic blood pressure 118 mm[Hg] Cony Lees Other [facility] Other 03-11-2023 09:30-0400 Body height 154.94 cm Hussein Ball Other [facility] Other 03-11-2023 09:30-0400 Body mass index (BMI) [Ratio] 27.81 kg/m2 Hussein Ball Other [facility] Other 03-11-2023 09:30-0400 Body weight 66.77 kg Hussein Ball Other [facility] Other 03-11-2023 09:30-0400 Diastolic blood pressure 82 mm[Hg] Hussein Ball Other [facility] Other 03-11-2023 09:30-0400 Respiratory rate 12 /min Hussein Ball Other [facility] Other 03-11-2023 09:30-0400 Systolic blood pressure 129 mm[Hg] Hussein Ball Other [facility] Other 01-16-2023 10:00-0400 Body height 154.94 cm Hussein Ball Other [facility] Other 01-16-2023 10:00-0400 Body mass index (BMI) [Ratio] 27.92 kg/m2 Hussein Ball Other [facility] Other 01-16-2023 10:00-0400 Body weight 67.04 kg Hussein Ball Other [facility] Other 01-16-2023 10:00-0400 Diastolic blood pressure 78 mm[Hg] Hussein Ball Other [facility] Other 01-16-2023 10:00-0400 Respiratory rate 12 /min Hussein Ball Other [facility] Other 01-16-2023 10:00-0400 Systolic blood pressure 119 mm[Hg] Hussein Ball Other [facility] Other 12-26-2022 10:30-0400 Body height 154.94 cm Hussein Ball Other [facility] Other 12-26-2022 10:30-0400 Body mass index (BMI) [Ratio] 28.11 kg/m2 Hussein Ball Other [facility] Other 12-26-2022 10:30-0400 Body weight 67.5 kg Hussein Ball Other [facility] Other 12-26-2022 10:30-0400 Diastolic blood pressure 76 mm[Hg] Hussein Ball Other [facility] Other 12-26-2022 10:30-0400 Respiratory rate 12 /min Hussein Ball Other [facility] Other 12-26-2022 10:30-0400 Systolic blood pressure 121 mm[Hg] Hussein Ball Other [facility] Other 10-16-2021 16:40-0500 Body height 154.94 cm Dena Carl Other [employer] Other 10-16-2021 16:40-0500 Body mass index (BMI) [Ratio] 29.28 kg/m2 Dena Davis Other [employer] Other 10-16-2021 16:40-0500 Body temperature 97.4 [degF] Dena Davis Other [facility] Other 10-16-2021 16:40-0500 Body weight 70.31 kg Dena Davis Other [facility] Other 10-16-2021 16:40-0500 Diastolic blood pressure 88 mm[Hg] Dena Davis Other [facility] Other 10-16-2021 16:40-0500 Respiratory rate 16 /min Dena Davis Other [facility] Other 10-16-2021 16:40-0500 SaO2% (BldA) [Mass fraction] 98 % Dena Davis Other [facility] Other 10-16-2021 16:40-0500 Systolic blood pressure 152 mm[Hg] Dena Davis Other [facility] Other Encounters Encounter Date Encounter Type Care Provider Facility Start: 05-19-2024 End: 05-19-2024 Patient encounter procedure Tina Brown OD Work Phone: Ophthalmology Comment on above: Low-tension glaucoma of both eyes, unspecified glaucoma stage (Primary Dx); Low-tension glaucoma of both eyes, moderate stage; Keratitis sicca, bilateral Start: 05-19-2024 End: 05-19-2024 ambulatory HUSSEIN ROWAN Facility:[facility] Start: 11-15-2023 End: 11-15-2023 ambulatory JUAN LUIS SHIELDS Not Available Start: 11-15-2023 End: 11-15-2023 ambulatory JUAN LUIS SHIELDS Not Available Start: 11-12-2023 End: 11-12-2023 ambulatory HUSSEIN ROWAN Facility:[facility] Start: 11-12-2023 End: 11-12-2023 Patient encounter procedure Tina Brown OD Work Phone: Ophthalmology Comment on above: Low-tension glaucoma of both eyes, unspecified glaucoma stage (Primary Dx); Keratitis sicca, bilateral (HCC); Pseudophakia, left eye Start: 07-29-2023 End: 07-29-2023 ambulatory Kavitha Interiano [facility] Start: 07-29-2023 Telephone encounter Hussein HAMMOND [facility] Start: 07-22-2023 ambulatory Silvia Luma SPOUTER.ADMIN ASSISTANT Work Phone: Pulmonary Medicine Comment on above: Nodule Start: 07-09-2023 End: 07-09-2023 ambulatory Hussein Rowan Other [facility] Other Start: 07-09-2023 Telephone encounter Hussein HAMMOND [facility] Start: 07-05-2023 End: 07-05-2023 ambulatory JINuvia [facility] Facility:[facility] Start: 07-05-2023 End: 07-05-2023 ambulatory Pulm Paloma Work Phone: Pulmonology Comment on above: Spirometry Start: 07-05-2023 End: 07-05-2023 Patient encounter procedure Pulm [facility] Work Phone: [facility] Start: 06-26-2023 End: 06-26-2023 ambulatory Hussein Rowan Other [facility] Other Start: 06-26-2023 Office outpatient vi sit 15 minutes Hussein Rowan [facility] Start: 06-24-2023 End: 06-24-2023 ambulatory Hussein Rowan Other [facility] Other Start: 06-24-2023 Telephone encounter Hussein HAMMOND [facility] Start: 06-11-2023 End: 06-11-2023 [facility] Facility:[facility] Start: 06-11-2023 End: 06-11-2023 Patient encounter procedure Zaire Fry MD Work Phone: Cardiology Comment on above: Chest discomfort; SOB (shortness of breath); Pure hypercholesterolemia; Primary hypertension Start: 05-31-2023 End: 05-31-2023 ambulatory Cony Lees Other [facility] Other Start: 05-31-2023 Office outpatient vi sit 15 minutes Cony Lees [facility] Start: 03-25-2023 Telephone encounter No One (Historic al) Referring Physician Comment on above: External Referrals/r esources Start: 03-15-2023 End: 03-15-2023 ambulatory Hussein Rowan Other [facility] Other Start: 03-15-2023 Telephone encounter Hussein Rowan [facility] Start: 03-13-2023 End: 03-13-2023 ambulatory Hussein Rwoan Other [employer] Other Start: 03-13-2023 Telephone encounter Hussein Rowan [facility] Start: 03-11-2023 End: 03-11-2023 ambulatory Hussein Rowan Other [facility] Other Start: 03-11-2023 Office outpatient vi sit 15 minutes Hussein Rowan [facility] Start: 01-21-2023 End: 01-21-2023 ambulatory Hussein Rowan Other [facility] Other Start: 01-21-2023 Telephone encounter Hussein Rowan [facility] Start: 01-16-2023 End: 01-16-2023 ambulatory Hussein Rowan Other [facility] Other Start: 01-16-2023 Office outpatient vi sit 15 minutes Hussein Ball [facility] Start: 12-31-2022 End: 01-01-[address] HUSSEIN ROWAN Facility:[facility] Start: 12-27-2022 End: 12-27-2022 ambulatory Hussein Rowan Other [facility] Other Start: 12-27-2022 Telephone encounter Hussein Rowan [facility] Start: 12-26-2022 Patient encounter procedure Hussein Sukhjinder [facility] Start: 12-26-2022 Telephone encounter Hussein Sukhjinder HAMMOND [facility] Start: 12-26-2022 End: 12-27-[address] HUSSEIN ROWAN [facility] Other Start: 05-07-2022 End: 05-08-[address] HUSSEIN ROWAN Facility:[facility] Start: 04-30-2022 End: 04-30-[address] HUSSEIN ROWAN Facility:[facility] Start: 04-29-2022 Encounter for preprocedural laboratory examination DR ZION RIZZO . [facility] Start: 04-26-2022 End: 04-27-[address] ZION RIZZO . Facility:[facility] Start: 04-26-2022 End: 04-27-2022 Encounter for preprocedural laboratory examination DR ZION RIZZO . Facility:[facility] Start: 04-20-2022 Encounter for preprocedural cardiovascular examination DR ZION RIZZO . [facility] Start: 04-19-2022 End: 04-20-[address] [...] 10-16-2021 End: 10-16-2021 ambulatory Dena Davis Other [facility] Other Start: 10-16-2021 Office outpatient ne w [...] RSV Vaccine (1 - 1-dose 75+ series) [facility] Start: 11-17-2024 End: 11-17-2024 Patient encounter procedure 11/17/2024 1:15 PM EDT Office Visit [facility] Ophthalmology [address] [place] [address] Tina Brown, OD [address] [place] [address] RTC: 6 Months Full OCT ON/GCA Ophthalmology Comment on above: RTC: 6 Months Full OCT ON/GCA Start: 09-22-2024 End: 09-22-2024 Patient encounter procedure 09/22/2024 11:30 AM EST Office Visit Cardiology [address] [place] [address] Zaire Fry MD [address] [place] [address] Return in about 1 year (around 06/11/2024). Cardiology Comment on above: Return in about 1 year (around ). Start: 06-11-2024 BP Controlled (<130/80) BP Controlled (<130/80) [facility] Start: 04-19-2024 Covid-19 Vaccine () Covid-19 Vaccine () [facility] Start: 04-19-2024 Influenza vaccination [facility] Start: 08-19-2023 Advance Directive Discussion Advance Directive Discussion [facility] Start: 08-19-2023 Depression Assessment Depression Assessment [facility] Start: 06-11-2023 End: 09-10-2023 CREATININE BLD CREATININE BLD Lab Routine Chest discomfort SOB (shortness of breath) Expected: 06/11/2023, Expires: 09/10/2023 [facility] Work Phone: Comment on above: Expected: 06/11/2023, Expires: 4 Start: 04-19-2023 Covid-19 Vaccine () Covid-19 Vaccine () [facility] Start: 04-19-2023 Influenza vaccination [facility] Start: 08-19-2022 ADVANCE DIRECTIVE DISCUSSION ADVANCE DIRECTIVE DISCUSSION [facility] Start: 08-19-2022 DEPRESSION ASSESSMENT DEPRESSION ASSESSMENT [facility] Start: 04-19-2022 Influenza vaccination INFLUENZA (#1) [facility] Start: 10-10-2021 COVID-19 VACCINE (4 - Booster for Moderna series) COVID-19 VACCINE (4 - Booster for Moderna series) [facility] Start: 08-19-2021 ADVANCE DIRECTIVE DISCUSSION ADVANCE DIRECTIVE DISCUSSION [facility] Start: 08-04-2021 COVID-19 VACCINE (4 - Moderna series) COVID-19 VACCINE (4 - Moderna series) [facility] Start: 2015 BONE DENSITY BONE DENSITY [facility] Start: 2015 Bone Density Screening Bone Density Screening [facility] Start: 2015 Pneumococcal Vaccine: 65+ (1 - PCV) Pneumococcal Vaccine: 65+ (1 - PCV) [facility] Start: 2015 Pneumococcal Vaccine: 65+ (1 of 1 - PCV) Pneumococcal Vaccine: 65+ (1 of 1 - PCV) [facility] Start: 2015 PNEUMOCOCCAL: 65+ (1 - PCV) PNEUMOCOCCAL: 65+ (1 - PCV) [facility] Start: 2015 Screening for osteoporosis Bone Density Screening [facility] Start: 2010 RSV Vaccine (1 - 1-dose 60+ series) RSV Vaccine (1 - 1-dose 60+ series) [facility] Start: 2000 SHINGRIX VACCINE (1 of 2) SHINGRIX VACCINE (1 of 2) [facility] Start: 1995 COLOGUARD (FIT-DNA) COLOGUARD (FIT-DNA) [facility] Start: 1995 Colonoscopy COLONOSCOPY [facility] Start: 1995 COLORECTAL CANCER SCREENING COLORECTAL CANCER SCREENING [facility] Start: [address] COLONOGRAPHY [facility] Start: 1995 DIABETES SCREEN DIABETES SCREEN [facility] Start: 1995 Diabetes Screening Diabetes Screening [facility] Start: 1995 FECAL OCCULT BLOOD FECAL OCCULT BLOOD [facility] Start: 1995 Lipid 1996 panel - Serum or Plasma Lipid Screening [facility] Start: 1995 Lipid panel Lipid Screening [facility] Start: 1995 LIPID SCREEN LIPID SCREEN [facility] Start: 1995 Screening for malignant neoplasm of colon [facility] Start: 1995 SIGMOIDOSCOPY SIGMOIDOSCOPY [facility] Start: 1990 Mammography [facility] Start: 1990 Screening for malignant neoplasm of breast Mammogram Screening [facility] Start: 1969 Urine microalbumin profile [facility] Start: 1968 ANNUAL PCP TEAM CHRONIC DISEASE VISIT ANNUAL PCP TEAM CHRONIC DISEASE VISIT [facility] Start: 1968 Anxiety Screening Anxiety Screening [facility] Start: 1968 Depression Screening Depression Screening [facility] Start: 1968 HEPATITIS C SCREENING HEPATITIS C SCREENING [facility] Start: 1968 Hepatitis C screening Hepatitis C Screening [facility] Start: 1962 Adult depression screening assessment DEPRESSION SCREENING [facility] End: 07-10-2024 Cta hrt cornry art/bypass grfts contrst 3d post CTA CORONARY W IVCON Radiology Routine Chest discomfort SOB (shortness of breath) Pure hypercholesterolemia Primary hypertension 1 Occurrences starting 06/11/2023 until 07/10/2024 [facility] Work Phone: Comment on above: 1 Occurrences starting 06/11/2023 until 07/10/2024 ECG COMPLETE [facility] Work Phone: Comment on above: Ordered: 06/11/2023 End: 07-10-2024 SPIROMETRY WITH DILATOR IF OBSTRUCTED SPIROMETRY WITH DILATOR IF OBSTRUCTED PFT Routine SOB (shortness of breath) 1 Occurrences starting 06/11/2023 until 07/10/2024 [facility] Work Phone: Comment on above: 1 Occurrences starting 06/11/2023 until 07/10/2024 [facility] Immunizations Immunization Date Immunization Notes Care Provider Myron kaplan 06-23-2022 influenza virus vaccine, split virus (incl. purified surface antigen) Hussein Rowan Other [facility] Other 06-23-2022 influenza, high dose seasonal, preservative-free Hussein Rowan Other [facility] Other 06-23-2022 influenza virus vaccine, unspecified formulation Zaire Fry MD Work Phone: [facility] 05-08-2022 COVID-19 Pfizer (bivalent) Hussein Rowan Other [facility] Other 06-09-2021 COVID-19 Vaccine Pfi zer - Documentation Purposes Only Hussein Rowan Other [facility] Other 12-14-2020 zoster vaccine recombinant Hussein Rowan Other [facility] Other 10-26-2020 COVID-19 Kermit pathak Other [facility] Other 09-28-2020 COVID-19 Kermit pathak Other [facility] Other 06-25-2020 influenza virus vaccine, split virus (incl. purified surface antigen) Hussein Rowan Other [facility] Other 06-25-2020 zoster vaccine recombinant Hussein Rowan Other [facility] Other 06-25-2020 zoster vaccine, live Brandy Rowan Other [facility] Other 06-25-2020 FLUAD QUAD 2020-21,6 5Y UP,,PF, 60 mcg (15 mcg x 4)/0.5 mL syrg Tina Brown OD Work Phone: [facility] Comment on above: PHARMACY ADMINISTERE D Payers Date Payer Category Payer Unknown MMO MMO MEDICARE SUPPLEMENT [id number] 2019-Present [phone] [address] [place] [address] Indemnity [id number] 2018 Medicare MEDICARE MEDICAR E A AND B [id number] 2018-Present [phone] [address] [address] [place] [address] Medicare [id number] 1959 Medicare [id number] 1959 Medicare [id number] 1950 Unknown [id number] 1950 Unknown [id number] 1950 Unknown [id number] 1950 Unknown [id number] 1950 Unknown [id number] 1950 Unknown [id number] 1950 Unknown [id number] 1950 Unknown [id number] 1950 Unknown [id number] Social History Date Type Detail Facility Start: 10-12-2022 End: 04-12-2023 Sex Assigned At [facility] Other Start: 04-10-2022 Tobacco smoking status TNIS Never smoked tobacco [facility] Start: 04-10-2022 Tobacco use and exposure Smokeless tobacco non-user [facility] Start: 04-10-2022 End: 05-19-2024 Alcohol intake Current drinker of alcohol (finding) [facility] Start: 06-12-2013 History SDOH Alcohol Comment 1 glass of wine 3/wk [facility] Start: 1950 Sex Assigned At Female [facility] Start: 10-12-2022 End: 04-12-2023 History of Social function [facility] National Score (1-10 0), lower number is lower risk 65 [facility] Start: 09-24-2020 Gender identity Identifies as female gender (finding) [facility] Start: 12-04-2020 Sexual orientation Heterosexual (finding) [facility] Medical Equipment Procedure Code Equipment Code Equipment Origin al Text Equipment Identifier Dates Lens Iol 0d +20 Dante Uv Abs - [id number] Start: 11-29-2020 Comment on above: Description: -0.09 Clinical Notes 02-12-2017 to 05-19-2024 Tina Brown OD - 05/19/2024 12:56 PM EDTina Whittington OD - 11/12/2023 1:16 PM EDT Note Date & Type Note Facility 05-19-2024 Note Date of Procedure 05/19/2024. Ammonia Technician Information Cargo Service Supervisor: RIGOBERTO. Interval Change Right Eye Stable. Left Eye Stable. Notes -- HVF 05/19/2024 OD mod sup nasal step, stable from 2021; OS Normal ZEISS 05-19-2024 Note HNO ID: [id number] Author: TINA BROWN, TERRENCE Service: ? Author Type: ARCHEOLOGY PROFESSOR Type: Progress Notes Filed: 05/19/2024 13:37 Note [...] Brown, OD May 19, 2024 1:35 PM [facility] 05-19-2024 History of Present illness [...] 2024 1:35 PM documented in this encounter [facility] 11-12-2023 Note HNO ID: [id number] Author: TINA BROWN OD Service: ? Author Type: ARCHEOLOGY PROFESSOR Type: Progress Notes Filed: 11/12/2023 13:47 Note [...] Jermaine, OD November 12, 2023 1:43 PM [facility] 11-12-2023 History of Present illness [...] 2023 1:43 PM documented in this encounter [facility] 08-15-2023 Note HNO ID: [id number] Author: Kavitha Interiano Service: ? Author Type: ? Type: Progress Notes Filed: 08/15/2023 9:05 AM Note Text: Incidental Lung Nodule Enrollment Outreach attempt: 3rd Attempt Outreach status: Complete Enrolled in Lung Nodule program: No Declined reason: Other Lung Nodule Program Location: [place] Two letter attempts Discharge letter sent [facility] 08-15-2023 Note Patient Outreach (PU LMMN) -------- CORRIE MCCRAY ([id number]) 1950 F Date Time Provider Department 08/15/23 KAVITHA INTERIANO During your visit today, we recorded the following information about you: Kavitha Interiano 08/15/2023 9:05 AM Signed Incidental Lung Nodule Enrollment Outreach attempt: 3rd Attempt Outreach status: Complete Enrolled in Lung Nodule program: No Declined reason: Other Lung Nodule Program Location: [place] Two letter attempts Discharge letter sent Allergies [...] capsule by mouth once daily. - Evening Sidney Oil (EVENING PRIMROSE) 500 mg cap Take [...] Encounter Status:Closed by KAVITHA INTERIANO on 08/15/23 [facility] 08-04-2023 Note HNO ID: [id number] Author: Kavitha Interiano Service: ? Author Type: ? Type: Progress Notes Filed: 08/04/2023 6:25 PM Note Text: Incidental Lung Nodule Enrollment Outreach attempt: 2nd Attempt Outreach status: Complete Enrolled in Lung Nodule program: Referred Lung Nodule outreach: Needs outreach Lung Nodule Program Location: [place] Two letter attempts [facility] 08-04-2023 Note Patient Outreach ( LMMN) -------- CORRIE MCCRAY ([id number]) 1950 F Date Time Provider Department 08/04/23 KAVITHA INTERIANO During your visit today, we recorded the following information about you: InterianoKavitha 08/04/2023 6:25 PM Signed Incidental Lung Nodule Enrollment Outreach attempt: 2nd Attempt Outreach status: Complete Enrolled in Lung Nodule program: Referred Lung Nodule outreach: Needs outreach Lung Nodule Program Location: [place] Two letter attempts Allergies As of Date: [...] capsule by mouth once daily. - Evening Sidney Oil (EVENING PRIMROSE) 500 mg cap Take [...] Encounter Status:Closed by KAVITHA INTERIANO on 08/04/23 [facility] 07-29-2023 Evaluation note Encounter Date Diagnosis Assessment Notes Jul, Pulmonary nodule, right (ICD-10 - R91.1) CTA chest: 7mm RLL nodule - 06/2023 [facility] Other 12-11-2023 NoteHNO ID: [id number] Author: Kavitha Interiano Service: ? Author Type: ? Type: Progress Notes Filed: 07/29/2023 7:29 AM Note Text: Incidental Lung Nodule Enrollment Outreach attempt: 2nd Attempt Outreach status: Complete Enrolled in Lung Nodule program: Referred Lung Nodule outreach: Needs outreach Lung Nodule Program [facility] [place] [facility] History of Present illness Narrative* Kavitha Interiano - 07/29/2023 7:28 AM EST Incidental Lung Nodule Enrollment Outreach attempt: 2nd Attempt Outreach status: Complete Enrolled in Lung Nodule program: Referred Lung Nodule outreach: Needs outreach Lung Nodule Program Location: [place] Two letter attempts [facility] NotePatient Outreach (PULMMN) CORRIE MCCRAY ([id number]) 1950 F Date Time Provider Department 07/29/23 KAVITHA INTERIANO During your visit today, we recorded the following information about you: Kavitha Interiano 07/29/2023 7:29 AM Signed Incidental Lung Nodule Enrollment Outreach attempt: 2nd Attempt Outreach status: Complete Enrolled in Lung Nodule program: Referred Lung Nodule outreach: Needs outreach Lung Nodule Program Location: [place] Two letter attempts Allergies As of Date: [...] capsule by mouth once daily. - Evening Sidney Oil (EVENING PRIMROSE) 500 mg cap Take [...] Text Encounter Status:Closed by KAVITHA INTERIANO on 07/29/23[facility]12-04-2023 NoteHNO ID: [id number] Author: Silvia Ge APRN.CNP Service: ? Author Type: Nurse Practitioner Type: Progress Notes Filed: 07/22/2023 1:45 PM Note Text: Incidental Lung Nodule Enrollment Outreach attempt: 1st Attempt Outreach status: Complete Enrolled in Lung Nodule program: Referred Lung Nodule outreach: Needs outreach Lung Nodule Program Location: [place] Letter sent to patient regarding incidental lung nodule(s). Silvia Ge APRN.CNP July 22, 2023 1[facility] History of Present illness Narrative* Silvia Ge APRN.CNP - 07/22/2023 1:42 PM EST Incidental Lung Nodule Enrollment Outreach attempt: 1st Attempt Outreach status: Complete Enrolled in Lung Nodule program: Referred Lung Nodule outreach: Needs outreach Lung Nodule Program Location: [place] Letter sent to patient regarding incidental lung nodule(s). Silvia Ge APRN.CNP July 22, 2023 1:42 PM documented in this encounterMer[facility]12-04-2023 NotePatient Outreach (PMNA11) CORRIE MCCRAY ([id number]) 1950 F Date Time Provider Department 07/22/23 SILVIA GE1 During your visit today, we recorded the following information about you: Silvia Ge APRN.CNP 07/22/2023 1:45 PM Signed Incidental Lung Nodule Enrollment Outreach attempt: 1st Attempt Outreach status: Complete Enrolled in Lung Nodule program: Referred Lung Nodule outreach: Needs outreach Lung Nodule Program Location: [place] Letter sent to patient regarding incidental lung nodule(s). Silvia RENETTA Ge.ADMIN ASSISTANT July 22, 2023 1:42 PM Allergies As [...] capsule by mouth once daily. - Evening Sidney Oil (EVENING PRIMROSE) 500 mg cap Take [...] Text Encounter Status:Closed by SILVIA GE on 07/22/23[facility] 07-05-2023 NoteHNO ID: [id number] Author: Silvia Mckeon RT(Esteban) Service: Radiology Author Type: Ammonia Technician Type: Progress Notes Filed: 07/05/2023 3:03 PM [...] BY: RT Yesica(R) July 05, 2023 3:00 [facility]11-17-2023 NoteHNO ID: [id number] Author: Liss Anne TECHNOLOGIST Service: ? Author [...] BY: TECHNOLOGIST Jennifer July 05, 2023 3:02 [facility]11-17-2023 NoteHNO ID: [id number] Author: Sarah Mtz RRT Service: ? 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 Author Type: Physician Type: Progress Notes Filed: 06/11/2023 11:43 AM Note Text: [facility] [place] [facility] C[facility]IOLOGY OUTPATIENT VISIT DATE June 11, 2023 OUTPATIENT VISIT TYPE NEW PRIMARY CARE PHYSICIAN: Hussein Rowan ([facility]) [address] [place] [address] A written report of the findings and [...] No FAMILY HISTORY Problem (more content not included)...[facility]10-24-2023 History of Present illness Narrative* Zaire Fry MD - 06/11/2023 11:17 AM EDT Images from the original note were not included. [facility] OUTPATIENT VISIT DATE June 11, 2023 OUTPATIENT VISIT TYPE NEW PRIMARY CARE PHYSICIAN: Hussein Rowan ([facility]) [address] [place] [address] A written report of the findings and [...] 1 capsule by mouth once daily. Evening Sidney Oil (EVENING PRIMROSE) 500 mg cap Take 1 capsule by mouth once daily. Flaxseed Oil 1,000 mg cap Take 1 capsule by mouth once daily. FLUAD QUAD 2020-21,65Y UP,,PF, 60 mcg (15 mcg x 4)/0.5 mL syrg PHARMACY ADMINISTERED (Patient not taking: Reported on 06/11/2023) documented in this encounterMer[facility]10-13-2023 Evaluation note* Encounter Date Diagnosis Assessment Notes Treatment Notes Treatment Clinical Notes May, Abrasion of right cornea, initial encounter (ICD-10 - S05.01XA) Drink plenty fluids, get plenty of rest. Use the eyedrops as prescribed. Today you may instill the eyedrops every 2 hours and then 4 times a day for the next 4 days. Follow-up with your automatic spinning lathe setter if no improvement in 2 to 3 days. Continue home medications as prescribed [facility] Other 08-07-2023 Miscellaneous Notes* Telephone Encounter - Kae Pereira - 03/25/2023 4:47 PM EDT Patient: Corrie Mccray Date of : 1950 Patient phone number: [phone] Referring Provider for the encounter: Hussein Rowan Requesting Provider: n/c Reason for requesting visit (RFV/signs and symptoms/diagnosis): Precordial pain (R07.2) Person calling: caregiver: Kae Return call to: self Medical Records/Insurance Card scanned into [employer]RO[employer]: Yes Comments: documented in this encounterMer[facility]07-26-2023 Evaluation note* Encounter Date Diagnosis Assessment Notes Treatment Notes Treatment Clinical Notes Feb, Dyspnea on exertion (ICD-10 - R06.09) [facility] Other 07-24-2023 Evaluation note* Encounter Date Diagnosis [...] the risk for cerebrovascular and cardiovascular disease. [facility] Other 05-31-2023 Evaluation note* Encounter Date Diagnosis [...] Hold exercise routine until stress testing completed [facility] Other 05-10-2023 Evaluation note* Encounter Date Diagnosis [...] Z79.899) December, Metabolic syndrome (ICD-10 - E88.81) [facility] Other 05-10-2023 Evaluation note* Encounter Date Diagnosis Assessment Notes Treatment Notes Treatment Clinical Notes December, KHAN (dyspnea on exertion) (ICD-10 - R06.09) [facility] Other 05-10-2023 NotePROCEDURE: XR CHEST 2 V DATE: 12/26/2022 9:26 AM CDT COMPARISONS: None. CLINICAL INDICATION: 72 years Female Dyspnea FINDINGS: The cardiomediastinal silhouette and pulmonary vasculature are within normal limits. The lungs are clear. There is no evidence of pleural effusion or pneumothorax. IMPRESSION: Chest radiograph is within normal limits. Electronically authenticated by: DEREK BONILLA Date: 2022-12-26 11:05[facility]09-12[facility]22 NoteOPERATIVE NOTE OPERATION DATE: 04/30/2022 PROCEDURE: D AND C hysteroscopy with Myosure. PREOPERATIVE DIAGNOSIS: Postmenopausal bleeding, thickened endometrium. POSTOPERATIVE DIAGNOSIS: Postmenopausal bleeding, thickened endometrium. ANESTHESIA: General. SURGEON: Zion Rizzo D.O. CANVAS CUTTER HAND: None. FINDINGS: Atrophic appearing cavity. No gross [...] to the Recovery Room in stable condition.[id number] History of Present illness Narrative* Tina Brown, [...] 10, 2022 2:31 PM documented in this encounterMer[facility]02-28-2022 Evaluation note* Encounter Date Diagnosis Assessment [...] we will help you get into specialist. [facility] Other 06-27-2017 History of Past illness Narrative* [...] of this encounter (statuses as of 04/10/2022) [facility] of Past illness Narrative* Problem [...] of this encounter (statuses as of 03/26/2023) [facility] of [facility] illness Narrative* Problem [...] of this encounter (statuses as of 06/11/2023) [facility] illness Narrative* Problem [...] of this encounter (statuses as of 07/05/2023) [facility] Narrative* Problem [...] of this encounter (statuses as of 07/23/2023) [facility] Narrative* Problem [...] of this encounter (statuses as of 07/29/2023) [facility] illness Narrative* Problem [...] of this encounter (statuses as of 11/12/2023) [facility] note* Diagnosis Low-tension glaucoma of both eyes, unspecified glaucoma stage- Primary Keratitis sicca, bilateral (HCC) Other forms of keratitis History of trabeculectomy, right eye Other states following surgery of eye and adnexa documented in this encounter [facility] noteNo TravelKnowledgeFritch [employer] Other Evaluation note* Diagnosis Chest discomfort Other chest pain SOB (shortness of breath) Shortness of breath Pure hypercholesterolemia Primary hypertension Unspecified essential hypertension documented in this encounter [facility] note* Diagnosis SOB (shortness of breath) Shortness of breath documented in this encounter [facility] note* Diagnosis Lung nodule- Primary Solitary pulmonary nodule documented in this encounter [facility] note* Diagnosis Low-tension glaucoma of both eyes, unspecified glaucoma stage- Primary Keratitis sicca, bilateral (HCC) Other forms of keratitis Pseudophakia, left eye Lens replaced by other means documented [facility] this encounter [facility]* Diagnosis Pre-op evaluation- Primary Preoperative examination, unspecified Combined forms of age-related cataract of right eye Other and combined forms of senile cataract Low-tension glaucoma of both eyes, unspecified glaucoma stage Other specified hypothyroidism Low-tension glaucoma of both eyes, unspecified glaucoma stage- Primary Keratitis sicca, bilateral Other forms of keratitis documented in this encounter [facility] general Narrative - Reported* Type Description Date Medical History glaucoma Surgical History lithotripsy Surgical History bladder suspension, unspecified Surgical History tonsillectomy Surgical History CTS b/l hands Surgical History laparoscopy Surgical History colonoscopy Surgical History eyes Hospitalization History see above [facility] Other History general Narrative - Reported* Type [...] Surgical History eyes Hospitalization History see above [facility] Other History general Narrative - ReportedNoWeLike Other History general Narrative - Reported* Type [...] Surgical History eyes Hospitalization History see above [facility] Other Summary Purpose Family History No Family [...] Zaire Fry MD [address] [place] [address] [place] [address] Referral ID Status Reason Start Date Expiration Date Visits Requested Visits Authorized [id number] Authorized Auto-Generat ed Referral 3 07/10/2024 1 1 Specialty Diagnoses / Procedures Referred By Contac t Referred To Contact [facility] Diagnoses SOB (shortness of breath) Procedures SPIROMETRY WITH DILATOR IF OBSTRUCTED BRNCDILAT RSPSE SPMTRY PRE&POST-BRNCDILAT ADMN Zaire Fry MD [address] [place] [address] Res[facility] [place] [address] [place] [address] Referral ID Status Reason Start Date Expiration Date Visits Requested Visits Authorized [id number] Authorized Auto-Generat ed Referral 3 07/10/2024 1 1 Specialty Diagnoses / Procedures Referred By Contact Referred To [facility] Diagnoses Chest discomfort SOB (shortness of breath) Pure hypercholesterolemia Procedures ECG COMPLETE ECG ROUTINE ECG W/LEAST 12 LDS W/I&R Zaire Fry MD [address] [place] [address] [facility] [address] [address] Referral ID Status Reason Start Date Expiration Date Visits Requested Visits Authorized [id number] Pending Review Auto-Generat ed Referral 3 06/10/2024 1 1 Reason Mrs. Mccray is being referred for dyspnea and chest pain Diagnosis 1 Precordial pain (R07 .2) Referral Organization [facility] Sukhjinder cai Referring Provider First Name Hussein Referring Provider Last Name Sukhjinder Referring Provider Specialty Internal Me dicine [facility] Referred Address [address], [place],[address] Referred Provider Specialty Cardiology Referral Priority Routine [...] section and content) DATE CREATED AUTHOR 11/06/2021 [facility] DATE CREATED AUTHOR AUTHOR'S ORGANIZ ATION 01/01/2023 [facility] DATE CREATED AUTHOR AUTHOR'S ORGANIZ ATION 07/08/2023 [facility] DATE CREATED AUTHOR AUTHOR'S ORGANIZ ATION 11/16/2023 [facility] EPIC DATE CREATED AUTHOR AUTHOR'S ORGANIZ ATION 05/02/2024 [facility] EPIC DATE CREATED AUTHOR AUTHOR'S ORGANIZ ATION 05/20/2024 [facility] REASON FOR VISIT (unrecogniz ed [...] RSPSE SPMTRY PRE&POST-BRNCDILAT ADMN Zaire Fry MD [address] [place] [address] [facility] [place] [address] [place] [address] Referral ID Status Reason Start Date Expiration Date V isits Requested Visits Authorized [id number] Closed Auto-Generate d Referral 06/11/2023 07/10/2024 1 [...] or prosecute any alcohol or drug abuse patient.[facility] HospitalIn the event this information is protected by the Federal Confidentiality of Alcohol and Drug Abuse Patient Records regulations: The Federal rules restrict any use of the information to criminally investigate or prosecute any alcohol or drug abuse patient.[facility] HospitalIn the event this information is protected by the Federal Confidentiality of Alcohol and Drug Abuse Patient Records regulations: The Federal rules restrict any use of the information to criminally investigate or prosecute any alcohol or drug abuse patient.[facility] HospitalIn the event this information is protected by the Federal Confidentiality of Alcohol and Drug Abuse Patient Records regulations: The Federal rules restrict any use of the information to criminally investigate or prosecute any alcohol or drug abuse patient.[facility] HospitalIn the event this information is protected by the Federal Confidentiality of Alcohol and Drug Abuse Patient Records regulations: The Federal rules restrict any use of the information to criminally investigate or prosecute any alcohol or drug abuse patient.[facility] HospitalIn the event this information is protected by the Federal Confidentiality of Alcohol and Drug Abuse Patient Records regulations: The Federal rules restrict any use of the information to criminally investigate or prosecute any alcohol or drug abuse patient.[facility] HospitalIn the event this information is protected by the Federal Confidentiality of Alcohol and Drug Abuse Patient Records regulations: The Federal rules restrict any use of the information to criminally investigate or prosecute any alcohol or drug abuse patient.[facility] HospitalIn the event this information is protected by the Federal Confidentiality of Alcohol and Drug Abuse Patient Records regulations: The Federal rules restrict any use of the information to criminally investigate or prosecute any alcohol or drug abuse patient.[facility] Care Teams (unrecognized sec tion and content) Avionics Safety Inspector Relationship Specialty Start Date End Date Hussein Rowan DO [address] [place] [address] PCP - General Internal Medicine 11/29/20 Avionics Safety Inspector Relationship Specialty Start Date End Date Hussein Rowan DO [address] [facility] [place] [place] [address] PCP - General Internal Medicine 11/29/20 Avionics Safety Inspector Relationship Specialty Start Date End Date Hussein Rowan DO [address] [facility] [place] [place] [address] PCP - General Internal Medicine 11/29/20 Avionics Safety Inspector Relationship Specialty Start Date End Date Hussein Rowan DO [address] [facility] [place] [address] PCP - General Internal Medicine 11/29/20 Avionics Safety Inspector Relationship Specialty Start Date End Date Hussein Rowan DO [address] [facility] [place] [place] [address] PCP - General Internal Medicine 11/29/20 Avionics Safety Inspector Relationship Specialty Start Date End Date Hussein Rowan DO [address] [facility] [place] [place] [address] PCP - General Internal Medicine 11/29/20 Avionics Safety Inspector Relationship Specialty Start Date End Date Hussein Rowan DO [address] [facility] [place] [place] [address] PCP - General Internal Medicine 11/29/20 Avionics Safety Inspector Relationship Specialty Start Date End Date Hussein Rowan DO [address] [facility] [place] [place] [address] PCP - General Internal Medicine 11/29/20 FOR [...] BE BASED ON THE PRIMARY CLINICAL RECORDS. [facility] [employer], [facility]. provides no warranty or guarantee of the accuracy or completeness of information in this document.
[2024-08-10 08:57] LABS: Alanine Aminotransferase 43 U/L (14-59); Albumin Globulin Ratio 1.3; Albumin Level 3.9 g/dL (3.4-5.0); Alkaline Phosphatase 60 U/L (46-116); Anion Gap 12.3; Aspartate Amino Transferase 38 U/L (15-37); BUN Creatinine Ratio 15.7; Bilirubin Total 0.5 mg/dL (0.2-1.0); Calcium 9.1 mg/dL (8.5-10.1); Carbon Dioxide 28.5 mmol/L (21.0-32.0); Chloride 107 mmol/L (98-107); Chol HDL Ratio 2.4; Cholesterol 167 mg/dL (<=200); Estimated GFR (African America >60 (>=60 mL/min/1.73m^2); Estimated GFR (Non-African Ame >60 (>=60 mL/min/1.73m^2); Globulin 2.9 g/dL; Glucose 99 mg/dL (74-106); HDL Cholesterol 70 mg/dL (40-60); Potassium 3.8 mmol/L (3.5-5.1); Sodium 144 mmol/L (136-145); Thyroid Stimulating Hormone 3.651 uIU/mL (0.358-3.740); Total Protein 6.8 g/dL (6.4-8.2); Triglycerides 70 mg/dL (<=150)
[2024-08-10 09:06] LABS: Basophils Percent Auto 0.6 % (0.2-2.0); Eosinophils Absolute Auto 0.1 10^3/uL (0.0-0.7); Eosinophils Percent Auto 1.7 % (0.9-7.0); Hematocrit 41.2 % (36.0-48.0); Hemoglobin 13.8 g/dL (12.0-16.0); Immature Granulocytes Abs Auto 0.01 10^3/uL (0.00-0.03); Immature Granulocytes Pct Auto 0.3 % (0.0-0.5); Lymphocytes Absolute Auto 1.5 10^3/uL (1.2-3.8); Lymphocytes Percent Auto 40.6 % (20.5-60.0); Mean Corpuscular HGB Conc 33.5 g/dL (29.9-35.2); Mean Corpuscular Hemoglobin 30.8 pg (26.7-34.0); Mean Platelet Volume 9.5 fL (9.5-13.5); Monocytes Absolute Auto 0.3 10^3/uL (0.3-0.8); Monocytes Percent Auto 9.4 % (1.7-12.0); Neutrophils Absolute Auto 1.7 10^3/uL (1.4-6.5); Neutrophils Percent Auto 47.4 % (43.0-75.0); Platelet Count 260 10^3/uL (150-450); Red Blood Count 4.48 10^6/uL (4.20-5.40); Red Cell Distribution Width 11.5 % (11.0-15.0); White Blood Count 3.6 10^3/uL (4.0-11.0)
== END 2024-08-10 07:48 | disposition home or self-care (01) ==
LOC: LAB 07:48
PROVIDERS: PCP Internal Medicine; Visit Provider Internal Medicine
DX: E78.00 Pure hypercholesterolemia, unspecified (principal); E03.8 Other specified hypothyroidism; E06.3 Autoimmune thyroiditis; I10 Essential (primary) hypertension
CPT/HCPCS: 36415; 80053; 80061; 84443; 85025

== ENCOUNTER 2024-11-16 08:04 | Outpatient (OUT) | payer MEDICARE, OTHER, SELFPAY ==
--- OUTSIDE RECORDS SUMMARY | 2024-11-16 08:12 | XMS_ITS | CCD ---
Author Organization [facility] CliniSynh Care Team Providers Care General Warehouse Associate Name Role Phone Dena Davis Unavailable Hussein [...] [Vicodin] Drug Allergy 05-21-20 13 Unknown [facility] Repository (20 sources) Acetaminophen / oxyCODONE Drug Allergy 06-12-20 13 [facility] Work Phone: (12 sources) buPROPion; Translations: [Wellbutrin] Drug Allergy 07-22-20 15 Unknown [facility] Repository (14 sources) Sulf-10 Drug allergy Unknown [facility] Other (10 sources) Acetaminophen / HYDROcodone; Translations: [HYDROCODONE-ACET AMINOPHEN] Drug Allergy 05-21-20 13 [facility] (10 sources) buPROPion; Translations: [BUPROPION HCL] Drug Allergy 06-12-20 13 [facility] Work Phone: (18 sources) Sulfonamides (Antibiotic); Translations: [SULFA (SULFONAMIDE ANTIBIOTICS)] Drug Intolerance 06-12-20 13 [facility] Work Phone: (1 source) Acetaminophen / oxyCODONE Drug Allergy 05-21-20 13 [facility] Repository (3 sources) Leucine; Translations: [NICKEL] Drug Allergy 11-09-19 16 [facility] Repository (1 source) Sulfonamides (Antibiotic) Drug allergy (disorder) 05-21-20 13 [facility] Repository (8 sources) buPROPion Drug Allergy Unknown [facility] Other (14 sources) nickel Drug Allergy 07-10-20 18 [facility] (8 sources) Vicodin *ANALGESICS - OPIOID* Propensity to adverse reactions Unknown [place] Other (5 sources) Allergies Reconciled Propensity to adverse reactions Unknown [place] Other (2 sources) Acetaminophen / oxyCODONE; Translations: [OXYCODONE-ACETAM INOPHEN] Drug Allergy 06-12-20 13 [facility] Other [place] Repository Medications Current Medications Medication Drug Class(es) [...] 1 capsule by mouth once daily Evening [place] Oil (EVENING PRIMROSE) 500 mg cap Take 1 capsule by mouth once daily. 0 06/12/2013 Active Comment on above: Take 1 capsule by [facility] once daily. iv contrast (will be provided [...] Comment on above: Take 1 capsule by [facility] once daily. losartan potassium 25 mg oral [...] Comment on above: Take 1 capsule by [facility] once daily. Thyroid (1 source) Thyroid Active [...] 2 Chronic Other aftercare (1 source) Other buttermilk drier operator (current) drug therapy Episodic Other eye disorders [...] FIELD 24-2 OU (BOTH E YES)on 05-19-2024 [facility] Radiology Study observation (narrative) [facility] CTA CORONARY W IVCONon 07-05 CTA CORONARY W IVCON * * *Final Report* * * DATE OF EXAM: Jul 05 2023 3:04PM FVC 0470 - CTA CORONARY W IVCON / PROCEDURE REASON: multiple diagnoses * * * * Physician Interpretation * * * * CTA CORONARY ARTERIES acquired at [facility] - images were acquired and screened for acute findings earlier. Subsequently reported following overnight procedure. Direct Image Comparison: None HISTORY: 72 years old Female patient with chronic h/o chest pain, suspected CAD Evaluation for further treatment options.. There is request to define coronary anatomy. TECHNIQUE: SCANNER: Siemens Definition Flash Dual source [id number] scanner PROTOCOL: Sequential imaging of the heart with prospective triggering in diastolic phase and submillimeter slice reconstruction following administration of contrast material. Scan Range: carlos a to the base of the heart CT Dose-Length Product (DLP): 265 mGy*cm CT Dose Reduction Employed: Automated exposure control(AEC) and iterative recon CONTRAST: IV administration of 90 ml Omnipaque 350 Premedication per [facility] [place] protocol/documentation. Scan acquisition: uncomplicated Macro Version: [id number]:CCTW_3 For optimization of anatomic evaluation, advanced 3-D off-line postprocessing was performed on a dedicated workstation by the interpreting physician. Additional lung CAD. [place] images reconstructed, saved, and available in [employer] 'Get Images'. STUDY LIMITATIONS: Limited contrast enhancement [...] AORTIC DIMENSIONS: AORTIC ROOT: 3 cm measured [id number] mid ASCENDING THORACIC AORTA: 3.2 cm mid [...] or luminal stenosis. limited upper ABDOMEN: unremarkable Supply Chain Systems Manager (topogram) images: No additional findings. IMPRESSION: NO EVIDENCE OF ATHEROSCLEROTIC CHANGES OR LUMINAL STENOSIS OF THE CORONARY ARTERIES -Direct epicardial course of tortuous mid LAD segment without intramyocardial extension. -Distal branches are not well visualized CAD-RADS 0: No plaque or luminal stenosis. Absence of CAD., - Overall Plaque [place]: No evidence of plaque visualized LUNGS: non-calcified [...] be communicated with the ordering provider via [email or web address] staff message by Imaging Support Services within 2 business days of report finalization. Concessionist: RUSTAM Transcribe (more content not included)... Invalid Interpretation Code [facility] NURSING PROGon 07-05-2023 NURSING PROG HNO ID: [id number] Author: Priscila Reyes RN Service: Radiology Author [...] Reyes RN July 05, 2023 2:45 PM [facility] NURSING PROG HNO ID: [id number] Author: Priscila Reyes RN Service: Radiology Author [...] DATE: July 05, 2023 TIME: 2:48 PM [facility] SPIROMETRY WITH DILATOR IF O BSTRUCTEDon 07-05-2023 PLT09-50% PRE (L/S) 1.83 L/S [facility] FEV1 PRE (L) 2.23 L [facility] FEV1/FVC PRE (%) 76 % [facility] FVC PRE (L) 2.93 L [facility] PEF PRE (L/S) 6.37 L/S [facility] CNOVon 06-11-2023 CNOV Office Visit (NAINA ) -------- CORRIE MCCRAY ([id number]) 1950 F Date Time Provider Department 06/11/23 11:30 AM ZAIRE FRY During your visit today, we recorded the following information about you: Pulse Blood pressure Weight Height 76/minute 110/70 65.3 kg 1.575 m Zaire Fry MD 06/11/2023 11:43 AM Signed [facility] SECTION OF REGIONAL CARDIOLOGY OUTPATIENT VISIT DATE June 11, 2023 OUTPATIENT VISIT TYPE NEW PRIMARY CARE PHYSICIAN: Hussein Rowan ([facility]) [address] [place] [address] A written report of the findings and [...] os Catarac (more content not included)... Normal [facility] ECG COMPLETEon 06-11-2023 ECG COMPLETE Ventricular Rate : 7 4 BPM Atrial Rate : 74 BPM P-R Interval : 148 ms QRS Duration : 72 ms Q-T Interval : 390 ms QTC Calculation(Bazett) : 432 ms Calculated P [place] : -2 degrees Calculated R [place] : 7 degrees Calculated [place] : -4 degrees NORMAL SINUS RHYTHM NONSPECIFIC ST AND T WAVE ABNORMALITY ABNORMAL ECG Confirmed by GREGG MULLEN MD ([id number]) on 06/14/2023 11:22:04 PM NAME : CORRIE MCCRAY PID : [id number] : 1950 Gender : Female Race : Unknown ORD : [id number] Procedure Date : Jun 11 2023 11:26:41 Edit Date : Jun 14 2023 23:22:08 Diagnosis: NORMAL SINUS RHYTHM NONSPECIFIC ST AND T WAVE ABNORMALITY ABNORMAL ECG Confirmed by GREGG MULLEN MD ([id number]) on 06/14/2023 11:22:04 PM Test Reason : R07.89 Chest discomfort Location : 145 : LOCARD Overread By : GREGG MULLEN MD Edited By : GREGG MULLEN MD Referred By : HUSSEIN ROWAN Acquired by : Elva wilson [facility] ECHOCARDIO M/2D COMPLETEon 0 12-31-2022 ECHOCARDIO M/2D COMPLETE Patient: CORRIE MCCRAY Exam Date: 12/31/2022 : 1950 Gender:F Ordering : DR HUSSEIN ROWAN D.O. Admission #: [id number] Family : Order #: [id number] CLICK HERE TO VIEW EXAM ECHOCARDIOGRAM REPORT [...] M.D. on 01/01/2023 at 19:41 Normal [facility] CBC AUTO DIFFon 12-26-2022 BASO # 0.0 103/ul Normal 0.0-0.1 [facility] Comment on above: Performed By: #### CBC ####[facility] ital [address] [place] [address]DrЕкатерина Bates Basophils/100 WBC (Bld) 1.0 % Normal 0.2-2.0 [facility] Comment on above: Performed By: #### CBC ####[facility] ital [address]qei[address] [place] [id number] Bates EO # 0.1 103/ul Normal 0.0-0.7 [facility] Comment on above: Performed By: #### CBC ####[facility] ital [address]hwqvfgelq[address] [place] [address]Dr. Vicki Bates Eosinophils/100 WBC (Bld) 1.5 % Normal 0.9-7.0 [facility] Comment on above: Performed By: #### CBC ####[facility] ital Johsgfgbpy[address] [place] [address]Dr. Vicki Bates Erythrocyte distribution width (RBC) [Ratio] 11.9 % Normal 11.0-15.0 [facility] Comment on above: Performed By: #### CBC ####[facility] ital Vcrnzaegkx[address] [place] [address]Dr. Vicki Bates Hematocrit (Bld) [Volume fraction] 43.5 % Normal 36.0-48.0 [facility] Comment on above: Performed By: #### CBC ####[facility] ital Eqoezisuz[address] [place], [place] [address]Dr. Vicki Bates Hemoglobin (Bld) [Mass/Vol] 14.4 g/dL Normal 12.0-16.0 [facility] Comment on above: Performed By: #### CBC ####[facility] ital Meshkewjdt[address] [place], [place] [address]Dr. Vicki Bates IG # 0.01 10e3/ul Normal 0.00-0.03 [facility] Comment on above: Performed By: #### CBC ####[facility] ital [address] [place] [address]Dr. Vicki Bates IG % 0.3 % Normal 0.0-0.5 [facility] Comment on above: Performed By: #### CBC ####[facility] ital Xk[address] [place], [place] [address]Dr. Vicki Bates LYMPH # 1.8 103/ul Normal 1.2-3.8 [facility] Comment on above: Performed By: #### CBC ####[facility] ital Rjhdxaozyf[address] [place], [place] [address]Dr. Vicki Bates Lymphocytes/100 WBC (Bld) 44.6 % Normal 20.5-60.0 [facility] Comment on above: Performed By: #### CBC ####[facility] ital Afchitgcet[address] [place] [address]Dr. Vicki Bates MANUAL DIFF REQ NO Normal [facility] Comment on above: Performed By: #### CBC ####[facility] ital Monimsfkez[address] [place] [id number]. Vicki Bates MCH (RBC) [Entitic mass] 31.1 pg Normal 26.7-34.0 [facility] Comment on above: Performed By: #### CBC ####[facility] ital Kwh[address]lyt[address] [place] [address]Dr. Vicki Bates MCHC (RBC) [Mass/Vol] 33.1 g/dL Normal 29.9-35.2 [facility] Comment on above: Performed By: #### CBC ####[facility] ital Lroba[address]osmo[address] [place] [address]Dr. Vicki Bates MCV (RBC) [Entitic vol] 94.0 fL Normal 81.0-99.0 [facility] Comment on above: Performed By: #### CBC ####[facility] ital Qgrlqmquqn[address] [place] [address]Dr. Vicki Bates MONO # 0.4 103/ul Normal 0.3-0.8 [facility] Comment on above: Performed By: #### CBC ####[facility] ital Upwspblafe[address] [place] [address]Dr. Vicki Bates Monocytes/100 WBC (Bld) 9.0 % Normal 1.7-12.0 [facility] Comment on above: Performed By: #### CBC ####[facility] ital Avdrnyppyr[address] [place] [address]Dr. Vicki Bates NEUT # 1.7 103/ul Normal 1.4-6.5 [facility] Comment on above: Performed By: #### CBC ####[facility] ital Ckofhjnlas[address] [place] [address]Dr. Vicki Bates Neutrophils/100 WBC (Bld) 43.6 % Normal 43.0-75.0 [facility] Comment on above: Performed By: #### CBC ####[facility] ital [address]ob[address]haaz[address] [place] [id number] Bates Platelet mean volume (Bld) [Entitic vol] 9.1 fL Critically low 9.5-13.5 [facility] Comment on above: Performed By: #### CBC ####[facility] ital [address]xef[address]om[address] [place] [id number]. Vicki Bates PLT 242 103/ul Normal 150-450 [facility] Comment on above: Performed By: #### CBC ####[facility] ital Gfu[address]xcgv[address] [place] [id number]. Vicki Bates RBC 4.63 106/ul Normal 4.20-5.40 [facility] Comment on above: Performed By: #### CBC ####[facility] ital Njbvlimhmx[address] [place] [address]Dr. Vicki Bates WBC 4.0 103/ul Normal 4.0-11.0 [facility] Comment on above: Performed By: #### CBC ####[facility] ital Jkpufyegik[address] [place] [id number]. Vicki Bates LIPID PROFILEon 12-26-2022 CHOL-HDL RATIO NORM SEE BELOW Normal [facility] Comment on above: Result Comment: 3.3 - 4.4 LOW RISK 4.4 - 7.1 AVERAGE RISK 7.1 - 11.0 MODERATE RISK >11.0 HIGH RISK Performed By: #### T SH, LIPID, BMP #### [facility] [address] [place] [address] [address] Vicki Bates Cholesterol [Mass/Vol] 221 mg/dL Critically high <=200 [facility] Comment on above: Performed By: #### TSH, LIPID, BMP #### [facility] [address] [address] [address] Vicki Bates Cholesterol in HDL [Mass/Vol] 68 mg/dL Critically high 40-60 [facility] Comment on above: Performed By: #### TSH, LIPID, BMP #### [facility] [address] [address] [address] Vicki Bates Cholesterol in LDL [Mass/Vol] 140.8 mg/dL Normal [facility] Comment on above: Performed By: #### TSH, LIPID, BMP #### [facility] [address] [address] [address] Vicki Bates Cholesterol.tota l/Cholesterol in HDL [Mass ratio] 3.3 {ratio} Normal [facility] Comment on above: Performed By: #### TSH, LIPID, BMP #### [facility] [address] [address] [address] Vicki Bates HDL NORMAL > or = 60 mg/dl - LO W CARDIOVASCULAR RISK <40 mg/dl - HIGH CARDIOVASCULAR RISK Normal [facility] Comment on above: Performed By: #### TSH, LIPID, BMP #### [facility] [address] [address] [address] Vicki Bates LDL CALC NORMAL SEE BELOW Normal [facility] Comment on above: Result Comment: <100 mg/dl OPTIMAL 100 - 129 mg/dl NEAR OR ABOVE OPTIMAL 130 - 159 mg/dl BORDERLINE HIGH 160 - 189 mg/dl HIGH >190 mg/dl VERY HIGH Performed By: #### T SH, LIPID, BMP #### [facility] [address] [address] [address] Vicki Bates Triglyceride [Mass/Vol] 61 mg/dL Normal <=150 [facility] Comment on above: Performed By: #### TSH, LIPID, BMP #### [facility] [address] [address] [address] Vicki Bates VLDL CALC 12.2 mg/dL Normal [facility] Comment on above: Performed By: #### TSH, LIPID, BMP #### [facility] [address] [address] [address] Vicki Bates PROF CHEM 8 (BAS METB)on Anion gap [Moles/Vol] 11.5 mmol/L Normal [facility] Comment on above: Performed By: #### TSH, LIPID, BMP #### [facility] [address] [address] [address] Vicki Bates Calcium [Mass/Vol] 9.5 mg/dL Normal 8.5-10.1 [facility] Comment on above: Performed By: #### TSH, LIPID, BMP #### [facility] [address] [address] [address] Vicki Bates Chloride [Moles/Vol] 106 mmol/L Normal 98-107 [facility] Comment on above: Performed By: #### TSH, LIPID, BMP #### [facility] [address] [address] [address] Vicki Bates CO2 [Moles/Vol] 30.1 mmol/L Normal 21.0-32.0 [facility] Comment on above: Performed By: #### TSH, LIPID, BMP #### [facility] [address] [place] [address] Dr. Vicki Bates Creatinine [Mass/Vol] 0.81 mg/dL Normal 0.55-1.02 [facility] Comment on above: Performed By: #### TSH, LIPID, BMP #### [facility] [address] [address] [address] Vicki Bates EGFR-AF GABONESE >60 Normal >=60 [facility] Comment on above: Performed By: #### TSH, LIPID, BMP #### [facility] [address] [place] [address] Dr. Vicki Bates EGFR-NON AF GABONESE >60 Normal >=60 [facility] Comment on above: Performed By: #### TSH, LIPID, BMP #### [facility] [address] [address] [address] Vicki Bates Glucose [Mass/Vol] 91 mg/dL Normal 74-106 [facility] Comment on above: Performed By: #### TSH, LIPID, BMP #### [facility] [address] [address] [address] Vicki Bates Potassium [Moles/Vol] 4.3 mmol/L Normal 3.5-5.1 [facility] Comment on above: Performed By: #### TSH, LIPID, BMP #### [facility] [address] [address] [address] Vicki Bates Sodium [Moles/Vol] 143 mmol/L Normal 136-145 [facility] Comment on above: Performed By: #### TSH, LIPID, BMP #### [facility] [address] [address] [address] Vicki Bates Urea nitrogen [Mass/Vol] 18.0 mg/dL Normal 7.0-18.0 [facility] Comment on above: Performed By: #### TSH, LIPID, BMP #### [facility] [address] [address] [address] Vicki Bates Urea nitrogen/Creatin ine [Mass ratio] 22.2 mg/mg Normal [facility] Comment on above: Performed By: #### TSH, LIPID, BMP #### [facility] [address] [address] [address] Vicki Bates TSHon 12-26-2022 TSH 3.814 uIU/mL Critically high 0.358-3.740 [facility] Comment on above: Performed By: #### TSH, LIPID, BMP #### [facility] [address] [address] [address] Vicki Bates MG MAMM SCREEN 3D CRISTINA CADon 05-07-2022 MG MAMM SCREEN 3D CRISTINA CAD Patient: CORRIE MCCRAY Exam Date: 05/07/2022 : 1950 Gender:F Ordering : DR HUSSEIN ROWAN D.O. Admission #: [id number] Family : Order #: [id number] CLICK HERE TO VIEW EXAM RADIOLOGY REPORT [...] lung cancer at age 85. LOCATION: [facility] BREAST COMPOSITION: Almost entirely fatty. FINDINGS: DIAGNOSTIC [...] M.D. on 05/07/2022 at 13:23 Normal [facility] CBC AUTO DIFFon 04-30-2022 BASO # 0.0 103/ul Normal 0.0-0.1 [facility] Comment on above: Performed By: #### CBC ####[facility] [address] [place] [id number]. Laureenchya Bates Basophils/100 WBC (Bld) 0.5 % Normal 0.2-2.0 [facility] Comment on above: Performed By: #### CBC ####[facility] [address] [place] [address]Dr. Vicki Bates EO # 0.1 103/ul Normal 0.0-0.7 [facility] Comment on above: Performed By: #### CBC ####[facility] [address] [place] [id number]. Laureenchay Bates Eosinophils/100 WBC (Bld) 1.5 % Normal 0.9-7.0 [facility] Comment on above: Performed By: #### CBC ####[facility] [address] [place] [id number]. Laureenchay Baets Erythrocyte distribution width (RBC) [Ratio] 11.7 % Normal 11.0-15.0 [facility] Comment on above: Performed By: #### CBC ####[facility] [address] [place] [address]Dr. Laureenchay Bates Hematocrit (Bld) [Volume fraction] 42.8 % Normal 36.0-48.0 [facility] Comment on above: Performed By: #### CBC ####[facility] [address] [place] [id number]. Vicki Bates Hemoglobin (Bld) [Mass/Vol] 14.2 g/dL Normal 12.0-16.0 [facility] Comment on above: Performed By: #### CBC ####[facility] ital [address]prw[address] [place] [id number]. Vicki Bates IG # 0.01 10e3/ul Normal 0.00-0.03 [facility] Comment on above: Performed By: #### CBC ####[facility] ital [address]hvgjh[address] [place] [id number]. Vicki Bates IG % 0.2 % Normal 0.0-0.5 [facility] Comment on above: Performed By: #### CBC ####[facility] [address]fefd[address] [place] [address]Dr. Vicki Bates LYMPH # 1.8 103/ul Normal 1.2-3.8 [facility] Comment on above: Performed By: #### CBC ####[facility] [address] [place] [address]Dr. Laureenchay Bates Lymphocytes/100 WBC (Bld) 43.6 % Normal 20.5-60.0 [facility] Comment on above: Performed By: #### CBC ####[facility] [address]fr[address] [place] [address]Dr. Vicki Bates MANUAL DIFF REQ NO Normal [facility] Comment on above: Performed By: #### CBC ####[facility] [address]ymsunjhr[address] [place] [address]Dr. Vicki Bates MCH (RBC) [Entitic mass] 31.3 pg Normal 26.7-34.0 [facility] Comment on above: Performed By: #### CBC ####[facility] [address] [place] [address]Dr. Vicki Bates MCHC (RBC) [Mass/Vol] 33.2 g/dL Normal 29.9-35.2 [facility] Comment on above: Performed By: #### CBC ####[facility] [address] [place] [address]Dr. Vicki Bates MCV (RBC) [Entitic vol] 94.3 fL Normal 81.0-99.0 [facility] Comment on above: Performed By: #### CBC ####[facility] ital [address]rme[address] [place] [address]Dr. Vicki Bates MONO # 0.3 103/ul Normal 0.3-0.8 [facility] Comment on above: Performed By: #### CBC ####[facility] ital [address]lsiodgu[address] [place] [address]Dr. Vicki Bates Monocytes/100 WBC (Bld) 6.4 % Normal 1.7-12.0 [facility] Comment on above: Performed By: #### CBC ####[facility] ital Wnvinrgide[address] [place] [address]Dr. Vicki Bates NEUT # 1.9 103/ul Normal 1.4-6.5 [facility] Comment on above: Performed By: #### CBC ####[facility] [address]yc[address] [place] [address]Dr. Vicki Bates Neutrophils/100 WBC (Bld) 47.8 % Normal 43.0-75.0 [facility] Comment on above: Performed By: #### CBC ####[facility] [address] [place] [address]Dr. Vicki Bates Platelet mean volume (Bld) [Entitic vol] 9.0 fL Critically low 9.5-13.5 [facility] Comment on above: Performed By: #### CBC ####[facility] [address] [place] [address]Dr. Vicki Bates PLT 250 103/ul Normal 150-450 [facility] Comment on above: Performed By: #### CBC ####[facility] [address] [place] [address]Dr. Vicki Bates RBC 4.54 106/ul Normal 4.20-5.40 [facility] Comment on above: Performed By: #### CBC ####[facility] [address] [place] [address]Dr. Vicki Bates WBC 4.0 103/ul Normal 4.0-11.0 [facility] Comment on above: Performed By: #### CBC ####[facility] [address] [place], [place] [address]Hu. Vicki Bates [facility]on SARS-CoV-2 (COVID-19) RNA MEAGAN+probe Ql (Unsp spec) Not detected Normal NOT DETECTED [facility] Comment on above: Result Comment: This test is not yet kiel roved or cleared by the [place] FDA. When there are no FDA-approved or cleared tests available, and other criteria are met, FDA can make tests available under an emergency access mechanism called an Emergency Use Authorization (EUA). The EUA for this test is supported by the [place] of Health and Human Service's (HHS's) declaration [...] consistent with SARS-CoV-2. Performed By: #### [facility] ####[facility] [address] [place], [place] [id number]. Vicki Bates US PELVIS AND TRANSVAGon US [...] by: KASSIE QUEEN Date: 2022-04-16 00:20 Normal [facility] SGOTon 01-18-2022 AST [Catalytic activity/Vol] 20 U/L Normal 15-37 [facility] Comment on above: Performed By: #### AST, ALT #### [facility] [address] [address] [address] Vicki Bates SGPTon 01-18-2022 ALT [Catalytic activity/Vol] 28 U/L Normal 14-59 [facility] Comment on above: Performed By: #### AST, ALT #### [facility] [address] [place], [place] [address] Dr. Vicki Bates XR ankle RT min 3V*on 2021 XR ankle RT min 3V* [facility] Main [place] [address] [place] [address] XRay Report Signed Patient: Corrie Mccray MR#: [id number] : 1950 Acct:[id number] Age/Sex: 71 / F ADM Date: 10/16/21 Loc: [facility] Room: Type: [facility] Attending Dr: Dena BERGMAN Ordering Provider: [...] Smith Jr., D.O.10/16/2021 5:09 PM Dictation Location: [place] [address] Transcribed By: [facility] 10/16/211708 Dictated By: Zeke Smith Jr, DO 10/16/211706 Signed By: 10/16/211708 Normal [facility] XR ankle RT min 3V* [facility] [place] Other XR ankle RT min 3V* [facility] [place] Other XR ankle RT min 3V* [address] [place] [address] [facility] Other XR ankle RT min 3V* SONNY Hilario [address] [facility] Other XR ankle RT min 3V* XRay Report [facility] Other XR ankle RT min 3V* Signed [facility] Other XR ankle RT min 3V* Patient: Corrie Mccray MR#: [id number] [facility] Other XR ankle RT min 3V* 589 [facility] Other XR ankle RT min 3V* : 1950 Acct:[id number] [facility] Other XR ankle RT min 3V* Age/Sex: 71 / F ADM Date: 10/16/21 [facility] Other XR ankle RT min 3V* Loc: [facility] Room: Type: [facility] [place] Other XR ankle RT min 3V* Attending Dr: Dena Davis [facility] Other XR ankle RT min 3V* Ordering Provider: [employer] [facility] Other XR ankle RT min 3V* Date of Service: 10/16/21 [facility] Other XR ankle RT min 3V* XR/XR ankle RT min 3V*: S89.91XA [facility] Other XR ankle RT min 3V* Copies to: DENA DAVISP-David [facility] Other XR ankle RT min 3V* RIGHT ANKLE - 3 views [facility] [employer] Other XR ankle RT min 3V* Reason for exam:Patient fell while going up the stairs 3 hours ago. Patient has pain posterior to [facility] Other XR ankle RT min 3V* her right ankle and posterior to her distal tib-fib. [facility] Other XR ankle RT min 3V* COMPARISON: None [facility] Other XR ankle RT min 3V* Soft tissue swelling is noted. Ankle mortise appears intact. Cortical irregularity seen along the [facility] Other XR ankle RT min 3V* medial malleolus suggestive of prior injury. No acute bony process is seen. Enthesophyte formation [facility] Other XR ankle RT min 3V* is seen at the insertion of the Achilles tendon. Minimal plantar spurring. [facility] Other XR ankle RT min 3V* XR/XR ankle RT min 3V* [facility] Other XR ankle RT min 3V* IMPRESSION: [facility] Other XR ankle RT min 3V* SOFT TISSUE SWELLING WITHOUT ACUTE BONY PROCESS NOTED. [facility] Other XR ankle RT min 3V* Impression dictated by: Zeke Smith Jr., D.O.10/16/2021 5:09 PM [facility] Other XR ankle RT min 3V* Dictation Location: [place] [address] [facility] Other XR ankle RT min 3V* Transcribed By: PWS 10/16/211708 [facility] Other XR ankle RT min 3V* Dictated By: Zeke Smith Jr, DO 10/16/211706 [facility] Other XR ankle RT min 3V* Signed By: [facility] Other XR ankle RT min 3V* 10/16/211708 [facility] Other No Panel Information [facility] Vital Signs Date Time Vital Sign Value Performing Clinician Facility 06-26-2023 09:30-0500 Body height 157.48 cm Hussein Ball Other [facility] Other 06-26-2023 09:30-0500 Body mass index (BMI) [Ratio] 26.12 kg/m2 Hussein Ball Other [facility] Other 06-26-2023 09:30-0500 Body weight 64.77 kg Hussein Ball Other [facility] Other 06-26-2023 09:30-0500 Diastolic blood pressure 66 mm[Hg] Hussein Ball Other [facility] Other 06-26-2023 09:30-0500 Respiratory rate 12 /min Hussein Ball Other [facility] Other 06-26-2023 09:30-0500 Systolic blood pressure 93 mm[Hg] Hussein Ball Other [facility] Other 06-11-2023 11:19-0400 Body height 157.5 cm Zaire Fry MD Work Phone: [facility] 06-11-2023 11:19-0400 Body weight 65.32 kg Zaire Fry MD Work Phone: [facility] 06-11-2023 11:19-0400 Diastolic blood pressure 70 mm[Hg] Zaire Fry MD Work Phone: [facility] 06-11-2023 11:19-0400 Heart rate 76 /min Zaire Fry MD Work Phone: [facility] 06-11-2023 11:19-0400 SaO2% (BldA) [Mass fraction] 98 % Zaire Fry MD Work Phone: [facility] 06-11-2023 11:19-0400 Systolic blood pressure 110 mm[Hg] Zaire Fry MD Work Phone: [facility] 05-31-2023 10:00-0400 Body height 157.48 cm Cony Yoana Other [facility] Other 05-31-2023 10:00-0400 Body mass index (BMI) [Ratio] 26.7 kg/m2 Cony Bowenmond Other [facility] Other 05-31-2023 10:00-0400 Body temperature 97.5 [degF] Cony Bowenmond Other [facility] Other 05-31-2023 10:00-0400 Body weight 66.23 kg Cony Yoana Other [facility] Other 05-31-2023 10:00-0400 Diastolic blood pressure 74 mm[Hg] Cony Yoana Other [facility] Other 05-31-2023 10:00-0400 Respiratory rate 18 /min Cony Yoana Other [facility] Other 05-31-2023 10:00-0400 SaO2% (BldA) [Mass fraction] 97 % Cony Lees Other [facility] Other 05-31-2023 10:00-0400 Systolic blood pressure 118 mm[Hg] Cony Lees Other [facility] Other 03-11-2023 09:30-0400 Body height 154.94 cm Hussein Ball Other [facility] Other 03-11-2023 09:30-0400 Body mass index (BMI) [Ratio] 27.81 kg/m2 Hussein Ball Other [facility] Other 03-11-2023 09:30-0400 Body weight 66.77 kg Hussein Ball Other [facility] Other 03-11-2023 09:30-0400 Diastolic blood pressure 82 mm[Hg] Hussein Ball Other [facility] Other 03-11-2023 09:30-0400 Respiratory rate 12 /min Hussein Ball Other [facility] Other 03-11-2023 09:30-0400 Systolic blood pressure 129 mm[Hg] Hussein Ball Other [facility] Other 01-16-2023 10:00-0400 Body height 154.94 cm Hussein Ball Other [facility] Other 01-16-2023 10:00-0400 Body mass index (BMI) [Ratio] 27.92 kg/m2 Hussein Ball Other [facility] Other 01-16-2023 10:00-0400 Body weight 67.04 kg Hussein Ball Other [facility] Other 01-16-2023 10:00-0400 Diastolic blood pressure 78 mm[Hg] Hussein Ball Other [facility] Other 01-16-2023 10:00-0400 Respiratory rate 12 /min Hussein Ball Other [facility] Other 01-16-2023 10:00-0400 Systolic blood pressure 119 mm[Hg] Hussein Ball Other [facility] Other 12-26-2022 10:30-0400 Body height 154.94 cm Hussein Ball Other [facility] Other 12-26-2022 10:30-0400 Body mass index (BMI) [Ratio] 28.11 kg/m2 Hussein Ball Other [facility] Other 12-26-2022 10:30-0400 Body weight 67.5 kg Hussein Ball Other [facility] Other 12-26-2022 10:30-0400 Diastolic blood pressure 76 mm[Hg] Hussein Ball Other [facility] Other 12-26-2022 10:30-0400 Respiratory rate 12 /min Hussein Ball Other [facility] Other 12-26-2022 10:30-0400 Systolic blood pressure 121 mm[Hg] Hussein Ball Other [facility] Other 10-16-2021 16:40-0500 Body height 154.94 cm Dena Carl Other [facility] Other 10-16-2021 16:40-0500 Body mass index (BMI) [Ratio] 29.28 kg/m2 Dena Davis Other [facility] Other 10-16-2021 16:40-0500 Body temperature 97.4 [degF] Dena Davis Other [facility] Other 10-16-2021 16:40-0500 Body weight 70.31 kg Dena Davis Other [facility] Other 10-16-2021 16:40-0500 Diastolic blood pressure 88 mm[Hg] Dena Davis Other [facility] Other 10-16-2021 16:40-0500 Respiratory rate 16 /min Dena Davis Other [facility] Other 10-16-2021 16:40-0500 SaO2% (BldA) [Mass fraction] 98 % Dena Davis Other [facility] Other 10-16-2021 16:40-0500 Systolic blood pressure 152 mm[Hg] Dena Davis Other [facility] Other Encounters Encounter Date Encounter Type Care Provider Facility Start: 05-19-2024 End: 05-19-2024 Patient encounter procedure Tina Brown OD Work Phone: Ophthalmology Comment on above: Low-tension glaucoma of both eyes, unspecified glaucoma stage (Primary Dx); Low-tension glaucoma of both eyes, moderate stage; Keratitis sicca, bilateral Start: 05-19-2024 End: 05-19-2024 ambulatory HUSSEIN ROWAN Facility:[facility] Start: 11-15-2023 End: 11-15-2023 ambulatory JUAN LUIS SHIELDS Not Available Start: 11-15-2023 End: 11-15-2023 ambulatory JUAN LUIS SHIELDS Not Available Start: 11-12-2023 End: 11-12-2023 ambulatory HUSSEIN ROWAN Facility:[facility] Start: 11-12-2023 End: 11-12-2023 Patient encounter procedure Tina Brown OD Work Phone: Ophthalmology Comment on above: Low-tension glaucoma of both eyes, unspecified glaucoma stage (Primary Dx); Keratitis sicca, bilateral (HCC); Pseudophakia, left eye Start: 07-29-2023 End: 07-29-2023 ambulatory Kavitha Interiano [facility] Start: 07-29-2023 Telephone encounter Hussein [facility] Start: 07-22-2023 ambulatory Silvia Luma [employer] Work Phone: Pulmonary Medicine Comment on above: Nodule Start: 07-09-2023 End: 07-09-2023 ambulatory Hussein Rowan Other [facility] Other Start: 07-09-2023 Telephone encounter Hussein [facility] Start: 07-05-2023 End: 07-05-2023 ambulatory JINuvia [facility] Facility:[facility] Start: 07-05-2023 End: 07-05-2023 ambulatory [facility] [place] Work Phone: Pulmonology Comment on above: Spirometry Start: 07-05-2023 End: 07-05-2023 Patient encounter procedure [facility] [place] Work Phone: [facility] Start: 06-26-2023 End: 06-26-2023 ambulatory Hussein Rowan Other [facility] Other Start: 06-26-2023 Office outpatient vi sit 15 minutes Hussein Rowan [facility] Start: 06-24-2023 End: 06-24-2023 ambulatory Hussein Rowan Other [facility] Other Start: 06-24-2023 Telephone encounter Hussein [facility] Start: 06-11-2023 End: 06-11-[address] [facility] Facility:[facility] Start: 06-11-2023 End: 06-11-2023 Patient encounter procedure Zaire Fry MD Work Phone: Cardiology Comment on above: Chest discomfort; SOB (shortness of breath); Pure hypercholesterolemia; Primary hypertension Start: 05-31-2023 End: 05-31-2023 ambulatory Cony Lees Other [facility] Other Start: 05-31-2023 Office outpatient vi sit 15 minutes Cony Lees [facility] Start: 03-25-2023 Telephone encounter No One (Historic al) Referring Physician Comment on above: External Referrals/r esources Start: 03-15-2023 End: 03-15-2023 ambulatory Hussein Rowan Other [facility] Other Start: 03-15-2023 Telephone encounter Hussein Rowan [facility] Start: 03-13-2023 End: 03-13-2023 ambulatory Hussein Rowan Other [facility] Other Start: 03-13-2023 Telephone encounter Hussein Rowan [facility] Start: 03-11-2023 End: 03-11-2023 ambulatory Hussein Rowan Other [facility] Other Start: 03-11-2023 Office outpatient vi sit 15 minutes Hussein Rowan [facility] Start: 01-21-2023 End: 01-21-2023 ambulatory Hussein Rowan Other [facility] Other Start: 01-21-2023 Telephone encounter Hussein Rowan [facility] Start: 01-16-2023 End: 01-16-2023 ambulatory Hussein Rowan Other [facility] Other Start: 01-16-2023 Office outpatient vi sit 15 minutes Hussein Ball [facility] Start: 12-31-2022 End: 01-01-[address] HUSSEIN ROWAN Facility:[facility] Start: 12-27-2022 End: 12-27-2022 ambulatory Hussein Rowan Other [facility] Other Start: 12-27-2022 Telephone encounter Hussein Rowan [facility] Start: 12-26-2022 Patient encounter procedure Hussein Sukhjinder [facility] Start: 12-26-2022 Telephone encounter Hussein Sukhjinder [facility] Start: 12-26-2022 End: 12-27-[address] HUSSEIN ROWAN [facility] Other Start: 05-07-2022 End: 05-08-[address] HUSSEIN ROWAN Facility:[facility] Start: 04-30-2022 End: 04-30-[address] HUSSEIN ROWAN Facility:[facility] Start: 04-29-2022 Encounter for preprocedural laboratory examination DR ZION RIZZO . [facility] Start: 04-26-2022 End: 04-27-[address] ZION RIZZO . Facility:[facility] Start: 04-26-2022 End: 04-27-2022 Encounter for preprocedural laboratory examination DR ZION RIZZO . Facility:[facility] Start: 04-20-2022 Encounter for preprocedural cardiovascular examination DR ZION RIZZO . [facility] Start: 04-19-2022 End: 04-20-[address] HUSSEIN [...] 10-16-2021 End: 10-16-2021 ambulatory Dena Davis Other [facility] Other Start: 10-16-2021 Office outpatient ne w [...] RSV Vaccine (1 - 1-dose 75+ series) [facility] Start: 11-17-2024 End: 11-17-2024 Patient encounter procedure 11/17/2024 1:15 PM EDT Office Visit [facility] Ophthalmology [address] [place] [address] Tina Brown, OD [address] [place] [address] RTC: 6 Months Full OCT ON/GCA Ophthalmology Comment on above: RTC: 6 Months Full OCT ON/GCA Start: 09-22-2024 End: 09-22-2024 Patient encounter procedure 09/22/2024 11:30 AM EST Office Visit Cardiology [address] [place] [address] Zaire Fry MD [address] [place] [address] Return in about 1 year (around 06/11/2024). Cardiology Comment on above: Return in about 1 year (around ). Start: 06-11-2024 BP Controlled (<130/80) BP Controlled (<130/80) [facility] Start: 04-19-2024 Covid-19 Vaccine () Covid-19 Vaccine () [facility] Start: 04-19-2024 Influenza vaccination [facility] Start: 08-19-2023 Advance Directive Discussion Advance Directive Discussion [facility] Start: 08-19-2023 Depression Assessment Depression Assessment [facility] Start: 06-11-2023 End: 09-10-2023 CREATININE BLD CREATININE BLD Lab Routine Chest discomfort SOB (shortness of breath) Expected: 06/11/2023, Expires: 09/10/2023 [facility] Work Phone: Comment on above: Expected: 06/11/2023, Expires: 4 Start: 04-19-2023 Covid-19 Vaccine () Covid-19 Vaccine () [facility] Start: 04-19-2023 Influenza vaccination [facility] Start: 08-19-2022 ADVANCE DIRECTIVE DISCUSSION ADVANCE DIRECTIVE DISCUSSION [facility] Start: 08-19-2022 DEPRESSION ASSESSMENT DEPRESSION ASSESSMENT [facility] Start: 04-19-2022 Influenza vaccination INFLUENZA (#1) [facility] Start: 10-10-2021 COVID-19 VACCINE (4 - Booster for Moderna series) COVID-19 VACCINE (4 - Booster for Moderna series) [facility] Start: 08-19-2021 ADVANCE DIRECTIVE DISCUSSION ADVANCE DIRECTIVE DISCUSSION [facility] Start: 08-04-2021 COVID-19 VACCINE (4 - Moderna series) COVID-19 VACCINE (4 - Moderna series) [facility] Start: 2015 BONE DENSITY BONE DENSITY [facility] Start: 2015 Bone Density Screening Bone Density Screening [facility] Start: 2015 Pneumococcal Vaccine: 65+ (1 - PCV) Pneumococcal Vaccine: 65+ (1 - PCV) [facility] Start: 2015 Pneumococcal Vaccine: 65+ (1 of 1 - PCV) Pneumococcal Vaccine: 65+ (1 of 1 - PCV) [facility] Start: 2015 PNEUMOCOCCAL: 65+ (1 - PCV) PNEUMOCOCCAL: 65+ (1 - PCV) [facility] Start: 2015 Screening for osteoporosis Bone Density Screening [facility] Start: 2010 RSV Vaccine (1 - 1-dose 60+ series) RSV Vaccine (1 - 1-dose 60+ series) [facility] Start: 2000 SHINGRIX VACCINE (1 of 2) SHINGRIX VACCINE (1 of 2) [facility] Start: 1995 COLOGUARD (FIT-DNA) COLOGUARD (FIT-DNA) [facility] Start: 1995 Colonoscopy COLONOSCOPY [facility] Start: 1995 COLORECTAL CANCER SCREENING COLORECTAL CANCER SCREENING [facility] Start: [address] COLONOGRAPHY [facility] Start: 1995 DIABETES SCREEN DIABETES SCREEN [facility] Start: 1995 Diabetes Screening Diabetes Screening [facility] Start: 1995 FECAL OCCULT BLOOD FECAL OCCULT BLOOD [facility] Start: 1995 Lipid 1996 panel - Serum or Plasma Lipid Screening [facility] Start: 1995 Lipid panel Lipid Screening [facility] Start: 1995 LIPID SCREEN LIPID SCREEN [facility] Start: 1995 Screening for malignant neoplasm of colon [facility] Start: 1995 SIGMOIDOSCOPY SIGMOIDOSCOPY [facility] Start: 1990 Mammography [facility] Start: 1990 Screening for malignant neoplasm of breast Mammogram Screening [facility] Start: 1969 Urine microalbumin profile [facility] Start: 1968 ANNUAL PCP TEAM CHRONIC DISEASE VISIT ANNUAL PCP TEAM CHRONIC DISEASE VISIT [facility] Start: 1968 Anxiety Screening Anxiety Screening [facility] Start: 1968 Depression Screening Depression Screening [facility] Start: 1968 HEPATITIS C SCREENING HEPATITIS C SCREENING [facility] Start: 1968 Hepatitis C screening Hepatitis C Screening [facility] Start: 1962 Adult depression screening assessment DEPRESSION SCREENING [facility] End: 07-10-2024 Cta hrt cornry art/bypass grfts contrst 3d post CTA CORONARY W IVCON Radiology Routine Chest discomfort SOB (shortness of breath) Pure hypercholesterolemia Primary hypertension 1 Occurrences starting 06/11/2023 until 07/10/2024 [facility] Work Phone: Comment on above: 1 Occurrences starting 06/11/2023 until 07/10/2024 ECG COMPLETE [facility] Work Phone: Comment on above: Ordered: 06/11/2023 End: 07-10-2024 SPIROMETRY WITH DILATOR IF OBSTRUCTED SPIROMETRY WITH DILATOR IF OBSTRUCTED PFT Routine SOB (shortness of breath) 1 Occurrences starting 06/11/2023 until 07/10/2024 [facility] Work Phone: Comment on above: 1 Occurrences starting 06/11/2023 until 07/10/2024 [facility] Immunizations Immunization Date Immunization Notes Care Provider Myron kaplan 06-23-2022 influenza virus vaccine, split virus (incl. purified surface antigen) Hussein Rwoan Other [facility] Other 06-23-2022 influenza, high dose seasonal, preservative-free Hussein Rowan Other [facility] Other 06-23-2022 influenza virus vaccine, unspecified formulation Zaire Fry MD Work Phone: [facility] 05-08-2022 COVID-19 Pfizer (bivalent) Hussein Rowan Other [facility] Other 06-09-2021 COVID-19 Vaccine Pfi zer - Documentation Purposes Only Hussein Rowan Other [facility] Other 12-14-2020 zoster vaccine recombinant Hussein Rowan Other [facility] Other 10-26-2020 COVID-19 Kermit pathak Other [facility] Other 09-28-2020 COVID-19 Kermit pathak Other [facility] Other 06-25-2020 influenza virus vaccine, split virus (incl. purified surface antigen) Hussein Rowan Other [facility] Other 06-25-2020 zoster vaccine recombinant Hussein Rowan Other [facility] Other 06-25-2020 zoster vaccine, live Brandy Rowan Other [facility] Other 06-25-2020 FLUAD QUAD 2020-21,6 5Y UP,,PF, 60 mcg (15 mcg x 4)/0.5 mL syrg Tina Brown OD Work Phone: [facility] Comment on above: PHARMACY ADMINISTERE D Payers Date Payer Category Payer Unknown MMO MMO MEDICARE SUPPLEMENT [id number] 2019-Present [phone] [address] [place] [address] Indemnity [id number] 2018 Medicare MEDICARE MEDICAR E A AND B [id number] 2018-Present [phone] [address] [address] [place] [address] Medicare [id number] 1959 Medicare [id number] 1959 Medicare [id number] 1950 Unknown [id number] 1950 Unknown [id number] 1950 Unknown [id number] 1950 Unknown [id number] 1950 Unknown [id number] 1950 Unknown [id number] 1950 Unknown [id number] 1950 Unknown [id number] 1950 Unknown [id number] Social History Date Type Detail Facility Start: 10-12-2022 End: 04-12-2023 Sex Assigned At [facility] Other Start: 04-10-2022 Tobacco smoking status VAIS Never smoked tobacco [facility] Start: 04-10-2022 Tobacco use and exposure Smokeless tobacco non-user [facility] Start: 04-10-2022 End: 05-19-2024 Alcohol intake Current drinker of alcohol (finding) [facility] Start: 06-12-2013 History SDOH Alcohol Comment 1 glass of wine 3/wk [facility] Start: 1950 Sex Assigned At Female [facility] Start: 10-12-2022 End: 04-12-2023 History of Social function [facility] National Score (1-10 0), lower number is lower risk 65 [facility] Start: 09-24-2020 Gender identity Identifies as female gender (finding) [facility] Start: 12-04-2020 Sexual orientation Heterosexual (finding) [facility] Medical Equipment Procedure Code Equipment Code Equipment Origin al Text Equipment Identifier Dates Lens Iol 0d +20 Dante Uv Abs - [id number] Start: 11-29-2020 Comment on above: Description: -0.09 Clinical Notes 02-12-2017 to 05-19-2024 Tina Brown OD - 05/19/2024 12:56 PM EDTina Whittington OD - 11/12/2023 1:16 PM EDT Note Date & Type Note Facility 05-19-2024 Note Date of Procedure 05/19/2024. Help Desk Manager Information Evp General Counsel: RIGOBERTO. Interval Change Right Eye Stable. Left Eye Stable. Notes -- HVF 05/19/2024 OD mod sup nasal step, stable from 2021; OS Normal ZEISS 05-19-2024 Note HNO ID: [id number] Author: TINA BROWN, TERRENCE Service: ? Author Type: EQUINE VET Type: Progress Notes Filed: 05/19/2024 13:37 Note [...] Brown, OD May 19, 2024 1:35 PM [facility] 05-19-2024 History of Present illness Narrative Tmax [...] 2024 1:35 PM documented in this encounter [facility] 11-12-2023 Note HNO ID: [id number] Author: TINA BROWN OD Service: ? Author Type: EQUINE VET Type: Progress Notes Filed: 11/12/2023 13:47 Note [...] Jermaine, OD November 12, 2023 1:43 PM [facility] 11-12-2023 History of Present illness Narrative Tmax [...] them in detail with the patient. Tina Bronw, TERRENCE November 12, 2023 1:43 PM documented in this encounter [facility] 08-15-2023 Note HNO ID: [id number] Author: Kavitha Interiano Service: ? Author Type: ? Type: Progress Notes Filed: 08/15/2023 9:05 AM Note Text: Incidental Lung Nodule Enrollment Outreach attempt: 3rd Attempt Outreach status: Complete Enrolled in Lung Nodule program: No Declined reason: Other Lung Nodule Program Location: [place] Two letter attempts Discharge letter sent [facility] 08-15-2023 Note Patient Outreach (PU LMMN) -------- CORRIE MCCRAY ([id number]) 1950 F Date Time Provider Department 08/15/23 KAVITHA INTERIANO During your visit today, we recorded the following information about you: Kavitha Interiano 08/15/2023 9:05 AM Signed Incidental Lung Nodule Enrollment Outreach attempt: 3rd Attempt Outreach status: Complete Enrolled in Lung Nodule program: No Declined reason: Other Lung Nodule Program Location: [place] Two letter attempts Discharge letter sent Allergies [...] capsule by mouth once daily. - Evening Columbus Oil (EVENING PRIMROSE) 500 mg cap Take [...] Encounter Status:Closed by KAVITHA INTERIANO on 08/15/23 [facility] 08-04-2023 Note HNO ID: [id number] Author: Kavitha Interiano Service: ? Author Type: ? Type: Progress Notes Filed: 08/04/2023 6:25 PM Note Text: Incidental Lung Nodule Enrollment Outreach attempt: 2nd Attempt Outreach status: Complete Enrolled in Lung Nodule program: Referred Lung Nodule outreach: Needs outreach Lung Nodule Program Location: [place] Two letter attempts [facility] 08-04-2023 Note Patient Outreach ( LMMN) -------- CORRIE MCCRAY ([id number]) 1950 F Date Time Provider Department 08/04/23 KAVITHA INTERIANO During your visit today, we recorded the following information about you: InterianoKavitha 08/04/2023 6:25 PM Signed Incidental Lung Nodule Enrollment Outreach attempt: 2nd Attempt Outreach status: Complete Enrolled in Lung Nodule program: Referred Lung Nodule outreach: Needs outreach Lung Nodule Program Location: [place] Two letter attempts Allergies As of Date: [...] capsule by mouth once daily. - Evening [place] Oil (EVENING PRIMROSE) 500 mg cap Take [...] Encounter Status:Closed by KAVITHA INTERIANO on 08/04/23 [facility] 07-29-2023 Evaluation note Encounter Date Diagnosis Assessment Notes Jul, Pulmonary nodule, right (ICD-10 - R91.1) CTA chest: 7mm RLL nodule - 06/2023 [facility] Other 12-11-2023 NoteHNO ID: [id number] Author: Kavitha Interiano Service: ? Author Type: ? Type: Progress Notes Filed: 07/29/2023 7:29 AM Note Text: Incidental Lung Nodule Enrollment Outreach attempt: 2nd Attempt Outreach status: Complete Enrolled in Lung Nodule program: Referred Lung Nodule outreach: Needs outreach Lung Nodule Program [facility] [place] [facility] of Present illness Narrative* Kavitha Interiano - 07/29/2023 7:28 AM EST Incidental Lung Nodule Enrollment Outreach attempt: 2nd Attempt Outreach status: Complete Enrolled in Lung Nodule program: Referred Lung Nodule outreach: Needs outreach Lung Nodule Program Location: [place] Two letter attempts [facility] NotePatient Outreach (PULMMN) CORRIE MCCRAY ([id number]) 1950 F Date Time Provider Department 07/29/23 KAVITHA INTERIANO During your visit today, we recorded the following information about you: Kavitha Interiano 07/29/2023 7:29 AM Signed Incidental Lung Nodule Enrollment Outreach attempt: 2nd Attempt Outreach status: Complete Enrolled in Lung Nodule program: Referred Lung Nodule outreach: Needs outreach Lung Nodule Program Location: [place] Two letter attempts Allergies As of Date: [...] capsule by mouth once daily. - Evening [place] Oil (EVENING PRIMROSE) 500 mg cap Take [...] Text Encounter Status:Closed by KAVITHA INTERIANO on 07/29/23[facility]12-04-2023 NoteHNO ID: [id number] Author: Silvia Ge APRN.CNP Service: ? Author Type: Nurse Practitioner Type: Progress Notes Filed: 07/22/2023 1:45 PM Note Text: Incidental Lung Nodule Enrollment Outreach attempt: 1st Attempt Outreach status: Complete Enrolled in Lung Nodule program: Referred Lung Nodule outreach: Needs outreach Lung Nodule Program Location: [place] Letter sent to patient regarding incidental lung nodule(s). Silvia Ge APRN.CNP July 22, 2023 1:42 [facility] History of Present illness Narrative* Silvia Ge APRN.CNP - 07/22/2023 1:42 PM EST Incidental Lung Nodule Enrollment Outreach attempt: 1st Attempt Outreach status: Complete Enrolled in Lung Nodule program: Referred Lung Nodule outreach: Needs outreach Lung Nodule Program Location: [place] Letter sent to patient regarding incidental lung nodule(s). Silvia Ge APRN.CNP July 22, 2023 1:42 PM documented in this encounterKeenan [facility]12-04-2023 NotePatient Outreach (PMNA11) CORRIE MCCRAY ([id number]) 1950 F Date Time Provider Department 07/22/23 SILVIA GE1 During your visit today, we recorded the following information about you: Silvia Ge APRN.CNP 07/22/2023 1:45 PM Signed Incidental Lung Nodule Enrollment Outreach attempt: 1st Attempt Outreach status: Complete Enrolled in Lung Nodule program: Referred Lung Nodule outreach: Needs outreach Lung Nodule Program Location: [place] Letter sent to patient regarding incidental lung nodule(s). Silvia RENETTA Ge.VP DELIVERY July 22, 2023 1:42 PM Allergies As [...] capsule by mouth once daily. - Evening [place] Oil (EVENING PRIMROSE) 500 mg cap Take [...] Text Encounter Status:Closed by SILVIA GE on 07/22/23[facility] 07-05-2023 NoteHNO ID: [id number] Author: Silvia Mckeon RT(Esteban) Service: Radiology Author Type: Help Desk Manager Type: Progress Notes Filed: 07/05/2023 3:03 PM [...] BY: RT Yesica(R) July 05, 2023 3:00 [facility]11-17-2023 NoteHNO ID: [id number] Author: Liss Anne TECHNOLOGIST Service: ? Author [...] BY: TECHNOLOGIST Jennifer July 05, 2023 3:02 [facility]11-17-2023 NoteHNO ID: [id number] Author: Sarah Mtz RRT Service: ? 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 Author Type: Physician Type: Progress Notes Filed: 06/11/2023 11:43 AM Note Text: [facility] [place] SECTION OF REGIONAL CARDIOLOGY OUTPATIENT VISIT DATE June 11, 2023 OUTPATIENT VISIT TYPE NEW PRIMARY CARE PHYSICIAN: Hussein Rowan ([facility]) [address] [place] [address] A written report of the findings and [...] No FAMILY HISTORY Problem (more content not included)...[facility]10-24-2023 History of Present illness Narrative* Zaire Fry MD - 06/11/2023 11:17 AM EDT Images from the original note were not included. [facility] SECTION OF REGIONAL CARDIOLOGY OUTPATIENT VISIT DATE June 11, 2023 OUTPATIENT VISIT TYPE NEW PRIMARY CARE PHYSICIAN: Hussein Rowan ([facility]) [address] [place] [address] A written report of the findings and [...] 1 capsule by mouth once daily. Evening [place] Oil (EVENING PRIMROSE) 500 mg cap Take 1 capsule by mouth once daily. Flaxseed Oil 1,000 mg cap Take 1 capsule by mouth once daily. FLUAD QUAD 2020-21,65Y UP,,PF, 60 mcg (15 mcg x 4)/0.5 mL syrg PHARMACY ADMINISTERED (Patient not taking: Reported on 06/11/2023) documented in this encounterKeenan [facility] Hospital10-13-2023 Evaluation note* Encounter Date Diagnosis Assessment Notes Treatment Notes Treatment Clinical Notes May, Abrasion of right cornea, initial encounter (ICD-10 - S05.01XA) Drink plenty fluids, get plenty of rest. Use the eyedrops as prescribed. Today you may instill the eyedrops every 2 hours and then 4 times a day for the next 4 days. Follow-up with your turbine mechanic if no improvement in 2 to 3 days. Continue home medications as prescribed [facility] Other 08-07-2023 Miscellaneous Notes* Telephone Encounter - Kae Pereira - 03/25/2023 4:47 PM EDT Patient: Corrie Mccray Date of : 1950 Patient phone number: [phone] Referring Provider for the encounter: Hussein Rowan Requesting Provider: n/c Reason for requesting visit (RFV/signs and symptoms/diagnosis): Precordial pain (R07.2) Person calling: caregiver: Kae Return call to: self Medical Records/Insurance Card scanned into [email or web address]: Yes Comments: documented in this encounterKeenan [facility] Hospital07-26-2023 Evaluation note* Encounter Date Diagnosis Assessment Notes Treatment Notes Treatment Clinical Notes Feb, Dyspnea on exertion (ICD-10 - R06.09) [facility] Other 07-24-2023 Evaluation note* Encounter Date Diagnosis [...] the risk for cerebrovascular and cardiovascular disease. [facility] Other 05-31-2023 Evaluation note* Encounter Date Diagnosis [...] Hold exercise routine until stress testing completed [facility] Other 05-10-2023 Evaluation note* Encounter Date Diagnosis [...] Z79.899) December, Metabolic syndrome (ICD-10 - E88.81) [facility] Other 05-10-2023 Evaluation note* Encounter Date Diagnosis Assessment Notes Treatment Notes Treatment Clinical Notes December, KHAN (dyspnea on exertion) (ICD-10 - R06.09) [facility] Other 05-10-2023 NotePROCEDURE: XR CHEST 2 V DATE: 12/26/2022 9:26 AM CDT COMPARISONS: None. CLINICAL INDICATION: 72 years Female Dyspnea FINDINGS: The cardiomediastinal silhouette and pulmonary vasculature are within normal limits. The lungs are clear. There is no evidence of pleural effusion or pneumothorax. IMPRESSION: Chest radiograph is within normal limits. Electronically authenticated by: DEREK BONILLA Date: 2022-12-26 11:05[facility]09[facility]22 NoteOPERATIVE NOTE OPERATION DATE: 04/30/2022 PROCEDURE: D AND C hysteroscopy with Myosure. PREOPERATIVE DIAGNOSIS: Postmenopausal bleeding, thickened endometrium. POSTOPERATIVE DIAGNOSIS: Postmenopausal bleeding, thickened endometrium. ANESTHESIA: General. SURGEON: Zion Rizzo D.O. PROGRAM ADVISOR: None. FINDINGS: Atrophic appearing cavity. No gross [...] to the Recovery Room in stable condition.[facility] [id number] History of Present illness Narrative* Tina Brown, [...] 10, 2022 2:31 PM documented in this encounterKeenan [facility] Hospital02-28-2022 Evaluation note* Encounter Date Diagnosis Assessment [...] we will help you get into specialist. [facility] Other 06-27-2017 History of Past illness Narrative* [...] of this encounter (statuses as of 04/10/2022) [facility] illness Narrative* Problem [...] of this encounter (statuses as of 03/26/2023) [facility] Narrative* Problem [...] of this encounter (statuses as of 06/11/2023) [facility] Narrative* Problem [...] of this encounter (statuses as of 07/05/2023) [facility] Narrative* Problem [...] of this encounter (statuses as of 07/23/2023) [facility] Narrative* Problem [...] of this encounter (statuses as of 07/29/2023) [facility] Narrative* Problem [...] of this encounter (statuses as of 11/12/2023) [facility] note* Diagnosis Low-tension glaucoma of both eyes, unspecified glaucoma stage- Primary Keratitis sicca, bilateral (HCC) Other forms of keratitis History of trabeculectomy, right eye Other states following surgery of eye and adnexa documented in this encounter [facility] noteNo [employer] Other Evaluation note* Diagnosis Chest discomfort Other chest pain SOB (shortness of breath) Shortness of breath Pure hypercholesterolemia Primary hypertension Unspecified essential hypertension documented in this encounter [facility] note* Diagnosis SOB (shortness of breath) Shortness of breath documented in this encounter [facility] note* Diagnosis Lung nodule- Primary Solitary pulmonary nodule documented in this encounter [facility] note* Diagnosis Low-tension glaucoma of both eyes, unspecified glaucoma stage- Primary Keratitis sicca, bilateral (HCC) Other forms of keratitis Pseudophakia, left eye Lens replaced by other means documented in this encounter [facility]* Diagnosis Pre-op evaluation- Primary Preoperative examination, unspecified Combined forms of age-related cataract of right eye Other and combined forms of senile cataract Low-tension glaucoma of both eyes, unspecified glaucoma stage Other specified hypothyroidism Low-tension glaucoma of both eyes, unspecified glaucoma stage- Primary Keratitis sicca, bilateral Other forms of keratitis documented in this encounter [facility] general Narrative - Reported* Type Description Date Medical History glaucoma Surgical History lithotripsy Surgical History bladder suspension, unspecified Surgical History tonsillectomy Surgical History CTS b/l hands Surgical History laparoscopy Surgical History colonoscopy Surgical History eyes Hospitalization History see above [facility] Other History general Narrative - Reported* Type [...] Surgical History eyes Hospitalization History see above [facility] Other History general Narrative - [employer] Other History general Narrative - Reported* Type [...] Surgical History eyes Hospitalization History see above [facility] Other Summary Purpose Family History No Family [...] Zaire Fry MD [address] [place] [address] [place] [address] Referral ID Status Reason Start Date Expiration Date Visits Requested Visits Authorized [id number] Authorized Auto-Generat ed Referral 3 07/10/2024 1 1 Specialty Diagnoses / Procedures Referred By Contac t Referred To Contact [facility] Diagnoses SOB (shortness of breath) Procedures SPIROMETRY WITH DILATOR IF OBSTRUCTED BRNCDILAT RSPSE SPMTRY PRE&POST-BRNCDILAT ADMN Zaire Fry MD [address] [place] [address] [facility] [place] [address] [place] [address] Referral ID Status Reason Start Date Expiration Date Visits Requested Visits Authorized [id number] Authorized Auto-Generat ed Referral 3 07/10/2024 1 1 Specialty Diagnoses / Procedures Referred By Contact Referred To [facility] Diagnoses Chest discomfort SOB (shortness of breath) Pure hypercholesterolemia Procedures ECG COMPLETE ECG ROUTINE ECG W/LEAST 12 LDS W/I&R Zaire Fry MD [address] [place] [address] [facility] [address] [address] Referral ID Status Reason Start Date Expiration Date Visits Requested Visits Authorized [id number] Pending Review Auto-Generat ed Referral 3 06/10/2024 1 1 Reason Mrs. Mccray is being referred for dyspnea and chest pain Diagnosis 1 Precordial pain (R07 .2) Referral Organization [facility] Sukhjinder cai Referring Provider First Name Hussein Referring Provider Last Name Sukhjinder Referring Provider Specialty Internal Me dicine [facility] Referred Address [address] [place],[address] Referred Provider Specialty Cardiology Referral Priority Routine [...] section and content) DATE CREATED AUTHOR 11/06/2021 [facility] DATE CREATED AUTHOR AUTHOR'S ORGANIZ ATION 01/01/2023 [facility] DATE CREATED AUTHOR AUTHOR'S ORGANIZ ATION 07/08/2023 [facility] DATE CREATED AUTHOR AUTHOR'S ORGANIZ ATION 11/16/2023 [facility] EPIC DATE CREATED AUTHOR AUTHOR'S ORGANIZ ATION 05/02/2024 [facility] EPIC DATE CREATED AUTHOR AUTHOR'S ORGANIZ ATION 05/20/2024 [facility] REASON FOR VISIT (unrecogniz ed section and [...] RSPSE SPMTRY PRE&POST-BRNCDILAT ADMN Zaire Fry MD [address] [place] [address] [facility] [place] [address] [place] [address] Referral ID Status Reason Start Date Expiration Date V isits Requested Visits Authorized [id number] Closed Auto-Generate d Referral 06/11/2023 07/10/2024 1 [...] or prosecute any alcohol or drug abuse patient.[facility] HospitalIn the event this information is protected by the Federal Confidentiality of Alcohol and Drug Abuse Patient Records regulations: The Federal rules restrict any use of the information to criminally investigate or prosecute any alcohol or drug abuse patient.[facility] HospitalIn the event this information is protected by the Federal Confidentiality of Alcohol and Drug Abuse Patient Records regulations: The Federal rules restrict any use of the information to criminally investigate or prosecute any alcohol or drug abuse patient.[facility] HospitalIn the event this information is protected by the Federal Confidentiality of Alcohol and Drug Abuse Patient Records regulations: The Federal rules restrict any use of the information to criminally investigate or prosecute any alcohol or drug abuse patient.[facility] HospitalIn the event this information is protected by the Federal Confidentiality of Alcohol and Drug Abuse Patient Records regulations: The Federal rules restrict any use of the information to criminally investigate or prosecute any alcohol or drug abuse patient.[facility] HospitalIn the event this information is protected by the Federal Confidentiality of Alcohol and Drug Abuse Patient Records regulations: The Federal rules restrict any use of the information to criminally investigate or prosecute any alcohol or drug abuse patient.[facility] HospitalIn the event this information is protected by the Federal Confidentiality of Alcohol and Drug Abuse Patient Records regulations: The Federal rules restrict any use of the information to criminally investigate or prosecute any alcohol or drug abuse patient.[facility] HospitalIn the event this information is protected by the Federal Confidentiality of Alcohol and Drug Abuse Patient Records regulations: The Federal rules restrict any use of the information to criminally investigate or prosecute any alcohol or drug abuse patient.[facility] Care Teams (unrecognized sec tion and content) General Warehouse Associate Relationship Specialty Start Date End Date Hussein Rowan DO [address] [place] [address] PCP - General Internal Medicine 11/29/20 General Warehouse Associate Relationship Specialty Start Date End Date Hussein Rowan DO [address] [place] [facility] [place] [address] PCP - General Internal Medicine 11/29/20 General Warehouse Associate Relationship Specialty Start Date End Date Hussein Rowan DO [address] [place] [facility] [place] [address] PCP - General Internal Medicine 11/29/20 General Warehouse Associate Relationship Specialty Start Date End Date Hussein Rowan DO [address] [place] [facility] [place] [address] PCP - General Internal Medicine 11/29/20 General Warehouse Associate Relationship Specialty Start Date End Date Hussein Rowan DO [address] [place] [facility] [place] [address] PCP - General Internal Medicine 11/29/20 General Warehouse Associate Relationship Specialty Start Date End Date Hussein Rowan DO [address] [place] [facility] [place] [address] PCP - General Internal Medicine 11/29/20 General Warehouse Associate Relationship Specialty Start Date End Date Hussein Rowan DO [address] [place] [facility] [place] [address] PCP - General Internal Medicine 11/29/20 General Warehouse Associate Relationship Specialty Start Date End Date Hussein Rowan DO [address] [place] [facility] [place] [address] PCP - General Internal Medicine 11/29/20 FOR [...] BE BASED ON THE PRIMARY CLINICAL RECORDS. [facility] [employer], [facility]. provides no warranty or guarantee of the accuracy or completeness of information in this document.
[2024-11-16 08:20] LABS: Basophils Percent Auto 1.1 % (0.2-2.0); Eosinophils Absolute Auto 0.1 10^3/uL (0.0-0.7); Eosinophils Percent Auto 1.4 % (0.9-7.0); Hematocrit 39.5 % (36.0-48.0); Hemoglobin 13.9 g/dL (12.0-16.0); Immature Granulocytes Abs Auto 0.01 10^3/uL (0.00-0.03); Immature Granulocytes Pct Auto 0.3 % (0.0-0.5); Lymphocytes Absolute Auto 1.8 10^3/uL (1.2-3.8); Lymphocytes Percent Auto 49.3 % (20.5-60.0); Mean Corpuscular HGB Conc 35.2 g/dL (29.9-35.2); Mean Corpuscular Hemoglobin 32.3 pg (26.7-34.0); Mean Corpuscular Volume 91.6 fL (81.0-99.0); Mean Platelet Volume 9.2 fL (9.5-13.5); Monocytes Absolute Auto 0.3 10^3/uL (0.3-0.8); Monocytes Percent Auto 7.6 % (1.7-12.0); Neutrophils Absolute Auto 1.5 10^3/uL (1.4-6.5); Neutrophils Percent Auto 40.3 % (43.0-75.0); Platelet Count 237 10^3/uL (150-450); Red Blood Count 4.31 10^6/uL (4.20-5.40); Red Cell Distribution Width 11.4 % (11.0-15.0); White Blood Count 3.7 10^3/uL (4.0-11.0)
== END 2024-11-16 08:05 | disposition home or self-care (01) ==
LOC: LAB 08:06
PROVIDERS: PCP Internal Medicine; Visit Provider Internal Medicine
DX: D72.819 Decreased white blood cell count, unspecified (principal)
CPT/HCPCS: 36415; 85025

== ENCOUNTER 2025-07-19 09:55 | Outpatient (OUT) | payer MEDICARE, OTHER, SELFPAY ==
--- OUTSIDE RECORDS SUMMARY | 2025-07-19 09:58 | XMS_ITS | Clinical Summary ---
Author Organization [facility] Healthcare Address [address] [place] [address] Care Team Providers Care Sheet Metal Production Worker Name Role Phone Hussein Rowan DO Primary Care Provider [phone] Allergies Active AllergyReactionsCriticalityNoted LhomQuojpjloExstchfsmJrzfRir14/25/2013 Hydrocodone-AubxylpdzmcarNoaapby44/03/9476XowaecZztmRhi72/24/2023 Oxycodone-AcetaminophenGI usffqaoztdw15/25/2013Sulfa AntibioticsGI intolerance 06/12/2013 Medications MedicationSigDispense QuantityRefillsLast FilledStart DateEnd DateStatus dorzolamide-timolol (Cosopt) 2-0.5 % ophthalmic solution Administer 1 drop into affected eye(s) in the morning and 1 drop in the evening. 11/12/2023ctive levothyroxine (Synthroid, Levoxyl) 25 MCG tablet Take 25 mcg by mouth in the morning. Take before meals.Active losartan (Cozaar) 25 MG tablet Take 25 mg by mouth in the morning.Active metoprolol tartrate (Lopressor) 50 MG tablet Take one 50 mg tablet the evening prior to the CTA examination, take another 50 mg tablet the morning of the CTA examination.3Active Active Problems No known active problems Family History RelationNameStatusCommentsFatherDeceasedMotherDeceased Social History Tobacco UseTypesPacks/DayYears UsedDateSmoking Tobacco: NeverPassive Smoke Exposure: NeverSmokeless Tobacco: Never Tobacco Cessation:Counseling Given: Yes Alcohol UseStandard Drinks/WeekCommentsNot Currently0 (1 standard drink = 0.6 oz pure alcohol)CommentsUnknownSex and Gender InformationValueDate Recorded Sex Assigned at JfzzwGojylu39/12/2024 10:53 AM EDTLegal HegGizrhl17/15/2023 7:01 PM EDTGender DxpntddmSceiaf53/12/2024 10:53 AM EDTSexual OrientationStraight 04/30/2024 10:53 AM EDT Last Filed Vital Signs Vital SignReadingTime TakenCommentsBlood Wqtqyuyg275/80011/15/2023 3:13 PM EDT Hshwk111711/15/2023 3:13 PM EDTTemperature--Respiratory Rate--Oxygen Saturation-- Inhaled Oxygen Concentration--Nptgwa82.9 kg (154 lb)11/15/2023 3:13 PM EDTHeight 157.5 cm (5' 2 )11/15/2023 3:13 PM EDTBody Mass Index28.17011/15/2023 3:13 PM EDT Plan of Treatment Not on file Insurance Care Teams Team MemberRelationshipSpecialtyStart DateEnd Date Hussein Rowan DO [facility] - General11/11/23
--- OUTSIDE RECORDS SUMMARY | 2025-07-19 09:58 | XMS_ITS | Clinical Summary ---
Author Organization [facility] Address [address] [place] [id number] Care Team Providers Care Car Barn Laborer Name Role Phone Hussein Rowan DO Primary Care Provider [phone] Allergies Active AllergyReactionsCriticalityNoted DateCommentsHydrocodone-Acetaminophen Amtxbfx2605/21/20135383MfvwtbXarw61/24/2023Oxycodone-AcetaminophenGI Upset06/12/2013 Sulfa (Sulfonamide Antibiotics)GI Upset06/12/2013upropion UypZldh45/25/2013 Medications MedicationSigDispense QuantityRefillsLast FilledStart DateEnd DateStatus omega-3 fatty acids 1,000 mg cap Take 1 capsule by mouth once daily.ctive Evening [place] Oil (EVENING PRIMROSE) 500 mg cap Take 1 capsule by mouth once daily.ctive Flaxseed Oil 1,000 mg cap Take 1 capsule by mouth once daily.ctive FLUAD QUAD 2020-21,65Y UP,,PF, 60 mcg (15 mcg x 4)/0.5 mL syrg PHARMACY SLGEGQEOJGMF24/07/2020Active levothyroxine (SYNTHROID) 25 mcg tablet Take 25 mcg by mouth daily before breakfast.Active losartan (COZAAR) 25 mg tablet Take 25 mg by mouth once daily.Active metoprolol tartrate, short acting, (LOPRESSOR) 50 mg tablet Take one 50 mg tablet the evening prior to the CTA examination, take another 50 mg tablet the morning of the CTA examination. 2 tablet 06/11/2023ctive nitroglycerin sublingual (NITROQUICK) 0.3 mg SL tablet Dissolve 1 tablet under the tongue one time only for 1 dose. To be administered in Radiology for CTA exam 1 tablet 3Active dorzolamide-timolol (COSOPT) 22.3-6.8 mg/mL ophthalmic solution USE 1 DROP IN BOTH EYES TWO TIMES A DAY. 30 mL 5Active Active Problems ProblemNoted DateDiagnosed DateChest jdgbljovrk64/24/2023SOB (shortness of breath)06/11/2023ure agtselwnoriyekothrun71/24/2023rimary hypertension 06/11/2023Other specified jkfezanroxakzh23/06/2021 Assessment & Plan (11/22/2020 12:16 PM EDT): Assessment: started on synthroid recently by PCP. Keratitis sicca, mtfsnkgor93/27/2017PVD (posterior vitreous detachment) 02/12/2017History of trabeculectomy, right eye02/12/2017Low tension glaucoma - Both Eyes06/02/2014 Resolved Problems ProblemNoted DateDiagnosed DateResolved DateCombined forms of age-related cataract of right eyeseudophakia, left eye02/12/2017 11/17/2024Lens replaced by other means - Left Eye02/16/Dry eye - Both Eyes02/16/History of trabeculectomy - Both Eyes06/02/2014 02/12/2017Vitreous degeneration - Right EyeSenile nuclear sclerosis - Right EyePrimary open-angle glaucoma(365.11) Family History Medical HistoryRelationCommentsCancerMotherHeartMotherMacular DegenMother GlaucomaPaternal GrandmotherRelationStatusCommentsMotherPaternal Grandmother Social History Tobacco UseTypesPacks/DayYears UsedDateSmoking Tobacco: NeverSmokeless Tobacco: Never Tobacco Cessation:Counseling Given: Not Answered Alcohol UseStandard Drinks/WeekCommentsYes0 (1 standard drink = 0.6 oz pure alcohol)1 glass of wine 3/wkArea Deprivation IndexAnswerDate RecordedNational Score (1-100), lower number is lower vzsn291404/12/2023State Score (1-10), lower number is lower nciy3353Data from: https://www.neighborhoodatlas.medicine.[facility].edu/. Last address used for kybnrkzyoum[address]CommentsNoSex and Gender Information ValueDate RecordedSex Assigned at QrvhkPiqwct85/06/2021 11:56 AM ESTLegal Sex Bwmrxy5505/25/2013 4:28 PM EDTGender MsdjlaxvGgbdpi48/06/2021 11:56 AM ESTSexual JhmrbqvzobcOkhfufjw94/18/2021 1:39 PM EDT Last Filed Vital Signs Vital SignReadingTime TakenCommentsBlood Qkwaazwd350/6907/05/2023 2:56 PM EST Netri953007/05/2023 2:56 PM WKTOfsqpzwprew96.1 ??C (97 ??F)07/05/2023 2:42 PM EST Respiratory Ajha111209/04/2022 2:56 PM ESTOxygen Tzanohdrof90%07/05/2023 2:56 PM ESTInhaled Oxygen Concentration--Fhmwxs06.3 kg (144 lb)06/11/2023 11:19 AM EDT Fjghqw698.5 cm (5' 2 )06/11/2023 11:19 AM EDTBody Mass Index26.341 11:19 AM EDT Plan of Treatment DateTypeDepartmentCare Team (Latest Contact Info)Ivwuhzaucbc65/02/2026 1:15 PM ESTOffice Visit OPHT Ophthal[facility] [address] [place] [address] Len Dean, OD [address] [place] [address] [facility] [address] [phone] Months Full OCT ON/GCAHealth MaintenanceDue DateLast DoneCommentsAnnual PCP Team Chronic Disease Visit1968Anxiety Vqjfeibsh01/14/1969Depression Wscazerdq86/14/1969Hepatitis C Txgnfpuac73/14/1969DTaP,Tdap,Td Vaccine (1 - Tdap)1969Mammogram Ictkftlfo12/14/1991CT Psxkzlelmndy02/14/1996Cologuard (FIT-DNA)10/02/19959772Phvajlmapsj45/14/1996Colorectal Cancer Laikomcds21/14/1996 Diabetes Cecoyeter32/14/1996Fecal Occult Blood1995Lipid Screening 10/02/19951723Uidnevtvtpbbd69/14/1996Pneumococcal Vaccine: 50+ (1 of 1 - PCV) 2000Bone Density Tmqsqdylx16/14/2016Medicare Annual Wellness Visit 12/17/2018Advance Directive Howgzyjavr00/01/2025ovid-19 Vaccine ( season)/, 10/26/2020, 09/28/2020Influenza Vaccine (#1) /12/2021, 06/25/2020, 06/03/2019RSV Vaccine (1 - 1-dose 75+ series) 2025Shingrix OolawfvBdxczayxc61/28/2021, 06/25/2020 Medical Devices ImplantedTypeAreaManufacturerDevice IdentifierShelf Expiration DateModel / Serial / LotLens Iol 0d +20 Dante Uv Abs - [id number] Implanted:Qty: 1 on 11/29/2020 by Citlaly Cordon MD at [facility] Intraocular LensRight: Eye - [employer] DTDEMBDO29/14/1606AM26QY.200 / [id number] / Description:-0.09 Insurance Care Teams Team MemberRelationshipSpecialtyStart DateEnd Date Hussein Rowan DO [address] [place] [address] PCP - GeneralInternal Medicine11/29/20
--- OUTSIDE RECORDS SUMMARY | 2025-07-19 10:00 | XMS_ITS | CCD ---
Author Organization [facility] Care Team Providers Care Pharmacy Benefits Coordinator Name Role Phone Dena Davis Unavailable Hussein Rowan DO Primary Care Provider Husseni Rowan Unavailable SUKHJINDER, DR TUBBS Admitting Unavailable [...] Attending Unavailable JUAN LUIS SHIELDS Attending Unavailable Sukhjinder BURNHAMHussein E Primary Care Provider HUSSEIN ROWAN E Primary Care Unavailable HERSHNER, TINA A Referring Unavailable HERSHNER, TINA A Attending Unavailable BALL, HUSSEIN E Primary Care Unavailable HERSHNER, TINA A Attending Unavailable BALL, HUSSEIN E Primary Care Unavailable SUKHJINDER, HUSSEIN E Primary Care Unavailable HERSHNER, TINA A Referring Unavailable HERSHNER, TINA A Attending Unavailable BALL, HUSSEIN E Primary Care Unavailable HERSHNER, TINA A Referring Unavailable Allergies Allergy ClassificationReported Allergen(s)Allergy TypeDate of OnsetReaction(s) Facility (15 sources)Acetaminophen / HYDROcodone; Translations: [Vicodin]Drug Allergy 25-71-0196RbjokszFojAult[facility] Rep[facility] (20 sources)Acetaminophen / oxyCODONEDrug Rakkays07-33-2311[facility] Work Phone: (12 sources)buPROPion; Translations: [Wellbutrin]Drug Filkkgy07-87-8025Oarjucd [facility] Repository (14 sources)Sulf-10Drug allergyWesterly Hospital Wi3 Other (13 sources)Acetaminophen / HYDROcodone; Translations: [HYDROCODONE-ACETAMINOPHEN]Drug Tjpneqy94-57-4638YvcslzlPvvfngisn Clinic (13 sources)buPROPion; Translations: [BUPROPION HCL]Drug Eidjiws92-45-3541Ejsj [facility] Work Phone: (20 sources)Sulfonamides (Antibiotic); Translations: [SULFA (SULFONAMIDE ANTIBIOTICS)]Drug Ntrxwveqbjf71-00-1129OIOhioHealth [facility] Hospital Work Phone: (1 source)Acetaminophen / oxyCODONEDrug Xxyvfyc92-07-2454[facility] Repository (3 sources)Leucine; Translations: [NICKEL]Drug Pqgglbg46-87-5732XcaWayne Hospital Repository (1 source)Sulfonamides (Antibiotic)Drug allergy (disorder)64-90-1926PjnWayne Hospital Repository (8 sources)buPROPionDrug AllergyWesterly Hospital Wi3 Other (17 sources)nickelDrug Tpnrywk09-31-2686SkirPaepqogfi Clinic (8 sources)Vicodin *ANALGESICS - OPIOID*Propensity to adverse reactionsUnknowErlanger Bledsoe Hospital Wi3 Other (5 sources)Allergies ReconciledPropensity to adverse reactionsUnknoAuburn Community Hospital Wi3 Other (2 sources)Acetaminophen / oxyCODONE; Translations: [OXYCODONE-ACETAMINOPHEN] Drug Lvhltyb98-74-6334Byjsnprxa Clinic Other [place] Repository Medications Current Medications MedicationDrug Class(es)DatesSig (Normalized)Sig (Original)ciprofloxacin 3 mg/ml ophthalmic solution (5 sources)Quinolone AntimicrobialStart: 71-33-8447imly 1 drop(s) into the eye(s) every four hoursCiloxan 0.3 % 1 drop right eye every 4 hrs for 5 days May, ActiveCosopt 22.3-6.8 MG/ML (2 sources)take 1 drop(s) into the eye(s) twice dailyCosopt 22.3-6.8 MG/ML 1 drop into affected eye Ophthalmic Twice a day Activedorzolamide 20 mg/ml / timolol 5 mg/ml ophthalmic solution (19 sources)Carbonic Anhydrase Inhibitor, beta-Adrenergic BlockerStart: 40-99-2260hptz 1 drop(s) into the eye(s) twice dailydorzolamide-timolol (COSOPT) 22.3-6.8 mg/mL ophthalmic solution USE 1 DROP IN BOTH EYES TWO TIMES ADAY. 30 mL 4 01/26/2025 ActiveStart: 11-12-2023 End: 10-74-5818goxm 1 drop(s) into the eye(s) twice dailydorzolamide-timolol (COSOPT) 22.3-6.8 mg/mL ophthalmic solution Use 1 Drop in both eyes two times a day. 30 mL 4 11/12/2023 01/26/2025 DiscontinuedStart: 10-16-2021 End: 55-57-1355eqqe 1 drop(s) into the eye(s) twice dailydorzolamide-timolol (COSOPT) 22.3-6.8 mg/mL ophthalmic solution INSTILL 1 DROP INTO BOTH EYES TWICEA DAY 20 mL 4 11/12/2022 11/12/2023 DiscontinuedDorzolamide HCl-Timolol Mal 22.3- 6.8 MG/ML Ophthalmic for 90 Days Not-TakingComment on above:Use 1 Drop in both eyes twice daily.INSTILL 1 DROP INTO BOTH EYES TWICE A DAYUse 1 Drop in both eyes two times a day.evening primrose oil 500 mg oral capsule (11 sources)Start: 09-64-5063wxtr 1 capsule by mouth once dailyEvening [place] Oil (EVENING PRIMROSE) 500 mg cap Take 1 capsule by mouth once daily. 0 06/12/2013ctiveComment on above:Take 1 capsule by mouth once daily.iv contrast (will be provided with radiology test) (1 source)Start: 06-11-2023 End: 49-99-8799jetuea 1 dose intravenously onceiv contrast (will be provided with radiology test) CTA Coronary. No IV access, insert saline lock prior to the sedation, infusion, injection for imaging exam. Discontinue saline lock post exam. If Pt. has a central line or IVAD, may access for administration according to line specific nursing protocol. Once exam is complete flush line and de- access according to line specific nursing protocol in the CT contrast administration guidelines link. 1 Each 0 06/11/2023 06/12/2023 ActiveComment on above:CTA Coronary. No IV access, insert saline lock prior to the sedation, infusion, injection for imaging exam. Discontinue saline lock post exam. If Pt. has a central line or IVAD, may access for administration according to line specific nursing protocol. Once exam is complete flush line and de-access according to line specific nursing protocol in the CT contrast administration guidelines link.levothyroxine sodium 0.025 mg oral tablet (20 sources)l-Thyroxinetake 1 tablet by mouth once daily before breakfast levothyroxine (SYNTHROID) 25 mcg tablet Take 25 mcg by mouth daily before breakfast. Activetake 1 tablet by mouth once dailyLevothyroxine Sodium 25 MCG TAKE 1 TABLET BY MOUTH EVERYDAY ON AN EMPTY STOMACH for 90 ActiveComment on above:Take 25 mcg by mouth daily before breakfast.linseed oil 1000 mg oral capsule (11 sources)Start: 68-56-4312bqgn 1 capsule by mouth once dailyFlaxseed Oil 1,000 mg cap Take 1 capsule by mouth once daily. 0 06/12/2013 ActiveComment on above:Take 1 capsule by mouth once daily.losartan potassium 25 mg oral tablet (20 sources)Angiotensin 2 Receptor Blockertake 1 tablet by mouth once daily losartan (COZAAR) 25 mg tablet Take 25 mg by mouth once daily. ActiveComment on above:Take 25 mg by mouth once daily.metFORMIN hydrochloride 500 mg oral tablet (13 sources)BiguanideStart: 05-10-5601kqqc 1 tablet by mouth every twenty-four hoursmetFORMIN HCl 500 MG 1 tablet with a meal Orally Once a day for 30 days December, Activemetoprolol tartrate 50 mg oral tablet (9 sources)beta-Adrenergic BlockerStart: 50-53-9369citurbbqdd tartrate, short acting, (LOPRESSOR) 50 mg tablet Take one 50 mg tablet the evening priorto the CTA examination, take another 50 mg tablet the morning of the CTA examination. 2 tablet 06/11/2023 ActiveComment on above:Take one 50 mg tablet the evening prior to the CTA examination, take another 50 mg tablet the morning of the CTA examination.nitroglycerin 0.3 mg sublingual tablet (9 sources)Nitrate VasodilatorStart: 92-55-1565igxx 1 tablet under the tongue oncenitroglycerin sublingual (NITROQUICK) 0.3 mg SL tablet Dissolve 1 tablet under the tongue one time only for 1 dose. To be administered in Radiology for CTA exam 1 tablet 06/11/2023 ActiveComment on above:Dissolve 1 tablet under the tongue one time only for 1 dose. To be administered in Radiology for CTA exam omega-3 fatty acids 1,000 mg cap (11 sources)Start: 50-25-9968uxax 1 capsule by mouth once dailyomega-3 fatty acids 1,000 mg cap Take 1 capsule by mouth once daily. 0 06/12/2013 Active Comment on above:Take 1 capsule by mouth once daily.Thyroid (1 source)Thyroid Active Completed/Discontinued Medications MedicationDrug Class(es)DatesSig (Normalized)Sig (Original)amoxicillin 500 mg oral capsule (5 sources)Penicillin-class AntibacterialAmoxicillin 500 MG Oral for 10 Days Not-Taking/PRNchlorhexidine gluconate 1.2 mg/ml mouthwash (5 sources)Chlorhexidine Gluconate 0.12 % Mouth/Throat for 16 Days Not-Taking/PRNChlorhexidine Gluconate 0.12 % Mouth/Throat for 16 Days Not-Taking Dorzolamide HCl-Timolol Mal 22.3-6.8 MG/ML (2 sources)Dorzolamide HCl-Timolol Mal 22.3-6.8 MG/ML Ophthalmic for 90 Days Not-Taking/PRNDorzolamide HCl-Timolol Mal 22.3-6.8 MG/ML Ophthalmic for 90 Days Not-TakingprednisoLONE acetate 10 mg/ml ophthalmic suspension (1 source)CorticosteroidStart: 11-29-2020 End: 34-70-3429rxlu 1 drop(s) into the eye(s) every two hours, then take 1 drop(s) into the eye(s) four times dailyprednisoLONE acetate (PRED FORTE, ECONOPRED PLUS) 1 % ophthalmic suspension Use 1 Drop in the righteye every [address] one drop in operative eye four times a day. 1 / DiscontinuedComment on above:Use 1 Drop in the right eye every [address] one drop in operative eye four times a day.predniSONE 20 mg oral tablet (5 sources)predniSONE 20 MG Oral for 9 Days Not-Taking/PRN Problems Active Problems Problem ClassificationProblemDateDocumented DateEpisodic/ChronicAllergic reactions (13 sources)Allergic contact dermatitis due to plants, except food; Translations: [Allergic contact dermatitis due to plants, except food]Episodic Calculus of urinary tract (14 sources)History of calculus of kidney; Translations: [Personal history of urinary calculi]Onset: 96-06-8706JcxuhmscJpqaohclp of lipid metabolism (20 sources)Hypercholesterolemia; Translations: [Pure hypercholesterolemia, unspecified]Onset: 89-34-8653TbhwvdaXrxlamhsi hypertension (20 sources)Essential hypertension; Translations: [Essential (primary) hypertension]Onset: 35-10-4152XlzrwrsMjvmgxxl (20 sources)Bilateral low tension glaucoma of eyes; Translations: [Low-tension glaucoma, bilateral, stage unspecified]Onset: 06-02-2013 Resolved: 70-61-6325CumjccoNrjubjkibvqb; infection of eye (except that caused by tuberculosis or sexually transmitteddisease) (1 source)Keratoconjunctivitis sicca, not specified as Sjogren's, bilateral; Translations: [Keratitis sicca, bilateral]Onset: 95-73-9738VtclyvcLsgnehl and fatigue (2 sources)Other fatigue; Translations: [OTHER FATIGUE]Onset: 38-86-5176Vaqiectw Menopausal disorders (18 sources)Postmenopausal bleeding; Translations: [Postmenopausal bleeding] Onset: 01-37-0960MtjheuiPchkvrqbhiurhd (1 source)Unilateral primary osteoarthritis, left knee; Translations: [UNI PRIM OSTEOARTHRITIS LT KNEE]Onset: 54-51-8894GclfvaiHotmy aftercare (1 source)Other intermediate teacher (current) drug therapyEpisodicOther eye disorders (11 sources)Posterior vitreous detachment; Translations: [Vitreous degeneration, unspecified eye]Onset: 546868-26-2757CkhawhjPzhoi lower respiratory disease (10 sources)Other forms of dyspnea; Translations: [OTHER FORMS OF DYSPNEA]Onset: 45-91-1723TqkodqkkJkfyl lower respiratory disease (8 sources)Dyspnea on exertion; Translations: [Other forms of dyspnea]Episodic Other lower respiratory disease (1 source)Shortness of breath; Translations: [SOB (shortness of breath)]Onset: 98-42-5461SzrbfitpTxlsn lower respiratory disease (3 sources)Nodule of lung; Translations: [Solitary pulmonary nodule]07-22-2023 EpisodicOther lower respiratory disease (1 source)Solitary pulmonary noduleEpisodicOther nutritional; endocrine; and metabolic disorders (13 sources)Metabolic syndrome X; Translations: [Metabolic syndrome]ChronicOther nutritional; endocrine; and metabolic disorders (1 source)Metabolic syndromeChronicOther screening for suspected conditions (not mental disorders or infectious disease) (1 source)Abnormal findings on diagnostic imaging of other specified body structures; Translations: [ABNORML FIND DX IMG OTH BODY STRUC]Onset: 05-04-2022 ChronicOther screening for suspected conditions (not mental disorders or infectious disease) (18 sources)Blood chemistry abnormal; Translations: [Other specified abnormal findings of blood chemistry]Onset: 59-60-1383DxisegwoOrbrm skin disorders (13 sources)Alopecia; Translations: [Nonscarring hair loss, unspecified]Episodic Residual codes; unclassified (18 sources)History of construction of filtration bleb; Translations: [Other specified postprocedural states]Onset: 06-02-2014 Resolved: 88-56-5693NqtxruucZpvtimdc codes; unclassified (1 source)Asymptomatic menopausal stateEpisodicSuperficial injury; contusion (1 source)Injury of conjunctiva and corneal abrasion without foreign body, right eye, initial encounterEpisodicSystemic lupus erythematosus and connective tissue disorders (15 sources)Keratoconjunctivitis sicca; 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]Onset: 97-80-5688DagopyqFgavzkq disorders (20 sources)Hypothyroidism; Translations: [Other specified hypothyroidism]Onset: 988917-46-5852GtrubjvKkckbyhwynvi (1 source)CONTACT W/AND (SUSP) EXPOS COVID-19; Translations: [CONTACT W/AND (SUSP) EXPOS COVID-19]Onset: 34-42-6792Tisetzf tract infections (13 sources)Cystitis; Translations: [Cystitis, unspecified without hematuria] Episodic Past or Other Problems Problem ClassificationProblemDateDocumented DateEpisodic/ChronicCataract (20 sources)Pseudophakia of left eye; Translations: [Presence of intraocular lens]Onset: 06-02-2014 Resolved: 385563-51-9479DslodjkXpzsqpm (4 sources)Tinea unguium; Translations: [TINEA UNGUIUM]Onset: 65-53-1627Cxzitfbq Nonspecific chest pain (14 sources)Precordial pain; Translations: [Chest discomfort]Onset: 06-11-2023 EpisodicOther eye disorders (4 sources)Vitreous degeneration; Translations: [Vitreous degeneration, unspecified eye]Onset: 06-02-2014 Resolved: 381135-88-3586MvkofmvNsoqx eye disorders (4 sources)Dry eyes; Translations: [Dry eye syndrome of unspecified lacrimal gland]Onset: 02-16-2015 Resolved: 349822-68-7421OcyvniihNpdld injuries and conditions due to external causes (1 source)Unspecified injury of right lower leg, initial encounterOnset: 10-16-2021 Resolved: 56-18-0881JacrpqvzKawah lower respiratory disease (11 sources)Dyspnea; Translations: [Shortness of breath]Onset: 06-11-2023 41-03-5685VigaiyyiQqtsesrb codes; unclassified (1 source)Family history of malignant neoplasm of breast; Translations: [FAMILY HX MALIG NEOPLASM OF BREAST]Onset: 05-79-5489MjkdzhgiFgjqutrx codes; unclassified (1 source)Family history of malignant neoplasm of trachea, bronchus and lung; Translations: [FAM HX MALIG NEOPLSM TRACH BRON LNG]Onset: 05-44-9175Duzmulqm Residual codes; unclassified (1 source)Other specified postprocedural states; Translations: [History of trabeculectomy]Onset: 09-98-5149Ebphsrxk Results Test NameValueInterpretationReference RangeFacilityVISUAL FIELD 24-2 OU (BOTH EYES)on 96-72-3174Fizwhcmug ClinicRadiology Study observation (narrative) [facility] HospitalOCT OPTIC NERVE CIRRUS OU (BOTH EYES)on 58-63-2527Mngoybief ClinicRadiology Study observation (narrative)[facility]S HospitalVISUAL FIELD 24-2 OU (BOTH EYES)on 33-33-9132Mynrynssu ClinicRadiology Study observation (narrative)[facility]'S HospitalCTA CORONARY W IVCONon 60-84-6159XOT CORONARY W IVCON * * *Final Report* * * DATE OF EXAM: Jul 05 2023 3:04PM FVC 0470 - CTA CORONARY W IVCON / PROCEDURE REASON: multiple diagnoses * * * * Physician Interpretation * * * * CTA CORONARY ARTERIES acquired at [facility] - images were acquired and screened for acute findings earlier. Subsequently reported following overnight procedure. Direct Image Comparison: None HISTORY: 72 years old Female patient with chronic h/o chest pain, suspected CAD Evaluation for further treatment options.. There is request to define coronary anatomy. TECHNIQUE: SCANNER: Siemens Definition Flash Dual source [id number] scanner PROTOCOL: Sequential imaging of the heart with prospective triggering in diastolic phase and submillimeter slice reconstruction following administration of contrast material. Scan Range: carlos a to the base of the heart CT Dose-Length Product (DLP): 265 mGy*cm CT Dose Reduction Employed: Automated exposure control(AEC) and iterative recon CONTRAST: IV administration of 90 ml Omnipaque 350 Premedication per [facility] protocol/documentation. Scan acquisition: uncomplicated Macro Version: MQ:CCTW_3 For optimization of anatomic evaluation, advanced 3-D off-line postprocessing was performed on a dedicated workstation by the interpreting physician. Additional lung CAD. [place] images reconstructed, saved, and available in [facility] 'Get Images'. STUDY LIMITATIONS: Limited contrast enhancement [...] AORTIC DIMENSIONS: AORTIC ROOT: 3 cm measured ekana-fd-bcmvh mid ASCENDING THORACIC AORTA: 3.2 cm mid [...] or luminal stenosis. limited upper ABDOMEN: unremarkable Safety Technician (topogram) images: No additional findings. IMPRESSION: NO EVIDENCE OF ATHEROSCLEROTIC CHANGES OR LUMINAL STENOSIS OF THE CORONARY ARTERIES -Direct epicardial course of tortuous mid LAD segment without intramyocardial extension. -Distal branches are not well visualized CAD-RADS 0: No plaque or luminal stenosis. Absence of CAD., - Overall Plaque Clements: No evidence of plaque visualized LUNGS: non-calcified [...] be communicated with the ordering provider via [employer] staff message by Imaging Support Services within 2 business days of report finalization. Safe And Vault Installer: RUSTAM Transcribe (more content not included)...Invalid Interpretation [facility] 97-03-8411DOQONHG [facility] ID: [id number] Author: Priscila Reyes RN Service: Radiology Author [...] Priscila Reyes RN July 05, 2023 2:45 [facility] ID: [id number] Author: Priscila Reyes RN Service: Radiology Author [...] Mccray DATE: July 05, 2023 TIME: 2:[address] [facility] HospitalSPIROMETRY WITH DILATOR IF OBSTRUCTEDon 55-62-0758GFN33-75% PRE (L/S)1.83 L/SCleveland ClinicFEV1 PRE (L)2.23 LCleveland ClinicFEV1/FVC PRE (%)76 %[facility]'S HospitalFVC PRE (L)2.93 LCleveland ClinicPEF PRE (L/S)6.37 L/SCleveland ClinicECHOCARDIO M/2D COMPLETEon 60-31-1491TICIBQTNAE M/2D COMPLETEPatient: CORRIE MCCRAY Exam Date: 12/31/2022 : 1950 Gender:F Ordering : DR HUSSEIN ROWAN D.O. Admission #: [id number] Family : Order #: [id number] CLICK HERE TO VIEW EXAM ECHOCARDIOGRAM REPORT [...] by: Yusuf Puente M.D. on 01/01/2023 at 19:41[facility] AUTO DIFFon 07-82-6844VAMU #0.0 103/ulNormal0.0-0.1The [facility] on above:Performed By: #### CBC ####[facility] [address] [address]Dr.Vicki ChangBasophils/100 WBC (Bld)1.0 %Normal0.2-2.0The [facility]Comkal[facility] on above:Performed By: #### CBC ####[facility] [address] [address]Dr.Laureenlan ChangEO #0.1 103/ulNormal0.0-0.7The Kristen HospitalComment on above:Performed By: #### CBC ####[facility] J[address] [place], [place] [address]Dr.Laureenchay ChangEosinophils/100 WBC (Bld)1.5 %Normal 0.9-7.0The [facility] – JacksonComment on above:Performed By: #### CBC ####[facility] Ueumlshcil[address] [place], [place] [address]Dr.Vicki Bates Erythrocyte distribution width (RBC) [Ratio]11.9 %Hkvwsr46.0-15.0The [facility] – JacksonComment on above:Performed By: #### CBC ####[facility] Eihrhupoof[address] [place], [place] [address]Dr.Vicki ChangHematocrit (Bld) [Volume fraction]43.5 %Fkebhw50.0-48.0The [facility] – JacksonComment on above:Performed By: #### CBC ####[facility] Wgkpafynfv[address] [place], [place] [address]Dr.Vicki ChangHemoglobin (Bld) [Mass/Vol]14.4 g/dL Tbtwcv11.0-16.0The [facility] – JacksonComment on above:Performed By: #### CBC ####[facility] Xmaegamfmt[address] [place], [place] [address]Dr. Vicki BatesIG #0.01 10e3/ulNormal0.00-0.03The [facility] – JacksonComment on above: Performed By: #### CBC ####[facility] R[address]fzygvmp[address] [place], [place] [address]Dr.Vicki ChangIG %0.3 %Normal0.0-0.5The [facility]in HospitalComment on above:Performed By: #### CBC ####[facility] Muuhcuijvm[address] [place], [place] [address]Dr.Vicki ChangLYMPH #1.8 103/ulNormal1.2-3.8The [facility] JacksonComment on above:Performed By: #### CBC ####[facility] Acnbdfrrlw[address] [place], [place] [address]Dr. Vicki ChangLymphocytes/100 WBC (Bld)44.6 %Dwayrl45.5-60.0The [facility] Comment on above:Performed By: #### CBC ####[facility] Dykrxrlwwu[address] [place], [place] [address]DrRaj BatesMANUAL DIFF REQNONormalThe [facility] – JacksonComment on above:Performed By: #### CBC ####[facility] Lmhugbjoow[address] [place], [place] [address]Dr.Vicki BatesH (RBC) [Entitic mass]31.1 kgFzmwqx45.7-34.0The [facility]in HospitalComment on above: Performed By: #### CBC ####[facility] Irltudlgny[address] [place], [place] [address]DrRaj BatesHC (RBC) [Mass/Vol]33.1 g/dLNormal 29.9-35.2The [facility] JacksonComment on above:Performed By: #### CBC ####[facility] Froxlxwubl[address] [place], [place] [address]Dr. Vicki BatesV (RBC) [Entitic vol]94.0 qQRplskf80.0-99.0The [facility] Comment on above:Performed By: #### CBC ####[facility] [address]lss[address] [place], [place] [address]DrRaj BatesMONO #0.4 103/ulNormal0.3-0.8 The [facility] – JacksonComment on above:Performed By: #### CBC ####[facility] Feeonpfqbf[address] [place], [place] [address]DrRaj Bates Monocytes/100 WBC (Bld)9.0 %Normal1.7-12.0The [facility] JacksonComment on above: Performed By: #### CBC ####[facility] Jsktryynum[address] [place], [place] [address]DrRaj BatesNEUT #1.7 103/ulNormal1.4-6.5The [facility] JacksonComment on above:Performed By: #### CBC ####[facility] Aqoieoguug[address] [place], [place] [address]Dr.Vicki BatesNeutrophils/100 WBC (Bld)43.6 %Alffci25.0-75.0The [facility] Medical Centerment on above:Performed By: #### CBC ####[facility] [address] [address]Dr.Vicki BatesPlatelet mean volume (Bld) [Entitic vol]9.1 fLCritically low 9.5-13.5The [facility] JacksonComment on above:Performed By: #### CBC ####[facility] [address] [address]Dr. Vicki RlvcxKXQ771 103/llMcmvgk725-327Gdt [facility]Comkal[facility] on above: Performed By: #### CBC ####[facility] [address] [address]Dr.Vicki ChangRBC4.63 106/ulNormal4.20-5.40The [facility] – JacksonComment on above:Performed By: #### CBC ####[facility] [address] [address]Dr.Vicki BatesWBC4.0 103/ul Normal4.0-11.0The [facility]Comkalamaz[facility] on above:Performed By: #### CBC ####[facility] [address]qlk[address] [address]Dr. Vicki PauloLIPID PROFILEon 26-43-7088TJRZ-HDL RATIO NORMSEE [facility]Comkal[facility] on above:Result Comment: 3.3 - 4.4 LOW RISK 4.4 - 7.1 AVERAGE RISK 7.1 - 11.0 MODERATE RISK >11.0 HIGH RISKPerformed By: #### TSH, LIPID, BMP #### [facility] [address] [address] [address] Vicki BatesCholesterol [Mass/Vol]221 mg/dLCritically high<=200The [facility] on above:Performed By: #### TSH, LIPID, BMP #### [facility] [address] [address] [address] Vicki Zuluagaesterol in HDL [Mass/Vol]68 mg/dLCritically erxm58-92BeiWayne HospitalComment on above:Performed By: #### TSH, LIPID, BMP #### [facility] [address] [address] [address] Vicki BatesCholesterol in LDL [Mass/Vol]140.8 mg/dLNoCentervilleComment on above:Performed By: #### TSH, LIPID, BMP #### [facility] [address] [place] [address] Dr. Vicki Nathan.total/Cholesterol in HDL [Mass ratio]3.3 {ratio} NormalThe [facility] – JacksonComment on above:Performed By: #### TSH, LIPID, BMP #### [facility] [address] [place] [address] Dr. Vicki Jose NORMAL> or = 60 mg/dl - LOW CARDIOVASCULAR RISK <40 mg/dl - HIGH CARDIOVASCULAR RISKNoCentervilleComment on above:Performed By: #### TSH, LIPID, BMP #### [facility] [address] [place] [address] Dr. Vicki BatesLDL CALC NORMALSEE BELOWProMedica Toledo HospitalComment on above:Result Comment: <100 mg/dl OPTIMAL 100 - 129 mg/dl NEAR OR ABOVE OPTIMAL 130 - 159 mg/dl BORDERLINE HIGH 160 - 189 mg/dl HIGH >190 mg/dl VERY HIGH Performed By: #### TSH, LIPID, BMP #### [facility] [address] [place] [address] Dr. Vicki BatesTriglyceride [Mass/Vol]61 mg/dLNormal<=150[facility] Comment on above:Performed By: #### TSH, LIPID, BMP #### [facility] [address] [address] [address] Vicki BatesVLDL CALC12.2 mg/dLNoCentervilleComment on above: Performed By: #### TSH, LIPID, BMP #### [facility] [address] [place] [address] Dr. Vicki BatesPROF CHEM 8 (BAS METB)on 45-29-1058Yjpwc gap [Moles/Vol]11.5 mmol/LNormalThe [facility] JacksonComment on above:Performed By: #### TSH, LIPID, BMP #### [facility] [address] [place] [address] Dr. Vicki BatesCalcium [Mass/Vol]9.5 mg/dLNormal8.5-10.1The [facility] Comment on above:Performed By: #### TSH, LIPID, BMP #### [facility] [address] [place] [address] Dr. Vicki BatesChloride [Moles/Vol]106 mmol/YKjgsmt29-058CzzWayne Hospital Comment on above:Performed By: #### TSH, LIPID, BMP #### [facility] [address] [place] [address] Dr. Vicki BatesCO2 [Moles/Vol]30.1 mmol/YYwoqzk10.0-32.0[facility] Comment on above:Performed By: #### TSH, LIPID, BMP #### [facility] [address] [place] [address] Dr. Vicki BatesCreatinine [Mass/Vol]0.81 mg/dLNormal0.55-1.02The [facility] JacksonComment on above:Performed By: #### TSH, LIPID, BMP #### [facility] [address] [place] [address] Dr. Vicki HarleyGFR-AF COLOMBIAN>60Normal>=60The [facility] JacksonComment on above:Performed By: #### TSH, LIPID, BMP #### [facility] [address] [place] [address] Dr. Vicki HarleyGFR-NON AF COLOMBIAN>60Normal>=60The [facility] JacksonComment on above:Performed By: #### TSH, LIPID, BMP #### [facility] [address] [place] [address] Dr. Vicki BatesGlucose [Mass/Vol]91 mg/qKXbtlqh81-905EnjWayne Hospital Comment on above:Performed By: #### TSH, LIPID, BMP #### [facility] [address] [address] [address] Vicki BatesPotassium [Moles/Vol]4.3 mmol/LNormal3.5-5.1The [facility] Comment on above:Performed By: #### TSH, LIPID, BMP #### [facility] [address] [address] [address] Vicki BatesSodium [Moles/Vol]143 mmol/YDjofor691-602Hhg [facility] Comment on above:Performed By: #### TSH, LIPID, BMP #### [facility] [address] [address] [address] Vicki BatesUrea nitrogen [Mass/Vol]18.0 mg/dLNormal7.0-18.0The [facility] JacksonComment on above:Performed By: #### TSH, LIPID, BMP #### [facility] [address] [place] [address] Dr. Vicki Daniels nitrogen/Creatinine [Mass ratio]22.2 mg/mgNormalThe [facility] JacksonComment on above:Performed By: #### TSH, LIPID, BMP #### [facility] [address] [address] [address] Vicki Acosta 21-41-6427UIY2.814 uIU/mLCritically high0.358-3.740The [facility] JacksonComment on above:Performed By: #### TSH, LIPID, BMP #### [facility] [address] [place] [address] Dr. Vicki BatesMG MAMM SCREEN 3D CRISTINA CADon 13-86-0272KF MAMM SCREEN 3D CRISTINA CAD Patient: CORRIE MCCRAY Exam Date: 05/07/2022 : 1950 Gender:F Ordering : DR HUSSEIN ROWAN D.O. Admission #: [id number] Family : Order #: [id number] CLICK HERE TO VIEW EXAM RADIOLOGY REPORT [...] lung cancer at age 85. LOCATION: [facility] BREAST COMPOSITION: Almost entirely fatty. FINDINGS: DIAGNOSTIC [...] by: Kassie Queen M.D. on 05/07/2022 at 13:23[facility] AUTO DIFFon 87-55-8538UKPU #0.0 103/ulNormal0.0-0.1The [facility] JacksonComment on above:Performed By: #### CBC ####[facility] T[address] [place], [place] [address]Dr.Yilan ChangBasophils/100 WBC (Bld)0.5 %Normal0.2-2.0The [facility] JacksonComment on above:Performed By: #### CBC ####[facility] G[address] [place], [place] [address]Dr.Yilan ChangEO #0.1 103/ulNormal0.0-0.7ThUniversity Hospitals Health SystemComment on above:Performed By: #### CBC ####[facility] Lluvkelj[address] [place], [place] [address]Dr.Yilan ChangEosinophils/100 WBC (Bld)1.5 %Normal 0.9-7.0The [facility] JacksonComment on above:Performed By: #### CBC ####[facility] Jfatayjh[address] [place], [place] [address]Dr.Vicki Bates Erythrocyte distribution width (RBC) [Ratio]11.7 %Cgzckq71.0-15.0The [facility] JacksonComment on above:Performed By: #### CBC ####[facility] K[address] [place], [place] [address]Dr.Vicki BatesHematocrit (Bld) [Volume fraction]42.8 %Lygiqd64.0-48.0The [facility] JacksonComment on above:Performed By: #### CBC ####[facility] Lgcxnfs[address] [place], [place] [address]Dr.Vicki ChangHemoglobin (Bld) [Mass/Vol]14.2 g/dL Doztbt66.0-16.0The [facility] JacksonComment on above:Performed By: #### CBC ####[facility] Ayse[address] [place], [place] [address]Dr. Yilan ChangIG #0.01 10e3/ulNormal0.00-0.03The [facility] JacksonComment on above: Performed By: #### CBC ####[facility] [address] [place], [place] [address]Dr.Laureenlan ChangIG %0.2 %Normal0.0-0.5The [facility] JacksonComment on above:Performed By: #### CBC ####[facility] Hxytrbqmnv[address] [place], [place] [address]Dr.Laureenlan ChangLYMPH #1.8 103/ulNormal1.2-3.8The [facility] JacksonComment on above:Performed By: #### CBC ####[facility] [address] [place], [place] [address]Dr. Vicki BatesLymphocytes/100 WBC (Bld)43.6 %Uncyyw54.5-60.0The [facility] Comment on above:Performed By: #### CBC ####[facility] Trszol[address] [place], [place] [address]Dr.Laureenlan ChangMANUAL DIFF REQNONormalThe [facility] JacksonComment on above:Performed By: #### CBC ####[facility] P[address]ommce[address] [place], [place] [address]Dr.Vicki BatesMCH (RBC) [Entitic mass]31.3 vzCqkjjh14.7-34.0The [facility] JacksonComment on above: Performed By: #### CBC ####[facility] [address] [address]Dr.Vicki PauloMCHC (RBC) [Mass/Vol]33.2 g/dLNormal 29.9-35.2The [facility] JacksonComment on above:Performed By: #### CBC ####[facility] [address] [address]Dr. Laureenchay BatesMCV (RBC) [Entitic vol]94.3 oGZabqic79.0-99.0The [facility] Comment on above:Performed By: #### CBC ####[facility] Hwqmzyst[address] [place], [place] [address]Dr.Vicki BatesMONO #0.3 103/ulNormal0.3-0.8 The [facility] JacksonComment on above:Performed By: #### CBC ####[facility] Tgwjpkzqxy[address] [place], [place] [address]Dr.Vicki Bates Monocytes/100 WBC (Bld)6.4 %Normal1.7-12.0The [facility] JacksonComment on above: Performed By: #### CBC ####[facility] [address]fe[address] [place], [place] [address]Dr.Vicki BatesNEUT #1.9 103/ulNormal1.4-6.5The [facility] JacksonComment on above:Performed By: #### CBC ####[facility] Ysg[address]mfu[address] [place], [place] [address]Dr.Vicki BatesNeutrophils/100 WBC (Bld)47.8 %Qvkzzb31.0-75.0The [facility] JacksonComment on above:Performed By: #### CBC ####[facility] R[address]wwtfxiz[address] [place], [place] [address]Dr.Vicki BatesPlatelet mean volume (Bld) [Entitic vol]9.0 fLCritically low 9.5-13.5The [facility] JacksonComment on above:Performed By: #### CBC ####[facility] [address]unv[address] [place], [place] [address]Dr. Vicki BatesPLT250 103/odSengpg354-007Fkd [facility] on above: Performed By: #### CBC ####[facility] [address] [address]Dr.Vicki ChangRBC4.54 106/ulNormal4.20-5.40The [facility] on above:Performed By: #### CBC ####[facility] [address] [place], [place] [address]Zn.Vicki ChangWBC4.0 103/ul Normal4.0-11.0The [facility] on above:Performed By: #### CBC ####[facility] [address] [place], [place] [address]Fc. Vicki BatesCovid-19 PCR (CVDTB)on 80-70-0869TQHN-CoV-2 (COVID-19) RNA MEAGAN+probe Ql (Unsp spec)Not detectedNormalNOT DETECTEDThe [facility] on above:Result Comment: This test is not yet approved or cleared by the [place] FDA. When there are no FDA-approved or cleared tests available, and other criteria are met, FDA can make tests available under an emergency access mechanism called an Emergency Use Authorization (EUA). The EUA for this test is supported by the [place] of Health and Human Service's (HHS's) declaration [...] of clinical signs and symptoms consistent with SARS-CoV-2.Performed By: #### CVDTBH ####[facility] [address] [address]Dr. Vicki ChangUS PELVIS AND TRANSVAGon 41-45-0591PG PELVIS AND TRANSVAGEXAMINATION: US PELVIS AND TRANSVAG HISTORY: Postmenopausal bleeding [...] Electronically authenticated by: KASSIE QUEEN Date: 2022-04-16 00:20[facility] 50-47-8817VMM [Catalytic activity/Vol]20 U/SZoweat38-20 [facility] HospitalComment on above:Performed By: #### AST, ALT #### [facility] [address] [address] [address] Vicki Powers 32-18-7605KLW [Catalytic activity/Vol]28 U/ZVhekgf75-54JobWayne HospitalComment on above:Performed By: #### AST, ALT #### [facility] [address] [address] [address] Vicki BatesXR ankle RT min 3V*on 14-31-9083MO ankle RT min 3V*[facility] Main [place] [address] [place] [address] XRay Report Signed Patient: Corrie Mccray MR#: [id number] : 1950 Acct:[id number] Age/Sex: 71 / F ADM Date: 10/16/21 Loc: XDUCLY Room: Type: [facility] Attending Dr: Dena BERGMAN Ordering Provider: DENA DAVIS Date of Service: 10/16/21 XR/XR ankle RT min 3V*: S89.91XA Copies to: DENA DAVIS-David RIGHT ANKLE - 3 views Reason for [...] NOTED. Impression dictated by: Zeke Smith Jr., D.OЕкатерина10/16/2021 5:09 PM Dictation Location: [address] [address] Transcribed By: [facility] 10/16/211708 Dictated By: Zeke Smith Jr, DO 10/16/211706 Signed By: 10/16/21 170[facility] HospitalXR ankle RT min 3V*[facility] Wi[employer] Other XR ankle RT min 3V*[facility] Wi3 Other XR ankle RT min 3V*[address] [facility] Wi3 Other XR ankle RT min 3V*[place] [address] [place] [address] Wi3 Other XR ankle RT min 3V*XRay [facility] Wi3 Other XR ankle RT min 3V*[facility] [employer] Other XR ankle RT min 3V*Patient: Corire Mccray MR#: [id number] [employer] Other XR ankle RT min 3V*[address] [employer] Other XR ankle RT min 3V*: 1950 Acct:[id number] [employer] Other XR ankle RT min 3V*Age/Sex: 71 / F ADM Date: 10/16/21 [employer] Other XR ankle RT min 3V*Loc: XDUCLY Room: Type: [facility] [employer] Other XR ankle RT min 3V*Attending Dr: Dena Davis [facility] Other XR ankle RT min 3V*Ordering Provider: DENA DAVIS [facility] Other XR ankle RT min 3V*Date of Service: 10/16/21[employer] Other XR ankle RT min 3V* XR/XR ankle RT min 3V*: S89.91XAM[facility] John'SConXtech Other XR ankle RT min 3V*Copies to: DENA DAVIS [facility]- [employer] Other XR ankle RT min 3V*RIGHT ANKLE - [address] John[address]SConXtech Other xr ankle RT min 3V*Reason for exam:Patient fell while going up the stairs 3 hours ago. Patient has pain posterior [facility] Other XR ankle RT min 3V*her right ankle and posterior to her distal tib-fib.[employer] Other XR ankle RT min 3V*COMPARISON: [facility] [employer] Other XR ankle RT min 3V*Soft tissue swelling is noted. Ankle mortise appears intact. Cortical irregularity seen along [employer] Other XR ankle RT min 3V*medial malleolus suggestive of prior injury. No acute bony process is seen. Enthesophyte formationJonesboro [employer] Other XR ankle RT min 3V*is seen at the insertion of the Achilles tendon. Minimal plantar spurring.[employer] Other XR ankle RT min 3V* XR/XR ankle RT min 3V*[employer] Other XR ankle RT min 3V*IMPRESSION:[employer] Other XR ankle RT min 3V*SOFT TISSUE SWELLING WITHOUT ACUTE BONY PROCESS NOTED.[employer] Other XR ankle RT min 3V*Impression dictated by: Zeke Smith Jr., D.OЕкатерина10/16/2021 5:09 [facility] [employer] Other xr ankle RT min 3V*Dictation Location: [place] [address] [employer] Other xr ankle RT min 3V*Transcribed By: PWS 10/16/21 [facility] [employer] Other xr ankle RT min 3V*Dictated By: Zeke Smith Jr, DO 10/16/[address] [place] [address] [employer] Other xr ankle RT min 3V*Signed By:[employer] Other xr ankle RT min 3V*10/16/21 [facility] CenterOriginG[facility] Other no [facility] InformationNationwide Children[facility] Vital Signs Date TimeVital SignValuePerforming WymygtiipKanckmvn51-62-0750 09:30-0500Body igaqui288.48 cmBenjamin Ball Other no[employer] Other 11-08-2023 09:30-0500Body mass index (BMI) [Ratio] 26.12 kg/n9Orbgorvr Ball Other [employer] Other 11-08-2023 09:30-0500Body .77 kgBenjamin Ball Other [employer] Other 11-08-2023 09:30-0500Diastolic blood fxyrqfji54 mm[Hg] Hussein Rowan Other [place] [employer] Other 11-08-2023 09:30-0500Respiratory rate12 /minBenjafarrah Rowan Other [place] [employer] Other 11-08-2023 09:30-0500Systolic blood fvejsvzs46 mm[Hg] Hussein Rowan Other [place] [employer] Other 10-24-2023 11:19-0400Body jjaobd179.5 cmZaire Fry MD Work Phone: [facility]10-24-2023 11:19-0400Body qiaaiq31.32 kgZaire Fry MD Work Phone: [phone]10-24-2023 11:19-0400Diastolic blood pflgevah32 mm[Hg]Zaire Fry MD Work Phone: [phone]10-24-2023 11:19-0400Heart rate76 /min Zaire Fry MD Work Phone: [phone]10-24-2023 11:19-6134QuY3% (BldA) [Mass fraction]98 %Zaire Fry MD Work Phone: [phone]10-24-2023 11:19-0400Systolic blood hkaggxar937 mm[Hg]Zaire Fry MD Work Phone: [phone]10-13-2023 10:00-0400Body ahcuua063.48 Xiomara Lees Other [place] [employer] Other 10-13-2023 10:00-0400Body mass index (BMI) [Ratio]26.7 kg/v0LxrgwhCony Lees Other [employer] Other 10-13-2023 10:00-0400Body zpracsiqphd59.5 [degF]Cony Lees Other [employer] Other 10-13-2023 10:00-0400Body .23 kgPapapito Lees Other [employer] Other 10-13-2023 10:00-0400Diastolic blood jtgniyku85 mm[Hg] Cony Lees Other [employer] Other 10-13-2023 10:00-0400Respiratory rate18 /minCony Lees Other [employer] Other 10-13-2023 10:00-9786RkU5% (BldA) [Mass fraction]97 % Cony Lees Other [employer] Other 10-13-2023 10:00-0400Systolic blood emfzlxzm301 mm[Hg] Cony Lees Other [employer] Other 07-24-2023 09:30-0400Body ocsisg224.94 cmBenjamin Ball Other [employer] Other 07-24-2023 09:30-0400Body mass index (BMI) [Ratio] 27.81 kg/e7Gxiksofa Ball Other [employer] Other 07-24-2023 09:30-0400Body .77 kgBenjamin Ball Other [employer] Other 07-24-2023 09:30-0400Diastolic blood ychqqvqi93 mm[Hg] Hussein Ball Other [employer] Other 07-24-2023 09:30-0400Respiratory rate12 /minBenjamin Ball Other [employer] Other 07-24-2023 09:30-0400Systolic blood dzukhwgy800 mm[Hg] Hussein Ball Other [employer] Other 05-31-2023 10:00-0400Body whzdpa197.94 cmBenjamin Ball Other [employer] Other 05-31-2023 10:00-0400Body mass index (BMI) [Ratio] 27.92 kg/q4Emlxqnww Ball Other [employer] Other 05-31-2023 10:00-0400Body pilvih29.04 kgBenjamin Ball Other [employer] Other 05-31-2023 10:00-0400Diastolic blood zjkgjysc28 mm[Hg] Hussein Ball Other [employer] Other 05-31-2023 10:00-0400Respiratory rate12 /minBenjamin Ball Other [employer] Other 05-31-2023 10:00-0400Systolic blood nggmoduv131 mm[Hg] Hussein Ball Other [employer] Other 05-10-2023 10:30-0400Body xjuztz942.94 cmBenjamin Ball Other [employer] Other 05-10-2023 10:30-0400Body mass index (BMI) [Ratio] 28.11 kg/b8Lnjjzqrt Ball Other [employer] Other 05-10-2023 10:30-0400Body xungee81.5 kgBenjamin Ball Other [employer] Other 05-10-2023 10:30-0400Diastolic blood qskonith20 mm[Hg] Hussein Ball Other [employer] Other 05-10-2023 10:30-0400Respiratory rate12 /minBenjamin Ball Other [employer] Other 05-10-2023 10:30-0400Systolic blood uqrtmswr932 mm[Hg] Hussein Ball Other [employer] Other 02-28-2022 16:40-0500Body mfeflq622.94 cmStephans Davis Other [employer] Other 02-28-2022 16:40-0500Body mass index (BMI) [Ratio] 29.28 kg/i6GgoadyoxtDena Davis Other [employer] Other 02-28-2022 16:40-0500Body vhkxaemqenn91.4 [degF] Dena Davis Other [employer] Other 02-28-2022 16:40-0500Body bpykpl04.31 kgStmio Davis Other [employer] Other 02-28-2022 16:40-0500Diastolic blood eulmykhy37 mm[Hg] Dena Davis Other [place] [employer] Other 02-28-2022 16:40-0500Respiratory rate16 /minSrachael Davis Other [facility] [employer] Other 02-28-2022 16:40-7838XuT5% (BldA) [Mass fraction]98 % Dena Davis Other [facility] [employer] Other 02-28-2022 16:40-0500Systolic blood iqfprunc425 mm[Hg] Dena Davis Other [facility] [employer] Other Encounters Encounter DateEncounter TypeCare ProviderFacilityStart: 02-16-2025 End: 90-86-8190Uerqqxd encounter procedureTojeanie Brown OD Work Phone: OphthalmologyComment on above:Low-tension glaucoma of both eyes, moderate stage (Primary Dx); Low-tension glaucoma of both eyes, unspecified glaucoma stage; Keratitis sicca, bilateral; History of trabeculectomy, right eyeStart: 02-16-2025 End: 76-40-3038piqyrbjnlqNGPZ A HERSHNERFacility:[facility] Campustart: 01-26-2025 End: 27-73-6235ZwiiwxEhyf A Hershner OD Work Phone: OphthalmologyComment on above:Refill RequestStart: 11-17-2024 End: 96-74-3683fcxshrevmvGVVJWPIH E BALLFacility:[facility] Campustart: 11-17-2024 End: 29-12-3802Ujkibbz encounter procedureTojeanie Brown OD Work Phone: OphthalmologyComment on above:Low-tension glaucoma of both eyes, unspecified glaucoma stage (Primary Dx); Low-tension glaucoma of both eyes, moderate stage; History of trabeculectomy; PseudophakiaStart: 05-19-2024 End: 63-13-8794Dxlsxjh encounter procedureTojeanie Brown OD Work Phone: OphthalmologyComment on above:Low-tension glaucoma of both eyes, unspecified glaucoma stage (Primary Dx); Low-tension glaucoma of both eyes, moderate stage; Keratitis sicca, bilateralStart: 05-19-2024 End: 99-05-9389jadsljozdzRMDSAMMZ E BALLFacility:[facility] HospitalStart: 11-15-2023 End: 92-70-8171vkaelduikvMVXFDOVY A BROWNNot AvailableStart: 11-15-2023 End: 19-65-9327xpgfplvfyiDCXPTPEV A BROWNNot AvailableStart: 11-12-2023 End: 40-80-8096Cgnvidl encounter procedureTojeanie Brown OD Work Phone: OphthalmologyComment on above:Low-tension glaucoma of both eyes, unspecified glaucoma stage (Primary Dx); Keratitis sicca, bilateral (HCC); Pseudophakia, left eyeStart: 07-29-2023 End: 47-08-5463aagwlfvennLhvjazzrz LyonPulmonary MedicineStart: 07-29-2023 Telephone encounterBenoma Rowan Medical ClinicStart: 07-22-2023 [facility] Luma LOZANOFOLDING MACHINE TENDER Work Phone: Pulmonary MedicineComment on above:NoduleStart: 07-09-2023 End: 90-44-2997ymowprmclpByokzmjg Ball Other [facility] [employer] Other Start: 22-21-1015Cnooimrxk encounterBenoma Rowan Medical ClinicStart: 07-05-2023 End: 80-70-7737mmkosrmoncJHBEZ KHALILFacility:[place] HospitalStart: 07-05-2023 End: 72-97-4517xlcywfzdyxOznq [place] Work Phone: PulmonologyComment on above:SpirometryStart: 07-05-2023 End: 56-69-5037Oqogyjr encounter procedurePulm Lab Yokasta Work Phone: [facility] YOKASTA MOLL PAV MCStart: 06-26-2023 End: 23-70-5666nvmgjdbbvlQdamxbja Ball Other [employer] Other Start: 53-96-1071Ujcfzv outpatient visit 15 minutes Hussein BallFPG Ball Medical ClinicStart: 06-24-2023 End: 17-50-7461cnzlpuuqlbYmmvtrjn Ball Other [employer] Other Start: 40-04-7953Trgtskyny encounterBenjamin BallFPG Ball Medical ClinicStart: 06-11-2023 End: 74-76-6916Nfkvslq encounter procedureZaire Fry MD Work Phone: CardiologyComment on above:Chest discomfort; SOB (shortness of breath); Pure hypercholesterolemia; Primary hypertensionStart: 05-31-2023 End: 24-78-4867wsypppmrkiIawfii Yoana Other [facility] [employer] Other Start: 01-66-8756Kchosv outpatient visit 15 minutes Cony [facility] ClydeStart: 81-84-0951Bxfqscxbe encounterNo One (Historical)Referring PhysicianComment on above:External Referrals/resources Start: 03-15-2023 End: 14-56-6141zcszkjvwjzRvskbapd Ball Other noSDNsquare [employer] Other Start: 62-94-5600Ysocxxmjb encounterBenjamin BallFPG [facility] Medical ClinicStart: 03-13-2023 End: 48-53-6416uyujuduezlTcxihfiv Ball Other [employer] Other Start: 23-07-6984Wdcetwjhx encounterBenjamin BallFPG [facility] Medical ClinicStart: 03-11-2023 End: 93-95-7465jnmhvpsxiaIrsjzbud Ball Other [employer] Other Start: 33-40-5313Pnnhiy outpatient visit 15 minutes Hussein BallFPG [facility] Medical ClinicStart: 01-21-2023 End: 09-28-1568aavlgejwjyInyajfgl Ball Other [employer] Other Start: 73-82-0683Bxcousdyk encounterBenjamin BallFPG [facility] Medical ClinicStart: 01-16-2023 End: 79-51-9805sacjxirdkeVmtgmcvm Ball Other [employer] Other Start: 62-93-8018Ucwcgq outpatient visit 15 minutes Hussein BallFPG [facility] Medical ClinicStart: 12-31-2022 End: 20-33-7433hpfshsekelRR HUSSEIN BALLFacility:W8Oohhz: 12-27-2022 End: 85-92-0649mddhczngpcEmywasgx Ball Other [employer] Other Start: 20-16-0881Erhgzqbot encounterBenjamin BallFPG [facility] Medical ClinicStart: 00-97-0057Qhyufly encounter procedureBenjamin BallFPG [facility] Medical ClinicStart: 60-38-1693Xrzpiclsd encounterBenjamin BallFPG [facility] Medical ClinicStart: 12-26-2022 End: 24-62-9667sfjmyecdfcEG HUSSEIN ROWANJonesboro [employer] Other Start: 05-07-2022 End: 81-55-7936trtuwgtuapON HUSSEIN BALLFacility:Y3Uxydg: 04-30-2022 End: 08-62-8365iisvjnujikXF HUSSEIN BALLFacility:Q6Fqiki: 75-08-5679Fxfdbbliy for preprocedural laboratory examinationDR ZION RIZZO .[facility] Start: 04-26-2022 End: 12-89-5845rcwkcxkkgwZI ZION RIZZO .Facility:Y4Ofvqi: 04-26-2022 End: 57-51-3193Gyuukfzdw for preprocedural laboratory examinationDR ZION RIZZO .Facility:A2Nypct: 47-18-0722Uqvxktztf for preprocedural cardiovascular examinationDR ZION RIZZO .[facility] Systemtart: 04-19-2022 End: 68-45-3827wigwrbxrofXO HUSSEIN BALLFacility:P4Ezjky: 04-19-2022 End: 72-36-0866Bvuucjpim for preprocedural cardiovascular examinationDR HUSSEIN BALLFacility:S6Lqwhh: 04-14-2022 End: 83-96-8952uruannvjooDX HUSSEIN BALLFacility:S7Ntzzm: 04-10-2022 End: 42-40-4000Iejcuas encounter procedureTodd A Katiehner OD Work Phone: OphthalmologyComment on above:Low-tension glaucoma of both eyes, unspecified glaucoma stage (Primary Dx); Keratitis sicca, bilateral (HCC); History of trabeculectomy, right eyeStart: 01-18-2022 End: 79-99-7898xiiiyobmxtUMHQKJXZ BROWNFacility:W6Kkrit: 10-16-2021 End: 22-51-3372kwtgsxctsdVdsrajaqa Breault Other [place] [employer] Other Start: 78-40-6829Gedyvq outpatient new 20 minutes [facility]FP[facility] Procedures DateProcedureProcedure DetailPerforming ClinicianStart: 51-94-2720Fjqpkm field xm uni/bi w/interp extended examTodd A Hershner OD Work Phone: Start: 03-89-3374Tivbxcntzujw ophthalmic imaging optic nerveTodd A Hershner OD Work Phone: Start: 56-46-2152Iyixci field xm uni/bi w/interp extended examTodd A Hershner OD Work Phone: Start: 67-08-6906Qquuchkjfijg ophthalmic imaging optic nerveTodd A Hershner OD Work Phone: Start: 60-26-5027Wqcqvfrjp rspse spmtry pre&post- brncdilat Kim Fry MD Work Phone: Start: 47-20-2435Smq routine ecg w/least 12 lds i&r onlyCcf ProviderStart: 95-69-3103Guyhvm field xm uni/bi w/interp extended exam Tina Brown OD Work Phone: Plan of Treatment DateCare ActivityDetailAuthorStart: 96-17-6300QDX Vaccine (1 - 1-dose 75+ series)RSV Vaccine (1 - 1-dose 75+ series)[facility] 08-20-2025 End: 69-45-1575Htohumm encounter umuhnarwc07/02/2026 1:15 PM EST Office Visit OPHT Ophthalmology [address] [place] [address] Tina Brown, OD [address] [facility] [address] Diagnostics, [facility] [address] [address] 6 Months Full OCT ON/GCAOphthalmologyComment on above:6 Months Full OCT ON/GCAStart: 04-19-2025 Influenza vaccinationFisher-[facility] Centertart: 02-16-2025 End: 19-49-9438Zjsxgzg encounter procedureOphthalmologyComment on above:RTC: 3 months VaTa HVF 24-2 , additional treatment if OS still upStart: 11-17-2024 End: 88-89-3716Cokznic encounter frdveuaho81/01/2025 1:15 PM EDT Office Visit OP[facility] Ophthalmology [address] [place] [address] Tina Brown, OD [address] [facility] [place] [address] RTC: 6 Months Full OCT ON/GCAOphthalmologyComment on above:RTC: 6 Months Full OCT ON/GCAStart: 09-22-2024 End: 09-81-4569Cvmniuq encounter ogqlmzhfa38/04/2025 11:30 AM EST Office Visit Cardiology [address] [place] [address] Zaire Fry MD [address] [facility] [place] [id number] Return in about 1 year (around 06/11/2024).CardiologyComment on above:Return in about 1 year (around 06/11/2024).Start: 22-91-9322Gubxhrf Directive DiscussionAdvance Directive DiscussionFisher-Titus Medical Centertart: 78-61-0021JJ Controlled (<130/80)BP Controlled (<130/80)[facility]: 03-21-9176Ilqtw-19 Vaccine ()Covid-19 Vaccine ()[facility]: 34-44-6400Jnxwmzmhq vaccinationInfluenza Vaccine (#1)[facility]: 17-02-5400Amckill Directive DiscussionAdvance Directive DiscussionFisher-[facility] Medical Centertart: 51-80-7551Iblfoooqrx Assessment Depression AssessmentFisher-[facility] Centertart: 06-11-2023 End: 01-77-3135HCGYLYETVT BLDCREATININE BLD Lab Routine Chest discomfort SOB (shortness of breath) Expected: 06/11/2023, Expires: 09/10/2023[facility] Work Phone: Comment on above:Expected: 06/11/2023, Expires: 09/10/2023Start: 61-62-1711Lnity-19 Vaccine ()Covid-19 Vaccine ()[facility]: 42-65-9006Nohshewwm vaccination [facility]: 89-56-2537QMAJYAV DIRECTIVE DISCUSSIONADVANCE DIRECTIVE DISCUSSIONFisher-Titus Medical Centertart: 28-71-0841GPGUIFNDED ASSESSMENTDEPRESSION ASSESSMENTFisher-Titus [facility] Centertart: 19-57-4243Ixvoehwfs vaccinationINFLUENZA (#1) [facility]: 97-99-9337KKNAE-19 VACCINE (4 - Booster for Moderna series)COVID-19 VACCINE (4 - Booster for Moderna series)[facility]: 09-27-6996EJNVTIV DIRECTIVE DISCUSSIONADVANCE DIRECTIVE DISCUSSIONFisher-[facility] Centertart: 95-66-2984XXCFB-19 VACCINE (4 - Moderna series)COVID-19 VACCINE (4 - Moderna series)[facility]: 05-01-2019Medicare Annual Wellness Visit Medicare Annual Wellness VisitFisher-Titus Medical Centertart: 46-22-1018YGJJ DENSITYBONE DENSITYFisher-[facility] Centertart: 76-84-7870Xwtw Density ScreeningBone Density ScreeningFisher-Titus Medical Centertart: 73-73-2632Dopsecdzvabe Vaccine: 65+ (1 - PCV) Pneumococcal Vaccine: 65+ (1 - PCV)[facility]: 37-59-5151Gkeeytnfmkkq Vaccine: 65+ (1 of 1 - PCV)Pneumococcal Vaccine: 65+ (1 of 1 - PCV)[facility]: 88-13-1305XDEVBCGGWRDA: 65+ (1 - PCV)PNEUMOCOCCAL: 65+ (1 - PCV) [facility]: 44-76-0395Pjuumdlyc for osteoporosisBone Density ScreeningFisher-Titus Medical Centertart: 61-68-4092POR Vaccine (1 - 1-dose 60+ series)RSV Vaccine (1 - 1-dose 60+ series)[facility]: 03-84-9002Lwgmlhpisofc Vaccine: 50+ (1 of 1 - PCV)Pneumococcal Vaccine: 50+ (1 of 1 - PCV)[facility]: 08-16-8808JYEZAHCM VACCINE (1 of 2)SHINGRIX VACCINE (1 of 2) [facility]: 20-50-3515YZQUWYAOA (FIT-DNA)COLOGUARD (FIT-DNA)[facility]: 19-50-0963WldgljleazgVGKFHFVCXICMwfgoeewo ClinicStart: 1995 COLORECTAL CANCER SCREENINGCOLORECTAL CANCER SCREENINGFisher-[facility] Medical Centertart: 97-25-8517PK COLONOGRAPHYCT COLONOGRAPHYFisher-Titus Medical Centertart: 1995 DIABETES SCREENDIABETES SCREENFisher-Titus Medical Centertart: 45-23-1339Qkpbspjj ScreeningDiabetes ScreeningFisher-Titus Medical Centertart: 59-28-2128FKZKU OCCULT BLOOD FECAL OCCULT BLOODFisher-Titus Medical Centertart: 83-68-6874Otwel 1996 panel - Serum or PlasmaLipid ScreeningFisher-Titus Medical Centertart: 06-45-3690Fygpa panelLipid Screening [facility]: 10-38-2647ETSPN SCREENLIPID SCREENFisher-Titus Medical Centertart: 35-10-1977Vqpuwqhis for malignant neoplasm of colonFisher-Titus [facility] Centertart: 68-35-4718IUMIFTCVDWJNPNWSKIRFCBZYDZVpcuylilu ClinicStart: 12-09-8839Uykbhoxswzx [facility]: 28-12-9834Nxgwvbvqj for malignant neoplasm of breast Mammogram ScreeningFisher-Titus Medical Centertart: 84-34-1668Wwvhv microalbumin profile [facility]: 50-43-1770ARNLWW PCP TEAM CHRONIC DISEASE VISITANNUAL PCP TEAM CHRONIC DISEASE VISITFisher-Titus Medical Centertart: 95-16-7183Hzytqdc Screening Anxiety ScreeningFisher-Titus Medical Centertart: 37-26-7730SU Controlled (<130/80)BP Controlled (<130/80)[facility]: 43-26-2137Bztkpmtnez Screening Depression ScreeningFisher-Titus Medical Centertart: 68-61-8771BSBZQRNCS C SCREENING HEPATITIS C SCREENINGRegency Hospital Companyrt: 70-49-1827Gxxupbznf C screening Hepatitis C ScreeningRegency Hospital Companyrt: 92-65-9186Awuct depression screening assessmentDEPRESSION SCREENINGNationwide Children'S Hospital End: 14-09-7454Enz hrt cornry art/bypass grfts contrst 3d postCTA CORONARY W IVCON Radiology Routine Chest discomfort SOB (shortness of breath) Pure hypercholesterolemia Primary hypertension 1 Occurrences starting 06/11/2023 until 07/10/2024[facility] Work Phone: Comment on above:1 Occurrences starting 06/11/2023 until 07/10/2024[facility] Work Phone: Comment on above:Ordered: 06/11/2023 End: 22-36-3751CMGGJBVVOE WITH DILATOR IF OBSTRUCTEDSPIROMETRY WITH DILATOR IF OBSTRUCTED PFT Routine SOB (shortness of breath) 1 Occurrences starting 1 until 11/22/[address] [place] [address] Work Phone: Comment on above:1 Occurrences starting 06/11/[address] [place] [address] Immunizations Immunization DateImmunizationNotesCare OducvpcjRhshtlug39-99-2632dtifmocer virus vaccine, split virus (incl. purified surface antigen)Hussein Rowan Other [employer] Other [id number], high dose seasonal, preservative-freeBenjamin Ball Other [employer] Other 11-330899-53-4401fjnzqlrfe virus vaccine, unspecified formulationZaire Fry MD Work Phone: [facility]'S HospitalHgnelt06-92-9198PCDOE-48 Pfizer (bivalent) Hussein Rowan Other [employer] Other [id number]-68 Vaccine Pfizer - Documentation Purposes OnlyBenjamin Ball Other [employer] Other 04-439202-51-4933coaeow vaccine recombinantBenjamin Ball Other [employer] Other 03-990298-79-1007UBNHA-91 ModernaBenjamin Ball Other [employer] Other 02-505799-46-2082FJYZD-56 ModernaBenjamin Ball Other [employer] Other 11439324-68-5857ltrwfovet virus vaccine, split virus (incl. purified surface antigen)Hussein Rowan Other [employer] Other 11-749994-76-3713erctax vaccine recombinantBenjamin Ball Other [employer] Other 11775648-71-8424jqauqw vaccine, liveHussein Rowan Other [facility] [employer] Other 11344632-72-7184DPGKQ QUAD 2020-21,65Y UP,,PF, 60 mcg (15 mcg x 4)/0.5 mL syrgTodd Jermaine OD Work Phone: [facility]S HospitalComment on above:PHARMACY ADMINISTERED Payers DatePayer CategoryPayerPolicy [id number] Health InsuranceMMO MEDICARE SUPPLEMENT Member Subscriber Plan / Payer (Effective 2019-Present) Name: Corrie Mccray Relation to Subscriber: Self Name: Corrie Mccray Payer ID: Not on file Type: Indemnity Address: [address] [place] [id number] MMO MEDICARE SUPPLEMENT [id number] 2019- [phone] [address] [place] [address] [id number] [id number] 1960Medicare [id number] [id number] [id number] 2.16.840.1.258113.3.579.2.593 [id number] 2.16.840.1.582163.3.57[id number] 2.16.840.1.698104.3.57[id number] 2.16.840.1.169243.3.57[id number] 2.16.840.1.203131.3.57[id number] 2.16.840.1.667864.3.579.[id number] 2.16.840.1.606601.3.57[id number] 2.16.840.1.974057.3.57[id number] 2.16.840.1.616141.3.579.2.1259 Social History DateTypeDetailFacilityStart: 10-12-2022 End: 06-58-0790Qqk Assigned At [facility] [employer] Other Start: 30-97-4511Bqmsppu smoking status NHISNever smoked tobaccoFisher-Titus Medical Centertart: 82-46-4145Cwrsglg use and exposureSmokeless tobacco non-userFisher-Titus Medical Centertart: 04-10-2022 End: 54-34-5250Dqsgvph intakeCurrent drinker of alcohol (finding)[facility]: 90-35-4338Hgwqyzx SDOH Alcohol Comment1 glass of wine 3/wkFisher-Titus Medical Centertart: 15-99-2341Zrg Assigned At [facility]Fe[facility] ClinicStart: 10-12-2022 End: 50-84-4007Ytsccil of Social functionNationwide Children'S HospitalNational Score (1-100), lower number is lower ffvw22DaupkezedFisher-Titus Medical Centertart: 58-15-7092Yoljvu identity Identifies as female gender (finding)[facility]: 04-90-4291Zpsswe orientationHeterosexual (finding)[facility] Medical Equipment Procedure CodeEquipment CodeEquipment Original TextEquipment IdentifierDatesLens Iol 0d +20 Dante Uv Abs - [id number]: 64-78-0993Ivxwzsi on above:Description: -0.09 Clinical Notes 02-12-2017 to 02-16-2025 Note Date & BsbfIhjzHckyocei91-39-3894 NoteDate of Procedure 02/16/2025. Hand Tufter Information Director Of Patient Care: russ. Notes -- HVF 02/16/2025 OD mod sup nasal step, stable ; OS AkbsxiVUMIL49-64-2405 NoteHNO ID: [id number] Author: TINA BROWN, TERRENCE Service: ? Author Type: SALES SECRETARY Type: Progress Notes Filed: 02/16/2025 13:40 Note Text: Tmax 19, 21 (pt report) ; Pachy 548 , 579 Gonioscopy 05/2013 Post dilation anterior iris insertion grade I-II with light TMP Lasers and surgeries OD TBX 06/30/13 (IOP 19) 11/29/20 PCIOL OS PEIOL (done elsewhere to lower IOP - ineffective), SLT 2009 Ocular Medication Intol, Non-efficacy, barriers Latanoprost - FORTE's ; multiple drops ineffective Cosopt, Brimonidine Sulfa intolerance (projectile vomiting) Current Ophthalmic Meds dorzolamide-timolol (COSOPT) 22.3-6.8 mg/mL ophthalmic solution Use 1 Drop in both eyes two times a day. Goals -- HVF 02/16/2025 OD mod sup nasal step, stable ; OS Normal -- OCT 11/17/2024 OD severe inf>mod sup thinning;OS mod inf > sup thinning, stable Low SS -- GCA 11/17/2024 OD global thinning ; OS mod sup, inf wedge, worse than 2013 (H40.1232) Low-tension glaucoma of both eyes, moderate stage (primary encounter diagnosis) - IOP Meeting goals OD but elevated OS - Sable OCT 11/17/2024 - IOP meeting goals and better OS today Plan: Continue dorzolamide/timolol two times a day OU Consider augmentation with SLT left eye if HVF change (Low threshold for tx OS ) (H16.223) Keratitis sicca, bilateral Comment: Stable a this time on tears Plan: Montior (H43.813) PVD (posterior vitreous detachment), bilateral Comment: Signs and symptoms of retinal detachment were reviewed with the patient, including an increase in number or size of floaters, flashes, or a curtain effect in one's peripheral vision. Plan: Observation (Z98.890) History of trabeculectomy, right eye Comment: Stable Bleb Plan: Monitor for redness - see if any question of infection (Z96.3) Pseudophakia, both eyes Comment: Centered IOL, [...] detail with the patient. Tina Brown, OD February 16, 2025 1:39 [facility]07-01-2025 History of Present illness Narrative* Tina Brown, OD - 02/16/2025 1:07 PM EDT Tmax 19, 21 (pt report) ; Pachy 548 , 579 Gonioscopy 05/2013 Post dilation anterior iris insertion grade I-II with light TMP Lasers and surgeries OD TBX 06/30/13 (IOP 19) 11/29/20 PCIOL OS PEIOL (done elsewhere to lower IOP - ineffective), SLT 2009 Ocular Medication Intol, Non-efficacy, barriers Latanoprost - FORTE's ; multiple drops ineffective Cosopt, Brimonidine Sulfa intolerance (projectile vomiting) Current Ophthalmic Meds dorzolamide-timolol (COSOPT) 22.3-6.8 mg/mL ophthalmic solution Use 1 Drop in both eyes two times aday. Goals -- HVF 02/16/2025 OD mod sup nasal step, stable ; OS Normal -- OCT 11/17/2024 OD severe inf>mod sup thinning;OS mod inf > sup thinning, stable Low SS -- GCA 11/17/2024 OD global thinning ; OS mod sup, inf wedge, worse than 2014 (H40.1232) Low-tension glaucoma of both eyes, moderate stage (primary encounter diagnosis) - IOP Meeting goals OD but elevated OS - Sable OCT 11/17/2024 - IOP meeting goals and better OS today Plan: Continue dorzolamide/timolol two times a day OU Consider augmentation with SLT left eye if HVF change (Low threshold for tx OS ) (H16.223) Keratitis sicca, bilateral Comment: Stable a this time on tears Plan: Montior (H43.813) PVD (posterior vitreous detachment), bilateral Comment: Signs and symptoms of retinal detachment were reviewed with the patient, including an increase in number or size of floaters, flashes, or a curtain effect in one's peripheral vision. Plan: Observation (Z98.890) History of trabeculectomy, right eye Comment: Stable Bleb Plan: Monitor for redness - see if any question of infection (Z96.3) Pseudophakia, both eyes Comment: Centered IOL, open capsule. Plan: Monitor RTC: 6 Months Full OCT ON/GCA The nature of the patient's eye disease, its relationship to systemic health, its genetic components, and its prognosis have been explained to the patient/family. The treatment options/risks/benefitshave been discussed. Questions answered. I have interviewed and examined Corrie Justino Hedricks. I have confirmed and edited as necessary the chiefcomplaint, history of present illness, past medical history, medications, family history, social history, review of systems, and exam findings as obtained by others. I agree with the assessment and plan as stated above,and have discussed them in detail with the patient. Tina Brown, TERRENCE February 16, 2025 1:39 PM documented in this encounterNationwide Children'S Hospital06-10-2025 Telephone encounter Note * Telephone Encounter - Roxana Driver COT - 01/26/2025 7:28 AM EDT Patient phones requesting refills as follows: Requested Prescriptions Pending Prescriptions Disp Refills dorzolamide-timolol (COSOPT) 22.3-6.8 mg/mL ophthalmic solution [Pharmacy Med Name: DORZOLAMIDE-TIMOLOL EYE DROPS] 30 mL 4 Sig: USE 1 DROP IN BOTH EYES TWO TIMES A DAY. Please review and advise. JACQUES Garcia [facility]06-10-2025 Miscellaneous Notes* Telephone Encounter - Roxana Driver COT - 01/26/2025 7:28 AM EDT Patient phones requesting refills as follows: Requested Prescriptions Pending Prescriptions Disp Refills dorzolamide-timolol (COSOPT) 22.3-6.8 mg/mL ophthalmic solution [Pharmacy Med Name: DORZOLAMIDE-TIMOLOL EYE DROPS] 30 mL 4 Sig: USE 1 DROP IN BOTH EYES TWO TIMES A DAY. Please review and advise. JACQUES Garcia documented in this encounterNationwide Children'S Hospital04-01-2025 NoteDate of Procedure 11/17/2024. Notes -- OCT 11/17/2024 OD severe inf>mod sup thinning;OS mod inf > sup thinning, stable Low SS -- GCA 11/17/2024 OD global thinning ; OS mod sup, inf wedge, worse than 7972KXCDG55-56-8429 NoteHNO ID: [id number] Author: TINA BROWN, OD Service: ? Author Type: SALES SECRETARY Type: Progress Notes Filed: 11/17/2024 14:05 Note Text: Tmax 19, 21 (pt report) ; Pachy 548 , 579 Gonioscopy 05/2013 Post dilation anterior iris insertion grade I-II with light TMP Lasers and surgeries OD TBX 06/30/13 (IOP 19) 11/29/20 PCIOL OS PEIOL (done elsewhere to lower IOP - ineffective), SLT 2009 Ocular Medication Intol, Non-efficacy, barriers Latanoprost - FORTE's ; multiple drops ineffective Cosopt, Brimonidine Sulfa intolerance (projectile vomiting) Current Ophthalmic Meds dorzolamide-timolol (COSOPT) 22.3-6.8 mg/mL ophthalmic solution Use 1 Drop in both eyes two times a day. Goals -- HVF 05/19/2024 OD mod sup nasal step, stable from 2021; OS Normal -- OCT 11/17/2024 OD severe inf>mod sup thinning;OS mod inf > sup thinning, stable Low SS -- GCA 11/17/2024 OD global thinning ; OS mod sup, inf wedge, worse than 2013 (H40.1232) Low-tension glaucoma of both eyes, moderate stage (primary encounter diagnosis) - IOP Meeting goals OD but elevated OS - Sable OCT 11/17/2024 Plan: Continue dorzolamide/timolol two times a day OU Consider augmentation with SLT left eye if HVF change (Low threshold for tx OS ) (H16.223) Keratitis sicca, bilateral Comment: Stable a this time on tears Plan: Montior (H43.813) PVD (posterior vitreous detachment), bilateral Comment: Signs and symptoms of retinal detachment were reviewed with the patient, including an increase in number or size of floaters, flashes, or a curtain effect in one's peripheral vision. Plan: Observation (Z98.890) History of trabeculectomy, right eye Comment: Stable Bleb Plan: Monitor for redness - see if any question of infection (Z96.3) Pseudophakia, both eyes Comment: Centered IOL, open capsule. Plan: Monitor RTC: 3 months VaTa HVF 24-2 , additional treatment if OS still up The nature of the patient's eye disease, [...] with the patient. Tina Brown, OD November 17, 2024 1:42 [facility]04-01-2025 History of Present illness Narrative* Tina Brown, OD - 11/17/2024 1:42 PM EDT Tmax 19, 21 (pt report) ; Pachy 548 , 579 Gonioscopy 05/2013 Post dilation anterior iris insertion grade I-II with light TMP Lasers and surgeries OD TBX 06/30/13 (IOP 19) 11/29/20 PCIOL OS PEIOL (done elsewhere to lower IOP - ineffective), SLT 2009 Ocular Medication Intol, Non-efficacy, barriers Latanoprost - FORTE's ; multiple drops ineffective Cosopt, Brimonidine Sulfa intolerance (projectile vomiting) Current Ophthalmic Meds dorzolamide-timolol (COSOPT) 22.3-6.8 mg/mL ophthalmic solution Use 1 Drop in both eyes two times aday. Goals -- HVF 05/19/2024 OD mod sup nasal step, stable from 2021; OS Normal -- OCT 11/17/2024 OD severe inf>mod sup thinning;OS mod inf > sup thinning, stable Low SS -- GCA 11/17/2024 OD global thinning ; OS mod sup, inf wedge, worse than 2013 (H40.1232) Low-tension glaucoma of both eyes, moderate stage (primary encounter diagnosis) - IOP Meeting goals OD but elevated OS - Sable OCT 11/17/2024 Plan: Continue dorzolamide/timolol two times a day OU Consider augmentation with SLT left eye if HVF change (Low threshold for tx OS ) (H16.223) Keratitis sicca, bilateral Comment: Stable a this time on tears Plan: Montior (H43.813) PVD (posterior vitreous detachment), bilateral Comment: Signs and symptoms of retinal detachment were reviewed with the patient, including an increase in number or size of floaters, flashes, or a curtain effect in one's peripheral vision. Plan: Observation (Z98.890) History of trabeculectomy, right eye Comment: Stable Bleb Plan: Monitor for redness - see if any question of infection (Z96.3) Pseudophakia, both eyes Comment: Centered IOL, open capsule. Plan: Monitor RTC: 3 months VaTa HVF 24-2 , additional treatment if OS still up The nature of the patient's eye disease, [...] with the patient. Tina Brown, TERRENCE November 17, 2024 1:42 PM documented in this encounterNationwide Children'S Hospital10-01-2024 NoteDate of Procedure 05/19/2024. Hand Tufter Information Director Of Patient Care: RIGOBERTO. Interval Change Right Eye Stable. Left Eye Stable. Notes -- HVF 05/19/2024 OD mod sup nasal step, stable from 2021; OS NormalZEISS 05-19-2024 NoteHNO ID: [id number] Author: TINA BROWN OD Service: ? Author Type: SALES SECRETARY Type: Progress Notes Filed: 05/19/2024 13:37 Note Text: Tmax 19 , 21 (pt report) ; Pachy 548 , 579 Gonioscopy 05/2013 Post dilation anterior iris insertion grade I-II with light TMP Lasers and surgeries OD TBX 06/30/13 (IOP 19) 11/29/20. PCIOL OS PEIOL (done elsewhere to lower IOP - ineffective), T 2009 Ocular Medication Intol, Non-efficacy, barriers Latanoprost [...] Tina Brown, OD May 19, 2024 1:35 [facility]10-01-2024 History of Present illness Narrative* Tina Brown, OD - 05/19/2024 12:56 PM EDT Tmax 19 , 21 (pt [...] Brown, OD May 19, 2024 1:35 PM documented in this encounterNationwide Children'S Hospital03-26-2024 History of Present illness Narrative* Tina Brown, OD - 11/12/2023 1:16 PM EDT Tmax , 21 (pt report) ; Pachy 548 [...] open capsule. Plan: [facility] The nature of the patient's eye disease, its relationship to systemic health, its genetic components, and its prognosis have been explained to the patient/family. The treatment options/risks/benefitshave been discussed. Questions answered. I have interviewed and examined Corrie Justino Hedricks. I have confirmed and edited as necessary the chiefcomplaint, history of present illness, past medical history, medications, family history, social history, review of systems, and exam findings as obtained by others. I agree with the assessment and plan as stated above,and have discussed them in detail with the patient. Tina Brown, TERRENCE November 12, 2023 1:43 PM documented in this encounterNationwide Children'S Hospital12-11-2023 Evaluation note* Encounter Date Diagnosis Assessment Notes Treatment Notes Treatment Clinical Notes Jul, Pulmonary nodule, ri ght (ICD-10 - R91.1) CTA chest: 7mm RLL nodule - 06/2023 [employer] Other [id number] History of Present illness Narrative* Kavitha Huggins - 07/29/2023 7:28 AM EST Incidental Lung Nodule Enrollment Outreach attempt: 2nd Attempt Outreach status: Complete Enrolled in Lung Nodule program: Referred Lung Nodule outreach: Needs outreach Lung Nodule Program Location: [place] Two letter attempts documented in this encounterNationwide Children'S Hospital12-04-2023 History of Present illness Narrative* Silvia Ge APRN.CNP - 07/22/2023 1:42 PM EST Incidental Lung Nodule Enrollment Outreach attempt: 1st Attempt Outreach status: Complete Enrolled in Lung Nodule program: Referred Lung Nodule outreach: Needs outreach Lung Nodule Program Location: [place] Letter sent to patient regarding incidental lung nodule(s). Silvia Ge APRN.CNP July 22, 2023 1:42 PM documented in this encounterNationwide Children'S [facility]11-17-2023 NoteHNO ID: [id number] Author: Silvia Mckeon RT(Esteban) Service: Radiology Author Type: Hand Tufter Type: Progress Notes Filed: 07/05/2023 3:03 PM [...] Inpatient: see LDA documentation SIGNED BY: RT Yesica(Esteban) July 05, 2023 3:00 [facility]11-17-2023 NoteHNO ID: [id number] Author: Liss Anne, TECHNOLOGIST Service: ? Author [...] Liss Anne, TECHNOLOGIST July 05, 2023 3:02 [facility]11-17-2023 NoteHNO ID: [id number] Author: Sarah Mtz RRT Service: ? Author Type: Registered Resp Therapist Type: Progress Notes Filed: 07/05/2023 2:30 PM Note Text: PULM FUNCTION SMARTBLOCK: Provider: Zaire Fry MD Spirometry: [address] [place], [place] [address]11-17-2023 History of Present illness Narrative* Sarah Mtz RRT - 07/05/2023 2:25 PM EST PULM FUNCTION SMARTBLOCK: Provider: Zaire Fry MD Spirometry: 1 documented in this encounterNationwide Children'S Hospital11-08-2023 Evaluation note* Encounter Date Diagnosis Assessment Notes Treatment Notes Treatment Clinical Notes Jun, Dyspnea on exertion (ICD-10 - R0 6.09) Unknown etiology. No hx of COPD, smoking or asthma Exercises regularly. Scheduled for PFT Jun,recordial pain (ICD-10 - R07.2)TSH > 8 after which levothyroxine was inititated. Denies palpitations, tremors, weight loss or insomnia Jun,rimary hypertension (ICD-10 - I10)This patient is instructed to consume a healthy, low-fat, low-salt diet. They are also encouraged to continue exercise to achieve/maintain a normal BMI. Jun,Hypercholesterolemia (ICD-10 - E78.00)Instructed on diet and exercise with continued statin therapy.Discussed the beneficial effects of lo wering cholesterol in reducing the risk for cerebrovascular and cardiovascular disease. 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 [facility] [place] SECTION OF REGIONAL CARDIOLOGY OUTPATIENT VISIT DATE June 11, 2023 OUTPATIENT VISIT TYPE NEW PRIMARY CARE PHYSICIAN: Hussein Rowan ([facility]) [address] [place] [address] A written report of the findings and [...] Lithotripsy NEUROPLASTY &/TRANSPOS MEDIAN NRV CARPAL TUNNE 2008 Carpal tunnel decomp POST-CATARACT LASER SURGERY 7-18-14 Yag Capsulotomy left eye PUBOVAGINAL SLING TONSILLECTOMY [...] 1 capsule by mouth once daily. Evening [place] Oil (EVENING PRIMROSE) 500 mg cap Take 1 capsule by mouth once daily. Flaxseed Oil 1,000 mg cap Take 1 capsule by mouth once daily. FLUAD QUAD 2020-21,65Y UP,,PF, 60 mcg (15 mcg x 4)/0.5 mL syrg PHARMACY ADMINISTERED (Patient not taking: Reported on 06/11/2023) documented in this encounterNationwide Children'S Hospital10-13-2023 Evaluation note* Encounter Date Diagnosis Assessment Notes Treatment Notes Treatment Clinical Notes May, Abrasion of right cornea, initia l encounter (ICD-10 - S05.01XA) Drink plenty fluids, get plenty of rest. Use the eyedrops as prescribed. Today you may instill the eyedrops every 2 hours and then 4 times a day for the next 4 days. Follow-up with your plisse machine operator if no improvement in 2 to 3 days. Continue home medications as prescribed [employer] Other 08-07-2023 Miscellaneous Notes* Telephone Encounter - Kae Pereira - 03/25/2023 4:47 PM EDT Patient: Corrie Mccray Date of : 1950 Patient phone number: [phone] Referring Provider for the encounter: Hussein Rowan Requesting Provider: n/c Reason for requesting visit (RFV/signs and symptoms/diagnosis): Precordial pain (R07.2) Person calling: caregiver: Kae Return call to: self Medical Records/Insurance Card scanned into [employer]: Yes Comments: documented in this encounterNationwide Children'S Hospital07-26-2023 Evaluation note* Encounter Date Diagnosis Assessment Notes Treatment Notes Treatment Clinical Notes Feb, Dyspnea on exertion (ICD-10 - R0 6.09) [employer] Other 07-24-2023 Evaluation note* Encounter Date Diagnosis Assessment Notes Treatment Notes Treatment Clinical Notes Feb, Dyspnea on exertion (ICD-10 - R0 6.09) Completed CXR, Echo and Stress testing w/o abnormal findings CTA to r/o PE and lung tumor Feb,recordial pain (ICD-10 - R07.2)Completes Echo and Stress testing w/o abnormalities. Continues w/ CP and dyspnea, r/o PE or lung tumor Feb,rimary hypertension (ICD-10 - I10)This patient is instructed to consume a healthy, low-fat, low-salt diet. They are also encouraged to continue exercise to achieve/maintain a normal BMI. Feb,Hypercholesterolemia (ICD-10 - E78.00)Instructed on diet and exercise with continued statin therapy.Discussed the beneficial effects of lo wering cholesterol in reducing the risk for cerebrovascular and cardiovascular disease. [employer] Other 05-31-2023 Evaluation note* Encounter Date Diagnosis Assessment Notes Treatment Notes Treatment Clinical Notes December, Precordial pain (ICD-10 - R07.2) Suspicious for angina Suggest avoiding strenuous activity Instructed to go to ER for persistent CP, SOB, lightheadedness December,rimary hypertension (ICD-10 - I10)This patient is instructed to consume a healthy, low-fat, low-salt diet. They are also encouraged to continue exercise to achieve/maintain a normal BMI. December,Hypercholesterolemia (ICD-10 - E78.00)Instructed on diet and exercise with continued statin therapy.Discussed the beneficial effects of lo wering cholesterol in reducing the risk for cerebrovascular and cardiovascular disease. December,yspnea on exertion (ICD-10 - R06.09)Hold exercise routine until stress testing completed [employer] Other 05-10-2023 Evaluation note* Encounter Date Diagnosis Assessment Notes Treatment Notes Treatment Clinical Notes December, Medicare annual wellness visit, subsequent (ICD-10 - Z00.00) Personalized health [...] reviewed and amended by provider signed below. December,rimary hypertension (ICD-10 - I10)This patient is instructed to consume a healthy, low-fat, low-salt diet. They are also encouraged to continue exercise to achieve/maintain a normal BMI. 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 She denies associated CP, palpitations, lightheadedness She denies orthopnea or edema She denies smoking hx, asthma, cough, sputum or hemoptysis Exercise routine not affected, check CXR December,Hypercholesterolemia (ICD-10 - E78.00)Instructed on diet and exercise.Discussed the beneficial effects of lowering cholesterol in reducing the risk for cerebrovascular and cardiovascular disease. December,Other specified hypothyroidism (ICD-10 - E03.8) December,Fatigue, unspecified type (ICD-10 - R53.83) December,Menopause (ICD-10 - Z78.0)Exercise, Ca and Vitamin D supplements December,Screening mammogram for breast cancer (ICD-10 - Z12.31) December,High risk medication use (ICD-10 - Z79.899) December,Metabolic syndrome (ICD-10 - E88.81) [employer] Other 05-10-2023 Evaluation note* Encounter Date Diagnosis Assessment Notes Treatment Notes Treatment Clinical Notes December, KHAN (dyspnea on exertion) (ICD-1 0 - R06.09) [employer] Other 05-10-2023 NotePROCEDURE: XR CHEST 2 V DATE: 12/26/2022 9:26 AM CDT COMPARISONS: None. CLINICAL INDICATION: 72 years Female Dyspnea FINDINGS: The cardiomediastinal silhouette and pulmonary vasculature are within normal limits. The lungs are clear. There is no evidence of pleural effusion or pneumothorax. IMPRESSION: Chest radiograph is within normal limits. Electronically authenticated by: DEREK BONILLA Date: 2022-12-26 11:05[facility]09-12-2022 NoteOPERATIVE NOTE OPERATION DATE: 04/30/2022 PROCEDURE: D AND C hysteroscopy with Myosure. PREOPERATIVE DIAGNOSIS: Postmenopausal bleeding, thickened endometrium. POSTOPERATIVE DIAGNOSIS: Postmenopausal bleeding, thickened endometrium. ANESTHESIA: General. SURGEON: Zion Rizzo D.O. CHURN DRILLER HELPER: None. FINDINGS: Atrophic appearing cavity. No gross [...] to the Recovery Room in stable condition.[id number] History of Present illness Narrative* Tina Brown, [...] 10, 2022 2:31 PM documented in this encounterNationwide Children'S Hospital02-28-2022 Evaluation note* Encounter Date Diagnosis Assessment Notes Treatment Notes Treatment Clinical Notes Sep, Injury of right lowe r extremity, initial encounter (ICD-10 - S89.91XA) Use RICE therapy as discussed: Rest, Ice Compression, Elevate. Apply ice to affected area 3-4 timesdaily (Do not place ice source directly on skin, must cover with towel-like material). Use OTC as directed for pain if needed. Contact office if symptoms are not improved within the next few days andwe will help you get into specialist. [employer] Other 06-27-2017 History of Past illness Narrative* Problem Noted DateResolved DateCombined forms of age-related cataract of right eye 1Lens replaced by other means - Left Eye02/16/2015 02/12/2017Dry eye - Both EyesHistory of trabeculectomy - Both EyesVitreous degeneration - Right Eye06/02/2014 02/12/2017Senile nuclear sclerosis - Right EyePrimary open-angle glaucoma(365.11)documented as of this encounter (statuses as of 04/10/2022) [facility] of Past illness Narrative* ProblemNoted Date Diagnosed DateResolved DateCombined forms of age-related cataract of right eye replaced by other means - Left Eye02/16/2015 02/12/2017Dry eye - Both Eyes02/16/History of trabeculectomy - Both EyesVitreous degeneration - Right Eye06/02/2014 02/12/2017Senile nuclear sclerosis - Right EyePrimary open-angle glaucoma(365.11)documented as of this encounter (statuses as of 03/26/2023) [facility] of Past illness Narrative* ProblemNoted Date Diagnosed DateResolved DateCombined forms of age-related cataract of right eye replaced by other means - Left Eye02/16/2015 02/12/2017Dry eye - Both EyesHistory of trabeculectomy - Both EyesVitreous degeneration - Right Eye06/02/2014 02/12/2017Senile nuclear sclerosis - Right EyePrimary open-angle glaucoma(365.11)documented as of this encounter (statuses as of 06/11/2023) [address]27-2017 History of Past illness Narrative* ProblemNoted Date Diagnosed DateResolved DateCombined forms of age-related cataract of right eye replaced by other means - Left Eye02/16/2015 02/12/2017Dry eye - Both EyesHistory of trabeculectomy - Both EyesVitreous degeneration - Right Eye06/02/2014 02/12/2017Senile nuclear sclerosis - Right EyePrimary open-angle glaucoma(365.11)documented as of this encounter (statuses as of 07/05/2023) [facility] of Past illness Narrative* ProblemNoted Date Diagnosed DateResolved DateCombined forms of age-related cataract of right eye replaced by other means - Left Eye02/16/2015 02/12/2017Dry eye - Both EyesHistory of trabeculectomy - Both EyesVitreous degeneration - Right Eye06/02/2014 02/12/2017Senile nuclear sclerosis - Right EyePrimary open-angle glaucoma(365.11)documented as of this encounter (statuses as of 07/23/2023) [facility] of [facility] illness Narrative* ProblemNoted Date Diagnosed DateResolved DateCombined forms of age-related cataract of right eye replaced by other means - Left Eye02/16/2015 02/12/2017Dry eye - Both EyesHistory of trabeculectomy - Both EyesVitreous degeneration - Right Eye06/02/2014 02/12/2017Senile nuclear sclerosis - Right EyePrimary open-angle glaucoma(365.11)documented as of this encounter (statuses as of 07/29/2023) [facility] of [facility] illness Narrative* ProblemNoted Date Diagnosed DateResolved DateCombined forms of age-related cataract of right eye 1Lens replaced by other means - Left Eye02/16/2015 02/12/2017Dry eye - Both EyesHistory of trabeculectomy - Both EyesVitreous degeneration - Right Eye06/02/2014 02/12/2017Senile nuclear sclerosis - Right EyePrimary open-angle glaucoma(365.11)documented as of this encounter (statuses as of 11/12/2023) [facility] Diagnosis Low-tension glaucoma of both eyes, unspecified glaucoma stage- Primary Keratitis sicca, bilateral (HCC) Other forms of keratitis History of trabeculectomy, right eye Other states following surgery of eye and adnexa documented in this encounter [facility] noteNo [place] [employer] Other Evaluation note* Diagnosis Chest discomfort Other chest pain SOB (shortness of breath) Shortness of breath Pure hypercholesterolemia Primary hypertension Unspecified essential hypertension documented [facility] this encounter [facility]* Diagnosis SOB (shortness of breath) Shortness of breath documented in this encounter [facility]* Diagnosis Lung nodule- Primary Solitary pulmonary nodule documented [facility] this encounter [facility]* Diagnosis Low-tension glaucoma of both eyes, unspecified glaucoma stage- Primary Keratitis sicca, bilateral (HCC) Other forms of keratitis Pseudophakia, left eye Lens replaced by other means documented in this encounter [facility] note* Diagnosis Pre-op evaluation- Primary Preoperative examination, unspecified Combined forms of age-related cataract of right eye Other and combined forms of senile cataract Low-tension glaucoma of both eyes, unspecified glaucoma stage Other specified hypothyroidism Low-tension glaucoma of both eyes, unspecified glaucoma stage- Primary Keratitis sicca, bilateral Other forms of keratitis documented in this encounter [facility]* Diagnosis Pre-op evaluation- Primary Preoperative examination, unspecified Combined forms of age-related cataract of right eye Other and combined forms of senile cataract Low-tension glaucoma of both eyes, unspecified glaucoma stage Other specified hypothyroidism Low-tension glaucoma of both eyes, unspecified glaucoma stage- Primary History of trabeculectomy Other states following surgery of eye and adnexa Pseudophakia Lens replaced by other means documented in this encounter [facility]* Diagnosis Pre-op evaluation- Primary Preoperative examination, unspecified Combined forms of age-related cataract of right eye Other and combined forms of senile cataract Low-tension glaucoma of both eyes, unspecified glaucoma stage Other specified hypothyroidism Low-tension glaucoma of both eyes, unspecified glaucoma stage Keratitis sicca, bilateral Other forms of keratitis History of trabeculectomy, right eye Other states following surgery of eye and adnexa documented in this encounter [facility] general Narrative - Reported* Type Description Date Medical History glaucoma Surgical HistorylithotripsySurgical Historybladder suspension, unspecified Surgical HistorytonsillectomySurgical HistoryCTS b/l handsSurgical History laparoscopySurgical HistorycolonoscopySurgical HistoryeyesHospitalization Historysee above [employer] Other History general Narrative - Reported* Type Description Date Medical History glaucoma Medical HistoryPostmenopausal bleedingMedical HistoryHistory of nephrolithiasis Medical HistoryAlopeciaMedical HistoryCystitisMedical HistoryAbnormal TSHMedical HistoryHypercholesterolemiaMedical HistoryAllergic contact dermatitis due to plants, except foodSurgical HistorylithotripsySurgical Historybladder suspension, unspecifiedSurgical HistorytonsillectomySurgical HistoryCTS b/l handsSurgical HistorylaparoscopySurgical HistorycolonoscopySurgical Historyeyes Hospitalization Historysee above [employer] Other History general Narrative - ReportedNofreeman orthopaed[facility] & sports [facility] Other History general Narrative - Reported* Type Description Date Medical History glaucoma Medical HistoryPostmenopausal bleedingMedical HistoryHistory of nephrolithiasis Medical HistoryAlopeciaMedical HistoryCystitisMedical HistoryAbnormal TSHMedical HistoryHypercholesterolemiaMedical HistoryAllergic contact dermatitis due to plants, except foodMedical HistoryPulmonary Nodule RLLSurgical History lithotripsySurgical Historybladder suspension, unspecifiedSurgical History tonsillectomySurgical HistoryCTS b/l handsSurgical HistorylaparoscopySurgical HistorycolonoscopySurgical HistoryeyesHospitalization Historysee above [employer] Other Summary Purpose Family History No Family History Records FoundNo Family History Records FoundNo Family History Records FoundNo Family History Records FoundNo Family History Records FoundNo Family History Records Found Advance Directives No Advanced Directives Records FoundNo Advanced Directives Records FoundNo Advanced Directives Records FoundNo Advanced Directives Records FoundNo Advanced Directives Records FoundNo Advanced Directives Records Found Reason for Referral SpecialtyDiagnoses / ProceduresReferred By ContactReferred To ContactCT IMAGING Diagnoses Chest discomfort SOB (shortness of breath) Pure hypercholesterolemia Primary hypertension Procedures CTA CORONARY W IVCON CTA HRT CORNRY ART/BYPASS GRFTS CONTRST 3D POST Zaire Fry MD [address] [place] [address] Ct [facility] [place] [address] Referral IDStatusReasonStart DateExpiration DateVisits RequestedVisits [id number] Auto-Generated Referral [id number] / ProceduresReferred By ContactReferred To [facility] Diagnoses SOB (shortness of breath) Procedures SPIROMETRY WITH DILATOR IF OBSTRUCTED BRNCDILAT RSPSE SPMTRY PRE&POST-BRNCDILAT ADMN Zaire Fry MD [address] [place] [address] [facility] [place] [address] [place] [address] Referral IDStatusReasonStart DateExpiration DateVisits RequestedVisits [id number] Auto-Generated Referral [id number] / ProceduresReferred By ContactReferred To [facility] Diagnoses Chest discomfort SOB (shortness of breath) Pure hypercholesterolemia Procedures ECG COMPLETE ECG ROUTINE ECG W/LEAST 12 LDS W/I&R Zaire Fry MD [address] [facility] [place] [address] [facility] [place] [address] [place] [address] Referral IDStatusReasonStart DateExpiration DateVisits RequestedVisits [id number] Review Auto-Generated Referral Reason Mrs. Mccray is being referred for dyspnea and chest pain Diagnosis 1 Precordial pain (R07 .2) Referral Organization [facility] Eric ayala Referring Provider First Name Hussein Referring Provider Last Name Sukhjinder Referring Provider Specialty Internal Me dicine Ref[facility] Referred Address [address] [place], [place],[address] Referred Provider Specialty Cardiology Referral Priority Routine [...] section and content) DATE CREATED AUTHOR 11/06/2021 [facility] DATE CREATED AUTHOR AUTHOR'S ORGANIZ ATION 01/01/2023 [facility] DATE CREATED AUTHOR AUTHOR'S ORGANIZ ATION 07/08/[address] [facility] DATE CREATED AUTHOR AUTHOR'S ORGANIZ ATION 11/16/2023 [facility] EPIC DATE CREATED AUTHOR AUTHOR'S ORGANIZ ATION 05/02/2024 [facility] EPIC DATE CREATED AUTHOR AUTHOR'S ORGANIZ ATION 02/18/2025 [facility] REASON FOR VISIT (unrecogniz ed section and content) ReasonCommentsLow-tension glaucoma of both eyes, moderate stageOUPosterior Vitreous Detachment EvaluationOUtrabeculectomyODPseudophakiaOUReasonComments External Referrals/resourcesReasonCommentsEstablish CareDyspnea On ExertionChest PainReasonCommentsSpirometrySpecialtyDiagnoses / ProceduresReferred By Contact [facility] Diagnoses SOB (shortness of breath) Procedures SPIROMETRY WITH DILATOR IF OBSTRUCTED BRNCDILAT RSPSE SPMTRY PRE&POST-BRNCDILAT ADMN Zaire Fry MD [address] [place] [address] [facility] [place] [address] [place] [address] Referral IDStatusReasonStart DateExpiration DateVisits RequestedVisits [id number] Auto-Generated Referral 1ReasonOnset ElpbQpdrlknnTfthws87/04/2023ReasonComments Yearly ExamReasonCommentsNormal/Low Tension GlaucomaReasonCommentsGlaucoma Follow UpReasonCommentsRefill RequestReasonCommentsLow-tension glaucoma of both eyes Source Comments (unrecognize d section and content) In the event this informatio n is protected by the Federal Confidentiality of Alcohol and Drug Abuse Patient Records regulations: The Federal rules restrict any use of the information to criminally investigate or prosecute any alcohol or drug abuse patient.[facility] HospitalIn the event this information is protected by the Federal Confidentiality of Alcohol and Drug Abuse Patient Records regulations: The Federal rules restrict any use of the information to criminally investigate or prosecute any alcohol or drug abuse patient.[facility] HospitalIn the event this information is protected by the Federal Confidentiality of Alcohol and Drug Abuse Patient Records regulations: The Federal rules restrict any use of the information to criminally investigate or prosecute any alcohol or drug abuse patient.[facility] HospitalIn the event this information is protected by the Federal Confidentiality of Alcohol and Drug Abuse Patient Records regulations: The Federal rules restrict any use of the information to criminally investigate or prosecute any alcohol or drug abuse patient.[facility] HospitalIn the event this information is protected by the Federal Confidentiality of Alcohol and Drug Abuse Patient Records regulations: The Federal rules restrict any use of the information to criminally investigate or prosecute any alcohol or drug abuse patient.[facility] HospitalIn the event this information is protected by the Federal Confidentiality of Alcohol and Drug Abuse Patient Records regulations: The Federal rules restrict any use of the information to criminally investigate or prosecute any alcohol or drug abuse patient.[facility] HospitalIn the event this information is protected by the Federal Confidentiality of Alcohol and Drug Abuse Patient Records regulations: The Federal rules restrict any use of the information to criminally investigate or prosecute any alcohol or drug abuse patient.[facility] HospitalIn the event this information is protected by the Federal Confidentiality of Alcohol and Drug Abuse Patient Records regulations: The Federal rules restrict any use of the information to criminally investigate or prosecute any alcohol or drug abuse patient.[facility] HospitalIn the event this information is protected by the Federal Confidentiality of Alcohol and Drug Abuse Patient Records regulations: The Federal rules restrict any use of the information to criminally investigate or prosecute any alcohol or drug abuse patient.[facility] HospitalIn the event this information is protected by the Federal Confidentiality of Alcohol and Drug Abuse Patient Records regulations: The Federal rules restrict any use of the information to criminally investigate or prosecute any alcohol or drug abuse patient.[facility] HospitalIn the event this information is protected by the Federal Confidentiality of Alcohol and Drug Abuse Patient Records regulations: The Federal rules restrict any use of the information to criminally investigate or prosecute any alcohol or drug abuse patient.[facility] Care Teams (unrecognized sec tion and content) Team MemberRelationshipSpecialtyStart DateEnd Date Hussein Rowan DO [address] [place] [address] PCP - GeneralInternal Medicine11/29/20Team MemberRelationshipSpecialtyStart Date End Date Hussein Rowan DO [address] [place] [address] PCP - GeneralInternal Medicine11/29/20Team MemberRelationshipSpecialtyStart Date End Date Hussein Rowan DO [address] [place] [address] PCP - GeneralInternal Medicine11/29/20Team MemberRelationshipSpecialtyStart Date End Date Hussein Rowan DO [address] [place] [address] PCP - GeneralInternal Medicine11/29/20Team MemberRelationshipSpecialtyStart Date End Date Hussein Rowan DO [address] [place] [address] PCP - GeneralInternal Medicine11/29/20Team MemberRelationshipSpecialtyStart Date End Date Hussein Rowan DO [address] [facility] [place] [address] PCP - GeneralInternal Medicine11/29/20Team MemberRelationshipSpecialtyStart Date End Date Hussein Rowan DO [address] [facility] [place] [address] PCP - GeneralInternal [facility]11/29/20Team MemberRelationshipSpecialtyStart Date End Date Hussein Rowan DO [address] [facility] [place] [address] [facility] - [facility]11/29/20Team MemberRelationshipSpecialtyStart Date End Date Hussein Rowan DO [address] [facility] [place] [address] [facility] - [facility]11/29/20Team MemberRelationshipSpecialtyStart Date End Date Hussein Rowan DO [address] [facility] [place] [address] [facility] - [facility]11/29/20 FOR RECORDS PERTAINING TO PATIENTS WHO ARE [...] BE BASED ON THE PRIMARY CLINICAL RECORDS. [employer] [facility] provides no warranty or guarantee of the accuracy or completeness of information in this document.
--- NOTE | 2025-07-19 10:03 | MM_ITS ---
Patient Name: KARLENE DOMINGO MR#: [id number] : 1950 Exam Date: 07/19/2025 Ordering Doctor: DR SULY SLAUGHTER D.O. RADIOLOGY REPORT PROCEDURE: MM TOMOSYNTHESIS SCREENING BI COMPARISON: MM TOMOSYNTHESIS SCREENING BI, 06/19/2024. MM TOMOSYNTHESIS SCREENING BI, 06/13/2023. MG MAMM SCREEN 3D CRISTINA CAD, 05/07/2022. MG MAMM CRISTINA SCRN W CAD DIG, 03/25/2013. INDICATIONS: Screening Calculator Name NCI Breast Cancer Risk Assessment Tool 5 Year Breast Cancer Risk 3.50% Lifetime Breast Cancer Risk 7.90% Personal Breast Cancer No Personal Ovarian Cancer No Treatments None Family Cancers Mother with breast cancer at age 58; Mother with lung cancer at age 85. LOCATION: [facility] BREAST COMPOSITION: The breasts are almost entirely fatty. FINDINGS: RIGHT BREAST: No significant suspicious finding. Benign-appearing calcifications are present. LEFT BREAST: No significant suspicious finding. Benign-appearing calcifications are present. DIAGNOSTIC CATEGORY 2--BENIGN FINDING. NO CHANGE FROM COMPARISON. RECOMMENDATIONS: ROUTINE MAMMOGRAM AND CLINICAL EVALUATION IN 12 MONTHS. Dictated by: Jesse Fung MD on 07/19/2025 at 13:53 Approved by: Jesse Fung MD on 07/19/2025 at 14:39
== END 2025-07-19 09:56 | disposition home or self-care (01) ==
LOC: MAMMO 09:55
PROVIDERS: PCP Internal Medicine; Visit Provider Internal Medicine
DX: Z12.31 Encounter for screening mammogram for malignant neoplasm of breast (principal); Z80.3 Family history of malignant neoplasm of breast; Z80.1 Family history of malignant neoplasm of trachea, bronchus and lung
CPT/HCPCS: 77063; 77067

== ENCOUNTER 2025-07-27 09:20 | Outpatient (OUT) | payer MEDICARE, OTHER, SELFPAY ==
--- NOTE | 2025-07-27 09:38 | CT_ITS ---
The [address] [address] Patient Name: KARLENE DOMINGO MRN: [id number] date: 1950 Sex: F Assigned Patient Location: CT Current Patient Location: CT Accession/Order Number: [id number] Exam Date: 07/27/2025 09:35 Report Date: 07/27/2025 21:29 At the request of: SULY SLAUGHTER DO Procedure: CT chest wo con CT chest wo con 07/27/2025 9:38 AM SIGN AND SYMPTOMS: Shortness of breath on exertion, follow-up right lung nodule TECHNIQUE: Multidetector CT axial slices of the chest were obtained without IV contrast. Multiplanar reformats were performed and viewed on a separate workstation and reviewed to further define anatomy and possible pathology. CT was performed with one or more of the following dose reduction techniques: Automated exposure control, adjustment of the mA and/or kV according to patient size, or use of iterative reconstruction technique. COMPARISON: 07/10/2024. FINDINGS: Lower neck: There is a 9 mm hypoattenuating nodule in the right thyroid lobe. Vessels: Atherosclerotic changes are noted in the thoracic aorta. Mediastinum and Shanna: Within normal limits. Heart: Normal size. No pericardial effusion. Airways: Within normal limits Lungs: Noncalcified nodules are noted in the lower lobes bilaterally measuring up to 3 mm in greatest dimension on the right and 4 mm in greatest dimension on the left. These are similar to the prior exam. Pleura: Within normal limits. Chest Wall: Within normal limits. Upper Abdomen: Within normal limits. Bones: Degenerative changes are noted in the thoracic spine. CT/CT chest wo con IMPRESSION: No acute cardiopulmonary pathology. Noncalcified nodules are noted in the lower lobes bilaterally measuring up to 3 mm in greatest dimension on the right and 4 mm in greatest dimension on the left. These are similar to the prior exam. Impression dictated by: Jesse Fung M.D. 07/27/2025 9:29 PM Dictation Location: [place] [address] Electronically authenticated by: [id number] Y Date: 07/27/2025 21:29
--- OUTSIDE RECORDS SUMMARY | 2025-07-27 09:46 | XMS_ITS | CCD ---
Author Organization [facility] CliniSywa Care Team Providers Care Sushi Chef Name Role Phone Dena Davis Unavailable Hussein [...] BALL, DR TUBBS Admitting Unavailable BALL, DR TBUBS Attending Unavailable BALL, DR TUBBS Consulting Unavailable [...] (15 sources)Acetaminophen / HYDROcodone; Translations: [Vicodin]Drug Allergy 15-89-1176KcymzxgKxbKettering Health [facility] Memorial Repository (20 sources)Acetaminophen / oxyCODONEDrug Prbhxfk26-83-4438PQ [facility] Work Phone: (12 sources)buPROPion; Translations: [Wellbutrin]Drug Tksmcoo47-88-5434Khmkmkq [facility] Repository (14 sources)Sulf-10Drug allergyCranston General Hospital [employer] Other (13 sources)Acetaminophen / HYDROcodone; Translations: [HYDROCODONE-ACETAMINOPHEN]Drug Kfyfhts57-43-2070YswohbcZivizkoww Clinic (13 sources)buPROPion; Translations: [BUPROPION HCL]Drug Qjchsjr84-74-4922Gzff [facility] Work Phone: (20 sources)Sulfonamides (Antibiotic); Translations: [SULFA (SULFONAMIDE ANTIBIOTICS)]Drug Azzhtwyccpz24-04-3091UWSelect Medical Specialty Hospital [facility] Work Phone: (1 source)Acetaminophen / oxyCODONEDrug Klqcaub01-53-8536JrvPromedica Bay Park Hospital Repository (3 sources)Leucine; Translations: [NICKEL]Drug Hwzyimk84-93-9802TcwPromedica Bay Park Hospital Repository (1 source)Sulfonamides (Antibiotic)Drug allergy (disorder)63-30-8308DnoPromedica Bay Park Hospital Repository (8 sources)buPROPionDrug AllergyCranston General Hospital [employer] Other (17 sources)nickelDrug Eqaccrc50-87-3334NlquCdqmeghzr Clinic (8 sources)Vicodin *ANALGESICS - OPIOID*Propensity to adverse reactionsUnknowCamden General Hospital [employer] Other (5 sources)Allergies ReconciledPropensity to adverse reactionsUnknoCatskill Regional Medical Center [employer] Other (2 sources)Acetaminophen / oxyCODONE; Translations: [OXYCODONE-ACETAMINOPHEN] Drug Szeplht86-74-4472Leqyhfxed Clinic Other [place] Repository Medications Current Medications MedicationDrug Class(es)DatesSig (Normalized)Sig (Original)ciprofloxacin 3 mg/ml ophthalmic solution (5 sources)Quinolone AntimicrobialStart: 47-77-5080jxgi 1 drop(s) into the eye(s) every four hoursCiloxan 0.3 % 1 drop right eye every 4 hrs for 5 days May, ActiveCosopt 22.3-6.8 MG/ML (2 sources)take 1 drop(s) into the eye(s) twice dailyCosopt 22.3-6.8 MG/ML 1 drop into affected eye Ophthalmic Twice a day Activedorzolamide 20 mg/ml / timolol 5 mg/ml ophthalmic solution (19 sources)Carbonic Anhydrase Inhibitor, beta-Adrenergic BlockerStart: 77-41-1475bqqu 1 drop(s) into the eye(s) twice dailydorzolamide-timolol (COSOPT) 22.3-6.8 mg/mL ophthalmic solution USE 1 DROP IN BOTH EYES TWO TIMES ADAY. 30 mL 4 01/26/2025 ActiveStart: 11-12-2023 End: 43-36-8192toqh 1 drop(s) into the eye(s) twice dailydorzolamide-timolol (COSOPT) 22.3-6.8 mg/mL ophthalmic solution Use 1 Drop in both eyes two times a day. 30 mL 4 11/12/2023 01/26/2025 DiscontinuedStart: 10-16-2021 End: 69-53-7597kfyf 1 drop(s) into the eye(s) twice dailydorzolamide-timolol [...] oil 500 mg oral capsule (11 sources)Start: 56-62-5896bxrl 1 capsule by mouth once dailyEvening Cascade Oil (EVENING PRIMROSE) 500 mg cap Take 1 capsule by mouth once daily. 0 06/12/2013ctiveComment on above:Take 1 capsule by mouth once daily.iv contrast (will be provided with radiology test) (1 source)Start: 06-11-2023 End: 99-96-3779xpiezw 1 dose intravenously onceiv contrast (will be [...] oil 1000 mg oral capsule (11 sources)Start: 27-71-3947sdtq 1 capsule by mouth once dailyFlaxseed Oil [...] hydrochloride 500 mg oral tablet (13 sources)BiguanideStart: 68-24-8763bzcc 1 tablet by mouth every twenty-four hoursmetFORMIN HCl 500 MG 1 tablet with a meal Orally Once a day for 30 days December, Activemetoprolol tartrate 50 mg oral tablet (9 sources)beta-Adrenergic BlockerStart: 20-12-2801ufnzfkylpp tartrate, short acting, (LOPRESSOR) 50 mg tablet [...] 0.3 mg sublingual tablet (9 sources)Nitrate VasodilatorStart: 09-32-8797oocn 1 tablet under the tongue oncenitroglycerin sublingual [...] fatty acids 1,000 mg cap (11 sources)Start: 47-34-3470riaa 1 capsule by mouth once dailyomega-3 fatty [...] mg/ml ophthalmic suspension (1 source)CorticosteroidStart: 11-29-2020 End: 52-56-0497cptt 1 drop(s) into the eye(s) every two [...] kidney; Translations: [Personal history of urinary calculi]Onset: 64-24-0058LvwmozbbDkzusiehf of lipid metabolism (20 sources)Hypercholesterolemia; Translations: [Pure hypercholesterolemia, unspecified]Onset: 92-36-5038LmbafxmLkorwvsfq hypertension (20 sources)Essential hypertension; Translations: [Essential (primary) hypertension]Onset: 81-43-1522GpelbluFkgcpzqm (20 sources)Bilateral low tension glaucoma of eyes; Translations: [Low-tension glaucoma, bilateral, stage unspecified]Onset: 06-02-2013 Resolved: 56-76-8279VuihqrlWvlelqnjubrk; infection of eye (except that caused by tuberculosis or sexually transmitteddisease) (1 source)Keratoconjunctivitis sicca, not specified as Sjogren's, bilateral; Translations: [Keratitis sicca, bilateral]Onset: 35-23-7265WzkwntpOwuwmfq and fatigue (2 sources)Other fatigue; Translations: [OTHER FATIGUE]Onset: 77-30-3593Mfankrll Menopausal disorders (18 sources)Postmenopausal bleeding; Translations: [Postmenopausal bleeding] Onset: 16-97-7266GggkxjkSkptnkcshylypa (1 source)Unilateral primary osteoarthritis, left knee; Translations: [UNI PRIM OSTEOARTHRITIS LT KNEE]Onset: 47-68-8398LfdijkaFtszq aftercare (1 source)Other meterman (current) drug therapyEpisodicOther eye disorders (11 sources)Posterior vitreous detachment; Translations: [Vitreous degeneration, unspecified eye]Onset: 193866-54-2134AqnlxqrGohxw lower respiratory disease (10 sources)Other forms of dyspnea; Translations: [OTHER FORMS OF DYSPNEA]Onset: 45-16-8780VrxihoaxYnspa lower respiratory disease (8 sources)Dyspnea on exertion; Translations: [Other forms of dyspnea]Episodic Other lower respiratory disease (1 source)Shortness of breath; Translations: [SOB (shortness of breath)]Onset: 75-07-5123KfshfjysOjohk lower respiratory disease (3 sources)Nodule of lung; [...] [Other specified abnormal findings of blood chemistry]Onset: 04-61-5901VphrrycmNedug skin disorders (13 sources)Alopecia; Translations: [Nonscarring hair loss, unspecified]Episodic Residual codes; unclassified (18 sources)History of construction of filtration bleb; Translations: [Other specified postprocedural states]Onset: 06-02-2014 Resolved: 20-03-8849NiigdescMhseknjh codes; unclassified (1 source)Asymptomatic menopausal stateEpisodicSuperficial injury; contusion (1 source)Injury of conjunctiva and corneal abrasion without foreign body, right eye, initial encounterEpisodicSystemic lupus erythematosus and connective tissue disorders (15 sources)Keratoconjunctivitis sicca; 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]Onset: 26-04-0294GzvronhYgerted disorders (20 sources)Hypothyroidism; Translations: [Other specified hypothyroidism]Onset: 947180-21-7345SzlcyfpNlmrqvdcdfoj (1 source)CONTACT W/AND (SUSP) EXPOS COVID-19; Translations: [CONTACT W/AND (SUSP) EXPOS COVID-19]Onset: 99-34-2403Vidmmcd tract infections (13 sources)Cystitis; Translations: [Cystitis, unspecified without hematuria] Episodic Past or Other Problems Problem ClassificationProblemDateDocumented DateEpisodic/ChronicCataract (20 sources)Pseudophakia of left eye; Translations: [Presence of intraocular lens]Onset: 06-02-2014 Resolved: 552413-28-0537OhpvvsyEabyixs (4 sources)Tinea unguium; Translations: [TINEA UNGUIUM]Onset: 38-47-4955Tszgryxc Nonspecific chest pain (14 sources)Precordial pain; Translations: [Chest discomfort]Onset: 06-11-2023 EpisodicOther eye disorders (4 sources)Vitreous degeneration; Translations: [Vitreous degeneration, unspecified eye]Onset: 06-02-2014 Resolved: 981094-90-4300UbqaneyXcrcj eye disorders (4 sources)Dry eyes; Translations: [Dry eye syndrome of unspecified lacrimal gland]Onset: 02-16-2015 Resolved: 073822-20-2465StfmiaeiVajsq injuries and conditions due to external causes (1 source)Unspecified injury of right lower leg, initial encounterOnset: 10-16-2021 Resolved: 01-54-6501LtoumeomGzmuw lower respiratory disease (11 sources)Dyspnea; Translations: [Shortness of breath]Onset: 06-11-2023 07-31-9589HiddsuxhIemutfuy codes; unclassified (1 source)Family history of malignant neoplasm of breast; Translations: [FAMILY HX MALIG NEOPLASM OF BREAST]Onset: 98-07-8501FuunhkdnBpgxbzzv codes; unclassified (1 source)Family history of malignant neoplasm of trachea, bronchus and lung; Translations: [FAM HX MALIG NEOPLSM TRACH BRON LNG]Onset: 36-75-1631Kdfquuwi Residual codes; unclassified (1 source)Other specified postprocedural states; Translations: [History of trabeculectomy]Onset: 94-13-7849Srlvgljn Results Test NameValueInterpretationReference RangeFacilityVISUAL FIELD 24-2 OU (BOTH EYES)on 12-66-3483Xvsnwlugl ClinicRadiology Study observation (narrative) [facility] CenterOCT OPTIC NERVE CIRRUS OU (BOTH EYES)on 86-57-1933Gjevjpnan ClinicRadiology Study observation (narrative)[facility] Medical CenterVISUAL FIELD 24-2 OU (BOTH EYES)on 18-06-7104Jetheffyu ClinicRadiology Study observation (narrative)[facility]aut Medical CenterCTA CORONARY W IVCONon 98-92-5579DNS CORONARY W IVCON * * *Final Report* * * DATE OF EXAM: Jul 05 2023 3:04PM FVC 0470 - CTA CORONARY W IVCON / PROCEDURE REASON: multiple diagnoses * * * * Physician Interpretation * * * * CTA CORONARY ARTERIES acquired at [facility] - images were acquired and screened for acute findings earlier. Subsequently reported following overnight procedure. Direct Image Comparison: None HISTORY: 72 years old Female patient with chronic h/o chest pain, suspected CAD Evaluation for further treatment options.. There is request to define coronary anatomy. TECHNIQUE: SCANNER: Siemens Definition Flash Dual source [id number] scanner PROTOCOL: Sequential imaging of the heart with prospective triggering in diastolic phase and submillimeter slice reconstruction following administration of contrast material. Scan Range: carlos a to the base of the heart CT Dose-Length Product (DLP): 265 mGy*cm CT Dose Reduction Employed: Automated exposure control(AEC) and iterative recon CONTRAST: IV administration of 90 ml Omnipaque 350 Premedication per [facility] protocol/documentation. Scan acquisition: uncomplicated Macro Version: MQ:CCTW_3 For optimization of anatomic evaluation, advanced 3-D off-line postprocessing was performed on a dedicated workstation by the interpreting physician. Additional lung CAD. [place] images reconstructed, saved, and available in [facility] 'Get Images'. STUDY LIMITATIONS: Limited contrast [...] AORTIC DIMENSIONS: AORTIC ROOT: 3 cm measured exipw-hf-afhct mid ASCENDING THORACIC AORTA: 3.2 cm mid [...] or luminal stenosis. limited upper ABDOMEN: unremarkable Change Management Analyst (topogram) images: No additional findings. IMPRESSION: NO EVIDENCE OF ATHEROSCLEROTIC CHANGES OR LUMINAL STENOSIS OF THE CORONARY ARTERIES -Direct epicardial course of tortuous mid LAD segment without intramyocardial extension. -Distal branches are not well visualized CAD-RADS 0: No plaque or luminal stenosis. Absence of CAD., - Overall Plaque [place]: No evidence of plaque visualized LUNGS: non-calcified [...] be communicated with the ordering provider via [employer] staff message by Imaging Support Services within 2 business days of report finalization. Fuel Tank Sealer And Tester: RUSTAM Transcribe (more content not included)...Invalid Interpretation [facility] 61-34-4972YHHJQBA PROGREENBRIER VALLEY MEDICAL [facility] ID: [id number] Author: Priscila Reyes RN Service: Radiology Author [...] PATIENT DISCHARGED TO: Home/Self Care SIGNED BY: Pirscila Reyes RN July 05, 2023 2:45 [facility] ID: [id number] Author: Priscila Reyes RN Service: Radiology Author [...] Mccray DATE: July 05, 2023 TIME: 2:48 [facility] HospitalSPIROMETRY WITH DILATOR IF OBSTRUCTEDon 36-63-7204UHH84-75% PRE (L/S)1.83 L/SCleveland ClinicFEV1 PRE (L)2.23 LCleveland ClinicFEV1/FVC PRE (%)76 %[facility] Medical CenterFVC PRE (L)2.93 LCleveland ClinicPEF PRE (L/S)6.37 L/SCleveland ClinicECHOCARDIO M/2D COMPLETEon 22-11-6848XDLSVNREXL M/2D COMPLETEPatient: CORRIE MCCRAY Exam Date: 12/31/2022 : 1950 Gender:F Ordering : DR HUSSEIN ROWAN D.O. Admission #: [id number] Family : Order #: [id number] CLICK HERE TO VIEW EXAM ECHOCARDIOGRAM REPORT [...] by: Yusuf Puente M.D. on 01/01/2023 at 19:41[facility] AUTO DIFFon 01-65-4692TPVR #0.0 103/ulNormal0.0-0.1The [facility] HospitalComeaton rapids medical [facility] on above:Performed By: #### CBC ####[facility] [address] [address]Dr.Vicki ChangBasophils/100 WBC (Bld)1.0 %Normal0.2-2.0The [facility] HospitalComeaton rapids medical center on above:Performed By: #### CBC ####[facility] [address] [address]Dr.Laureenlan ChangEO #0.1 103/ulNormal0.0-0.7The Kristen HospitalComment on above:Performed By: #### CBC ####[facility] Gsomjhfmbv[address] [place], [place] [address]Dr.Laureenchay ChangEosinophils/100 WBC (Bld)1.5 %Normal 0.9-7.0The [facility] HospitalComment on above:Performed By: #### CBC ####[facility] Bsgwbzyylh[address] [place], [place] [address]Dr.Vicki Bates Erythrocyte distribution width (RBC) [Ratio]11.9 %Riejjj51.0-15.0The [facility] HospitalComment on above:Performed By: #### CBC ####[facility] Hdwmovbgwv[address] [place], [place] [address]Dr.Vicki ChangHematocrit (Bld) [Volume fraction]43.5 %Uiconq84.0-48.0The [facility] HospitalComment on above:Performed By: #### CBC ####[facility] [address]vzpix[address] [place], [place] [address]Dr.Vicki ChangHemoglobin (Bld) [Mass/Vol]14.4 g/dL Xqheii70.0-16.0The [facility]ier HospitalComment on above:Performed By: #### CBC ####[facility] [address]ou[address]lccm[address] [place], [place] [address]Dr. Vicki BatesIG #0.01 10e3/ulNormal0.00-0.03The [facility] HospitalComment on above: Performed By: #### CBC ####[facility] Ltfkzmsfnd[address] [place], [place] [address]Dr.Vicki ChangIG %0.3 %Normal0.0-0.5The [place] HospitalComment on above:Performed By: #### CBC ####[facility] Fdejpmzprw[address] [place], [place] [address]Dr.Vicki ChangLYMPH #1.8 103/ulNormal1.2-3.8The [facility] HospitalComment on above:Performed By: #### CBC ####[facility] Knzapoafyd[address] [place], [place] [address]Dr. Vicki ChangLymphocytes/100 WBC (Bld)44.6 %Nropme61.5-60.0The [facility] Comment on above:Performed By: #### CBC ####[facility] Ewenwscxih[address] [place], [place] [address]DrRaj BatesMANUAL DIFF REQNONormalThe [facility] HospitalComment on above:Performed By: #### CBC ####[facility] Xwrclhzdmg[address] [place], [place] [address]Dr.Vicki BatesH (RBC) [Entitic mass]31.1 yaBaekii46.7-34.0The [place] HospitalComment on above: Performed By: #### CBC ####[facility] Vcjnkktvhu[address] [place], [place] [address]DrRaj BatesHC (RBC) [Mass/Vol]33.1 g/dLNormal 29.9-35.2The [facility] HospitalComment on above:Performed By: #### CBC ####[facility] Xhcsugwpqd[address] [place], [place] [address]Dr. Vicki BatesV (RBC) [Entitic vol]94.0 vGRhgets95.0-99.0The [facility] Comment on above:Performed By: #### CBC ####[facility] Dtadbadtyh[address] [place], [place] [address]DrRaj BatesMONO #0.4 103/ulNormal0.3-0.8 The [facility] HospitalComment on above:Performed By: #### CBC ####[facility] Letrnsugzr[address] [place], [place] [address]DrRaj Bates Monocytes/100 WBC (Bld)9.0 %Normal1.7-12.0The [facility] HospitalComment on above: Performed By: #### CBC ####[facility] Ofmhenowcm[address] [place], [place] [address]DrRaj BatesNEUT #1.7 103/ulNormal1.4-6.5The [facility] HospitalComment on above:Performed By: #### CBC ####[facility] Qrwmlfxoea[address] [place], [place] [address]Dr.Vicki BatesNeutrophils/100 WBC (Bld)43.6 %Pwsfid48.0-75.0The [facility]rick Hospitalment on above:Performed By: #### CBC ####[facility] [address] [address]Dr.Vicki BatesPlatelet mean volume (Bld) [Entitic vol]9.1 fLCritically low 9.5-13.5The [facility] HospitalComment on above:Performed By: #### CBC ####[facility] [address] [address]Dr. Vicki RvxagRQY378 103/eeLililf519-232Bdc [facility] HospitalComeaton rapids medical center on above: Performed By: #### CBC ####[facility] [address] [address]Dr.Vicki ChangRBC4.63 106/ulNormal4.20-5.40The [facility] HospitalComment on above:Performed By: #### CBC ####[facility] [address] [address]Dr.Vicki BatesWBC4.0 103/ul Normal4.0-11.0The [facility] HospitalComeaton rapids medical center on above:Performed By: #### CBC ####[facility] [address] [address]Dr. Vicki PauloLIPID PROFILEon 71-91-2999EAPU-HDL RATIO NORMSEE [facility] CenterCome[facility] on above:Result Comment: 3.3 - 4.4 LOW RISK 4.4 - 7.1 AVERAGE RISK 7.1 - 11.0 MODERATE RISK >11.0 HIGH RISKPerformed By: #### TSH, LIPID, BMP #### [facility] [address] [address] [address] Vicki BatesCholesterol [Mass/Vol]221 mg/dLCritically high<=200The [facility] on above:Performed By: #### TSH, LIPID, BMP #### [facility] [address] [address] [address] Vicki Zuluagaesterol in HDL [Mass/Vol]68 mg/dLCritically fpws84-27KqvPromedica Bay Park HospitalComment on above:Performed By: #### TSH, LIPID, BMP #### [facility] [address] [address] [address] Vicki BatesCholesterol in LDL [Mass/Vol]140.8 mg/dLNoEast Liverpool City HospitalComment on above:Performed By: #### TSH, LIPID, BMP #### [facility] [address] [place] [address] Dr. Vicki Nathan.total/Cholesterol in HDL [Mass ratio]3.3 {ratio} NormalThe [facility] HospitalComment on above:Performed By: #### TSH, LIPID, BMP #### [facility] [address] [place] [address] Dr. Vicki Jose NORMAL> or = 60 mg/dl - LOW CARDIOVASCULAR RISK <40 mg/dl - HIGH CARDIOVASCULAR RISKNoEast Liverpool City HospitalComment on above:Performed By: #### TSH, LIPID, BMP #### [facility] [address] [place] [address] Dr. Vicki BatesLDL CALC NORMALSEE BELOWOhio Valley HospitalComment on above:Result Comment: <100 mg/dl OPTIMAL 100 - 129 mg/dl NEAR OR ABOVE OPTIMAL 130 - 159 mg/dl BORDERLINE HIGH 160 - 189 mg/dl HIGH >190 mg/dl VERY HIGH Performed By: #### TSH, LIPID, BMP #### [facility] [address] [place] [address] Dr. Vicki BatseTriglyceride [Mass/Vol]61 mg/dLNormal<=150[facility] Comment on above:Performed By: #### TSH, LIPID, BMP #### [facility] [address] [address] [address] Vicki BatesVLDL CALC12.2 mg/dLNoEast Liverpool City HospitalComment on above: Performed By: #### TSH, LIPID, BMP #### [facility] [address] [place] [address] Dr. Vicki BatesPROF CHEM 8 (BAS METB)on 86-28-6041Cbysi gap [Moles/Vol]11.5 mmol/LNormalThe [facility] HospitalComment on above:Performed By: #### TSH, LIPID, BMP #### [facility] [address] [place] [address] Dr. Vicki BatesCalcium [Mass/Vol]9.5 mg/dLNormal8.5-10.1The [facility] Comment on above:Performed By: #### TSH, LIPID, BMP #### [facility] [address] [place] [address] Dr. Vicki BatesChloride [Moles/Vol]106 mmol/XOgutiu21-424IauPromedica Bay Park Hospital Comment on above:Performed By: #### TSH, LIPID, BMP #### [facility] [address] [place] [address] Dr. Vicki BatesCO2 [Moles/Vol]30.1 mmol/IRbfech70.0-32.0[facility] Comment on above:Performed By: #### TSH, LIPID, BMP #### [facility] [address] [place] [address] Dr. Vicki BatesCreatinine [Mass/Vol]0.81 mg/dLNormal0.55-1.02The [facility] HospitalComment on above:Performed By: #### TSH, LIPID, BMP #### [facility] [address] [place] [address] Dr. Vicki HarleyGFR-AF INDONESIAN>60Normal>=60The [facility] HospitalComment on above:Performed By: #### TSH, LIPID, BMP #### [facility] [address] [place] [address] Dr. Vicki HarleyGFR-NON AF INDONESIAN>60Normal>=60The [facility] HospitalComment on above:Performed By: #### TSH, LIPID, BMP #### [facility] [address] [place] [address] Dr. Vicki BatesGlucose [Mass/Vol]91 mg/nRGrprim59-243ByyPromedica Bay Park Hospital Comment on above:Performed By: #### TSH, LIPID, BMP #### [facility] [address] [address] [address] Vicki BatesPotassium [Moles/Vol]4.3 mmol/LNormal3.5-5.1The [facility] Comment on above:Performed By: #### TSH, LIPID, BMP #### [facility] [address] [address] [address] Vicki BatesSodium [Moles/Vol]143 mmol/DCjiinq349-755Spu [facility] Comment on above:Performed By: #### TSH, LIPID, BMP #### [facility] [address] [address] [address] Vicki BatesUrea nitrogen [Mass/Vol]18.0 mg/dLNormal7.0-18.0The [facility] HospitalComment on above:Performed By: #### TSH, LIPID, BMP #### [facility] [address] [place] [address] Dr. Vicki Daniels nitrogen/Creatinine [Mass ratio]22.2 mg/mgNormalThe [facility] HospitalComment on above:Performed By: #### TSH, LIPID, BMP #### [facility] [address] [address] [address] Vicki Acosta 95-46-0713ORR0.814 uIU/mLCritically high0.358-3.740The [facility] HospitalComment on above:Performed By: #### TSH, LIPID, BMP #### [facility] [address] [place] [address] Dr. Vicki BatesMG MAMM SCREEN 3D CRISTINA CADon 56-48-3940TU MAMM SCREEN 3D CRISTINA CAD Patient: CORRIE MCCRAY Exam Date: 05/07/2022 : 1950 Gender:F Ordering : DR HUSSEIN ROWAN D.O. Admission #: [id number] Family : Order #: [id number] CLICK HERE TO VIEW EXAM RADIOLOGY REPORT [...] at age 85. LOCATION: [facility] BREAST COMPOSITION: Almost entirely fatty. FINDINGS: [...] by: Kassie Queen M.D. on 05/07/2022 at 13:23[facility] AUTO DIFFon 31-94-2480YCAZ #0.0 103/ulNormal0.0-0.1The [facility] HospitalComment on above:Performed By: #### CBC ####[facility] Inn[address] [place], [place] [address]Dr.Yilan ChangBasophils/100 WBC (Bld)0.5 %Normal0.2-2.0The [facility] HospitalComment on above:Performed By: #### CBC ####[facility] [address] [place], [place] [address]Dr.Yilan ChangEO #0.1 103/ulNormal0.0-0.7ThSelect Medical Specialty Hospital - YoungstownComment on above:Performed By: #### CBC ####[facility] [address] [place], [place] [address]Dr.Yilan ChangEosinophils/100 WBC (Bld)1.5 %Normal 0.9-7.0The [facility] HospitalComment on above:Performed By: #### CBC ####[facility] Kckm[address] [place], [place] [address]Dr.Vicki Bates Erythrocyte distribution width (RBC) [Ratio]11.7 %Hodbwx80.0-15.0The [facility] HospitalComment on above:Performed By: #### CBC ####[facility] Nyy[address]ewu[address] [place], [place] [address]Dr.Vicki BatesHematocrit (Bld) [Volume fraction]42.8 %Nblhiz67.0-48.0The [facility] HospitalComment on above:Performed By: #### CBC ####[facility] Abeqkubzns[address] [place], [place] [address]Dr.Vicki ChangHemoglobin (Bld) [Mass/Vol]14.2 g/dL Zqufrb61.0-16.0The [facility] HospitalComment on above:Performed By: #### CBC ####[facility] Mejwxnjgww[address] [place], [place] [address]Dr. Yilan ChangIG #0.01 10e3/ulNormal0.00-0.03The [facility] HospitalComment on above: Performed By: #### CBC ####[facility] Bzuavvjsxb[address] [place], [place] [address]Dr.Laureenlan ChangIG %0.2 %Normal0.0-0.5The [facility] HospitalComment on above:Performed By: #### CBC ####[facility] Lvgqzktnsp[address] [place], [place] [address]Dr.Laureenlan ChangLYMPH #1.8 103/ulNormal1.2-3.8The [facility] HospitalComment on above:Performed By: #### CBC ####[facility] Utpmtklusz[address] [place], [place] [address]Dr. Vicki BatesLymphocytes/100 WBC (Bld)43.6 %Gnycgf17.5-60.0The [facility] Comment on above:Performed By: #### CBC ####[facility] Yppojxgrck[address] [place], [place] [address]Dr.Laureenlan ChangMANUAL DIFF REQNONormalThe [facility] HospitalComment on above:Performed By: #### CBC ####[facility] Qbxzhtpkac[address] [place], [place] [address]Dr.Vicki BatesMCH (RBC) [Entitic mass]31.3 ohXnyxjf28.7-34.0The [facility] HospitalComment on above: Performed By: #### CBC ####[facility] [address] [place] [address]Dr.Vicki PauloMCHC (RBC) [Mass/Vol]33.2 g/dLNormal 29.9-35.2The [facility] HospitalComment on above:Performed By: #### CBC ####[facility] [address] [place] [address]Dr. Laureenchay BatesMCV (RBC) [Entitic vol]94.3 sIUtcvng15.0-99.0The [facility] Comment on above:Performed By: #### CBC ####[facility] Yjboxzygtv4[address] [place], [place] [address]Dr.Vicki BatesMONO #0.3 103/ulNormal0.3-0.8 The [facility] HospitalComment on above:Performed By: #### CBC ####[facility] Ahzrqavbmy[address] [place], [place] [address]Dr.Vicki Bates Monocytes/100 WBC (Bld)6.4 %Normal1.7-12.0The [facility] HospitalComment on above: Performed By: #### CBC ####[facility] [address]st[address]vz[address] [place], [place] [address]Dr.Vicki BatesNEUT #1.9 103/ulNormal1.4-6.5The [facility] HospitalComment on above:Performed By: #### CBC ####[facility] Tgxhmcxixt[address] [place], [place] [address]Dr.Vicki BatesNeutrophils/100 WBC (Bld)47.8 %Zobmzm32.0-75.0The [facility] HospitalComment on above:Performed By: #### CBC ####[facility] Nqmoexvthw[address] [place], [place] [address]Dr.Vicki BatesPlatelet mean volume (Bld) [Entitic vol]9.0 fLCritically low 9.5-13.5The [facility] HospitalComment on above:Performed By: #### CBC ####[facility] Ffvpqdymbu[address] [place], [place] [address]Dr. Vicki BatesPLT250 103/gxHiieod892-910Blq [facility] on above: Performed By: #### CBC ####[facility] [address] [place] [address]Dr.Vicki ChangRBC4.54 106/ulNormal4.20-5.40The [facility] on above:Performed By: #### CBC ####[facility] [address]havkeahn8[address] [place], [place] [address]If.Vicki ChangWBC4.0 103/ul Normal4.0-11.0The [facility] on above:Performed By: #### CBC ####[facility] [address] [place], [place] [address]My. Vicki BatesCovid-19 PCR (CVDTB)on 29-19-7633EOQJ-CoV-2 (COVID-19) RNA MEAGAN+probe Ql (Unsp spec)Not detectedNormalNOT DETECTEDThe [facility] on above:Result Comment: This test is not yet approved or cleared by the [place] FDA. When there are no FDA-approved or cleared tests available, and other criteria are met, FDA can make tests available under an emergency access mechanism called an Emergency Use Authorization (EUA). The EUA for this test is supported by the [place] of Health and Human Service's (HHS's) declaration [...] symptoms consistent with SARS-CoV-2.Performed By: #### CVDTBH ####[facility] [address] [place] [address]Dr. Vicki ChangUS PELVIS AND TRANSVAGon 90-60-8286XQ PELVIS AND TRANSVAGEXAMINATION: US PELVIS AND TRANSVAG [...] Electronically authenticated by: KASSIE QUEEN Date: 2022-04-16 00:20[facility] 66-66-6637QPN [Catalytic activity/Vol]20 U/UMkmxhv67-80 [facility] HospitalComment on above:Performed By: #### AST, ALT #### [facility] [address] [address] [address] Vicki Powers 18-37-5192MZV [Catalytic activity/Vol]28 U/FWbcanc50-36BtyPromedica Bay Park HospitalComment on above:Performed By: #### AST, ALT #### [facility] [address] [address] [address] Vicki BatesXR ankle RT min 3V*on 40-58-5767LA ankle RT min 3V*[facility] Main [place] [address] [place] [address] XRay Report Signed Patient: Corrie Mccray MR#: [id number] : 1950 Acct:[id number] Age/Sex: 71 / F ADM Date: 10/16/21 Loc: XDUCLY Room: Type: [facility] Attending Dr: Dena BERGMAN Ordering Provider: [...] Smith Jr., D.OЕкатерина10/16/2021 5:09 PM Dictation Location: [place] [address] Transcribed By: [facility] 10/16/211708 Dictated By: Zeke Smith Jr, DO 10/16/211706 Signed By: 10/16/21 170[facility] HospitalXR ankle RT min 3V*[facility] [employer] Other XR ankle RT min 3V*[facility] [employer] Other XR ankle RT min 3V*1111 [facility] [employer] Other XR ankle RT min 3V*[place] [address] [place] [address] [employer] Other XR ankle RT min 3V*XRay [facility] [employer] Other XR ankle RT min 3V*[facility] [employer] [place] Other XR ankle RT min 3V*Patient: Corrie Mccray MR#: [id number] [employer] [place] Other XR ankle RT min 3V*589[employer] [employer] [place] Other XR ankle RT min 3V*: 1950 Acct:[id number] [facility] Other XR ankle RT min 3V*Age/Sex: 71 / F ADM Date: 10/16/21 [facility] Other XR ankle RT min 3V*Loc: XDUCLY Room: Type: [facility] Other XR ankle RT min 3V*Attending Dr: Dena Davis [facility] Other XR ankle RT min 3V*Ordering Provider: DENA DAVIS [facility] Other XR ankle RT min 3V*Date of Service: 10/16/21[employer] Other XR ankle RT min 3V* XR/XR ankle RT min 3V*: S89.91XASt. Louis Behavioral Medicine InstituteGenoa Color Technologies Other XR ankle RT min 3V*Copies to: DENA DAVIS [facility]- [facility] Other XR ankle RT min 3V*RIGHT ANKLE - 3 viewsSt. Louis Behavioral Medicine InstituteGenoa Color Technologies Other xr ankle RT min 3V*Reason for exam:Patient fell while going up the stairs 3 hours ago. Patient has pain posterior [facility] Other XR ankle RT min 3V*her right ankle and posterior to her distal tib-fib.[facility] Other XR ankle RT min 3V*COMPARISON: [facility] [employer] [place] Other XR ankle RT min 3V*Soft tissue swelling is noted. Ankle mortise appears intact. Cortical irregularity seen along StreetfaireHD Other XR ankle RT min 3V*medial malleolus suggestive of prior injury. No acute bony process is seen. Enthesophyte formationGarner [employer] [place] Other XR ankle RT min 3V*is seen at the insertion of the Achilles tendon. Minimal plantar spurring.[facility] Other XR ankle RT min 3V* XR/XR ankle RT min 3V*[facility] Other XR ankle RT min 3V*IMPRESSION:[facility] Other XR ankle RT min 3V*SOFT TISSUE SWELLING WITHOUT ACUTE BONY PROCESS NOTED.[facility] Other XR ankle RT min 3V*Impression dictated by: Zeke Smith Jr., D.OЕкатерина10/16/2021 5:09 [facility] [employer] [place] Other xr ankle RT min 3V*Dictation Location: [place] [address] [facility] Other xr ankle RT min 3V*Transcribed By: PWS 10/16/21 [facility] Other xr ankle RT min 3V*Dictated By: Zeke Smith Jr, DO 10/16/[address] [place] [address] [employer] [place] Other xr ankle RT min 3V*Signed By:[facility] Other xr ankle RT min 3V*10/16/21 [facility] CenterMagn[facility] Other no [facility] InformationUniversity [facility] Vital Signs Date TimeVital SignValuePerforming JywvzdyawXqgefkxl78-27-5987 09:30-0500Body .48 cmBenjamin Ball Other [employer] Other 11-08-2023 09:30-0500Body mass index (BMI) [Ratio] 26.12 kg/f7Xuxraaky Ball Other [employer] Other 11-08-2023 09:30-0500Body spueid65.77 kgBenjamin Ball Other [employer] Other 11-08-2023 09:30-0500Diastolic blood pnajlyvt36 mm[Hg] Hussein Rowan Other [employer] [place] Other 11-08-2023 09:30-0500Respiratory rate12 /minBenjafarrah Rowan Other [employer] [place] Other 11-08-2023 09:30-0500Systolic blood mm[Hg] Hussein Rowan Other [employer] [place] Other 10-24-2023 11:19-0400Body pkaetv171.5 cmZaire Fry MD Work Phone: [facility]10-24-2023 11:19-0400Body axrpib80.32 kgZaire Fry MD Work Phone: [phone]10-24-2023 11:19-0400Diastolic blood gckrowse77 mm[Hg]Zaire Fry MD Work Phone: [phone]10-24-2023 11:19-0400Heart rate76 /min Zaire Fry MD Work Phone: [phone]10-24-2023 11:19-8211TmR7% (BldA) [Mass fraction]98 %Zaire Fry MD Work Phone: [phone]10-24-2023 11:19-0400Systolic blood qqcuhpzj546 mm[Hg]Zaire Fry MD Work Phone: [phone]10-13-2023 10:00-0400Body .48 Xiomara Lees Other [employer] [place] Other 10-13-2023 10:00-0400Body mass index (BMI) [Ratio]26.7 kg/s0McwqteCony Lees Other [facility] Other 10-13-2023 10:00-0400Body lgyvhourqji91.5 [degF]Cony Lees Other [facility] Other 10-13-2023 10:00-0400Body mmhobd96.23 kgPapapito Lees Other [facility] Other 10-13-2023 10:00-0400Diastolic blood ycpxzxqz40 mm[Hg] Cony Lees Other [facility] Other 10-13-2023 10:00-0400Respiratory rate18 /minCony Lees Other [facility] Other 10-13-2023 10:00-4993CnE3% (BldA) [Mass fraction]97 % Cony Lees Other [facility] Other 10-13-2023 10:00-0400Systolic blood mm[Hg] Cony Lees Other [facility] Other 07-24-2023 09:30-0400Body kyrwwa418.94 cmBenjamin Ball Other [employer] Other 07-24-2023 09:30-0400Body mass index (BMI) [Ratio] 27.81 kg/v5Ekuuafbl Ball Other [facility] Other 07-24-2023 09:30-0400Body nrmxfy05.77 kgBenjamin Ball Other [facility] Other 07-24-2023 09:30-0400Diastolic blood bvuslrfy48 mm[Hg] Hussein Ball Other [facility] Other 07-24-2023 09:30-0400Respiratory rate12 /minBenjamin Ball Other [facility] Other 07-24-2023 09:30-0400Systolic blood winlqzep752 mm[Hg] Hussein Ball Other [facility] Other 05-31-2023 10:00-0400Body iovcid327.94 cmBenjamin Ball Other [facility] Other 05-31-2023 10:00-0400Body mass index (BMI) [Ratio] 27.92 kg/k7Pmtfjugn Ball Other [facility] Other 05-31-2023 10:00-0400Body idynpj60.04 kgBenjamin Ball Other [facility] Other 05-31-2023 10:00-0400Diastolic blood geanxrla49 mm[Hg] Hussein Ball Other [facility] Other 05-31-2023 10:00-0400Respiratory rate12 /minBenjamin Ball Other [facility] Other 05-31-2023 10:00-0400Systolic blood iyvlyrnw363 mm[Hg] Hussein Ball Other [facility] Other 05-10-2023 10:30-0400Body qozcem638.94 cmBenjamin Ball Other [facility] Other 05-10-2023 10:30-0400Body mass index (BMI) [Ratio] 28.11 kg/n1Lcvlzbsd Ball Other [employer] Other 05-10-2023 10:30-0400Body vgxrel30.5 kgBenjamin Ball Other [employer] Other 05-10-2023 10:30-0400Diastolic blood mm[Hg] Hussein Ball Other [employer] Other 05-10-2023 10:30-0400Respiratory rate12 /minBenjamin Ball Other [employer] Other 05-10-2023 10:30-0400Systolic blood caikwjgt246 mm[Hg] Hussein Ball Other [employer] Other 02-28-2022 16:40-0500Body .94 cmStephans Davis Other [employer] Other 02-28-2022 16:40-0500Body mass index (BMI) [Ratio] 29.28 kg/j6EuqrrpfhmDena Davis Other [employer] Other 02-28-2022 16:40-0500Body zfyobfnzarc48.4 [degF] Dena Davis Other [employer] Other 02-28-2022 16:40-0500Body mikyvu97.31 kgStmio Davis Other [employer] Other 02-28-2022 16:40-0500Diastolic blood yxsvemhn07 mm[Hg] Dena Davis Other [place] [employer] [place] Other 02-28-2022 16:40-0500Respiratory rate16 /minSrachael Davis Other [facility] [employer] [place] Other 02-28-2022 16:40-1207LzT1% (BldA) [Mass fraction]98 % Dena Davis Other [facility] [employer] [place] Other 02-28-2022 16:40-0500Systolic blood srgfzsiv516 mm[Hg] Dena Davis Other [facility] [employer] [place] Other Encounters Encounter DateEncounter TypeCare ProviderFacilityStart: 02-16-2025 End: 49-45-2812Ejlmmdk encounter procedureTojeanie Brown OD Work Phone: OphthalmologyComment on above:Low-tension glaucoma of both eyes, moderate stage (Primary Dx); Low-tension glaucoma of both eyes, unspecified glaucoma stage; Keratitis sicca, bilateral; History of trabeculectomy, right eyeStart: 02-16-2025 End: 54-18-2296afsmsspfvqAMPS A HERSHNERFacility:[facility] Hospitaltart: 01-26-2025 End: 07-42-3119SfgvayThmd A Hershner OD Work Phone: OphthalmologyComment on above:Refill RequestStart: 11-17-2024 End: 62-57-8218jfrdmopibzDGDOLHDI E BALLFacility:[facility] Hospitaltart: 11-17-2024 End: 93-89-0962Oagzlym encounter procedureTojeanie Brown OD Work Phone: OphthalmologyComment on above:Low-tension glaucoma of both eyes, unspecified glaucoma stage (Primary Dx); Low-tension glaucoma of both eyes, moderate stage; History of trabeculectomy; PseudophakiaStart: 05-19-2024 End: 12-78-0190Viugwjh encounter procedureTojeanie Brown OD Work Phone: OphthalmologyComment on above:Low-tension glaucoma of both eyes, unspecified glaucoma stage (Primary Dx); Low-tension glaucoma of both eyes, moderate stage; Keratitis sicca, bilateralStart: 05-19-2024 End: 12-93-5397irmphceeosZCMLYHGM E BALLFacility:[facility] HospitalStart: 11-15-2023 End: 58-78-6900oksltxqhjsHCABVIMB A BROWNNot AvailableStart: 11-15-2023 End: 32-53-8105fygexvhwbcQGUVQYWW A BROWNNot AvailableStart: 11-12-2023 End: 49-46-3805Nklyhxg encounter procedureTojeanie Brown OD Work Phone: OphthalmologyComment on above:Low-tension glaucoma of both eyes, unspecified glaucoma stage (Primary Dx); Keratitis sicca, bilateral (HCC); Pseudophakia, left eyeStart: 07-29-2023 End: 18-19-0975oepjkxswckZwgimeffm LyonPulmonary MedicineStart: 07-29-2023 Telephone encounterBenoma Rowan Medical ClinicStart: 07-22-2023 [facility] Luma LOZANOEND POLISHER Work Phone: Pulmonary MedicineComment on above:NoduleStart: 07-09-2023 End: 74-85-0770rjftnvvcmyTifnuogt Ball Other [facility] [employer] [place] Other Start: 88-09-7332Ioataqapi encounterBenoma Rowan Medical ClinicStart: 07-05-2023 End: 20-23-7332cuemqykzhaMRAUC KHALILFacility:[place] HospitalStart: 07-05-2023 End: 16-36-8615dmgmmxnjoiGmtp [place] Work Phone: PulmonologyComment on above:SpirometryStart: 07-05-2023 End: 36-50-2084Ujmejxe encounter procedurePulm Lab Yokasta Work Phone: [facility] YOKASTA MOLL PAV MCStart: 06-26-2023 End: 66-44-2221poituhafpwWjsrhxut Ball Other [employer] Other Start: 51-64-3512Nfbyyl outpatient visit 15 minutes Hussein BallFPG [facility] Medical ClinicStart: 06-24-2023 End: 72-86-6283ntqotrwfqcCjgftwdj Ball Other [employer] Other Start: 54-87-0937Evfhzeghc encounterBenjamin BallFPG [facility] Medical ClinicStart: 06-11-2023 End: 09-72-2622Roabxom encounter procedureZaire Fry MD Work Phone: CardiologyComment on above:Chest discomfort; SOB (shortness of breath); Pure hypercholesterolemia; Primary hypertensionStart: 05-31-2023 End: 45-24-8805vzjapgyrktEumikq Yoana Other [facility] [employer] [place] Other Start: 60-91-3811Wrijsu outpatient visit 15 minutes Cony [facility] ClydeStart: 15-71-9396Tiotbrdoc encounterNo One (Historical)Referring PhysicianComment on above:External Referrals/resources Start: 03-15-2023 End: 72-97-3721wuvzgdqbbsQiddlqgu Ball Other [employer] [place] Other Start: 18-09-9144Lisuefsjt encounterBenjamin BallFP[facility] Medical ClinicStart: 03-13-2023 End: 46-93-3552rknelcdmeuVauxfqll Ball Other [employer] Other Start: 57-68-8124Sdafnnhaz encounterBenjamin BallFP[facility] Medical ClinicStart: 03-11-2023 End: 90-88-1075nlocqpsupzQpvrvlsz Ball Other [facility] Other Start: 15-20-6825Qrlsqs outpatient visit 15 minutes Hussein BallFP[facility] Medical ClinicStart: 01-21-2023 End: 83-24-5321gtlsxyfesjAdkvnhft Ball Other [facility] Other Start: 25-04-3770Zwlekofvj encounterBenjamin BallFP[facility] Medical ClinicStart: 01-16-2023 End: 22-70-0912ptvxedakbnMvfmhdjg Ball Other [facility] Other Start: 99-37-9043Kkhnys outpatient visit 15 minutes Hussein BallFP[facility] Medical ClinicStart: 12-31-2022 End: 22-44-7714xhxzefvdjnOZ HUSSEIN BALLFacility:L7Mstyy: 12-27-2022 End: 15-28-7860wizqmodrgoVihxusiu Ball Other [employer] Other Start: 37-85-7774Ujjyjwivx encounterBenjamin BallFP[facility] Medical ClinicStart: 41-39-7033Uzedwzw encounter procedureBenjamin BallFP[facility] ClinicStart: 01-46-1633Wfpltknbc encounterBenjamin BallFP[facility] ClinicStart: 12-26-2022 End: 57-59-5819alvvjhqnoqPM HUSSEIN ROWANGarner [employer] [place] Other Start: 05-07-2022 End: 24-22-5639irrkjhxzcaRM HUSSEIN BALLFacility:K2Hqcyv: 04-30-2022 End: 38-54-0029avsvyzcoehPB HUSSEIN BALLFacility:U7Xsknd: 75-04-3587Siuozgyct for preprocedural laboratory examinationDR ZION RIZZO .[facility] Start: 04-26-2022 End: 89-58-0589foownkudjzGU ZION RIZZO .Facility:N5Taznx: 04-26-2022 End: 75-00-1279Kimcgrhcp for preprocedural laboratory examinationDR ZION RIZZO .Facility:R8Oymfo: 57-87-5293Vdjzqjaxt for preprocedural cardiovascular examinationDR ZION RIZZO .[facility]: 04-19-2022 End: 10-63-8313knyukxhguqLF HUSSEIN BALLFacility:W5Eblns: 04-19-2022 End: 50-57-8315Cqdjpfdly for preprocedural cardiovascular examinationDR HUSSEIN BALLFacility:S7Wcldc: 04-14-2022 End: 38-49-8770csdpmwthuqUB HUSSEIN BALLFacility:J2Ilxlu: 04-10-2022 End: 15-64-0143Wdzvkpq encounter procedureTodd A Katiehner OD Work Phone: OphthalmologyComment on above:Low-tension glaucoma of both eyes, unspecified glaucoma stage (Primary Dx); Keratitis sicca, bilateral (HCC); History of trabeculectomy, right eyeStart: 01-18-2022 End: 89-64-2831ycnhkohfacQJLUHAEU BROWNFacility:W7Xgisg: 10-16-2021 End: 42-44-7664xupzjeuvigEyeaotexu Breault Other [employer] [place] Other Start: 10-80-7870Uyfmfc outpatient new 20 minutes Dena DavisFPG [facility] Procedures DateProcedureProcedure DetailPerforming ClinicianStart: 35-74-4161Khuehr field xm uni/bi w/interp extended examTodd A Hershner OD Work Phone: Start: 07-79-7443Tfqcwqikutmg ophthalmic imaging optic nerveTodd A Hershner OD Work Phone: Start: 37-11-5014Hdmtjn field xm uni/bi w/interp extended examTodd A Hershner OD Work Phone: Start: 29-44-9477Ynfbauiwjubf ophthalmic imaging optic nerveTodd A Hershner OD Work Phone: Start: 39-47-3626Ssmefammz rspse spmtry pre&post- brncdilat Kim Fry MD Work Phone: Start: 19-43-7868Bra routine ecg w/least 12 lds i&r onlyCcf ProviderStart: 16-62-7347Wgtevw field xm uni/bi w/interp extended exam Tina Brown OD Work Phone: Plan of Treatment DateCare ActivityDetailAuthorStart: 32-14-0009KIO Vaccine (1 - 1-dose 75+ series)RSV Vaccine (1 - 1-dose 75+ series)[facility]: 08-20-2025 End: 96-37-1482Crebymc encounter qjyyohbze73/02/2026 1:15 PM EST Office Visit [facility] Ophthalmology [address] [place] [address] Tina Brown, OD [address] [place] [address] Diagnostics[facility] [address] [address] 6 Months Full OCT ON/GCAOphthalmologyComment on above:6 Months Full OCT ON/GCAStart: 04-19-2025 Influenza vaccinationAvita Health System Ontario Hospitaltart: 02-16-2025 End: 94-40-5721Szvcoko encounter procedureOphthalmologyComment on above:RTC: 3 months VaTa HVF 24-2 , additional treatment if OS still upStart: 11-17-2024 End: 57-76-7954Mmszmrj encounter uvmvhdfyg58/01/2025 1:15 PM EDT Office Visit [facility] Ophthalmology [address] [facility] [place] [address] Tina Brown, OD [address] [place] [address] RTC: 6 Months Full OCT ON/GCAOphthalmologyComment on above:RTC: 6 Months Full OCT ON/GCAStart: 09-22-2024 End: 85-97-5648Gahuywk encounter wumnpjogp98/04/2025 11:30 AM EST Office Visit Cardiology [address] [facility] [place] [address] Zaire Fry MD [address] [facility] [address] [place] [id number] Return in about 1 year (around 06/11/2024).CardiologyComment on above:Return in about 1 year (around 06/11/2024).Start: 51-06-8589Rvhwnrr Directive DiscussionAdvance Directive DiscussionAvita Health System Ontario Hospitaltart: 38-70-1371CI Controlled (<130/80)BP Controlled (<130/80)[facility]: 82-15-3714Fwyea-19 Vaccine ()Covid-19 Vaccine ()[facility]: 36-62-4592Vmjdlpcqm vaccinationInfluenza Vaccine (#1)[facility]: 36-69-5978Drjevle Directive DiscussionAdvance Directive DiscussionAvita Health System Ontario Hospitaltart: 13-75-6294Ngiynbvqiq Assessment Depression AssessmentAvita Health System Ontario Hospitaltart: 06-11-2023 End: 44-93-1295HXXJFWEQCO BLDCREATININE BLD Lab Routine Chest discomfort SOB (shortness of breath) Expected: 06/11/2023, Expires: 09/10/2023[facility] Work Phone: Comment on above:Expected: 06/11/2023, Expires: 09/10/2023Start: 39-53-9230Recfv-19 Vaccine ()Covid-19 Vaccine ()[facility]: 87-58-4695Tpbckkncn vaccination [facility]: 89-26-5127MXGMEFU DIRECTIVE DISCUSSIONADVANCE DIRECTIVE DISCUSSIONAvita Health System [facility] Hospitaltart: 35-40-1900QMPRSKWLBF ASSESSMENTDEPRESSION ASSESSMENTAvita Health System Ontario Hospitaltart: 96-79-2228Buiidvsvr vaccinationINFLUENZA (#1) [facility]: 09-98-1011ANCAG-19 VACCINE (4 - Booster for Moderna series)COVID-19 VACCINE (4 - Booster for Moderna series)[facility] Hospitaltart: 79-41-7561DOLRBDO DIRECTIVE DISCUSSIONADVANCE DIRECTIVE DISCUSSIONAvita Health System Ontario Hospitaltart: 01-05-4722ZGHCD-19 VACCINE (4 - Moderna series)COVID-19 VACCINE (4 - Moderna series)[facility]: 05-01-2019Medicare Annual Wellness Visit Medicare Annual Wellness VisitAvita Health System Ontario Hospitaltart: 45-80-3730BPCA DENSITYBONE DENSITYAvita Health System [facility] Hospitaltart: 00-89-7347Busy Density ScreeningBone Density ScreeningAvita Health System [facility] Hospitaltart: 80-38-2327Szwagnkibujo Vaccine: 65+ (1 - PCV) Pneumococcal Vaccine: 65+ (1 - PCV)[facility]: 95-88-8324Mzxhydmapnfm Vaccine: 65+ (1 of 1 - PCV)Pneumococcal Vaccine: 65+ (1 of 1 - PCV)[facility]: 57-57-9088JIWWLINBNNVT: 65+ (1 - PCV)PNEUMOCOCCAL: 65+ (1 - PCV) [facility]: 08-27-2935Vblkkoqye for osteoporosisBone Density ScreeningAvita Health System Ontario Hospitaltart: 29-30-7506GTY Vaccine (1 - 1-dose 60+ series)RSV Vaccine (1 - 1-dose 60+ series)[facility]: 18-87-7693Ksmxpjluflxj Vaccine: 50+ (1 of 1 - PCV)Pneumococcal Vaccine: 50+ (1 of 1 - PCV)[facility]: 71-11-2989NXYDLKKS VACCINE (1 of 2)SHINGRIX VACCINE (1 of 2) [facility]: 53-96-7338FDXWZORBI (FIT-DNA)COLOGUARD (FIT-DNA)[facility]: 63-94-9115YfphuykxurgSJBBCFFQMLSCfwocxrzt ClinicStart: 1995 COLORECTAL CANCER SCREENINGCOLORECTAL CANCER SCREENINGAvita Health System Ontario Hospitaltart: 11-49-5029NT COLONOGRAPHYCT COLONOGRAPHYAvita Health System [facility] Hospitaltart: 1995 DIABETES SCREENDIABETES SCREENAvita Health System Ontario Hospitaltart: 29-62-8139Qktvrzwh ScreeningDiabetes ScreeningAvita Health System Ontario Hospitaltart: 33-11-8553IWVPN OCCULT BLOOD FECAL OCCULT BLOODAvita Health System Ontario Hospitaltart: 08-57-4547Zxnxp 1996 panel - Serum or PlasmaLipid ScreeningAvita Health System Ontario Hospitaltart: 30-78-3095Rqfnm panelLipid Screening [facility]: 85-44-1017ELPUF SCREENLIPID SCREENAvita Health System [facility] Hospitaltart: 32-05-6597Ukiusqddu for malignant neoplasm of colonAvita Health System Ontario Hospitaltart: 09-63-9734PODYRVTZARCXCRUCCKLCCJJOVUHbwbgqeht ClinicStart: 06-54-1469Kpeklvfvphx [facility]: 04-67-5357Prxkpeejv for malignant neoplasm of breast Mammogram ScreeningAvita Health System Ontario Hospitaltart: 18-10-1570Ltsna microalbumin profile [facility]: 74-78-4275RYAEWG PCP TEAM CHRONIC DISEASE VISITANNUAL PCP TEAM CHRONIC DISEASE VISITAvita Health System Ontario Hospitaltart: 54-10-1733Byasuvs Screening Anxiety ScreeningAvita Health System Ontario Hospitaltart: 93-11-1182OS Controlled (<130/80)BP Controlled (<130/80)[facility]: 86-04-5789Ieogufgbtv Screening Depression ScreeningAvita Health System Ontario Hospitaltart: 86-21-5414CZSCGZVAH C SCREENING HEPATITIS C SCREENINGMetroHealth Main Campus Medical Centerrt: 62-57-7645Dzwnmdhgu C screening Hepatitis C ScreeningMetroHealth Main Campus Medical Centerrt: 33-50-9046Jthee depression screening assessmentDEPRESSION SCREENINGUniversity Hospitals Conneaut Medical Center End: 88-83-3959Sho hrt cornry art/bypass grfts contrst 3d postCTA CORONARY W IVCON Radiology Routine Chest discomfort SOB (shortness of breath) Pure hypercholesterolemia Primary hypertension 1 Occurrences starting 06/11/2023 until 07/10/2024[facility] Work Phone: Comment on above:1 Occurrences starting 06/11/2023 until 07/10/2024[facility]Western [facility] Work Phone: Comment on above:Ordered: 06/11/2023 End: 37-46-2727WQLYIENXNV WITH DILATOR IF OBSTRUCTEDSPIROMETRY WITH DILATOR IF OBSTRUCTED PFT Routine SOB (shortness of breath) 1 Occurrences starting 1 until 11/22/[address] [place] [address] Work Phone: Comment on above:1 Occurrences starting 06/11/[address] [place] [address] Immunizations Immunization DateImmunizationNotesCare QaqxerypVuwpfheq09-44-3632rnhzhhucx virus vaccine, split virus (incl. purified surface antigen)Hussein Rowan Other [employer] Other [id number], high dose seasonal, preservative-freeBenjamin Ball Other [employer] Other 11-978889-31-2312nfoucjbzi virus vaccine, unspecified formulationZaire Fry MD Work Phone: [facility] Medical CenterDhojgx39-20-8610JZDGH-09 Pfizer (bivalent) Hussein Rowan Other [facility] Other [id number]-38 Vaccine Pfizer - Documentation Purposes OnlyBenjamin Ball Other [employer] Other 04-744446-96-2910wcfdes vaccine recombinantBenjamin Ball Other [employer] Other 03-633973-95-1836REDOO-16 ModernaBenjamin Ball Other [employer] Other 02-618070-32-4185KWNYD-50 ModernaBenjamin Ball Other [employer] Other 11583339-34-2769fcspodgga virus vaccine, split virus (incl. purified surface antigen)Hussein Rowan Other [employer] Other 11-224140-89-6894yqijpc vaccine recombinantBenjamin Ball Other [facility] Other 11300281-75-1481qpfyzo vaccine, liveHussein Rowan Other [facility] [employer] [place] Other 11816334-38-0727UYHYY QUAD 2020-21,65Y UP,,PF, 60 mcg (15 mcg x 4)/0.5 mL syrgTodd Jermaine OD Work Phone: [facility]aut Medical CenterComment on above:PHARMACY ADMINISTERED Payers DatePayer CategoryPayerPolicy [id number] Health InsuranceMMO MEDICARE SUPPLEMENT Member Subscriber Plan / Payer (Effective 2019-Present) Name: Corrie Mccray Relation to Subscriber: Self Name: Corrie Mccray Payer ID: Not on file Type: Indemnity Address: [address] [place] [id number] MMO MEDICARE SUPPLEMENT [id number] 2019- [phone] [address] [place] [address] [id number] [id number] 1960Medicare [id number] [id number] [id number] 2.16.840.1.112969.3.579.2.593 [id number] 2.16.840.1.661146.3.57[id number] 2.16.840.1.656678.3.57[id number] 2.16.840.1.392627.3.57[id number] 2.16.840.1.106862.3.57[id number] 2.16.840.1.404751.3.57[id number] 2.16.840.1.284076.3.57[id number] 2.16.840.1.598944.3.579.[id number] 2.16.840.1.177127.3.579.2.1259 Social History DateTypeDetailFacilityStart: 10-12-2022 End: 70-29-9717Qgp Assigned At [facility] [employer] [place] Other Start: 52-55-6756Fjnhdhs smoking status NHISNever smoked tobaccoAvita Health System Ontario Hospitaltart: 45-95-3737Rjarijp use and exposureSmokeless tobacco non-userAvita Health System Ontario Hospitaltart: 04-10-2022 End: 62-81-3831Htcktff intakeCurrent drinker of alcohol (finding)[facility]: 18-04-1841Cjpoxvf SDOH Alcohol Comment1 glass of wine 3/wkAvita Health System Ontario Hospitaltart: 84-78-8815Cet Assigned At [facility] CareFeCommunity Health ClinicStart: 10-12-2022 End: 61-86-2371Cmqwlcs of Social functionUniversity Hospitals Conneaut Medical CenterNational Score (1-100), lower number is lower zpzx84PzzfpwnckAvita Health System Ontario Hospitaltart: 87-34-9730Dufxpf identity Identifies as female gender (finding)[facility]: 46-46-9993Qvrafu orientationHeterosexual (finding)[facility] Medical Equipment Procedure CodeEquipment CodeEquipment Original TextEquipment IdentifierDatesLens Iol 0d +20 Dante Uv Abs - [id number]: 27-50-3615Ihanebj on above:Description: -0.09 Clinical Notes 02-12-2017 to 02-16-2025 Note Date & QwrkKitpHefjnslb01-75-0487 NoteDate of Procedure 02/16/2025. Electric Wirer Information Ruffler: russ. Notes -- HVF 02/16/2025 OD mod sup nasal step, stable ; OS GtinnsCSARP72-96-6854 NoteHNO ID: [id number] Author: TINA BROWN, TERRENCE Service: ? Author Type: GRAIN ORIGINATION SPECIALIST Type: Progress Notes Filed: 02/16/2025 13:40 Note [...] Tina Brown, OD February 16, 2025 1:39 [facility]07-01-2025 History of Present illness Narrative* Tina Brown, [...] 16, 2025 1:39 PM documented in this encounterUniversity Hospitals Conneaut Medical Center06-10-2025 Telephone encounter Note * Telephone Encounter - Roxana Driver COT - 01/26/2025 7:28 AM EDT Patient phones requesting refills as follows: Requested Prescriptions Pending Prescriptions Disp Refills dorzolamide-timolol (COSOPT) 22.3-6.8 mg/mL ophthalmic solution [Pharmacy Med Name: DORZOLAMIDE-TIMOLOL EYE DROPS] 30 mL 4 Sig: USE 1 DROP IN BOTH EYES TWO TIMES A DAY. Please review and advise. JACQUES Garcia [facility]06-10-2025 Miscellaneous Notes* Telephone Encounter - Roxana Driver COT - 01/26/2025 7:28 AM EDT Patient phones requesting refills as follows: Requested Prescriptions Pending Prescriptions Disp Refills dorzolamide-timolol (COSOPT) 22.3-6.8 mg/mL ophthalmic solution [Pharmacy Med Name: DORZOLAMIDE-TIMOLOL EYE DROPS] 30 mL 4 Sig: USE 1 DROP IN BOTH EYES TWO TIMES A DAY. Please review and advise. JACQUES Garcia documented in this encounterUniversity Hospitals Conneaut Medical Center04-01-2025 NoteDate of Procedure 11/17/2024. Notes -- OCT 11/17/2024 OD severe inf>mod sup thinning;OS mod inf > sup thinning, stable Low SS -- GCA 11/17/2024 OD global thinning ; OS mod sup, inf wedge, worse than 7917EAXIC04-67-2600 NoteHNO ID: [id number] Author: TINA BROWN, OD Service: ? Author Type: GRAIN ORIGINATION SPECIALIST Type: Progress Notes Filed: 11/17/2024 14:05 Note [...] Tina Brown, OD November 17, 2024 1:42 [facility]04-01-2025 History of Present illness Narrative* Tina Brown, [...] 17, 2024 1:42 PM documented in this encounterUniversity Hospitals Conneaut Medical Center10-01-2024 NoteDate of Procedure 05/19/2024. Electric Wirer Information Ruffler: RIGOBERTO. Interval Change Right Eye Stable. Left Eye Stable. Notes -- HVF 05/19/2024 OD mod sup nasal step, stable from 2021; OS NormalZEISS 05-19-2024 NoteHNO ID: [id number] Author: TINA BROWN OD Service: ? Author Type: GRAIN ORIGINATION SPECIALIST Type: Progress Notes Filed: 05/19/2024 13:37 Note [...] Questions answered. I have interviewed and examined oCrrie Mccray. I have confirmed and edited as necessary the chief complaint, history of present illness, past medical history, medications, family history, social history, review of systems, and exam findings as obtained by others. I agree with the assessment and plan as stated above,and have discussed them in detail with the patient. Tina Brown, OD May 19, 2024 1:35 [facility]10-01-2024 History of Present illness Narrative* Tina Brown, [...] 19, 2024 1:35 PM documented in this encounterUniversity Hospitals Conneaut Medical Center03-26-2024 History of Present illness Narrative* Tina Brown, [...] open capsule. Plan: [facility] The nature of the patient's eye [...] 12, 2023 1:43 PM documented in this encounterUniversity Hospitals Conneaut Medical Center12-11-2023 Evaluation note* Encounter Date Diagnosis Assessment Notes Treatment Notes Treatment Clinical Notes Jul, Pulmonary nodule, ri ght (ICD-10 - R91.1) CTA chest: 7mm RLL nodule - 06/2023 [facility] Other [id number] History of Present illness Narrative* Kavitha Huggins - 07/29/2023 7:28 AM EST Incidental Lung Nodule Enrollment Outreach attempt: 2nd Attempt Outreach status: Complete Enrolled in Lung Nodule program: Referred Lung Nodule outreach: Needs outreach Lung Nodule Program Location: [place] Two letter attempts documented in this encounterUniversity Hospitals Conneaut Medical Center12-04-2023 History of Present illness Narrative* Silvia Ge APRN.CNP - 07/22/2023 1:42 PM EST Incidental Lung Nodule Enrollment Outreach attempt: 1st Attempt Outreach status: Complete Enrolled in Lung Nodule program: Referred Lung Nodule outreach: Needs outreach Lung Nodule Program Location: [place] Letter sent to patient regarding incidental lung nodule(s). Silvia Ge APRN.CNP July 22, 2023 1:42 PM documented in this encounterUniversity Hospitals Conneaut Medical Center11-17-2023 NoteHNO ID: [id number] Author: Silvia Mckeon RT(Esteban) Service: Radiology Author Type: Electric Wirer Type: Progress Notes Filed: 07/05/2023 3:03 PM [...] BY: RT Yesica(Esteban) July 05, 2023 3:00 [facility]11-17-2023 NoteHNO ID: [id number] Author: Liss Anne, TECHNOLOGIST Service: ? Author [...] Liss Anne, TECHNOLOGIST July 05, 2023 3:02 [facility]11-17-2023 NoteHNO ID: [id number] Author: Sarah Mtz RRT Service: ? 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 [facility] [place] SECTION OF REGIONAL CARDIOLOGY OUTPATIENT VISIT DATE June 11, 2023 OUTPATIENT VISIT TYPE NEW PRIMARY CARE PHYSICIAN: Hussein Rowan ([facility]) [address] [place] [address] A written report of the findings and [...] 1 capsule by mouth once daily. Evening Cascade Oil (EVENING PRIMROSE) 500 mg cap Take 1 capsule by mouth once daily. Flaxseed Oil 1,000 mg cap Take 1 capsule by mouth once daily. FLUAD QUAD 2020-21,65Y UP,,PF, 60 mcg (15 mcg x 4)/0.5 mL syrg PHARMACY ADMINISTERED (Patient not taking: Reported on 06/11/2023) documented in this encounterUniversity Hospitals Conneaut Medical Center10-13-2023 Evaluation note* Encounter Date Diagnosis Assessment Notes Treatment Notes Treatment Clinical Notes May, Abrasion of right cornea, initia l encounter (ICD-10 - S05.01XA) Drink plenty fluids, get plenty of rest. Use the eyedrops as prescribed. Today you may instill the eyedrops every 2 hours and then 4 times a day for the next 4 days. Follow-up with your mold maker if no improvement in 2 to 3 days. Continue home medications as prescribed [facility] Other 08-07-2023 Miscellaneous Notes* Telephone Encounter - Kae Pereira - 03/25/2023 4:47 PM EDT Patient: Corrie Mccray Date of : 1950 Patient phone number: [phone] Referring Provider for the encounter: Hussein Rowan Requesting Provider: n/c Reason for requesting visit (RFV/signs and symptoms/diagnosis): Precordial pain (R07.2) Person calling: caregiver: Kae Return call to: self Medical Records/Insurance Card scanned into [employer]: Yes Comments: documented in this encounterUniversity Hospitals Conneaut Medical Center07-26-2023 Evaluation note* Encounter Date Diagnosis Assessment Notes Treatment Notes Treatment Clinical Notes Feb, Dyspnea on exertion (ICD-10 - R0 6.09) [facility] Other 07-24-2023 Evaluation note* Encounter Date Diagnosis [...] the risk for cerebrovascular and cardiovascular disease. [facility] Other 05-31-2023 Evaluation note* Encounter Date Diagnosis [...] R06.09)Hold exercise routine until stress testing completed [facility] Other 05-10-2023 Evaluation note* Encounter Date Diagnosis [...] - Z79.899) December,Metabolic syndrome (ICD-10 - E88.81) [facility] Other 05-10-2023 Evaluation note* Encounter Date Diagnosis Assessment Notes Treatment Notes Treatment Clinical Notes December, KHAN (dyspnea on exertion) (ICD-1 0 - R06.09) [facility] Other 05-10-2023 NotePROCEDURE: XR CHEST 2 V DATE: 12/26/2022 9:26 AM CDT COMPARISONS: None. CLINICAL INDICATION: 72 years Female Dyspnea FINDINGS: The cardiomediastinal silhouette and pulmonary vasculature are within normal limits. The lungs are clear. There is no evidence of pleural effusion or pneumothorax. IMPRESSION: Chest radiograph is within normal limits. Electronically authenticated by: DEREK BONILLA Date: 2022-12-26 11:05[facility]09-12-2022 NoteOPERATIVE NOTE OPERATION DATE: 04/30/2022 PROCEDURE: D AND C hysteroscopy with Myosure. PREOPERATIVE DIAGNOSIS: Postmenopausal bleeding, thickened endometrium. POSTOPERATIVE DIAGNOSIS: Postmenopausal bleeding, thickened endometrium. ANESTHESIA: General. SURGEON: Zion Rizzo D.O. GLASS WASHER AND CARRIER: None. FINDINGS: Atrophic appearing cavity. No gross [...] Recovery Room in stable condition.[facility] HospitalMyjbhvkq62-51-6386 History of Present illness Narrative* Tina Brown, [...] 10, 2022 2:31 PM documented in this encounterUniversity Hospitals Conneaut Medical Center02-28-2022 Evaluation note* Encounter Date Diagnosis Assessment Notes [...] andwe will help you get into specialist. [facility] Other 06-27-2017 History of Past illness Narrative* Problem Noted DateResolved DateCombined forms of age-related cataract of right eye 1Lens replaced by other means - Left Eye02/16/2015 02/12/2017Dry eye - Both EyesHistory of trabeculectomy - Both EyesVitreous degeneration - Right Eye06/02/2014 02/12/2017Senile nuclear sclerosis - Right EyePrimary open-angle glaucoma(365.11)documented as of this encounter (statuses as of 04/10/2022) [facility]06-27-2017 History of Past illness Narrative* ProblemNoted Date Diagnosed DateResolved DateCombined forms of age-related cataract of right eye replaced by other means - Left Eye02/16/2015 02/12/2017Dry eye - Both Eyes02/16/History of trabeculectomy - Both EyesVitreous degeneration - Right Eye06/02/2014 02/12/2017Senile nuclear sclerosis - Right EyePrimary open-angle glaucoma(365.11)documented as of this encounter (statuses as of 03/26/2023) [facility]06-27-2017 History of Past illness Narrative* ProblemNoted Date Diagnosed DateResolved DateCombined forms of age-related cataract of right eye replaced by other means - Left Eye02/16/2015 02/12/2017Dry eye - Both EyesHistory of trabeculectomy - Both EyesVitreous degeneration - Right Eye06/02/2014 02/12/2017Senile nuclear sclerosis - Right EyePrimary open-angle glaucoma(365.11)documented as of this encounter (statuses as of 06/11/2023) [address]27-2017 History of Past illness Narrative* ProblemNoted Date Diagnosed DateResolved DateCombined forms of age-related cataract of right eye replaced by other means - Left Eye02/16/2015 02/12/2017Dry eye - Both EyesHistory of trabeculectomy - Both EyesVitreous degeneration - Right Eye06/02/2014 02/12/2017Senile nuclear sclerosis - Right EyePrimary open-angle glaucoma(365.11)documented as of this encounter (statuses as of 07/05/2023) [facility]06[facility]27[facility]2017 History of Past illness Narrative* ProblemNoted Date Diagnosed DateResolved DateCombined forms of age-related cataract of right eye replaced by other means - Left Eye02/16/2015 02/12/2017Dry eye - Both EyesHistory of trabeculectomy - Both EyesVitreous degeneration - Right Eye06/02/2014 02/12/2017Senile nuclear sclerosis - Right EyePrimary open-angle glaucoma(365.11)documented as of this encounter (statuses as of 07/23/2023) [facility]06[facility]27-2017 History of Past illness Narrative* ProblemNoted Date Diagnosed DateResolved DateCombined forms of age-related cataract of right eye replaced by other means - Left Eye02/16/2015 02/12/2017Dry eye - Both EyesHistory of trabeculectomy - Both EyesVitreous degeneration - Right Eye06/02/2014 02/12/2017Senile nuclear sclerosis - Right EyePrimary open-angle glaucoma(365.11)documented as of this encounter (statuses as of 07/29/2023) [facility]06[facility]27-2017 History of Past illness Narrative* ProblemNoted Date Diagnosed DateResolved DateCombined forms of age-related cataract of right eye 1Lens replaced by other means - Left Eye02/16/2015 02/12/2017Dry eye - Both EyesHistory of trabeculectomy - Both EyesVitreous degeneration - Right Eye06/02/2014 02/12/2017Senile nuclear sclerosis - Right EyePrimary open-angle glaucoma(365.11)documented as of this encounter (statuses as of 11/12/2023) [facility]* Diagnosis Low-tension glaucoma of both eyes, unspecified glaucoma stage- Primary Keratitis sicca, bilateral (HCC) Other forms of keratitis History of trabeculectomy, right eye Other states following surgery of eye and adnexa documented in this encounter [facility] noteNo [employer] [place] Other Evaluation note* Diagnosis Chest discomfort Other chest pain SOB (shortness of breath) Shortness of breath Pure hypercholesterolemia Primary hypertension Unspecified essential hypertension documented in this encounter [facility]* Diagnosis SOB (shortness of breath) Shortness of breath documented in this encounter [facility]* Diagnosis Lung nodule- Primary Solitary pulmonary nodule documented in this encounter [facility]* Diagnosis Low-tension glaucoma of both eyes, unspecified glaucoma stage- Primary Keratitis sicca, bilateral (HCC) Other forms of keratitis Pseudophakia, left eye Lens replaced by other means documented in [facility] encounter [facility] note* Diagnosis Pre-op evaluation- Primary Preoperative examination, unspecified Combined forms of age-related cataract of right eye Other and combined forms of senile cataract Low-tension glaucoma of both eyes, unspecified glaucoma stage Other specified hypothyroidism Low-tension glaucoma of both eyes, unspecified glaucoma stage- Primary Keratitis sicca, bilateral Other forms of keratitis documented in this encounter [facility] CenterEvalubeebe [facility] note* Diagnosis Pre-op evaluation- Primary Preoperative [...] by other means documented in this encounter [facility] CenterEvalubee[facility]* Diagnosis Pre-op evaluation- Primary Preoperative [...] eye and adnexa documented in this encounter [facility] general Narrative - Reported* Type Description Date Medical History glaucoma Surgical HistorylithotripsySurgical Historybladder suspension, unspecified Surgical HistorytonsillectomySurgical HistoryCTS b/l handsSurgical History laparoscopySurgical HistorycolonoscopySurgical HistoryeyesHospitalization Historysee above [facility] Other History general Narrative - Reported* Type Description Date Medical History glaucoma Medical HistoryPostmenopausal bleedingMedical HistoryHistory of nephrolithiasis Medical HistoryAlopeciaMedical HistoryCystitisMedical HistoryAbnormal TSHMedical HistoryHypercholesterolemiaMedical HistoryAllergic contact dermatitis due to plants, except foodSurgical HistorylithotripsySurgical Historybladder suspension, unspecifiedSurgical HistorytonsillectomySurgical HistoryCTS b/l handsSurgical HistorylaparoscopySurgical HistorycolonoscopySurgical Historyeyes Hospitalization Historysee above [facility] Other History general Narrative - ReportedNoresearch medical center [employer] [place] Other History general Narrative - Reported* Type Description Date Medical History glaucoma Medical HistoryPostmenopausal bleedingMedical HistoryHistory of nephrolithiasis Medical HistoryAlopeciaMedical HistoryCystitisMedical HistoryAbnormal TSHMedical HistoryHypercholesterolemiaMedical HistoryAllergic contact dermatitis due to plants, except foodMedical HistoryPulmonary Nodule RLLSurgical History lithotripsySurgical Historybladder suspension, unspecifiedSurgical History tonsillectomySurgical HistoryCTS b/l handsSurgical HistorylaparoscopySurgical HistorycolonoscopySurgical HistoryeyesHospitalization Historysee above [facility] Other Summary Purpose Family History No Family [...] CONTRST 3D POST Zaire Fry MD [address] [place] [address] Ct Imaging [place] [address] Referral IDStatusReasonStart DateExpiration DateVisits RequestedVisits [id number] Auto-Generated Referral [id number] / ProceduresReferred By ContactReferred To [facility] Diagnoses SOB (shortness of breath) Procedures SPIROMETRY WITH DILATOR IF OBSTRUCTED BRNCDILAT RSPSE SPMTRY PRE&POST-BRNCDILAT ADMN Zaire Fry MD [address] [place] [address] [facility] [place] [address] [place] [address] Referral IDStatusReasonStart DateExpiration DateVisits RequestedVisits [id number] Auto-Generated Referral [id number] / ProceduresReferred By ContactReferred [facility] Diagnoses Chest discomfort SOB (shortness of breath) Pure hypercholesterolemia Procedures ECG COMPLETE ECG ROUTINE ECG W/LEAST 12 LDS W/I&R Zaire Fry MD [address] [place] [address] [facility] [place] [address] [place] [address] Referral IDStatusReasonStart DateExpiration DateVisits RequestedVisits [id number] Review Auto-Generated Referral Reason Mrs. Mccray is being referred for dyspnea and chest pain Diagnosis 1 Precordial pain (R07 .2) Referral Organization [facility] Eric ayala Referring Provider First Name Hussein Referring Provider Last Name Sukhjinder Referring Provider Specialty Internal Me dicine Referred Organization [facility] Referred Address [address] [place] [place], [place],[address] Referred Provider Specialty Cardiology Referral Priority Routine [...] section and content) DATE CREATED AUTHOR 11/06/2021 [facility] DATE CREATED AUTHOR AUTHOR'S ORGANIZ ATION 01/01/2023 [facility] DATE CREATED AUTHOR AUTHOR'S ORGANIZ ATION 07/08/2023 [facility] DATE CREATED AUTHOR AUTHOR'S ORGANIZ ATION 11/16/2023 [facility] EPIC DATE CREATED AUTHOR AUTHOR'S ORGANIZ ATION 05/02/2024 [facility] EPIC DATE CREATED AUTHOR AUTHOR'S ORGANIZ ATION 02/18/2025 [facility] REASON FOR VISIT (unrecogniz ed section and content) ReasonCommentsLow-tension glaucoma of both eyes, moderate stageOUPosterior Vitreous Detachment EvaluationOUtrabeculectomyODPseudophakiaOUReasonComments External Referrals/resourcesReasonCommentsEstablish CareDyspnea On ExertionChest PainReasonCommentsSpirometrySpecialtyDiagnoses / ProceduresReferred By Contact [facility] Diagnoses SOB (shortness of breath) Procedures SPIROMETRY WITH DILATOR IF OBSTRUCTED BRNCDILAT RSPSE SPMTRY PRE&POST-BRNCDILAT ADMN Zaire Fry MD [address] [place] [address] Respiratory [place] [address] [place] [address] Referral IDStatusReasonStart DateExpiration DateVisits RequestedVisits [id number] Auto-Generated Referral 1ReasonOnset CrlcUszbjpecZqugdw83/04/2023ReasonComments Yearly ExamReasonCommentsNormal/Low Tension GlaucomaReasonCommentsGlaucoma Follow UpReasonCommentsRefill RequestReasonCommentsLow-tension glaucoma of both eyes Source Comments (unrecognize d section and content) In the event this informatio n is protected by the Federal Confidentiality of Alcohol and Drug Abuse Patient Records regulations: The Federal rules restrict any use of the information to criminally investigate or prosecute any alcohol or drug abuse patient.[facility] CenterIn the event this information is protected by the Federal Confidentiality of Alcohol and Drug Abuse Patient Records regulations: The Federal rules restrict any use of the information to criminally investigate or prosecute any alcohol or drug abuse patient.[facility] CenterIn the event this information is protected by the Federal Confidentiality of Alcohol and Drug Abuse Patient Records regulations: The Federal rules restrict any use of the information to criminally investigate or prosecute any alcohol or drug abuse patient.[facility] CenterIn the event this information is protected by the Federal Confidentiality of Alcohol and Drug Abuse Patient Records regulations: The Federal rules restrict any use of the information to criminally investigate or prosecute any alcohol or drug abuse patient.[facility] CenterIn the event this information is protected by the Federal Confidentiality of Alcohol and Drug Abuse Patient Records regulations: The Federal rules restrict any use of the information to criminally investigate or prosecute any alcohol or drug abuse patient.[facility] CenterIn the event this information is protected by the Federal Confidentiality of Alcohol and Drug Abuse Patient Records regulations: The Federal rules restrict any use of the information to criminally investigate or prosecute any alcohol or drug abuse patient.[facility] CenterIn the event this information is protected by the Federal Confidentiality of Alcohol and Drug Abuse Patient Records regulations: The Federal rules restrict any use of the information to criminally investigate or prosecute any alcohol or drug abuse patient.[facility] CenterIn the event this information is protected by the Federal Confidentiality of Alcohol and Drug Abuse Patient Records regulations: The Federal rules restrict any use of the information to criminally investigate or prosecute any alcohol or drug abuse patient.[facility] CenterIn the event this information is protected by the Federal Confidentiality of Alcohol and Drug Abuse Patient Records regulations: The Federal rules restrict any use of the information to criminally investigate or prosecute any alcohol or drug abuse patient.[facility] CenterIn the event this information is protected by the Federal Confidentiality of Alcohol and Drug Abuse Patient Records regulations: The Federal rules restrict any use of the information to criminally investigate or prosecute any alcohol or drug abuse patient.[facility] CenterIn the event this information is protected by the Federal Confidentiality of Alcohol and Drug Abuse Patient Records regulations: The Federal rules restrict any use of the information to criminally investigate or prosecute any alcohol or drug abuse patient.[facility] Care Teams (unrecognized sec tion and content) Team MemberRelationshipSpecialtyStart DateEnd Date Hussein Rowan DO [address] [place] [address] PCP - GeneralInternal Medicine11/29/20Team MemberRelationshipSpecialtyStart Date End Date Hussein Rowan DO [address] [place] [address] PCP - GeneralInternal Medicine11/29/20Team MemberRelationshipSpecialtyStart Date End Date Hussein Rowan DO [address] [place] [address] PCP - GeneralInternal Medicine11/29/20Team MemberRelationshipSpecialtyStart Date End Date Hussein Rowan DO [address] [place] [address] PCP - GeneralInternal Medicine11/29/20Team MemberRelationshipSpecialtyStart Date End Date Hussein Rowan DO [address] [place] [address] PCP - GeneralInternal Medicine11/29/20Team MemberRelationshipSpecialtyStart Date End Date Hussein Rowan DO [address] [facility] [place] [address] PCP - GeneralInternal Medicine11/29/20Team MemberRelationshipSpecialtyStart Date End Date Hussein Rowan DO [address] [facility] [place] [address] PCP - GeneralInternal [facility]11/29/20Team MemberRelationshipSpecialtyStart Date End Date Hussein Rowan DO [address] [facility] [place] [address] - [address] [facility]11/29/20Team MemberRelationshipSpecialtyStart Date End Date Hussein Rowan DO [address] [facility] [place] [address] [address] - [address] [facility]11/29/20Team MemberRelationshipSpecialtyStart Date End Date Hussein Rowan DO [address] [facility] [place] [address] PCP - [facility] [address]11/29/20 FOR RECORDS PERTAINING TO PATIENTS WHO ARE [...] BE BASED ON THE PRIMARY CLINICAL RECORDS. [employer] [facility]. provides no warranty or guarantee of the accuracy or completeness of information in this document.
== END 2025-07-27 09:21 | disposition home or self-care (01) ==
LOC: CT 09:20
PROVIDERS: PCP Internal Medicine; Visit Provider Internal Medicine
DX: R91.1 Solitary pulmonary nodule (principal)
CPT/HCPCS: 71250

== ENCOUNTER 2025-07-30 07:32 | Outpatient (OUT) | payer MEDICARE, OTHER, SELFPAY ==
--- OUTSIDE RECORDS SUMMARY | 2025-07-30 07:39 | XMS_ITS | Continuity of Care Document ---
Author Organization [facility] Address [address] [place] [address] Phone Allergies, Adverse Reactions, Alerts Allergen Type Severity Reaction Last Updated Verified Status Comments acetaminophen Allergy Unknown severe vomitting November 23, 2024 8:28am Yes Active bupropionAllergyUnknownUnknown ReactionApril 2024 8:28amYesActive hydrocodoneAllergyUnknownUnknown ReactionApril 2024 8:28amYesActivenickel AllergyUnknownUnknown ReactionApril 2024 8:28amYesActiveOnset Date: 02/25/2018oxycodoneAllergyUnknownsevere vomittingApril 2024 8:28amYesActive Sulfa (Sulfonamide Antibiotics)AllergyUnknownUnknown ReactionApril 2024 8:28amYesActive Social History Smoking Status Status Start Date End Date Date of Observa tion Never smoked tobacco (finding) December 12, 2023 2:24pm Observation Status Observation Response Date of Response Sex Assigned At Female September 191950 Family History Relationship Condition Age at Onset Recorded Date/T estefany brother Unknown fatherDeceasedUnknownAlcoholismUnknownmotherMalignant neoplasmUnknownHistory of strokeUnknownDeceasedUnknownHeart diseaseUnknown Problems Active Problems Problem Diagnosis/Recorded Date Onset Date Status C omments Acute cystitis without hematuria July 20, 2024 11:08am Unknown Active HypercholesterolemiaMay 2023 7:33pmUnknownActiveHypothyroidMay 2023 7:30pmUnknownActiveLeukopeniaDecember 2023 1:26pmUnknownActivePulmonary nodule, rightMay 2023 8:34amUnknownActiveCTA chest: 7mm RLL nodule - chest: multiple small nodules - chest: multiple 3-5mm nodules - omplete 2 year surveillance w/ CT in 06/2025HypertensionMay 2023 7:29pmUnknownActive Medications Medication Status Dose Units Route Directions Qty Days Refills S tart Date Stop Date End Date Reason(s) Instructions Adherence Losartan 25 mg tablet Discontinued 0 .ROUTE.GTVIVGB657Vnxzi 2023 2:55pmFebruary 2024 5:10pmTAKE 1 TABLET BY MOUTH EVERY DAYLevothyroxine 25 mcg rxcmxoEscjlwmsphvg26NTTYARlrsvAir 2023 4:45pmAugust 2023 1:33pmLevothyroxine 50 mcg rrhysrGoxoen62ZEWBXYmfrr 317006Ebamxc 2023 1:32pmMetronidazole 500 mg gxvzijTcbpatdrnmqx958KEDTAkatj stbka1908Cyemifyl 2023 12:00amApril 2024 8:36amLosartan 25 mg tablet Active0.ROUTE.LNTZINO690Aqlvwmxq 2024 5:10pmTAKE 1 TABLET BY MOUTH EVERY DAYLevofloxacin 250 mg xjdmptKabmnfamagrt989LWPSUfskq791Ypqihceu 2023 12:00amDecember 2023 12:42pmLevothyroxine 25 mcg ysoslbCmxmcvxdnpvv94QVLVA DailyMay 2023 11:00pmMay 2023 4:46pmLosartan 25 mg tablet Mpffijuwrfds00PXYAWlaxyCwezz 2023 11:00pmApril 2023 2:55pm Immunizations Immunization Event Date Not Given Reason Dose Number Patient Financial Services Manager Lot Number Reason(s) Given Vaccine Information Statement (VIS) Detail Administration Location COVID-19 mRNA-1273 (Moderna) September 28, 2020 COVID-19 mRNA-1273 (Moderna)October 26OVID-19 mRNA, Comirnaty (Anago) June 09OVID-19 mRNA Bivalent Booster (Anago)May 08, 2022 influenza, unspecified formulationNovember 2019influenza, unspecified formulationNov2021Zoster Vaccine Recombinant, AdjuvantedNov2019Zoster Vaccine Recombinant, AdjuvantedApril hingles (Zoster) June 25, 2020 Advance Directives Advance Directive Response Recorded Date/ Time Advance Directives No October 17 4:49pm Insurance Providers Guarantor Corrie Mccray Address [address] [facility] [address]Njvqzuj Info.Home Phone: Payer Group Member ID Coverage Type Subscriber Relationship to Subscriber Effective Date Expiration Date O Id: [id number] A Meyers Id: [id number] [address] [facility] [address] Home Phone: Email: [email or web address] A Meyers Id: [id number] [address] [facility] [address] Home Phone: Email: [email or web address]
--- OUTSIDE RECORDS SUMMARY | 2025-07-30 07:39 | XMS_ITS | CCD ---
Author Organization [facility] CliniSyma Care Team Providers Care Commercial Construction Project Manager Name Role Phone Dena Davis Unavailable Hussein [...] (15 sources)Acetaminophen / HYDROcodone; Translations: [Vicodin]Drug Allergy 39-18-6070CmycwkbAonAdena [facility] Repository (20 sources)Acetaminophen / oxyCODONEDrug Vrznvel17-65-6291JI [facility] Work Phone: (12 sources)buPROPion; Translations: [Wellbutrin]Drug Qmfsyeh22-28-7217Ihequwv [facility] Repository (14 sources)Sulf-10Drug allergySouth County Hospital GuidesMob Other (13 sources)Acetaminophen / HYDROcodone; Translations: [HYDROCODONE-ACETAMINOPHEN]Drug Wqifntx58-31-5603ClzbegmPqqczzduq Clinic (13 sources)buPROPion; Translations: [BUPROPION HCL]Drug Owokdyh48-44-9794Mlda [facility] Work Phone: (20 sources)Sulfonamides (Antibiotic); Translations: [SULFA (SULFONAMIDE ANTIBIOTICS)]Drug Vaasehnowje38-25-2724VJMercy Health St[facility] Work Phone: (1 source)Acetaminophen / oxyCODONEDrug Bwtpqle20-95-6034MavKettering Health Repository (3 sources)Leucine; Translations: [NICKEL]Drug Nneatbl91-39-0975KthKettering Health Repository (1 source)Sulfonamides (Antibiotic)Drug allergy (disorder)65-85-7285EtcKettering Health Repository (8 sources)buPROPionDrug AllergySouth County Hospital Gu[employer] Other (17 sources)nickelDrug Drmsvus71-70-6718FetpZecyqfoin Clinic (8 sources)Vicodin *ANALGESICS - OPIOID*Propensity to adverse reactionsUnknowSkyline Medical Center GuidesMob Other (5 sources)Allergies ReconciledPropensity to adverse reactionsUnknoCentral New York Psychiatric Center Gu[employer]Mob Other (2 sources)Acetaminophen / oxyCODONE; Translations: [OXYCODONE-ACETAMINOPHEN] Drug Xygunyr03-83-9587Anhujymjv Clinic Other [place] Repository Medications Current Medications MedicationDrug Class(es)DatesSig (Normalized)Sig (Original)ciprofloxacin 3 mg/ml ophthalmic solution (5 sources)Quinolone AntimicrobialStart: 15-76-1325xvsk 1 drop(s) into the eye(s) every four hoursCiloxan 0.3 % 1 drop right eye every 4 hrs for 5 days May, ActiveCosopt 22.3-6.8 MG/ML (2 sources)take 1 drop(s) into the eye(s) twice dailyCosopt 22.3-6.8 MG/ML 1 drop into affected eye Ophthalmic Twice a day Activedorzolamide 20 mg/ml / timolol 5 mg/ml ophthalmic solution (19 sources)Carbonic Anhydrase Inhibitor, beta-Adrenergic BlockerStart: 96-32-7922bicx 1 drop(s) into the eye(s) twice dailydorzolamide-timolol (COSOPT) 22.3-6.8 mg/mL ophthalmic solution USE 1 DROP IN BOTH EYES TWO TIMES ADAY. 30 mL 4 01/26/2025 ActiveStart: 11-12-2023 End: 31-47-2127nkjg 1 drop(s) into the eye(s) twice dailydorzolamide-timolol (COSOPT) 22.3-6.8 mg/mL ophthalmic solution Use 1 Drop in both eyes two times a day. 30 mL 4 11/12/2023 01/26/2025 DiscontinuedStart: 10-16-2021 End: 25-34-2983rvso 1 drop(s) into the eye(s) twice dailydorzolamide-timolol [...] oil 500 mg oral capsule (11 sources)Start: 38-09-0212mbno 1 capsule by mouth once dailyEvening [place] Oil (EVENING PRIMROSE) 500 mg cap Take 1 capsule by mouth once daily. 0 06/12/2013ctiveComment on above:Take 1 capsule by mouth once daily.iv contrast (will be provided with radiology test) (1 source)Start: 06-11-2023 End: 99-12-9278jyimls 1 dose intravenously onceiv contrast (will be [...] oil 1000 mg oral capsule (11 sources)Start: 38-58-9125qfvt 1 capsule by mouth once dailyFlaxseed Oil [...] hydrochloride 500 mg oral tablet (13 sources)BiguanideStart: 91-20-8341kzfp 1 tablet by mouth every twenty-four hoursmetFORMIN HCl 500 MG 1 tablet with a meal Orally Once a day for 30 days December, Activemetoprolol tartrate 50 mg oral tablet (9 sources)beta-Adrenergic BlockerStart: 08-95-6763chyyuexlwt tartrate, short acting, (LOPRESSOR) 50 mg tablet [...] 0.3 mg sublingual tablet (9 sources)Nitrate VasodilatorStart: 34-42-6680sanv 1 tablet under the tongue oncenitroglycerin sublingual [...] fatty acids 1,000 mg cap (11 sources)Start: 73-68-4679ftzn 1 capsule by mouth once dailyomega-3 fatty [...] mg/ml ophthalmic suspension (1 source)CorticosteroidStart: 11-29-2020 End: 68-99-1570quqs 1 drop(s) into the eye(s) every two [...] kidney; Translations: [Personal history of urinary calculi]Onset: 26-79-7555AlguimojUtvnkelgq of lipid metabolism (20 sources)Hypercholesterolemia; Translations: [Pure hypercholesterolemia, unspecified]Onset: 17-61-4891YjhhamqKryddhrsh hypertension (20 sources)Essential hypertension; Translations: [Essential (primary) hypertension]Onset: 64-25-6749AwjswdhVzywsikn (20 sources)Bilateral low tension glaucoma of eyes; Translations: [Low-tension glaucoma, bilateral, stage unspecified]Onset: 06-02-2013 Resolved: 60-90-2287LvydqrgCbkhugeljxhk; infection of eye (except that caused by tuberculosis or sexually transmitteddisease) (1 source)Keratoconjunctivitis sicca, not specified as Sjogren's, bilateral; Translations: [Keratitis sicca, bilateral]Onset: 35-38-1893TvzubctRtzdfxc and fatigue (2 sources)Other fatigue; Translations: [OTHER FATIGUE]Onset: 13-27-4234Wkofhztt Menopausal disorders (18 sources)Postmenopausal bleeding; Translations: [Postmenopausal bleeding] Onset: 15-31-3658AfcbqfrXujzqcquakwvie (1 source)Unilateral primary osteoarthritis, left knee; Translations: [UNI PRIM OSTEOARTHRITIS LT KNEE]Onset: 06-11-3680RdlpabkJipyv aftercare (1 source)Other senior living (current) drug therapyEpisodicOther eye disorders (11 sources)Posterior vitreous detachment; Translations: [Vitreous degeneration, unspecified eye]Onset: 152543-02-5111HltatekHghdo lower respiratory disease (10 sources)Other forms of dyspnea; Translations: [OTHER FORMS OF DYSPNEA]Onset: 97-69-1237VzarnxyoEoavp lower respiratory disease (8 sources)Dyspnea on exertion; Translations: [Other forms of dyspnea]Episodic Other lower respiratory disease (1 source)Shortness of breath; Translations: [SOB (shortness of breath)]Onset: 16-99-5287SvxgpujuOnynz lower respiratory disease (3 sources)Nodule of lung; [...] [Other specified abnormal findings of blood chemistry]Onset: 85-30-7255RhzvrofbZvgof skin disorders (13 sources)Alopecia; Translations: [Nonscarring hair loss, unspecified]Episodic Residual codes; unclassified (18 sources)History of construction of filtration bleb; Translations: [Other specified postprocedural states]Onset: 06-02-2014 Resolved: 53-85-8779QbcaemxpLeesmayh codes; unclassified (1 source)Asymptomatic menopausal stateEpisodicSuperficial injury; contusion (1 source)Injury of conjunctiva and corneal abrasion without foreign body, right eye, initial encounterEpisodicSystemic lupus erythematosus and connective tissue disorders (15 sources)Keratoconjunctivitis sicca; 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]Onset: 47-96-8929XlsnqeePxjrnco disorders (20 sources)Hypothyroidism; Translations: [Other specified hypothyroidism]Onset: 673626-75-4828HiylkwsFspkacwehlqw (1 source)CONTACT W/AND (SUSP) EXPOS COVID-19; Translations: [CONTACT W/AND (SUSP) EXPOS COVID-19]Onset: 03-68-1792Tmpdoie tract infections (13 sources)Cystitis; Translations: [Cystitis, unspecified without hematuria] Episodic Past or Other Problems Problem ClassificationProblemDateDocumented DateEpisodic/ChronicCataract (20 sources)Pseudophakia of left eye; Translations: [Presence of intraocular lens]Onset: 06-02-2014 Resolved: 609555-73-2444WwbgpgrEipirly (4 sources)Tinea unguium; Translations: [TINEA UNGUIUM]Onset: 06-16-4706Cuegqxcs Nonspecific chest pain (14 sources)Precordial pain; Translations: [Chest discomfort]Onset: 06-11-2023 EpisodicOther eye disorders (4 sources)Vitreous degeneration; Translations: [Vitreous degeneration, unspecified eye]Onset: 06-02-2014 Resolved: 503314-66-9584BiqqpcmIxkjt eye disorders (4 sources)Dry eyes; Translations: [Dry eye syndrome of unspecified lacrimal gland]Onset: 02-16-2015 Resolved: 612646-77-3391ClyifmywMuots injuries and conditions due to external causes (1 source)Unspecified injury of right lower leg, initial encounterOnset: 10-16-2021 Resolved: 90-14-9232CbearyetFckru lower respiratory disease (11 sources)Dyspnea; Translations: [Shortness of breath]Onset: 06-11-2023 22-38-9425CkvyxiokMvloffvl codes; unclassified (1 source)Family history of malignant neoplasm of breast; Translations: [FAMILY HX MALIG NEOPLASM OF BREAST]Onset: 94-87-3275EbdotnlyVlgpzhqm codes; unclassified (1 source)Family history of malignant neoplasm of trachea, bronchus and lung; Translations: [FAM HX MALIG NEOPLSM TRACH BRON LNG]Onset: 25-09-7618Rykqfolq Residual codes; unclassified (1 source)Other specified postprocedural states; Translations: [History of trabeculectomy]Onset: 28-03-5657Ykslljwq Results Test NameValueInterpretationReference RangeFacilityVISUAL FIELD 24-2 OU (BOTH EYES)on 97-75-0539Utsxmkumb ClinicRadiology Study observation (narrative) [facility] CenterOCT OPTIC NERVE CIRRUS OU (BOTH EYES)on 46-19-9061Fsrxlkmco ClinicRadiology Study observation (narrative)[facility] CenterVISUAL FIELD 24-2 OU (BOTH EYES)on 98-09-9816Zpbiphsww ClinicRadiology Study observation (narrative)[facility] Medical CenterCTA CORONARY W IVCONon 70-62-5269QTG CORONARY W IVCON * * *Final Report* * * DATE OF EXAM: Jul 05 2023 3:04PM FVC 0470 - CTA CORONARY W IVCON / PROCEDURE REASON: multiple diagnoses * * * * Physician Interpretation * * * * CTA CORONARY ARTERIES acquired at [facility] - images were acquired and screened for acute findings earlier. Subsequently reported following overnight procedure. Direct Image Comparison: None HISTORY: 72 years old Female patient with chronic h/o chest pain, suspected CAD Evaluation for further treatment options.. There is request to define coronary anatomy. TECHNIQUE: SCANNER: Siemens Definition Flash Dual source [id number] scanner PROTOCOL: Sequential imaging of the heart with prospective triggering in diastolic phase and submillimeter slice reconstruction following administration of contrast material. Scan Range: carlos a to the base of the heart CT Dose-Length Product (DLP): 265 mGy*cm CT Dose Reduction Employed: Automated exposure control(AEC) and iterative recon CONTRAST: IV administration of 90 ml Omnipaque 350 Premedication per [facility] protocol/documentation. Scan acquisition: uncomplicated Macro Version: MQ:CCTW_3 For optimization of anatomic evaluation, advanced 3-D off-line postprocessing was performed on a dedicated workstation by the interpreting physician. Additional lung CAD. [place] images reconstructed, saved, and available in [facility] 'Get Images'. STUDY LIMITATIONS: Limited contrast [...] AORTIC DIMENSIONS: AORTIC ROOT: 3 cm measured ceeci-xm-yycpd mid ASCENDING THORACIC AORTA: 3.2 cm mid [...] or luminal stenosis. limited upper ABDOMEN: unremarkable Charge Master Specialist (topogram) images: No additional findings. IMPRESSION: NO EVIDENCE OF ATHEROSCLEROTIC CHANGES OR LUMINAL STENOSIS OF THE CORONARY ARTERIES -Direct epicardial course of tortuous mid LAD segment without intramyocardial extension. -Distal branches are not well visualized CAD-RADS 0: No plaque or luminal stenosis. Absence of CAD., - Overall Plaque [place]: No evidence of plaque visualized LUNGS: non-calcified [...] be communicated with the ordering provider via [employer] staff message by Imaging Support Services within 2 business days of report finalization. Director Of Staff Development: RUSTAM Transcribe (more content not included)...Invalid Interpretation [facility] 71-93-9337SJWTAEP [facility] ID: [id number] Author: Priscila Reyes RN Service: Radiology Author [...] Priscila Reyes RN July 05, 2023 2:45 [facility] ID: [id number] Author: Priscila Reyes RN Service: Radiology Author [...] Mccray DATE: July 05, 2023 TIME: 2:48 [facility] HospitalSPIROMETRY WITH DILATOR IF OBSTRUCTEDon 28-34-4121WQH77-75% PRE (L/S)1.83 L/SCleveland ClinicFEV1 PRE (L)2.23 LCleveland ClinicFEV1/FVC PRE (%)76 %[facility] Medical CenterFVC PRE (L)2.93 LCleveland ClinicPEF PRE (L/S)6.37 L/SCleveland ClinicECHOCARDIO M/2D COMPLETEon 81-44-4884IRXOILECFL M/2D COMPLETEPatient: CORRIE MCCRAY Exam Date: 12/31/2022 : 1950 Gender:F Ordering : DR HUSSEIN ROWAN D.O. Admission #: [id number] Family : Order #: [id number] CLICK HERE TO VIEW EXAM ECHOCARDIOGRAM REPORT [...] by: Yusuf Puente M.D. on 01/01/2023 at 19:41[facility] AUTO DIFFon 50-79-9629PFFI #0.0 103/ulNormal0.0-0.1The [facility] HospitalComselect [facility] on above:Performed By: #### CBC ####[facility] [address] [place] [address]Dr.Vicki ChangBasophils/100 WBC (Bld)1.0 %Normal0.2-2.0The [facility] HospitalComselect [facility] on above:Performed By: #### CBC ####[facility] [address] [place] [address]Dr.Laureenlan ChangEO #0.1 103/ulNormal0.0-0.7The Kristen HospitalComment on above:Performed By: #### CBC ####[facility] [address] [place], [place] [address]Dr.Laureenchay ChangEosinophils/100 WBC (Bld)1.5 %Normal 0.9-7.0The [facility] Anne HospitalComment on above:Performed By: #### CBC ####[facility] Haefbksmjx[address] [place], [place] [address]Dr.Vicki Bates Erythrocyte distribution width (RBC) [Ratio]11.9 %Tcetem00.0-15.0The [facility] Anne HospitalComment on above:Performed By: #### CBC ####[facility] [address]opztwbux[address] [place], [place] [address]Dr.Vicki ChangHematocrit (Bld) [Volume fraction]43.5 %Mohykr04.0-48.0The [facility] Anne HospitalComment on above:Performed By: #### CBC ####[facility] [address]vpucdub[address] [place], [place] [address]Dr.Vicki ChangHemoglobin (Bld) [Mass/Vol]14.4 g/dL Jhnxzn40.0-16.0The [facility] Anne HospitalComment on above:Performed By: #### CBC ####[facility] Dflhiyxcli[address] [place], [place] [address]Dr. Vicki BatesIG #0.01 10e3/ulNormal0.00-0.03The [facility] Anne HospitalComment on above: Performed By: #### CBC ####[facility] Exatpwneyg[address] [place], [place] [address]Dr.Vicki ChangIG %0.3 %Normal0.0-0.5The [facility]lois HospitalComment on above:Performed By: #### CBC ####[facility] Qkkpouupxx[address] [place], [place] [address]Dr.Vicki ChangLYMPH #1.8 103/ulNormal1.2-3.8The [facility] Anne HospitalComment on above:Performed By: #### CBC ####[facility] Yautpxrqjn[address] [place], [place] [address]Dr. Vicki ChangLymphocytes/100 WBC (Bld)44.6 %Frsvpc14.5-60.0The [facility] Comment on above:Performed By: #### CBC ####[facility] Czngrngieu[address] [place], [place] [address]DrRaj BatesMANUAL DIFF REQNONormalThe [facility] St[facility] Anne HospitalComment on above:Performed By: #### CBC ####[facility] Qdeqkahrim[address] [place], [place] [address]Dr.Vicki BatesH (RBC) [Entitic mass]31.1 pjWcycge98.7-34.0The [facility] HospitalComment on above: Performed By: #### CBC ####[facility] Almkdbscqm[address] [place], [place] [address]DrRaj BatesHC (RBC) [Mass/Vol]33.1 g/dLNormal 29.9-35.2The [facility] Anne HospitalComment on above:Performed By: #### CBC ####[facility] Xuamxeokxd[address] [place], [place] [address]Dr. Vicki BatesV (RBC) [Entitic vol]94.0 oWGrseiz84.0-99.0The [facility] Comment on above:Performed By: #### CBC ####[facility] V[address]mscebpi[address] [place], [place] [address]DrRaj BatesMONO #0.4 103/ulNormal0.3-0.[address] Anne HospitalComment on above:Performed By: #### CBC ####[facility] Kemzbrdlbi[address] [place], [place] [address]DrRaj Bates Monocytes/100 WBC (Bld)9.0 %Normal1.7-12.0The [facility] Anne HospitalComment on above: Performed By: #### CBC ####[facility] Lzavaemdug[address] [place], [place] [address]DrRaj BatesNEUT #1.7 103/ulNormal1.4-6.5The [facility] HospitalComment on above:Performed By: #### CBC ####[facility] Lmcgnilzwu[address] [place], [place] [address]Dr.Vicki BatesNeutrophils/100 WBC (Bld)43.6 %Qeykcx50.0-75.0The Luther[facility] Hospitalment on above:Performed By: #### CBC ####[facility] [address] [place] [address]Dr.Vicki BatesPlatelet mean volume (Bld) [Entitic vol]9.1 fLCritically low 9.5-13.5The [facility] HospitalComment on above:Performed By: #### CBC ####[facility] [address] [place] [address]Dr. Vicki UgdhhWUL848 103/cqPqxghk359-523Aes [facility] HospitalComselect specialty hospital[facility] on above: Performed By: #### CBC ####[facility] [address] [place] [address]Dr.Vicki ChangRBC4.63 106/ulNormal4.20-5.40The [facility] Anne HospitalComment on above:Performed By: #### CBC ####[facility] [address] [place] [address]Dr.Vicki BatesWBC4.0 103/ul Normal4.0-11.0The [facility] HospitalComselect [facility] on above:Performed By: #### CBC ####[facility] [address] [place] [address]Dr. Vicki PauloLIPID PROFILEon 06-19-6257PFJD-HDL RATIO NORMSEE [facility] HospitalComselect [facility] on above:Result Comment: 3.3 - 4.4 LOW RISK 4.4 - 7.1 AVERAGE RISK 7.1 - 11.0 MODERATE RISK >11.0 HIGH RISKPerformed By: #### TSH, LIPID, BMP #### [facility] [address] [address] [address] Vicik BatesCholesterol [Mass/Vol]221 mg/dLCritically high<=200The [facility] on above:Performed By: #### TSH, LIPID, BMP #### [facility] [address] [address] [address] Vicki Zuluagaesterol in HDL [Mass/Vol]68 mg/dLCritically nueo19-58HljKettering HealthComment on above:Performed By: #### TSH, LIPID, BMP #### [facility] [address] [address] [address] Vicki BatesCholesterol in LDL [Mass/Vol]140.8 mg/dLNoSelect Medical Specialty Hospital - ColumbusComment on above:Performed By: #### TSH, LIPID, BMP #### [facility] [address] [place] [address] Dr. Vicki Nathan.total/Cholesterol in HDL [Mass ratio]3.3 {ratio} NormalThe [facility] St. Anne HospitalComment on above:Performed By: #### TSH, LIPID, BMP #### [facility] [address] [place] [address] Dr. Vicki Jose NORMAL> or = 60 mg/dl - LOW CARDIOVASCULAR RISK <40 mg/dl - HIGH CARDIOVASCULAR RISKNoSelect Medical Specialty Hospital - ColumbusComment on above:Performed By: #### TSH, LIPID, BMP #### [facility] [address] [place] [address] Dr. Vicki BatesLDL CALC NORMALSEE BELOWLancaster Municipal HospitalComment on above:Result Comment: <100 mg/dl OPTIMAL 100 - 129 mg/dl NEAR OR ABOVE OPTIMAL 130 - 159 mg/dl BORDERLINE HIGH 160 - 189 mg/dl HIGH >190 mg/dl VERY HIGH Performed By: #### TSH, LIPID, BMP #### [facility] [address] [place] [address] Dr. Vicki BatesTriglyceride [Mass/Vol]61 mg/dLNormal<=150[facility] Comment on above:Performed By: #### TSH, LIPID, BMP #### [facility] [address] [address] [address] Vicki BatesVLDL CALC12.2 mg/dLNoSelect Medical Specialty Hospital - ColumbusComment on above: Performed By: #### TSH, LIPID, BMP #### [facility] [address] [place] [address] Dr. Vicki BatesPROF CHEM 8 (BAS METB)on 47-45-2748Eiyxl gap [Moles/Vol]11.5 mmol/LNormalThe [facility] St[facility] Anne HospitalComment on above:Performed By: #### TSH, LIPID, BMP #### [facility] [address] [place] [address] Dr. Vicki BatesCalcium [Mass/Vol]9.5 mg/dLNormal8.5-10.1The [facility] Comment on above:Performed By: #### TSH, LIPID, BMP #### [facility] [address] [place] [address] Dr. Vicki BatesChloride [Moles/Vol]106 mmol/RJdcfcz18-123FsaKettering Health Comment on above:Performed By: #### TSH, LIPID, BMP #### [facility] [address] [place] [address] Dr. Vicki BatesCO2 [Moles/Vol]30.1 mmol/FTguari60.0-32.0[facility] Comment on above:Performed By: #### TSH, LIPID, BMP #### [facility] [address] [place] [address] Dr. Vicki BatesCreatinine [Mass/Vol]0.81 mg/dLNormal0.55-1.02The [facility] Anne HospitalComment on above:Performed By: #### TSH, LIPID, BMP #### [facility] [address] [place] [address] Dr. Vicki HarleyGFR-AF SAMOAN>60Normal>=60The [facility] Anne HospitalComment on above:Performed By: #### TSH, LIPID, BMP #### [facility] [address] [place] [address] Dr. Vicki HarleyGFR-NON AF SAMOAN>60Normal>=60The [facility] HospitalComment on above:Performed By: #### TSH, LIPID, BMP #### [facility] [address] [place] [address] Dr. Vicki BatesGlucose [Mass/Vol]91 mg/pSZybnmr43-422SjqKettering Health Comment on above:Performed By: #### TSH, LIPID, BMP #### [facility] [address] [address] [address] Vicki BatesPotassium [Moles/Vol]4.3 mmol/LNormal3.5-5.1The [facility] Comment on above:Performed By: #### TSH, LIPID, BMP #### [facility] [address] [address] [address] Vicki BatesSodium [Moles/Vol]143 mmol/PPzsitm058-421Qog [facility] Comment on above:Performed By: #### TSH, LIPID, BMP #### [facility] [address] [address] [address] Vicki BatesUrea nitrogen [Mass/Vol]18.0 mg/dLNormal7.0-18.0The [facility] HospitalComment on above:Performed By: #### TSH, LIPID, BMP #### [facility] [address] [place] [address] Dr. Vicki Daniels nitrogen/Creatinine [Mass ratio]22.2 mg/mgNormalThe [facility] St[facility] Anne HospitalComment on above:Performed By: #### TSH, LIPID, BMP #### [facility] [address] [address] [address] Vicki Acosta 83-30-5968VMP2.814 uIU/mLCritically high0.358-3.740The [facility] HospitalComment on above:Performed By: #### TSH, LIPID, BMP #### [facility] [address] [place] [address] Dr. Vicki BatesMG MAMM SCREEN 3D CRISTINA CADon 31-49-4911XP MAMM SCREEN 3D CRISTINA CAD Patient: CORRIE MCCRAY Exam Date: 05/07/2022 : 1950 Gender:F Ordering : DR HUSSEIN ROWAN D.O. Admission #: [id number] Family : Order #: [id number] CLICK HERE TO VIEW EXAM RADIOLOGY REPORT [...] lung cancer at age 85. LOCATION: [facility] BREAST COMPOSITION: Almost entirely fatty. FINDINGS: [...] by: Kassie Queen M.D. on 05/07/2022 at 13:23[facility] AUTO DIFFon 52-14-5571JHUI #0.0 103/ulNormal0.0-0.1The [facility] Anne HospitalComment on above:Performed By: #### CBC ####[facility] Rvpdporsyz[address] [place], [place] [address]Dr.Yilan ChangBasophils/100 WBC (Bld)0.5 %Normal0.2-2.0The [facility] HospitalComment on above:Performed By: #### CBC ####[facility] [address]ngcpolkcy[address] [place], [place] [address]Dr.Yilan ChangEO #0.1 103/ulNormal0.0-0.7ThHolzer Health SystemComment on above:Performed By: #### CBC ####[facility] [address]yaqliilv[address] [place], [place] [address]Dr.Yilan ChangEosinophils/100 WBC (Bld)1.5 %Normal 0.9-7.0The [facility] HospitalComment on above:Performed By: #### CBC ####[facility] [address]vtsvocb[address] [place], [place] [address]Dr.Vicki Bates Erythrocyte distribution width (RBC) [Ratio]11.7 %Dyltpp88.0-15.0The [facility] HospitalComment on above:Performed By: #### CBC ####[facility] [address]pvtalq[address] [place], [place] [address]Dr.Vicki BatesHematocrit (Bld) [Volume fraction]42.8 %Gdlwpi05.0-48.0The [facility] Anne HospitalComment on above:Performed By: #### CBC ####[facility] S[address] [place], [place] [address]Dr.Vicki ChangHemoglobin (Bld) [Mass/Vol]14.2 g/dL Vfnjhx06.0-16.0The [facility] Anne HospitalComment on above:Performed By: #### CBC ####[facility] Ffyrsuhyaj[address] [place], [place] [address]Dr. Yilan ChangIG #0.01 10e3/ulNormal0.00-0.03The [facility] Anne HospitalComment on above: Performed By: #### CBC ####[facility] Gboholtnap[address] [place], [place] [address]Dr.Laureenlan ChangIG %0.2 %Normal0.0-0.5The [facility] Anne HospitalComment on above:Performed By: #### CBC ####[facility] Sgvqxuaxld[address] [place], [place] [address]Dr.Laureenlan ChangLYMPH #1.8 103/ulNormal1.2-3.8The [facility] Anne HospitalComment on above:Performed By: #### CBC ####[facility] Lobrhmxapf02[address] [place], [place] [address]Dr. Vicki BatesLymphocytes/100 WBC (Bld)43.6 %Bctjiy01.5-60.0The [facility] Comment on above:Performed By: #### CBC ####[facility] Hbmanqfwmq264[address] [place], [place] [address]Dr.Laureenlan ChangMANUAL DIFF REQNONormalThe [facility] Health St. Anne HospitalComment on above:Performed By: #### CBC ####[facility] Gwrbicxxhp01[address] [place], [place] [address]Dr.Vicki BatesMCH (RBC) [Entitic mass]31.3 miHvxxlm51.7-34.0The [facility] Anne HospitalComment on above: Performed By: #### CBC ####[facility] [address] [place] [address]Dr.Vicki PauloMCHC (RBC) [Mass/Vol]33.2 g/dLNormal 29.9-35.2The [facility] HospitalComment on above:Performed By: #### CBC ####[facility] [address] [place] [address]Dr. Laureenchay BatesMCV (RBC) [Entitic vol]94.3 jLRftfek79.0-99.0The [facility] Comment on above:Performed By: #### CBC ####[facility] Mcqildmzxq[address] [place], [place] [address]Dr.Vicki BatesMONO #0.3 103/ulNormal0.3-0.[address] Anne HospitalComment on above:Performed By: #### CBC ####[facility] Ehicagjxkt[address] [place], [place] [address]Dr.Vicki Bates Monocytes/100 WBC (Bld)6.4 %Normal1.7-12.0The [facility] Anne HospitalComment on above: Performed By: #### CBC ####[facility] Kcbsgvftvv9[address] [place], [place] [address]Dr.Vicki BatesNEUT #1.9 103/ulNormal1.4-6.5The [facility] Anne HospitalComment on above:Performed By: #### CBC ####[facility] Fwsdipjxbo3[address] [place], [place] [address]Dr.Vicki BatesNeutrophils/100 WBC (Bld)47.8 %Gwczcu67.0-75.0The [facility] HospitalComment on above:Performed By: #### CBC ####[facility] Mkwvpjlwzb9[address] [place], [place] [address]Dr.Vicki BatesPlatelet mean volume (Bld) [Entitic vol]9.0 fLCritically low 9.5-13.5The [facility] HospitalComment on above:Performed By: #### CBC ####[facility] Wuslgfsujo[address] [place], [place] [address]Dr. Vicki BatesPLT250 103/glMlvuxg028-339Rbh [facility] on above: Performed By: #### CBC ####[facility] [address] [place] [address]Dr.Vicki ChangRBC4.54 106/ulNormal4.20-5.40The [facility] on above:Performed By: #### CBC ####[facility] S[address]cwbkd32[address] [place], [place] [address]Ll.Vicki ChangWBC4.0 103/ul Normal4.0-11.0The [facility] on above:Performed By: #### CBC ####[facility] [address]fowglqv38[address] [place], [place] [address]La. Vicki BatesCovid-19 PCR (CVDTB)on 23-97-4989OLAA-CoV-2 (COVID-19) RNA MEAGAN+probe Ql (Unsp spec)Not detectedNormalNOT DETECTEDThe [facility] on above:Result Comment: This test is not yet approved or cleared by the [place] FDA. When there are no FDA-approved or cleared tests available, and other criteria are met, FDA can make tests available under an emergency access mechanism called an Emergency Use Authorization (EUA). The EUA for this test is supported by the [place] of Health and Human Service's (HHS's) declaration [...] symptoms consistent with SARS-CoV-2.Performed By: #### CVDTBH ####[facility] [address]cl[address]jqhe[address] [place] [address]Dr. Vicki ChangUS PELVIS AND TRANSVAGon 63-73-6120HX PELVIS AND TRANSVAGEXAMINATION: US PELVIS AND TRANSVAG [...] Electronically authenticated by: KASSIE QUEEN Date: 2022-04-16 00:20[facility] 75-51-5741LHT [Catalytic activity/Vol]20 U/SArpsmd75-46 [facility] HealthComment on above:Performed By: #### AST, ALT #### [facility] [address] [address] [address] Vicki Powers 48-40-7582FZC [Catalytic activity/Vol]28 U/TEptihg65-93VqbKettering HealthComment on above:Performed By: #### AST, ALT #### [facility] [address] [address] [address] Vicki BatesXR ankle RT min 3V*on 80-57-2236BY ankle RT min 3V*[facility] Main [place] [address] [place] [address] XRay Report Signed Patient: Corrie Mccray MR#: [id number] : 1950 Acct:[id number] Age/Sex: 71 / F ADM Date: 10/16/21 Loc: XDUCLY Room: Type: [facility] Attending Dr: Dena BERGMAN Ordering Provider: [...] Smith Jr., D.OЕкатерина10/16/2021 5:09 PM Dictation Location: [place] [address] Transcribed By: [facility] 10/16/211708 Dictated By: Zeke Smith Jr, DO 10/16/211706 Signed By: 10/16/21 170[facility] CampusXR ankle RT min 3V*[facility] [employer] Other XR ankle RT min 3V*[facility] [employer] Other XR ankle RT min 3V*[facility] [employer] Other XR ankle RT min 3V*[place] [address] [place] [address] [employer] Other XR ankle RT min 3V*XRay [facility] [employer] Other XR ankle RT min 3V*[facility] [employer] Other XR ankle RT min 3V*Patient: Corrie Mccray MR#: [id number] [employer] Other XR ankle RT min 3V*[address] [employer] Other XR ankle RT min 3V*: 1950 Acct:[id number] [employer] Other XR ankle RT min 3V*Age/Sex: 71 / F ADM Date: 10/16/21 [employer] Other XR ankle RT min 3V*Loc: XDUCLY Room: Type: [facility] [employer] Other XR ankle RT min 3V*Attending Dr: Dena Davis [facility] Other XR ankle RT min 3V*Ordering Provider: DENA DAVIS [facility] Other XR ankle RT min 3V*Date of Service: 10/16/21[employer] Other XR ankle RT min 3V* XR/XR ankle RT min 3V*: S89.91XASaint [facility] System[facility] Other XR ankle RT min 3V*Copies to: DENA DAVIS [facility]- [employer] Other XR ankle RT min 3V*RIGHT ANKLE - 3 viewsSaint Luke'S Health SystemRothman Healthcare Other xr ankle RT min 3V*Reason for exam:Patient fell while going up the stairs 3 hours ago. Patient has pain posterior [facility] Center[facility] Other XR ankle RT min 3V*her right ankle and posterior to her distal tib-fib.[employer] Other XR ankle RT min 3V*COMPARISON: [facility] [employer] Other XR ankle RT min 3V*Soft tissue swelling is noted. Ankle mortise appears intact. Cortical irregularity seen along [employer] Other XR ankle RT min 3V*medial malleolus suggestive of prior injury. No acute bony process is seen. Enthesophyte formationSanta Monica [employer] Other XR ankle RT min 3V*is seen at the insertion of the Achilles tendon. Minimal plantar spurring.[employer] Other XR ankle RT min 3V* XR/XR ankle RT min 3V*[employer] Other XR ankle RT min 3V*IMPRESSION:[employer] Other XR ankle RT min 3V*SOFT TISSUE SWELLING WITHOUT ACUTE BONY PROCESS NOTED.[employer] Other XR ankle RT min 3V*Impression dictated by: Zeke Smith Jr., D.OЕкатерина10/16/2021 5:09 [facility] [employer] Other xr ankle RT min 3V*Dictation Location: [place] [address] [employer] Other xr ankle RT min 3V*Transcribed By: PWS 10/16/21 [facility] [employer] Other xr ankle RT min 3V*Dictated By: Zeke Smith Jr, DO 10/16/[address] [place] [address] [employer] Other xr ankle RT min 3V*Signed By:[employer] Other xr ankle RT min 3V*10/16/21 [facility] Hospital[facility] Other no [facility] [place] InformationSy[facility] Vital Signs Date TimeVital SignValuePerforming RbcaazbigUqcoenmu43-97-3057 09:30-0500Body egkcae566.48 cmBenjamin Ball Other [employer] Other 11-08-2023 09:30-0500Body mass index (BMI) [Ratio] 26.12 kg/t5Rcdljizt Ball Other [employer] Other 11-08-2023 09:30-0500Body xdgagu14.77 kgBenjamin Ball Other [employer] Other 11-08-2023 09:30-0500Diastolic blood ncmkwelh75 mm[Hg] Hussein Rowan Other [place] [employer] Other 11-08-2023 09:30-0500Respiratory rate12 /minBenjafarrah Rowan Other [place] [employer] Other 11-08-2023 09:30-0500Systolic blood kteqxfrp63 mm[Hg] Hussein Rowan Other [place] [employer] Other 10-24-2023 11:19-0400Body mtixzj776.5 cmZaire Fry MD Work Phone: [facility]10-24-2023 11:19-0400Body vsfsur41.32 kgZaire Fry MD Work Phone: [phone]10-24-2023 11:19-0400Diastolic blood cydwpikz44 mm[Hg]Zaire Fry MD Work Phone: [phone]10-24-2023 11:19-0400Heart rate76 /min Zaire Fry MD Work Phone: [phone]10-24-2023 11:19-6928BkZ8% (BldA) [Mass fraction]98 %Zaire Fry MD Work Phone: [phone]10-24-2023 11:19-0400Systolic blood qdhelljr551 mm[Hg]Zaire Fry MD Work Phone: [phone]10-13-2023 10:00-0400Body vyvkox462.48 Xiomara Lees Other [place] [employer] Other 10-13-2023 10:00-0400Body mass index (BMI) [Ratio]26.7 kg/o4NgxhsbCony Lees Other [employer] Other 10-13-2023 10:00-0400Body kudjxsucqqa65.5 [degF]Cony Lees Other [employer] Other 10-13-2023 10:00-0400Body oohmbq21.23 kgPapapito Lees Other [employer] Other 10-13-2023 10:00-0400Diastolic blood gtzwkfle29 mm[Hg] Cony Lees Other [employer] Other 10-13-2023 10:00-0400Respiratory rate18 /minCony Lees Other [employer] Other 10-13-2023 10:00-0192OuA0% (BldA) [Mass fraction]97 % Cony Lees Other [employer] Other 10-13-2023 10:00-0400Systolic blood udbfdmyo545 mm[Hg] Cony Lees Other [employer] Other 07-24-2023 09:30-0400Body uwogos951.94 cmBenjamin Ball Other [employer] Other 07-24-2023 09:30-0400Body mass index (BMI) [Ratio] 27.81 kg/a0Vxaabyhj Ball Other [employer] Other 07-24-2023 09:30-0400Body sysudu49.77 kgBenjamin Ball Other [employer] Other 07-24-2023 09:30-0400Diastolic blood mcrzgync72 mm[Hg] Hussein Ball Other [employer] Other 07-24-2023 09:30-0400Respiratory rate12 /minBenjamin Ball Other [employer] Other 07-24-2023 09:30-0400Systolic blood dysalgvu585 mm[Hg] Hussein Ball Other [employer] Other 05-31-2023 10:00-0400Body fccqfe039.94 cmBenjamin Ball Other [employer] Other 05-31-2023 10:00-0400Body mass index (BMI) [Ratio] 27.92 kg/j4Nytsihny Ball Other [employer] Other 05-31-2023 10:00-0400Body oqlnlu00.04 kgBenjamin Ball Other [employer] Other 05-31-2023 10:00-0400Diastolic blood mm[Hg] Hussein Ball Other [employer] Other 05-31-2023 10:00-0400Respiratory rate12 /minBenjamin Ball Other [employer] Other 05-31-2023 10:00-0400Systolic blood mm[Hg] Hussein Ball Other [employer] Other 05-10-2023 10:30-0400Body .94 cmBenjamin Ball Other [employer] Other 05-10-2023 10:30-0400Body mass index (BMI) [Ratio] 28.11 kg/s8Ysmbywji Ball Other [employer] Other 05-10-2023 10:30-0400Body fanrlg99.5 kgBenjamin Ball Other [employer] Other 05-10-2023 10:30-0400Diastolic blood gsemuuxs04 mm[Hg] Hussein Ball Other [employer] Other 05-10-2023 10:30-0400Respiratory rate12 /minBenjamin Ball Other [employer] Other 05-10-2023 10:30-0400Systolic blood winlabas503 mm[Hg] Hussein Ball Other [employer] Other 02-28-2022 16:40-0500Body xjezge314.94 cmStephans Davis Other [employer] Other 02-28-2022 16:40-0500Body mass index (BMI) [Ratio] 29.28 kg/r3TlscujkfzDena Davis Other [employer] Other 02-28-2022 16:40-0500Body .4 [degF] Dena Davis Other [employer] Other 02-28-2022 16:40-0500Body .31 kgStmio Davis Other [employer] Other 02-28-2022 16:40-0500Diastolic blood lbuifehy29 mm[Hg] Dena Davis Other [place] [employer] Other 02-28-2022 16:40-0500Respiratory rate16 /minSrachael Davis Other [facility] [employer] Other 02-28-2022 16:40-1645YrB7% (BldA) [Mass fraction]98 % Dena Davis Other [facility] [employer] Other 02-28-2022 16:40-0500Systolic blood wuukfoia302 mm[Hg] Dena Davis Other [facility] [employer] Other Encounters Encounter DateEncounter TypeCare ProviderFacilityStart: 02-16-2025 End: 38-42-2459Jdxsqbp encounter procedureTojeanie Brown OD Work Phone: OphthalmologyComment on above:Low-tension glaucoma of both eyes, moderate stage (Primary Dx); Low-tension glaucoma of both eyes, unspecified glaucoma stage; Keratitis sicca, bilateral; History of trabeculectomy, right eyeStart: 02-16-2025 End: 12-72-9396tdysaasdifNFBJ A HERSHNERFacility:[facility] Centertart: 01-26-2025 End: 45-45-0024CzasovLcyt A Hershner OD Work Phone: OphthalmologyComment on above:Refill RequestStart: 11-17-2024 End: 43-49-1050vpldgaibrmWKQMLOZO E BALLFacility:[facility] Centertart: 11-17-2024 End: 04-30-7713Wmbcxcu encounter procedureTojeanie Brown OD Work Phone: OphthalmologyComment on above:Low-tension glaucoma of both eyes, unspecified glaucoma stage (Primary Dx); Low-tension glaucoma of both eyes, moderate stage; History of trabeculectomy; PseudophakiaStart: 05-19-2024 End: 51-11-0232Fggywda encounter procedureTojeanie Brown OD Work Phone: OphthalmologyComment on above:Low-tension glaucoma of both eyes, unspecified glaucoma stage (Primary Dx); Low-tension glaucoma of both eyes, moderate stage; Keratitis sicca, bilateralStart: 05-19-2024 End: 47-55-8235zeuwqpbjhxMKZWODXL E BALLFacility:[facility] HospitalStart: 11-15-2023 End: 18-78-5404nfejsxxlijCJZEYQNM A BROWNNot AvailableStart: 11-15-2023 End: 29-84-0481jfprpbcdicHHJGISIX A BROWNNot AvailableStart: 11-12-2023 End: 25-28-4315Scjulfe encounter procedureTojeanie Brown OD Work Phone: OphthalmologyComment on above:Low-tension glaucoma of both eyes, unspecified glaucoma stage (Primary Dx); Keratitis sicca, bilateral (HCC); Pseudophakia, left eyeStart: 07-29-2023 End: 66-46-4072uhfkkcavuhRkqhxdwod LyonPulmonary MedicineStart: 07-29-2023 Telephone encounterBenoma Rowan Medical ClinicStart: 07-22-2023 [facility] Luma LOZANOTRANSCRIPTION MANAGER Work Phone: Pulmonary MedicineComment on above:NoduleStart: 07-09-2023 End: 54-87-6997cjapfvvmrdVlufwsvg Ball Other [facility] [employer] Other Start: 49-04-1675Pcxdzjkgr encounterBenoma Rowan Medical ClinicStart: 07-05-2023 End: 01-89-4472tiwpewekvdAJSKV KHALILFacility:[facility] HospitalStart: 07-05-2023 End: 13-93-2431owjgaygqhpDlda [place] Work Phone: PulmonologyComment on above:SpirometryStart: 07-05-2023 End: 52-48-9290Dysxnbd encounter procedurePulm Lab Yokasta Work Phone: [facility] YOKASTA MOLL PAV MCStart: 06-26-2023 End: 90-62-0861ftyndpwqueJrgwezrp Ball Other [employer] Other Start: 02-22-5065Mxcfth outpatient visit 15 minutes Hussein BallFPG Ball Medical ClinicStart: 06-24-2023 End: 11-11-2307amybawmjitHfmdwbtz Ball Other [employer] Other Start: 70-35-7380Nauxydkse encounterBenjamin BallFPG Ball Medical ClinicStart: 06-11-2023 End: 11-33-3178Voxuzkt encounter procedureZaire Fry MD Work Phone: CardiologyComment on above:Chest discomfort; SOB (shortness of breath); Pure hypercholesterolemia; Primary hypertensionStart: 05-31-2023 End: 15-88-9445gtvmczhdbfXkjbug Yoana Other [facility] [employer] Other Start: 76-93-2828Yztglh outpatient visit 15 minutes Cony [facility] ClydeStart: 17-39-7749Uhmdpwkzk encounterNo One (Historical)Referring PhysicianComment on above:External Referrals/resources Start: 03-15-2023 End: 00-49-0841eszjqbvnovDdyqxgqg Ball Other noXytis [employer] Other Start: 49-27-5064Ujybkxsac encounterBenjamin BallFP[facility] Medical ClinicStart: 03-13-2023 End: 61-93-3043inqvsmzjrpBxzlxcxo Ball Other [employer] Other Start: 63-73-7013Kfxqjmxpn encounterBenjamin BallFP[facility] Medical ClinicStart: 03-11-2023 End: 27-26-3569rjwopyjigsWwcliner Ball Other [employer] Other Start: 30-34-3951Cqyfkd outpatient visit 15 minutes Hussein BallFP[facility] Medical ClinicStart: 01-21-2023 End: 26-97-6783gfbhackkrmAdhhfygx Ball Other [employer] Other Start: 00-21-2672Jujowoptn encounterBenjamin BallFP[facility] Medical ClinicStart: 01-16-2023 End: 24-16-7362frgehsvmwaRghivmbh Ball Other [employer] Other Start: 63-65-8682Whrbvx outpatient visit 15 minutes Hussein BallFP[facility] Medical ClinicStart: 12-31-2022 End: 82-32-4433lsuhqfblzrWV HUSSEIN BALLFacility:U7Yonfs: 12-27-2022 End: 70-08-2385lkmwsumghiRbhuvdca Ball Other [employer] Other Start: 26-12-2921Pkcsvqksx encounterBenjamin BallFP[facility] Medical ClinicStart: 71-25-9604Difojpf encounter procedureBenjamin BallFP[facility] Medical ClinicStart: 68-04-1590Lcpdhihqv encounterBenjamin BallFP[facility] Medical ClinicStart: 12-26-2022 End: 44-50-7485vicwfzadyaAM HUSSEIN ROWANSanta Monica [employer] Other Start: 05-07-2022 End: 35-11-2704qwefyzdrayOI HUSSEIN BALLFacility:Q8Anqbq: 04-30-2022 End: 17-96-3924wsegzqlpwnFY HUSSEIN BALLFacility:H4Yuqws: 81-35-9793Zrouvwrws for preprocedural laboratory examinationDR ZION RIZZO .[facility] Start: 04-26-2022 End: 85-71-5202nmsowgmxxaXB ZION RIZZO .Facility:J3Yibgw: 04-26-2022 End: 76-54-0551Nznqiobvq for preprocedural laboratory examinationDR ZION RIZZO .Facility:H2Iajim: 17-43-6962Qroynreez for preprocedural cardiovascular examinationDR ZION RIZZO .[facility]: 04-19-2022 End: 35-40-9725ascgmuwwvzCN HUSSEIN BALLFacility:I9Fzkwj: 04-19-2022 End: 96-51-5427Dvirzstsp for preprocedural cardiovascular examinationDR HUSSEIN BALLFacility:V6Oizzj: 04-14-2022 End: 07-07-0833bthkxwwzwcHS HUSSEIN BALLFacility:W7Lfqml: 04-10-2022 End: 04-43-0763Kexgyac encounter procedureTodd A Katiehner OD Work Phone: OphthalmologyComment on above:Low-tension glaucoma of both eyes, unspecified glaucoma stage (Primary Dx); Keratitis sicca, bilateral (HCC); History of trabeculectomy, right eyeStart: 01-18-2022 End: 14-60-8413urjkxyiykpGRGBIHUA BROWNFacility:B4Owdwd: 10-16-2021 End: 82-10-8396bjgphynygcTtnxjgmrm [place] Other [place] [employer] Other Start: 49-92-0591Rjstky outpatient new 20 minutes Dena DavisFPG [facility] Procedures DateProcedureProcedure DetailPerforming ClinicianStart: 19-26-4122Dcwfhv field xm uni/bi w/interp extended examTodd A Hershner OD Work Phone: Start: 21-00-8353Hsulzcgclrjq ophthalmic imaging optic nerveTodd A Hershner OD Work Phone: Start: 14-62-3849Wcfxtk field xm uni/bi w/interp extended examTodd A Hershner OD Work Phone: Start: 66-69-2575Setkydehdqlx ophthalmic imaging optic nerveTodd A Hershner OD Work Phone: Start: 62-62-7199Hplhjeaze rspse spmtry pre&post- brncdilat Kim Fry MD Work Phone: Start: 59-88-3245Edt routine ecg w/least 12 lds i&r onlyCcf ProviderStart: 88-63-8834Ebccok field xm uni/bi w/interp extended exam Tina Brown OD Work Phone: Plan of Treatment DateCare ActivityDetailAuthorStart: 62-87-6069LKS Vaccine (1 - 1-dose 75+ series)RSV Vaccine (1 - 1-dose 75+ series)[facility]: 08-20-2025 End: 94-16-6809Lsygyeu encounter jersoychh39/02/2026 1:15 PM EST Office Visit [facility] Ophthalmology [address] [place] [address] Tina Brown, OD [address] [place] [address] Diagnostics, [facility] [address] [address] 6 Months Full OCT ON/GCAOphthalmologyComment on above:6 Months Full OCT ON/GCAStart: 04-19-2025 Influenza vaccinationAshtabula County Medical Centertart: 02-16-2025 End: 58-65-5740Khrbuxe encounter procedureOphthalmologyComment on above:RTC: 3 months VaTa HVF 24-2 , additional treatment if OS still upStart: 11-17-2024 End: 54-32-9961Kdcoghh encounter npofzomwp62/01/2025 1:15 PM EDT Office Visit [facility] Ophthalmology [address] [facility] [place] [address] Tina Brown, OD [address] [place] [address] RTC: 6 Months Full OCT ON/GCAOphthalmologyComment on above:RTC: 6 Months Full OCT ON/GCAStart: 09-22-2024 End: 89-70-5261Vdnvrhw encounter nxesikhus23/04/2025 11:30 AM EST Office Visit Cardiology [address] [facility] [place] [address] Zaire Fry MD [address] [place] [place] [id number] Return in about 1 year (around 06/11/2024).CardiologyComment on above:Return in about 1 year (around 06/11/2024).Start: 75-60-9594Wlzwjms Directive DiscussionAdvance Directive DiscussionAshtabula County Medical Centertart: 11-78-9967DJ Controlled (<130/80)BP Controlled (<130/80)[facility] Centertart: 20-27-6666Viagn-19 Vaccine ()Covid-19 Vaccine ()[facility]: 89-30-7514Zcgynnpwy vaccinationInfluenza Vaccine (#1)[facility]: 49-28-8854Tmdfoem Directive DiscussionAdvance Directive DiscussionAshtabula County Medical Centertart: 27-74-0156Hxgklgjkys Assessment Depression AssessmentAshtabula County Medical Centertart: 06-11-2023 End: 93-46-4277MYLLKRTJPU BLDCREATININE BLD Lab Routine Chest discomfort SOB (shortness of breath) Expected: 06/11/2023, Expires: 09/10/2023[facility] [place] Work Phone: Comment on above:Expected: 06/11/2023, Expires: 09/10/2023Start: 16-81-9383Mkxlt-19 Vaccine ()Covid-19 Vaccine ()[facility]: 97-53-8388Unpufajpf vaccination [facility]: 51-76-3309NQRJDSE DIRECTIVE DISCUSSIONADVANCE DIRECTIVE DISCUSSIONAshtabula County Medical Centertart: 26-26-2492ZKCBMZHNBV ASSESSMENTDEPRESSION ASSESSMENTAshtabula County Medical Centertart: 30-95-7835Wlbswndua vaccinationINFLUENZA (#1) [facility]: 53-91-2658LDORX-19 VACCINE (4 - Booster for Moderna series)COVID-19 VACCINE (4 - Booster for Moderna series)[facility]: 37-80-5310THKACWF DIRECTIVE DISCUSSIONADVANCE DIRECTIVE DISCUSSIONAshtabula County Medical Centertart: 08-32-8417TXKMP-19 VACCINE (4 - Moderna series)COVID-19 VACCINE (4 - Moderna series)[facility]: 05-01-2019Medicare Annual Wellness Visit Medicare Annual Wellness VisitAshtabula County Medical Centertart: 42-31-8797KKFR DENSITYBONE DENSITYAshtabula County Medical Centertart: 40-13-2192Fnti Density ScreeningBone Density ScreeningAshtabula County Medical Centertart: 38-71-9706Edivwmbvrinv Vaccine: 65+ (1 - PCV) Pneumococcal Vaccine: 65+ (1 - PCV)[facility]: 66-02-3518Myhmffhjjpzb Vaccine: 65+ (1 of 1 - PCV)Pneumococcal Vaccine: 65+ (1 of 1 - PCV)[facility]: 50-26-1770GNJHBNDSOYHB: 65+ (1 - PCV)PNEUMOCOCCAL: 65+ (1 - PCV) [facility]: 04-90-7819Ateadbwdy for osteoporosisBone Density ScreeningAshtabula County Medical Centertart: 95-08-5978PPH Vaccine (1 - 1-dose 60+ series)RSV Vaccine (1 - 1-dose 60+ series)[facility]: 94-04-6878Etqcplmaparz Vaccine: 50+ (1 of 1 - PCV)Pneumococcal Vaccine: 50+ (1 of 1 - PCV)[facility]: 57-72-9468HSBYKAJO VACCINE (1 of 2)SHINGRIX VACCINE (1 of 2) [facility]: 94-38-4496KOQLYNCLV (FIT-DNA)COLOGUARD (FIT-DNA)[facility] Centertart: 99-99-6850OqcphhmcdcqSMVPXOCTCDLNcchhqwtu ClinicStart: 1995 COLORECTAL CANCER SCREENINGCOLORECTAL CANCER SCREENINGAshtabula County Medical Centertart: 92-63-6569MN COLONOGRAPHYCT COLONOGRAPHYAshtabula County Medical Centertart: 1995 DIABETES SCREENDIABETES SCREENAshtabula County Medical Centertart: [id number] ScreeningDiabetes ScreeningAshtabula County Medical Centertart: [id number] OCCULT BLOOD FECAL OCCULT BLOODAshtabula County Medical Centertart: [id number] 1996 panel - Serum or PlasmaLipid ScreeningAshtabula County Medical Centertart: [id number] panelLipid Screening [facility]: [id number] SCREENLIPID SCREENAshtabula County Medical Centertart: 64-10-9179Ixbzqxjyt for malignant neoplasm of colonAshtabula County Medical Centertart: 67-43-7223PCFGUPGMECGTHGCVTVRIOZUVBQSqytaewyq ClinicStart: 55-39-4275Vpywvsrxcxy [place] [facility] Centertart: 91-70-2121Vykibuktf for malignant neoplasm of breast Mammogram ScreeningAshtabula County Medical Centertart: 33-21-1491Teprk microalbumin profile [facility] [facility] Centertart: 25-96-5853MYRMTE PCP TEAM CHRONIC DISEASE VISITANNUAL PCP TEAM CHRONIC DISEASE VISITAshtabula County Medical Centertart: 63-82-7939Msvcfmz Screening Anxiety ScreeningAshtabula County Medical Centertart: 17-07-2076UY Controlled (<130/80)BP Controlled (<130/80)[facility]: 89-55-8890Zwohbtdqgr Screening Depression ScreeningAshtabula County Medical Centertart: 07-89-7671ZUSEPOGBR C SCREENING HEPATITIS C SCREENINGWilson Memorial Hospitalrt: 86-94-9608Nufkmhwfy C screening Hepatitis C ScreeningWilson Memorial Hospitalrt: 75-89-4641Xuhvx depression screening assessmentDEPRESSION SCREENINGSycamore Medical Center End: 24-53-9152Kxw hrt cornry art/bypass grfts contrst 3d postCTA CORONARY W IVCON Radiology Routine Chest discomfort SOB (shortness of breath) Pure hypercholesterolemia Primary hypertension 1 Occurrences starting 06/11/2023 until 07/10/2024[facility] Work Phone: Comment on above:1 Occurrences starting 06/11/2023 until 07/10/2024[facility] [place] Work Phone: Comment on above:Ordered: 06/11/2023 End: 31-55-5362ZTJCKDDCAW WITH DILATOR IF OBSTRUCTEDSPIROMETRY WITH DILATOR IF OBSTRUCTED PFT Routine SOB (shortness of breath) 1 Occurrences starting 1 until 11/22/[address] [place] [address] Work Phone: Comment on above:1 Occurrences starting 06/11/[address] [place] [address] Immunizations Immunization DateImmunizationNotesCare JhtdsmcdVkeodjhf79-40-7460sbhbezqwn virus vaccine, split virus (incl. purified surface antigen)Hussein Rowan Other [employer] Other [id number], high dose seasonal, preservative-freeBenjamin Ball Other [employer] Other [id number] virus vaccine, unspecified formulationZaire Fry MD Work Phone: [facility] CenterDarbbc21-81-2135WKFVP-34 Pfizer (bivalent) Hussein Rowan Other [employer] Other 10532710-40-9515SCLDZ-25 Vaccine Pfizer - Documentation Purposes OnlyBenjamin Ball Other [employer] Other 04-146929-66-8180ousudx vaccine recombinantBenjamin Ball Other [employer] Other 03-344427-81-6788PKNVC-16 ModernaBenjamin Ball Other [employer] Other 02-967410-55-1222OQTCH-58 ModernaBenjamin Ball Other [employer] Other 11686017-80-5876anzwbwcsr virus vaccine, split virus (incl. purified surface antigen)Hussein Rowan Other [employer] Other 11-851873-25-3304nfhkdr vaccine recombinantBenjamin Ball Other [employer] Other 11462050-88-7068lngmqz vaccine, liveHussein Rowan Other [facility] [employer] Other 11121874-88-1963IUNBJ QUAD 2020-21,65Y UP,,PF, 60 mcg (15 mcg x 4)/0.5 mL syrgTodd Jermaine OD Work Phone: [facility] Medical CenterComment on above:PHARMACY ADMINISTERED Payers DatePayer CategoryPayerPolicy [id number] Health InsuranceMMO MEDICARE SUPPLEMENT Member Subscriber Plan / Payer (Effective 2019-Present) Name: Corrie Mccray Relation to Subscriber: Self Name: Corrie Mccray Payer ID: Not on file Type: Indemnity Address: [address] [place] [id number] MMO MEDICARE SUPPLEMENT [id number] 2019- [phone] [address] [place] [address] [id number] [id number] 1960Medicare [id number] [id number] [id number] 2.16.840.1.915170.3.579.2.593 [id number] 2.16.840.1.093311.3.57[id number] 2.16.840.1.035594.3.57[id number] 2.16.840.1.915560.3.57[id number] 2.16.840.1.608608.3.57[id number] 2.16.840.1.225932.3.57[id number] 2.16.840.1.572804.3.57[id number] 2.16.840.1.270617.3.57[id number] 2.16.840.1.707836.3.579.2.1259 Social History DateTypeDetailFacilityStart: 10-12-2022 End: 39-04-3438Jxj Assigned At [facility] [employer] Other Start: 64-70-8213Ijpbwiu smoking status NHISNever smoked tobaccoAshtabula County Medical Centertart: 76-08-0311Jfjmcug use and exposureSmokeless tobacco non-userAshtabula County Medical Centertart: 04-10-2022 End: 56-83-0618Hdrjyef intakeCurrent drinker of alcohol (finding)[facility] Centertart: 87-14-9537Tqunvwk SDOH Alcohol Comment1 glass of wine 3/wkAshtabula County Medical Centertart: 67-93-8607Ceu Assigned At [facility]FeFirst[facility] ClinicStart: 10-12-2022 End: 32-40-9413Pddrcxo of Social functionSycamore Medical CenterNational Score (1-100), lower number is lower voax18ViyswpbpkAshtabula County Medical Centertart: 85-94-8783Zqnhov identity Identifies as female gender (finding)[facility] Centertart: 10-72-9828Rtgacq orientationHeterosexual (finding)[facility] Medical Equipment Procedure CodeEquipment CodeEquipment Original TextEquipment IdentifierDatesLens Iol 0d +20 Dante Uv Abs - [id number]_pxgNqnvo: 97-02-9112Bsxiujg on above:Description: -0.09 Clinical Notes 02-12-2017 to 02-16-2025 Note Date & OoucTgcpXhocvpoh95-41-3202 NoteDate of Procedure 02/16/2025. Compatibility Test Engineer Information Alarm Service Technician: russ. Notes -- HVF 02/16/2025 OD mod sup nasal step, stable ; OS CyoafxRIPML99-97-4762 NoteHNO ID: [id number] Author: TINA BROWN, TERRENCE Service: ? Author Type: FRONT END SPECIALIST Type: Progress Notes Filed: 02/16/2025 13:40 [...] Tina Brown, OD February 16, 2025 1:39 [facility]07-01-2025 History of Present illness Narrative* Tina [...] 16, 2025 1:39 PM documented in this encounterSycamore Medical Center06-10-2025 Telephone encounter Note * Telephone Encounter - Roxana Driver COT - 01/26/2025 7:28 AM EDT Patient phones requesting refills as follows: Requested Prescriptions Pending Prescriptions Disp Refills dorzolamide-timolol (COSOPT) 22.3-6.8 mg/mL ophthalmic solution [Pharmacy Med Name: DORZOLAMIDE-TIMOLOL EYE DROPS] 30 mL 4 Sig: USE 1 DROP IN BOTH EYES TWO TIMES A DAY. Please review and advise. JACQUES Garcia [facility]06-10-2025 Miscellaneous Notes* Telephone Encounter - Roxana Driver COT - 01/26/2025 7:28 AM EDT Patient phones requesting refills as follows: Requested Prescriptions Pending Prescriptions Disp Refills dorzolamide-timolol (COSOPT) 22.3-6.8 mg/mL ophthalmic solution [Pharmacy Med Name: DORZOLAMIDE-TIMOLOL EYE DROPS] 30 mL 4 Sig: USE 1 DROP IN BOTH EYES TWO TIMES A DAY. Please review and advise. JACQUES Garcia documented in this encounterSycamore Medical Center04-01-2025 NoteDate of Procedure 11/17/2024. Notes -- OCT 11/17/2024 OD severe inf>mod sup thinning;OS mod inf > sup thinning, stable Low SS -- GCA 11/17/2024 OD global thinning ; OS mod sup, inf wedge, worse than 2033XNKLQ45-89-9725 NoteHNO ID: [id number] Author: TINA BROWN, OD Service: ? Author Type: FRONT END SPECIALIST Type: Progress Notes Filed: 11/17/2024 14:05 [...] Tina Brown, OD November 17, 2024 1:42 [facility]04-01-2025 History of Present illness Narrative* Tina [...] 17, 2024 1:42 PM documented in this encounterSycamore Medical Center10-01-2024 NoteDate of Procedure 05/19/2024. Compatibility Test Engineer Information Alarm Service Technician: RIGOBERTO. Interval Change Right Eye Stable. Left Eye Stable. Notes -- HVF 05/19/2024 OD mod sup nasal step, stable from 2021; OS NormalZEISS 05-19-2024 NoteHNO ID: [id number] Author: TINA BROWN OD Service: ? Author Type: FRONT END SPECIALIST Type: Progress Notes Filed: 05/19/2024 13:37 [...] Tina Brown, OD May 19, 2024 1:35 [facility]10-01-2024 History of Present illness Narrative* Tina [...] 19, 2024 1:35 PM documented in this encounterSycamore Medical Center03-26-2024 History of Present illness Narrative* [...] open capsule. Plan: Monitor RTC: [facility] The nature of the patient's eye [...] 12, 2023 1:43 PM documented in this encounterSycamore Medical Center12-11-2023 Evaluation note* Encounter Date Diagnosis Assessment Notes Treatment Notes Treatment Clinical Notes Jul, Pulmonary nodule, ri ght (ICD-10 - R91.1) CTA chest: 7mm RLL nodule - 06/2023 [facility] Other [id number] History of Present illness Narrative* Kavitha Huggins - 07/29/2023 7:28 AM EST Incidental Lung Nodule Enrollment Outreach attempt: 2nd Attempt Outreach status: Complete Enrolled in Lung Nodule program: Referred Lung Nodule outreach: Needs outreach Lung Nodule Program Location: [place] Two letter attempts documented in this encounterSycamore Medical Center12-04-2023 History of Present illness Narrative* Silvia Ge APRN.CNP - 07/22/2023 1:42 PM EST Incidental Lung Nodule Enrollment Outreach attempt: 1st Attempt Outreach status: Complete Enrolled in Lung Nodule program: Referred Lung Nodule outreach: Needs outreach Lung Nodule Program Location: [place] Letter sent to patient regarding incidental lung nodule(s). Silvia Ge APRN.CNP July 22, 2023 1:42 PM documented in this encounterSycamore Medical Center11-17-2023 NoteHNO ID: [id number] Author: Silvia Mckeon RT(Esteban) Service: Radiology Author Type: Compatibility Test Engineer Type: Progress Notes Filed: 07/05/2023 3:03 PM [...] BY: RT Yesica(Esteban) July 05, 2023 3:00 [facility]11-17-2023 NoteHNO ID: [id number] Author: Liss Anne, TECHNOLOGIST Service: ? Author [...] Liss Anne, TECHNOLOGIST July 05, 2023 3:02 [facility]11-17-2023 NoteHNO ID: [id number] Author: Sarah Mtz RRT Service: ? 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 [facility] SECTION OF REGIONAL CARDIOLOGY OUTPATIENT VISIT DATE June 11, 2023 OUTPATIENT VISIT TYPE NEW PRIMARY CARE PHYSICIAN: Hussein Rowan ([facility]) [address] [place] [address] A written report of the findings and [...] 1 capsule by mouth once daily. Evening [place] Oil (EVENING PRIMROSE) 500 mg cap Take 1 capsule by mouth once daily. Flaxseed Oil 1,000 mg cap Take 1 capsule by mouth once daily. FLUAD QUAD 2020-21,65Y UP,,PF, 60 mcg (15 mcg x 4)/0.5 mL syrg PHARMACY ADMINISTERED (Patient not taking: Reported on 06/11/2023) documented in this encounterSycamore Medical Center10-13-2023 Evaluation note* Encounter Date Diagnosis Assessment Notes Treatment Notes Treatment Clinical Notes May, Abrasion of right cornea, initia l encounter (ICD-10 - S05.01XA) Drink plenty fluids, get plenty of rest. Use the eyedrops as prescribed. Today you may instill the eyedrops every 2 hours and then 4 times a day for the next 4 days. Follow-up with your osteology teacher if no improvement in 2 to 3 days. Continue home medications as prescribed [facility] Other 08-07-2023 Miscellaneous Notes* Telephone Encounter - Kae Pereira - 03/25/2023 4:47 PM EDT Patient: Corrie Mccray Date of : 1950 Patient phone number: [phone] Referring Provider for the encounter: Hussein Rowan Requesting Provider: n/c Reason for requesting visit (RFV/signs and symptoms/diagnosis): Precordial pain (R07.2) Person calling: caregiver: Kae Return call to: self Medical Records/Insurance Card scanned into [employer]: Yes Comments: documented in this encounterSycamore Medical Center07-26-2023 Evaluation note* Encounter Date Diagnosis Assessment Notes Treatment Notes Treatment Clinical Notes Feb, Dyspnea on exertion (ICD-10 - R0 6.09) [facility] Other 07-24-2023 Evaluation note* Encounter Date Diagnosis [...] the risk for cerebrovascular and cardiovascular disease. [facility] Other 05-31-2023 Evaluation note* Encounter Date Diagnosis [...] R06.09)Hold exercise routine until stress testing completed [facility] Other 05-10-2023 Evaluation note* Encounter Date Diagnosis [...] - Z79.899) December,Metabolic syndrome (ICD-10 - E88.81) [facility] Other 05-10-2023 Evaluation note* Encounter Date Diagnosis Assessment Notes Treatment Notes Treatment Clinical Notes December, KHAN (dyspnea on exertion) (ICD-1 0 - R06.09) [facility] Other 05-10-2023 NotePROCEDURE: XR CHEST 2 V DATE: 12/26/2022 9:26 AM CDT COMPARISONS: None. CLINICAL INDICATION: 72 years Female Dyspnea FINDINGS: The cardiomediastinal silhouette and pulmonary vasculature are within normal limits. The lungs are clear. There is no evidence of pleural effusion or pneumothorax. IMPRESSION: Chest radiograph is within normal limits. Electronically authenticated by: DEREK BONILLA Date: 2022-12-26 11:05[facility]09-12-2022 NoteOPERATIVE NOTE OPERATION DATE: 04/30/2022 PROCEDURE: D AND C hysteroscopy with Myosure. PREOPERATIVE DIAGNOSIS: Postmenopausal bleeding, thickened endometrium. POSTOPERATIVE DIAGNOSIS: Postmenopausal bleeding, thickened endometrium. ANESTHESIA: General. SURGEON: Zion Rizzo D.O. WORKERS' COMPENSATION CLAIMS SUPERVISOR: None. FINDINGS: Atrophic appearing cavity. No gross [...] to the Recovery Room in stable condition.[facility] HospitalGqvjeqyl44-58-5840 History of Present illness Narrative* Tina Brown, [...] 10, 2022 2:31 PM documented in this encounterSycamore Medical Center02-28-2022 Evaluation note* Encounter Date Diagnosis [...] andwe will help you get into specialist. [facility] Other 06-27-2017 History of Past illness Narrative* Problem Noted DateResolved DateCombined forms of age-related cataract of right eye 1Lens replaced by other means - Left Eye02/16/2015 02/12/2017Dry eye - Both EyesHistory of trabeculectomy - Both EyesVitreous degeneration - Right Eye06/02/2014 02/12/2017Senile nuclear sclerosis - Right EyePrimary open-angle glaucoma(365.11)documented as of this encounter (statuses as of 04/10/2022) [facility]06[facility] History of Past illness Narrative* ProblemNoted Date Diagnosed DateResolved DateCombined forms of age-related cataract of right eye replaced by other means - Left Eye02/16/2015 02/12/2017Dry eye - Both Eyes02/16/History of trabeculectomy - Both EyesVitreous degeneration - Right Eye06/02/2014 02/12/2017Senile nuclear sclerosis - Right EyePrimary open-angle glaucoma(365.11)documented as of this encounter (statuses as of 03/26/2023) [facility]06[facility] History of Past illness Narrative* ProblemNoted Date Diagnosed DateResolved DateCombined forms of age-related cataract of right eye replaced by other means - Left Eye02/16/2015 02/12/2017Dry eye - Both EyesHistory of trabeculectomy - Both EyesVitreous degeneration - Right Eye06/02/2014 02/12/2017Senile nuclear sclerosis - Right EyePrimary open-angle glaucoma(365.11)documented as of this encounter (statuses as of 06/11/2023) [address]27-2017 History of Past illness Narrative* ProblemNoted Date Diagnosed DateResolved DateCombined forms of age-related cataract of right eye replaced by other means - Left Eye02/16/2015 02/12/2017Dry eye - Both EyesHistory of trabeculectomy - Both EyesVitreous degeneration - Right Eye06/02/2014 02/12/2017Senile nuclear sclerosis - Right EyePrimary open-angle glaucoma(365.11)documented as of this encounter (statuses as of 07/05/2023) [facility] of Past illness Narrative* ProblemNoted Date Diagnosed DateResolved DateCombined forms of age-related cataract of right eye replaced by other means - Left Eye02/16/2015 02/12/2017Dry eye - Both EyesHistory of trabeculectomy - Both EyesVitreous degeneration - Right Eye06/02/2014 02/12/2017Senile nuclear sclerosis - Right EyePrimary open-angle glaucoma(365.11)documented as of this encounter (statuses as of 07/23/2023) [facility] of Past illness Narrative* ProblemNoted Date Diagnosed DateResolved DateCombined forms of age-related cataract of right eye replaced by other means - Left Eye02/16/2015 02/12/2017Dry eye - Both EyesHistory of trabeculectomy - Both EyesVitreous degeneration - Right Eye06/02/2014 02/12/2017Senile nuclear sclerosis - Right EyePrimary open-angle glaucoma(365.11)documented as of this encounter (statuses as of 07/29/2023) [facility] History of Past illness Narrative* ProblemNoted Date Diagnosed DateResolved DateCombined forms of age-related cataract of right eye 1Lens replaced by other means - Left Eye02/16/2015 02/12/2017Dry eye - Both EyesHistory of trabeculectomy - Both EyesVitreous degeneration - Right Eye06/02/2014 02/12/2017Senile nuclear sclerosis - Right EyePrimary open-angle glaucoma(365.11)documented as of this encounter (statuses as of 11/12/2023) [facility]* Diagnosis Low-tension glaucoma of both eyes, unspecified glaucoma stage- Primary Keratitis sicca, bilateral (HCC) Other forms of keratitis History of trabeculectomy, right eye Other states following surgery of eye and adnexa documented [facility] this [facility]No [facility] Other Evaluation note* Diagnosis Chest discomfort Other chest pain SOB (shortness of breath) Shortness of breath Pure hypercholesterolemia Primary hypertension Unspecified essential hypertension [facility]* Diagnosis SOB (shortness of breath) Shortness of breath documented [facility]* Diagnosis Lung nodule- Primary Solitary pulmonary nodule documented [facility]* Diagnosis Low-tension glaucoma of both eyes, unspecified glaucoma stage- Primary Keratitis sicca, bilateral (HCC) Other forms of keratitis Pseudophakia, left eye Lens replaced by other means documented in this encounter [facility] note* Diagnosis Pre-op evaluation- Primary Preoperative examination, unspecified Combined forms of age-related cataract of right eye Other and combined forms of senile cataract Low-tension glaucoma of both eyes, unspecified glaucoma stage Other specified hypothyroidism Low-tension glaucoma of both eyes, unspecified glaucoma stage- Primary Keratitis sicca, bilateral Other forms of keratitis documented in this encounter [facility] CenterEvalusaint [facility]* Diagnosis Pre-op evaluation- Primary Preoperative examination, [...] by other means documented in this encounter [facility]* Diagnosis Pre-op evaluation- Primary Preoperative examination, [...] eye and adnexa documented in this encounter [facility] general Narrative - Reported* Type Description Date Medical History glaucoma Surgical HistorylithotripsySurgical Historybladder suspension, unspecified Surgical HistorytonsillectomySurgical HistoryCTS b/l handsSurgical History laparoscopySurgical HistorycolonoscopySurgical HistoryeyesHospitalization Historysee above [facility] Other History general Narrative - Reported* Type Description Date Medical History glaucoma Medical HistoryPostmenopausal bleedingMedical HistoryHistory of nephrolithiasis Medical HistoryAlopeciaMedical HistoryCystitisMedical HistoryAbnormal TSHMedical HistoryHypercholesterolemiaMedical HistoryAllergic contact dermatitis due to plants, except foodSurgical HistorylithotripsySurgical Historybladder suspension, unspecifiedSurgical HistorytonsillectomySurgical HistoryCTS b/l handsSurgical HistorylaparoscopySurgical HistorycolonoscopySurgical Historyeyes Hospitalization Historysee above [facility] Other History general Narrative - ReportedNomineral area regional medical [facility] Other History general Narrative - Reported* Type Description Date Medical History glaucoma Medical HistoryPostmenopausal bleedingMedical HistoryHistory of nephrolithiasis Medical HistoryAlopeciaMedical HistoryCystitisMedical HistoryAbnormal TSHMedical HistoryHypercholesterolemiaMedical HistoryAllergic contact dermatitis due to plants, except foodMedical HistoryPulmonary Nodule RLLSurgical History lithotripsySurgical Historybladder suspension, unspecifiedSurgical History tonsillectomySurgical HistoryCTS b/l handsSurgical HistorylaparoscopySurgical HistorycolonoscopySurgical HistoryeyesHospitalization Historysee above [facility] Other Summary Purpose Family History No Family [...] CONTRST 3D POST Zaire Fry MD [address] [place] [address] [address] [facility] [place] [address] Referral IDStatusReasonStart DateExpiration DateVisits RequestedVisits [id number] Auto-Generated Referral [id number] / ProceduresReferred By ContactReferred To [facility] Diagnoses SOB (shortness of breath) Procedures SPIROMETRY WITH DILATOR IF OBSTRUCTED BRNCDILAT RSPSE SPMTRY PRE&POST-BRNCDILAT ADMN Zaire Fry MD [address] [place] [address] [facility] [address] [place] [address] Referral IDStatusReasonStart DateExpiration DateVisits RequestedVisits [id number] Auto-Generated Referral [id number] / ProceduresReferred By ContactReferred To [facility] Diagnoses Chest discomfort SOB (shortness of breath) Pure hypercholesterolemia Procedures ECG COMPLETE ECG ROUTINE ECG W/LEAST 12 LDS W/I&R Zaire Fry MD [address] [place] [address] [facility] [address] [place] [address] Referral IDStatusReasonStart DateExpiration DateVisits RequestedVisits [id number] Review Auto-Generated Referral Reason Mrs. Mccray is being referred for dyspnea and chest pain Diagnosis 1 Precordial pain (R07 .2) Referral Organization [facility] Eric ayala Referring Provider First Name Hussein Referring Provider Last Name Sukhjinder Referring Provider Specialty Internal Me dicine Referred Organization [facility] Referred Address [address] [place] [place], [place],[address] Referred Provider Specialty Cardiology Referral Priority Routine [...] section and content) DATE CREATED AUTHOR 11/06/2021 [facility] DATE CREATED AUTHOR AUTHOR'S ORGANIZ ATION 01/01/[address] [facility] DATE CREATED AUTHOR AUTHOR'S ORGANIZ ATION 07/08/2023 [facility] DATE CREATED AUTHOR AUTHOR'S ORGANIZ ATION 11/16/2023 [facility] EPIC DATE CREATED AUTHOR AUTHOR'S ORGANIZ ATION 05/02/2024 [facility] EPIC DATE CREATED AUTHOR AUTHOR'S ORGANIZ ATION 02/18/2025 [facility] REASON FOR VISIT (unrecogniz ed section and content) ReasonCommentsLow-tension glaucoma of both eyes, moderate stageOUPosterior Vitreous Detachment EvaluationOUtrabeculectomyODPseudophakiaOUReasonComments External Referrals/resourcesReasonCommentsEstablish CareDyspnea On ExertionChest PainReasonCommentsSpirometrySpecialtyDiagnoses / ProceduresReferred By Contact [facility] Diagnoses SOB (shortness of breath) Procedures SPIROMETRY WITH DILATOR IF OBSTRUCTED BRNCDILAT RSPSE SPMTRY PRE&POST-BRNCDILAT ADMN Zaire Fry MD [address] [place] [address] [facility] [address] [place] [address] Referral IDStatusReasonStart DateExpiration DateVisits RequestedVisits [id number] Auto-Generated Referral 1ReasonOnset WqezZqcuvgvvTelrcs80/04/2023ReasonComments Yearly ExamReasonCommentsNormal/Low Tension GlaucomaReasonCommentsGlaucoma Follow UpReasonCommentsRefill RequestReasonCommentsLow-tension glaucoma of both eyes Source Comments (unrecognize d section and content) In the event this informatio n is protected by the Federal Confidentiality of Alcohol and Drug Abuse Patient Records regulations: The Federal rules restrict any use of the information to criminally investigate or prosecute any alcohol or drug abuse patient.[facility] CenterIn the event this information is protected by the Federal Confidentiality of Alcohol and Drug Abuse Patient Records regulations: The Federal rules restrict any use of the information to criminally investigate or prosecute any alcohol or drug abuse patient.[facility] CenterIn the event this information is protected by the Federal Confidentiality of Alcohol and Drug Abuse Patient Records regulations: The Federal rules restrict any use of the information to criminally investigate or prosecute any alcohol or drug abuse patient.[facility] CenterIn the event this information is protected by the Federal Confidentiality of Alcohol and Drug Abuse Patient Records regulations: The Federal rules restrict any use of the information to criminally investigate or prosecute any alcohol or drug abuse patient.[facility] CenterIn the event this information is protected by the Federal Confidentiality of Alcohol and Drug Abuse Patient Records regulations: The Federal rules restrict any use of the information to criminally investigate or prosecute any alcohol or drug abuse patient.[facility] CenterIn the event this information is protected by the Federal Confidentiality of Alcohol and Drug Abuse Patient Records regulations: The Federal rules restrict any use of the information to criminally investigate or prosecute any alcohol or drug abuse patient.[facility] CenterIn the event this information is protected by the Federal Confidentiality of Alcohol and Drug Abuse Patient Records regulations: The Federal rules restrict any use of the information to criminally investigate or prosecute any alcohol or drug abuse patient.[facility] CenterIn the event this information is protected by the Federal Confidentiality of Alcohol and Drug Abuse Patient Records regulations: The Federal rules restrict any use of the information to criminally investigate or prosecute any alcohol or drug abuse patient.[facility] CenterIn the event this information is protected by the Federal Confidentiality of Alcohol and Drug Abuse Patient Records regulations: The Federal rules restrict any use of the information to criminally investigate or prosecute any alcohol or drug abuse patient.[facility] CenterIn the event this information is protected by the Federal Confidentiality of Alcohol and Drug Abuse Patient Records regulations: The Federal rules restrict any use of the information to criminally investigate or prosecute any alcohol or drug abuse patient.[facility] CenterIn the event this information is protected by the Federal Confidentiality of Alcohol and Drug Abuse Patient Records regulations: The Federal rules restrict any use of the information to criminally investigate or prosecute any alcohol or drug abuse patient.[facility] Care Teams (unrecognized sec tion and content) Team MemberRelationshipSpecialtyStart DateEnd Date Hussein Rowan DO [address] [place] [address] PCP - GeneralInternal Medicine11/29/20Team MemberRelationshipSpecialtyStart Date End Date Hussein Rowan DO [address] [place] [address] PCP - GeneralInternal Medicine11/29/20Team MemberRelationshipSpecialtyStart Date End Date Hussein Rowan DO [address] [place] [address] PCP - GeneralInternal Medicine11/29/20Team MemberRelationshipSpecialtyStart Date End Date Hussein Rowan DO [address] [place] [address] PCP - GeneralInternal Medicine11/29/20Team MemberRelationshipSpecialtyStart Date End Date Hussein Rowan DO [address] [place] [address] PCP - GeneralInternal Medicine11/29/20Team MemberRelationshipSpecialtyStart Date End Date Hussein Rowan DO [address] [facility] [address] PCP - GeneralInternal Medicine11/29/20Team MemberRelationshipSpecialtyStart Date End Date Hussein Rowan DO [address] [facility] [place] [address] PCP - GeneralInternal [facility]11/29/20Team MemberRelationshipSpecialtyStart Date End Date Hussein Rowan DO [address] [facility] [place] [address] [facility] - [facility]11/29/20Team MemberRelationshipSpecialtyStart Date End Date Hussein Rowan DO [address] [facility] [place] [place] [address] PCP - [facility]11/29/20Team MemberRelationshipSpecialtyStart Date End Date Hussein Rowan DO [address] [facility] [place] [address] PCP - [facility]En[facility]11/29/20 FOR RECORDS PERTAINING TO PATIENTS WHO [...] BE BASED ON THE PRIMARY CLINICAL RECORDS. [employer] [facility]. provides no warranty or guarantee of the accuracy or completeness of information in this document.
--- OUTSIDE RECORDS SUMMARY | 2025-07-30 07:41 | XMS_ITS | Clinical Summary ---
Author Organization [facility] Healthcare Address [address] [place] [address] Care Team Providers [employer] Name Role Phone Hussein Rowan DO Primary Care Provider [phone] Allergies Active AllergyReactionsCriticalityNoted FfdtCkvwsaibRkyotkpckKzkjPsc81/25/2013 Hydrocodone-CqqipcuvfqvlhBnagrnp12/03/5149HjnkysSoojTft01/24/2023 Oxycodone-AcetaminophenGI fpclerrmnjp02/25/2013Sulfa AntibioticsGI intolerance 06/12/2013 Medications MedicationSigDispense QuantityRefillsLast FilledStart [...] and Gender InformationValueDate Recorded Sex Assigned at ZlcmcXjvbqo52/12/2024 10:53 AM EDTLegal RnyDpostg60/15/2023 7:01 PM EDTGender EtqhjnfqVqlfms28/12/2024 10:53 AM EDTSexual OrientationStraight 04/30/2024 10:53 AM EDT Last Filed Vital Signs Vital SignReadingTime TakenCommentsBlood Oheffkkh547/80011/15/2023 3:13 PM EDT Gujhq368511/15/2023 3:13 PM EDTTemperature--Respiratory Rate--Oxygen Saturation-- Inhaled Oxygen Concentration--Lmthbe17.9 kg (154 lb)11/15/2023 3:13 PM EDTHeight 157.5 cm (5' 2 )11/15/2023 3:13 PM EDTBody Mass Index28.17011/15/2023 3:13 PM EDT Plan of Treatment Not on file Insurance Care Teams Team MemberRelationshipSpecialtyStart DateEnd Date Hussein Rowan DO [facility] - General11/11/23
--- OUTSIDE RECORDS SUMMARY | 2025-07-30 07:41 | XMS_ITS | Clinical Summary ---
Author Organization [facility] Address [address] [place] [id number] Care Team Providers Care [employer] Name Role Phone Hussein Rowan DO Primary Care Provider [phone] Allergies Active AllergyReactionsCriticalityNoted DateCommentsHydrocodone-Acetaminophen Cqxknyd5805/21/20131522DngbyyVhrc83/24/2023Oxycodone-AcetaminophenGI Upset06/12/2013 Sulfa (Sulfonamide Antibiotics)GI Upset06/12/2013upropion IfbFwnx90/25/2013 Medications MedicationSigDispense QuantityRefillsLast FilledStart DateEnd DateStatus omega-3 fatty acids 1,000 mg cap Take 1 capsule by mouth once daily.ctive Evening Cadott Oil (EVENING PRIMROSE) 500 mg cap Take 1 capsule by mouth once daily.ctive Flaxseed Oil 1,000 mg cap Take 1 capsule by mouth once daily.ctive FLUAD QUAD 2020-21,65Y UP,,PF, 60 mcg (15 mcg x 4)/0.5 mL syrg PHARMACY CFSTRYCJYTFL60/07/2020Active levothyroxine (SYNTHROID) 25 mcg tablet Take 25 [...] mL 5Active Active Problems ProblemNoted DateDiagnosed DateChest bdeklispyz76/24/2023SOB (shortness of breath)06/11/2023ure ajajheemsjbbtqazrzzn66/24/2023rimary hypertension 06/11/2023Other specified owrorvaaehxavy07/06/2021 Assessment & Plan (11/22/2020 12:16 PM EDT): Assessment: started on synthroid recently by PCP. Keratitis sicca, dnlvlfqmy76/27/2017PVD (posterior vitreous detachment) 02/12/2017History of trabeculectomy, right [...] RecordedNational Score (1-100), lower number is lower agta057904/12/2023State Score (1-10), lower number is lower [id number] from: https://www.neighborhoodatlas.medicine.[facility].edu/. Last address used for crgofqoaq[address]3CommentsNoSex and Gender Information ValueDate RecordedSex Assigned at HvjteZucxql21/06/2021 11:56 AM ESTLegal Sex Iifgpx0805/25/2013 4:28 PM EDTGender UyaxejsrNcyeic57/06/2021 11:56 AM ESTSexual OitxdmovjydEijkyebt42/18/2021 1:39 PM EDT Last Filed Vital Signs Vital SignReadingTime TakenCommentsBlood Xkrkxvfg286/6907/05/2023 2:56 PM EST Ycjzy163407/05/2023 2:56 PM FCPYxebfdlkfqv19.1 ??C (97 ??F)07/05/2023 2:42 PM EST Respiratory Cttn705009/04/2022 2:56 PM ESTOxygen Stxklcllji96%07/05/2023 2:56 PM ESTInhaled Oxygen Concentration--Jkyyph90.3 kg (144 lb)06/11/2023 11:19 AM EDT Pdxxrb139.5 cm (5' 2 )06/11/2023 11:19 AM EDTBody Mass Index26.341 11:19 AM EDT Plan of Treatment DateTypeDepartmentCare Team (Latest Contact Info)Mpceyhayscl99/02/2026 1:15 PM ESTOffice Visit OPHT Ophthalmology [address] [place] [address] Len Dean, OD [address] [place] [address] [facility] [address] [id number] 6 Months Full OCT ON/GCAHealth MaintenanceDue DateLast DoneCommentsAnnual PCP Team Chronic Disease Visit1968Anxiety Wcryhttcs37/14/1969Depression Mqahzmljh73/14/1969Hepatitis C Nojharfyd96/14/1969DTaP,Tdap,Td Vaccine (1 - Tdap)1969Mammogram Owqerfasw24/14/1991CT Rjwgxpltcglu60/14/1996Cologuard (FIT-DNA)10/02/19954519Pfhttyixikq72/14/1996Colorectal Cancer Ifqqpirxr37/14/1996 Diabetes Smqfdngug52/14/1996Fecal Occult Blood1995Lipid Screening 10/02/19958209Kehgrulzjqrin47/14/1996Pneumococcal Vaccine: 50+ (1 of 1 - PCV) 2000Bone Density Becczfcnr05/14/2016Medicare Annual Wellness Visit 12/17/2018Advance Directive Mofficuuwc80/01/2025ovid-19 Vaccine ( season)/, 10/26/2020, 09/28/2020Influenza Vaccine (#1) /12/2021, 06/25/2020, 06/03/2019RSV Vaccine (1 - 1-dose 75+ series) 2025Shingrix [place]yn[place]29/28/2021, 06/25/2020 Medical Devices ImplantedTypeAreaManufacturerDevice IdentifierShelf Expiration DateModel / Serial / LotLens Iol 0d +20 Dante Uv Abs - [id number] Implanted:Qty: 1 on 11/29/2020 by Citlaly Cordon MD at [facility] Intraocular LensRight: Eye - [employer] [id number] / [id number] / Description:-0.09 Insurance Care Teams Team MemberRelationshipSpecialtyStart DateEnd Date Hussein Rowan DO [address] [place] [address] PCP - GeneralInternal Medicine11/29/20
[2025-07-30 08:06] LABS: Hematocrit 43.3 % (36.0-48.0); Hemoglobin 14.3 g/dL (12.0-16.0); Immature Granulocytes Abs Auto 0.01 10^3/uL (0.00-0.03); Immature Granulocytes Pct Auto 0.2 % (0.0-0.5); Lymphocytes Absolute Auto 1.7 10^3/uL (1.2-3.8); Mean Corpuscular HGB Conc 33.0 g/dL (29.9-35.2); Mean Corpuscular Hemoglobin 31.0 pg (26.7-34.0); Mean Corpuscular Volume 93.7 fL (81.0-99.0); Platelet Count 258 10^3/uL (150-450); Red Blood Count 4.62 10^6/uL (4.20-5.40); White Blood Count 4.5 10^3/uL (4.0-11.0)
[2025-07-30 08:39] LABS: Alanine Aminotransferase 21 U/L (14-59); Albumin Globulin Ratio 1.2; Albumin Level 4.1 g/dL (3.4-5.0); Alkaline Phosphatase 87 U/L (46-116); Anion Gap 12.1; Aspartate Amino Transferase 20 U/L (15-37); Blood Urea Nitrogen 26.0 mg/dL (7.0-18.0); Calcium 8.8 mg/dL (8.5-10.1); Carbon Dioxide 28.9 mmol/L (21.0-32.0); Chloride 107 mmol/L (98-107); Cholesterol 173 mg/dL (<=200); Estimated GFR (African America >60 (>=60 mL/min/1.73m^2); Estimated GFR (Non-African Ame >60 (>=60 mL/min/1.73m^2); Globulin 3.5 g/dL; Glucose 94 mg/dL (74-106); HDL Cholesterol 59 mg/dL (40-60); Potassium 4.0 mmol/L (3.5-5.1); Sodium 144 mmol/L (136-145); Thyroid Stimulating Hormone 5.020 uIU/mL (0.358-3.740); Total Protein 7.6 g/dL (6.4-8.2); Triglycerides 55 mg/dL (<=150); VLDL CHOLESTEROL 11.0 mg/dL
== END 2025-07-30 07:33 | disposition home or self-care (01) ==
LOC: LAB 07:36
PROVIDERS: PCP Internal Medicine; Visit Provider Internal Medicine
DX: E03.8 Other specified hypothyroidism (principal); E06.3 Autoimmune thyroiditis; E04.1 Nontoxic single thyroid nodule; D72.819 Decreased white blood cell count, unspecified; E78.00 Pure hypercholesterolemia, unspecified; I10 Essential (primary) hypertension
CPT/HCPCS: 36415; 80053; 80061; 82043; 82570; 84439; 84443; 84480; 85025

== ENCOUNTER 2025-08-09 07:58 | Outpatient (OUT) | payer MEDICARE, OTHER, SELFPAY ==
--- OUTSIDE RECORDS SUMMARY | 2025-08-02 06:09 | XMS_ITS | Continuity of Care Document ---
Author Organization [facility] Address [address] [place] [address] Phone Care Team Providers Care Application Specialist Name Role Phone HarpalHussein Primary Care Provider Hussein Rowan DO Attending Provider Care Teams Patient Care Team Team Status: Active Member Role/Relationship Status Dates Hussein Rowan DO Primary Care Provider Active Patient Care Team Team Status: Active Member Role/Relationship Status Dates Hussein Rowan DO Primary Care Provider Active Start: July 30, 2025 Trae Bojorquez ProviderActiveStart: July 30, 2025 Patient Care Team Team Status: Inactive Member Role/Relationship Status Dates Hussein Rowan DO Primary Care Provider Active Start: August 02, 2025 End: August 02Trae Deluca ProviderActiveStart: August 02, 2025 End: August 02, 2025 Chief Complaint and Reason for Visit Chief Complaint Admit Date 6 mo f/u August 02, 2025 10:21am Reason for Visit Admit Date Hypercholesterolemia August 02, 2025 10:21am Hypertension August 02, 2025 10:21am Hypothyroid August 02, 2025 10:21am Pulmonary nodule, right August 02, 2 025 10:21am Screening for colon cancer July 10:21am Screening mammogram for breast cancer De cember 2024 10:21am Allergies, Adverse Reactions, Alerts Allergen Type Severity Reaction Last Updated Verified Status Comments acetaminophen Allergy Unknown severe vomitting August 02, 2025 10:25am Yes Active bupropionAllergyUnknownUnknown ReactionDecember 2024 10:25amYesActive hydrocodoneAllergyUnknownUnknown ReactionDecemb2024 10:25amYesActive nickelAllergyUnknownUnknown ReactionDecemb2024 10:25amYesActiveOnset Date: 02/25/2018oxycodoneAllergyUnknownsevere vomittingDecember 2024 10:25amYesActiveSulfa (Sulfonamide Antibiotics)AllergyUnknownUnknown Reaction August 02, 2025 10:25amYesActive Social History Smoking Status Status Start Date End Date Date of Observa tion Never smoked tobacco (finding) December 12, 2023 3:24pm Observation Status Observation Response Date of Response Legal Sex Female (finding) [facility] 1950 Family History Relationship Condition Age at Onset Recorded Date/T estefany brother Unknown fatherDeceasedUnknownAlcoholismUnknownmotherMalignant neoplasmUnknownHistory of strokeUnknownDeceasedUnknownHeart diseaseUnknown Problems Active Problems Problem Diagnosis/Recorded Date Onset Date Status C omments Acute cystitis without hematuria July 20, 2024 11:08am Unknown Active Thyroid noduleDecember 2024 11:08pmUnknownActiveAcute otitis media of left ear with perforated tympanic membraneApril 2024 8:55amUnknownActive HypercholesterolemiaMay 2023 7:33pmUnknownActiveHypothyroidMay 2023 7:30pmUnknownActiveLeukopeniaDecember 2023 1:26pmUnknownActivePulmonary nodule, rightMay 2023 8:34amUnknownActiveCTA chest: 7mm RLL nodule - chest: multiple small nodules - chest: multiple 3-5mm nodules - chest: multiple 3-4mm nodules w/o change - 07/2025HypertensionMay 2023 7:29pmUnknownActiveCTA coronary arteries: normal, no atherosclerosis or stenosis - 06/2023,Echo: LVEF 65%, normal RV size/function, RVSP 25 - 12/2022,TMET: no arrhythmias or ST/T wave changes - 02/2023 Medications Medication Status Dose Units Route Directions Qty Days Refills S tart Date Stop Date End Date Reason(s) Instructions Adherence Losartan 25 mg tablet Discontinued 0 .ROUTE.DWJDKDD416Pqvph 2023 2:55pmFebruary 2024 5:10pmTAKE 1 TABLET BY MOUTH EVERY DAYLevothyroxine 25 mcg hwujzlLvxfgvqraulr82LUJOGRfpwnVru 2023 4:45pmAugust 2023 1:33pmLevothyroxine 50 mcg yipwhdWmnhgqjtjozz45ELLRC Jamzk206025Gupzwm 2023 1:32pmMay 2024 6:41amMetronidazole 500 mg czidnhOuurqiotqdpd314PTHOOoajn meadb7652Fcudeopp 2023 12:00amApril 2024 8:36amLosartan 25 mg tabletActive0.ROUTE.XTKPTJK404Rjsjtgfs 2024 5:10pmTAKE 1 TABLET BY MOUTH EVERY DAYComplies with drug therapyLevothyroxine 50 mcg tabletActive0.ROUTE.TODXVXQ928Xkr 2024 6:41amTAKE 1 TABLET BY MOUTH EVERY DAYComplies with drug therapyLevofloxacin 250 mg zffgweVvmkdxetmrjm530KIIG Pwhck791Bwerxklp 2023 12:00amDecember 2023 12:42pmCiprofloxacin- Dexamethasone 0.3-0.1 % drops,etbrtjhakfHepednjxwlqx7ICKJXFDF-WFWRCsbtt daily7.5 70April 2024 11:00pmJune 2024 9:33amCefdinir 300 mg capsule Yrwtngcffxfj233WSGRCuvuq lmvrf62896Egfui 2024 11:00pmJune 2024 9:33am Levothyroxine 25 mcg cspqauCuihdofhtpud53FTZZXTwqgxZfx 2023 11:00pmMay 2023 4:46pmLosartan 25 mg zvgqcsGiipbhlofqvc52WVPURmavrBwdwa 2023 11:00pmApril 2023 2:55pm Immunizations Immunization Event Date Not Given Reason Dose Number Vasc Tech Lot Number Reason(s) Given Vaccine Information Statement (VIS) Detail Administration Location COVID-19 mRNA-1273 (Moderna) September 28, 2020 COVID-19 mRNA-1273 (Moderna)October 26OVID mRNA, Comirnaty (Pfizer) June 09OVID- mRNA Bivalent Booster (Pfizer)May 08, 2022 COVID-19 (PFIZER) 12Y and [id number]-31 (PFIZER) 12Y and olderOctober [id number]-84 (PFIZER) 2023 12Y and olderSeptember [id number] TIV High-Dose 65YR+June 03, 2991ET809OJGmsayto TIV High-Dose 65YR+May 04, 2025U8837DAFluzone QIV High-Dose 65YR+May 16, 2021UJ742AAFluzone QIV High-Dose 65YR+ June 23, [id number], trivalentOctober , [id number] vaccine, quadrivalent, adjuvantedNovember , [id number] vaccine, quadrivalent, adjuvantedSeptember , [id number], unspecified formulationNovember , 2019influenza, unspecified formulationNovember , 2RSV, preF3, adj, pfNovember , [id number] Vaccine Recombinant, AdjuvantedNovember 2019Zoster Vaccine Recombinant, AdjuvantedApril , hingles (Zoster)June 25, 2020 Relevant Diagnostic Tests and/or Laboratory Data Laboratory Results Test Collection Date/Time Result Date/Time Result Interpretation Reference Range Result Comment Performing Site Urine Random Creatinine July 30, 025 7:40am July 30, 2025 7:40am 93.67 mg/dL 20.00-300.00Total TriiodothyronineDecember 2024 7:46amDecember 2024 7:62ju504 ng/wI06-089Pdnebhpks at: CB - [facility] [address] [place], [place] [id number] Director: Mauricio Goddard PhD, Phone: [phone] July 30, 2025 7:46amDe2024 7:46am1.09 ng/dL0.76-1.46Thyroid Stimulating Hormone 3rd GenJuly 30, 2025 7:46amJuly 30, 2025 7:46am 5.020 u[iU]/mLAbove high normal0.358-3.740Cholesterol/HDL RatioJuly 30, 2025 7:46amDe2024 7:46am2.93.3 - 4.4 LOW RISK4.4 - 7.1 AVERAGE RISK7.1 - 11.0 MODERATE RISK>11.0 HIGH RISKAnion GapJuly 30, 2025 7:46am July 30, 2025 7:46am12.1Basophils # (Auto)July 30, 2025 7:46am July 30, 2025 7:46am0.0 10 3/uL0.0-0.1Urine Random MicroalbuminJuly 30, 2025 7:40amJuly 30, 2025 7:40am<1.3 mg/dL<=30.0Cholesterol Level July 30, 2025 7:46amDe2024 7:89fp316 mg/dL<=200 Albumin/Globulin RatioJuly 30, 2025 7:46amDece2024 7:46am1.2 Basophils (%) (Auto)July 30, 2025 7:46amDe2024 7:46am0.9 % 0.2-2.0HDL CholesterolJuly 30, 2025 7:46amDe2024 7:46am59 mg/dL40-60> or =60 mg/dl - LOW CARDIOVASCULAR RISK<40 mg/dl - HIGH CARDIOVASCULAR RISKAlbuminJuly 30, 2025 7:46amDece2024 7:46am 4.1 g/dL3.4-5.0Eosinophils # (Auto)July 30, 2025 7:46amDe2024 7:46am0.1 10 3/uL0.0-0.7LDL Cholesterol, CalculatedJuly 30, 2025 7:46am July 30, 2025 7:96ph973.0 mg/dL<100 mg/dl XXSVVFB142-968 mg/dl NEAR OR ABOVE LAFJEMA263-020 mg/dl BORDERLINE WZVT241-167 mg/dl HIGH>190 mg/dl VERY HIGH Alkaline PhosphataseDe2024 7:46amJuly 30, 2025 7:46am87 U/L 46-116Eosinophils (%) (Auto)July 30, 2025 7:46amJuly 30, 2025 7:46am 2.0 %0.9-7.0Triglycerides LevelDe2024 7:46amJuly 30, 2025 7:46am55 mg/dL<=150Alanine Aminotransferase (ALT/SGPT)July 30, 2025 7:46am July 30, 2025 7:46am21 U/G37-53XmwiclvvyoLwgsqkyc 12th, 2025 7:46am July 30, 2025 7:46am43.3 %36.0-48.0VLDL CholesterolDe2024 7:46amJuly 30, 2025 7:46am11.0 mg/dLAspartate Amino Transf (AST/SGOT) July 30, 2025 7:46amJuly 30, 2025 7:46am20 U/R14-73Kbmpjwxbyd July 30, 2025 7:46amDe2024 7:46am14.3 g/dL12.0-16.0 BUN/Creatinine RatioJuly 30, 2025 7:46amDe2024 7:46am29.9 Immature Granulocyte # (Auto)July 30, 2025 7:46amJuly 30, 2025 7:46am0.01 10 3/uL0.00-0.03Blood Urea NitrogenJuly 30, 2025 7:46amDe2024 7:46am26.0 mg/dLAbove high normal7.0-18.0Immature Granulocyte % (Auto)July 30, 2025 7:46amDecember 2024 7:46am0.2 %0.0-0.5Calcium LevelDecember 2024 7:46amDecember 2024 7:46am8.8 mg/dL8.5-10.1 Lymphocytes # (Auto)July 30, 2025 7:46amDecember 2024 7:46am1.7 10 3/uL1.2-3.8Chloride LevelDecember 2024 7:46amDecember 2024 7:83cw594 mmol/T53-156Vqawjlgmqvj (%) (Auto)July 30, 2025 7:46amDecember 2024 7:46am38.1 %20.5-60.0Carbon Dioxide LevelDecemb2024 7:46amDecember 2024 7:46am28.9 mmol/L21.0-32.0Mean Corpuscular HemoglobinDecemb2024 7:46amDecember 2024 7:46am31.0 pg26.7-34.0CreatinineDece2024 7:46amDecember 2024 7:46am0.87 mg/dL0.55-1.02Mean Corpuscular Hemoglobin ConcentDecemb2024 7:46amDecember 2024 7:46am33.0 g/dL 29.9-35.2Estimated GFR ()July 30, 2025 7:46amDecemb2024 7:46am>60>=60 mL/min/1.73m 2Mean Corpuscular VolumeDece2024 7:46amDecemb2024 7:46am93.7 fL81.0-99.0Estimated GFR (Non- AmericanDece2024 7:46amDecemb2024 7:46am>60>=60 mL/min/1.73m 2Monocytes # (Auto)July 30, 2025 7:46amDecember 2024 7:46am0.3 10 3/uL0.3-0.8GlobulinDecemb2024 7:46amDecember 2024 7:46am3.5 g/dL Monocytes (%) (Auto)July 30, 2025 7:46amDecember 2024 7:46am7.3 % 1.7-12.0Glucose LevelDecemb2024 7:46amDecember 2024 7:46am94 mg/pS94-851Jreb Platelet VolumeJuly 30, 2025 7:46amDecember 2024 7:46am9.5 fL9.5-13.5Potassium LevelDecemb2024 7:46amDecember 2024 7:46am4.0 mmol/L3.5-5.1Neutrophils # (Auto)July 30, 2025 7:46amDecember 2024 7:46am2.3 10 3/uL1.4-6.5Sodium LevelDecemb2024 7:46am July 30, 2025 7:50me735 mmol/X897-718Pxjrguuhyug (%) (Auto)July 30, 2025 7:46amDecember 2024 7:46am51.5 %43.0-75.0Total BilirubinDece2024 7:46amDecember 2024 7:46am0.4 mg/dL0.2-1.0Platelet Count July 30, 2025 7:46amDecemb2024 7:54vn619 10 3/mR553-358Ypynk ProteinDece2024 7:46amDecember 2024 7:46am7.6 g/dL6.4-8.2Red Blood Countce2024 7:46amDecemb2024 7:46am4.62 10 6/uL 4.20-5.40Red Cell Distribution WidthDecemb 12th, 2025 7:46amDe2024 7:46am11.7 %11.0-15.0Corrected White Blood CountDe2024 7:46am July 30, 2025 7:46am4.5 10 3/uL4.0-11.0 Vital Signs Vital Reading Result Reference Range Collection Date/Time Height 60 [in_i] August 02, 2025 10:94zzXlmidn28.95 kgce2024 10:28amHeart Rate68 /okh82-155LjlyhxsfAugust 02, 2025 10:28amRespiratory rate12 /eoc33-81Fbwuelpz 15th, 2025 10:28amBP Btriioph510 mm[Hg]100-140August 02, 2025 10:28amBP Diastolic 77 mm[Hg]60-100Deceer 2024 10:28amBMI (Body Mass Index)27.5 kg/m2 August 02, 2025 10:28am Advance Directives Advance Directive Response Recorded Date/ Time Advance Directives No October 17 4:49pm Insurance Providers Guarantor Corrie Mccray Address [address] [id number] Info.Home Phone: Payer Group Member ID Coverage Type Subscriber Relationship to Subscriber Effective Date Expiration Date MMO Id: [id number] A Meyers Id: [id number] [address] [facility] [address] Home Phone: Email: [email or web address] MobileSelfMedicare [id number] A Shazia Id: [id number] [address] [facility] [address] Home Phone: Email: [email or web address] Encounters Encounter Location(s) Arrival/Admit Date Discharge/Departure Date Discharge/Departure Disposition Provider(s) Non-patient / Non-visit -[facility] ecember 2024 7:46am Hussein Ball , DODeparted Physician/Provider Office [facility] 10:21amDecember 2024 11:08amDischarged to home care or self care (routine discharge)Hussein Rowan , DO Recent Diagnosis Onset Date Admit Date Hypercholesterolemia Unknown August 022024 10:21am Hypertension Unknown August 02, 2 025 10:21am Hypothyroid Unknown August 02 10:21am Pulmonary nodule, right Unknown August 02, 2025 10:21am Screening for colon cancer Unknown Decem orquidea 2024 10:21am Screening mammogram for breast cancer Unknown August 02, 2025 10:21am Assessments Diagnosis Onset Date Resolution Status Admit Date Hypercholesterolemia acuteDeceer 2024 10:21amHypertensionacuteDeceer 2024 10:21am HypothyroidacuteDeceer 2024 10:21amPulmonary nodule, rightacuteDeceer 2024 10:21amScreening for colon cancernoneactiveDe[facility] hospital[facility] 2024 10:21amScreening mammogram for breast cancernoneactiveDeceer 2024 10:21am Plan of Treatment Author Hussein [facility] 20[facility] 10:27pmI have instructed this patient to consume a healthy, low-fat, low-salt diet. I have also encouraged them to continue exercise with weight loss to achieve/maintain a BMI < 30. I have instructed this patient on the correct procedure for obtaining home BP measurements:? - rest for 5 minutes w/o talking. - positioned w/ feet on floor and arms supported. - average best 2/3 readings w/ goal < 135/85. - update office w/ home readings in 2 weeks. Clinically euthyroid, Monitor yearly TSH She denies CP, dyspnea or hemoptysis. CT chest: 06/2024 I have instructed this patient on a low fat, high fiber diet and exercise. I have discussed the primary and secondary prevention benefits attributed to lowering LDL cholesterol. I have also discussed the medical treatment of elevated cholesterol, which is based on the 10 year ASCVD risk. I have instructed this patient on monthly SBE and recommended yearly mammograms. This is an asymptomatic, low risk patient, who is due for a screening. There has been no change in appetite, weight or bowel habits. There is no history of abdominal pain, heartburn, dysphagia, melena or hematochezia. Last colonoscopy 2014 Declines colonoscopy, will send Cologuard Future Tests Future scheduled test information is unavailable Pending Tests Pending diagnostic test information is unavailable Future Visits Future appointment information is unavailable Future Procedures Future procedure information is unavailable Future Medications Future medication information is unavailable Patient Instructions Patient instructions are unavailable
--- NOTE | 2025-08-09 08:01 | US_ITS ---
The [address] [address] Patient Name: KARLENE DOMINGO MRN: [id number] date: 1950 Sex: F Assigned Patient Location: [facility] Current Patient Location: [facility] Accession/Order Number: [id number] Exam Date: 08/09/2025 08:02 Report Date: 08/09/2025 10:07 At the request of: SULY SLAUGHTER DO Procedure: US thyroid THYROID ULTRASOUND CLINICAL DATA: Hypothyroidism. Thyroid nodule COMPARISON: Chest CT 07/27/2025 The right thyroid lobe measures 4.3 x 1.3 x 0.9 cm. The left lobe measures 3.5 x 1.0 x 0.8 cm. The isthmus measures 2 mm. There is normal echogenicity. Bilateral thyroid nodules are seen. At the superior pole on the right, there is heterogeneous mixed echogenicity nodule measuring 8 x 4 x 4 mm (TI-RADS 2). At the inferior pole on the right, there is another heterogeneous nodule measuring 12 x 6 x 12 mm (TI-RADS 3). On the left at the midpole there is a nearly isoechoic nodule with hypoechoic rim measuring 8 x 5 x 8 mm (TI-RADS 3). US/US thyroid IMPRESSION: SMALL THYROID NODULES, DESCRIBED. Impression dictated by: Bridgette Delgado M.D. 08/09/2025 10:07 AM Dictation Location: [place] [address] Electronically authenticated by: [id number] Y Date: 08/09/2025 10:07
--- OUTSIDE RECORDS SUMMARY | 2025-08-09 08:02 | XMS_ITS | Clinical Summary ---
Author Organization [facility] Address [address] [place] [address] Care Team Providers Care Business Services Representative Name Role Phone Hussein Rowan DO Primary Care Provider [phone] Allergies Active AllergyReactionsCriticalityNoted CwmoWlbnvddhOlgfdcugsUfnwZbv89/25/2013 Hydrocodone-NvscdbmlrgrkaWehgmxt41/03/2530ZpmusiJqhkBvi48/24/2023 Oxycodone-AcetaminophenGI fiabmfkwuhx86/25/2013Sulfa AntibioticsGI intolerance 06/12/2013 Medications MedicationSigDispense QuantityRefillsLast FilledStart [...] and Gender InformationValueDate Recorded Sex Assigned at TlvbwQabxkv61/12/2024 10:53 AM EDTLegal MrkZdmufi30/15/2023 7:01 PM EDTGender LyaxdiajKcsync57/12/2024 10:53 AM EDTSexual OrientationStraight 04/30/2024 10:53 AM EDT Last Filed Vital Signs Vital SignReadingTime TakenCommentsBlood Arildscu666/80011/15/2023 3:13 PM EDT Tcxjy187311/15/2023 3:13 PM EDTTemperature--Respiratory Rate--Oxygen Saturation-- Inhaled Oxygen Concentration--Qojzzd67.9 kg (154 lb)11/15/2023 3:13 PM EDTHeight 157.5 cm (5' 2 )11/15/2023 3:13 PM EDTBody Mass Index28.17011/15/2023 3:13 PM EDT Plan of Treatment Not on file Insurance Care Teams Team MemberRelationshipSpecialtyStart DateEnd Date Hussein Rowan DO [facility] - General11/11/23
--- OUTSIDE RECORDS SUMMARY | 2025-08-09 08:02 | XMS_ITS | Clinical Summary ---
Author Organization [facility] Address [address] [place] [address] Care Team Providers Care Conflict Resolution Professional Name Role Phone Hussein Rowan DO Primary Care Provider [phone] Allergies Active AllergyReactionsCriticalityNoted DateCommentsHydrocodone-Acetaminophen Yprmnae2105/21/20139340OrqptuYkpp12/24/2023Oxycodone-AcetaminophenGI Upset06/12/2013 Sulfa (Sulfonamide Antibiotics)GI Upset06/12/2013upropion DviDzmo30/25/2013 Medications MedicationSigDispense QuantityRefillsLast FilledStart DateEnd DateStatus omega-3 fatty acids 1,000 mg cap Take 1 capsule by mouth once daily.ctive Evening Highland Oil (EVENING PRIMROSE) 500 mg cap Take 1 capsule by mouth once daily.ctive Flaxseed Oil 1,000 mg cap Take 1 capsule by mouth once daily.ctive FLUAD QUAD 2020-21,65Y UP,,PF, 60 mcg (15 mcg x 4)/0.5 mL syrg PHARMACY MNORUNNLDJDW91/07/2020Active levothyroxine (SYNTHROID) 25 mcg tablet Take 25 [...] mL 5Active Active Problems ProblemNoted DateDiagnosed DateChest fenmhskbls81/24/2023SOB (shortness of breath)06/11/2023ure vdqydmypddurkngxfbif59/24/2023rimary hypertension 06/11/2023Other specified huxswzvcvbgxvn42/06/2021 Assessment & Plan (11/22/2020 12:16 PM EDT): Assessment: started on synthroid recently by PCP. Keratitis sicca, /27/2017PVD (posterior vitreous detachment) 02/12/2017History of trabeculectomy, right [...] RecordedNational Score (1-100), lower number is lower upvq432604/12/2023State Score (1-10), lower number is lower vqjy7703Data from: https://www.neighborhoodatlas.medicine.[facility].edu/. Last address used for qzauzqbejol[address]3CommentsNoSex and Gender Information ValueDate RecordedSex Assigned at WkgetGdiwbh27/06/2021 11:56 AM ESTLegal Sex Ggtsnu0505/25/2013 4:28 PM EDTGender TfdcvtucPsexjg23/06/2021 11:56 AM ESTSexual HkoevrhbogqPjeqojul42/18/2021 1:39 PM EDT Last Filed Vital Signs Vital SignReadingTime TakenCommentsBlood Kmsbjqlr845/6907/05/2023 2:56 PM EST Nglkw002707/05/2023 2:56 PM SOBRykfaupavui54.1 ??C (97 ??F)07/05/2023 2:42 PM EST Respiratory Ihxw468509/04/2022 2:56 PM ESTOxygen Voxgrahmph95%07/05/2023 2:56 PM ESTInhaled Oxygen Concentration--Ufvjls33.3 kg (144 lb)06/11/2023 11:19 AM EDT Ekcwjw975.5 cm (5' 2 )06/11/2023 11:19 AM EDTBody Mass Index26.341 11:19 AM EDT Plan of Treatment DateTypeDepartmentCare Team (Latest Contact Info)Rkhswrkcrhe22/02/2026 1:15 PM ESTOffice Visit [facility] [address] [place] [address] Len Dean, OD [address] [place] [address] [facility] [address] [id number] 6 Months Full OCT ON/GCAHealth MaintenanceDue DateLast DoneCommentsAnnual PCP Team Chronic Disease Visit1968Anxiety Odbxkagez22/14/1969Depression Stpjzgunt21/14/1969Hepatitis C Gkkygqjbw26/14/1969DTaP,Tdap,Td Vaccine (1 - Tdap)1969Mammogram Wonswbejr19/14/1991CT Ypejdyatoknw28/14/1996Cologuard (FIT-DNA)10/02/19958217Bzhhzcyxrju48/14/1996Colorectal Cancer Xgqjfkwbc24/14/1996 Diabetes Iovswbbzb72/14/1996Fecal Occult Blood1995Lipid Screening 10/02/19954021Cxryukcijimsz73/14/1996Pneumococcal Vaccine: 50+ (1 of 1 - PCV) 2000Bone Density Fjwbnzrfl46/14/2016Medicare Annual Wellness Visit 12/17/2018Advance Directive Rpspjhvmqi89/01/2025ovid-19 Vaccine ( season)/, 10/26/2020, 09/28/2020Influenza Vaccine (#1) /12/2021, 06/25/2020, 06/03/2019RSV Vaccine (1 - 1-dose 75+ series) 2025Shingrix SggtkorUcclmwdfe07/28/2021, 06/25/2020 Medical Devices ImplantedTypeAreaManufacturerDevice IdentifierShelf Expiration DateModel / Serial / LotLens Iol 0d +20 Dante Uv Abs - [id number] Implanted:Qty: 1 on 11/29/2020 by Citlaly Cordon MD at [facility] Intraocular LensRight: Eye - LensALCON LABS [id number]/14/[id number].200 / [id number] / Description:-0.09 Insurance Care Teams Team MemberRelationshipSpecialtyStart DateEnd Date Hussein Rowan DO [address] [place] [address] PCP - GeneralInternal Medicine11/29/20
== END 2025-08-09 07:59 | disposition home or self-care (01) ==
LOC: RAD 07:58
PROVIDERS: PCP Internal Medicine; Visit Provider Internal Medicine
DX: E03.8 Other specified hypothyroidism (principal); E06.3 Autoimmune thyroiditis; E04.1 Nontoxic single thyroid nodule; Z78.0 Asymptomatic menopausal state; M85.88 Other specified disorders of bone density and structure, other site
CPT/HCPCS: 76536; 77080